=== PATIENT | male | born 1960 | race Caucasian/White ===

== ENCOUNTER 2024-12-26 15:19 | Outpatient (AMB) | payer OTHER, SELFPAY ==
--- NOTE | 2024-12-26 15:21 | A.OFFVIS_ITS ---
Intake Visit Reasons: elevated PSA and BPH PSA 6.77 Intake Note: Patient is present for ELEVATED PSA AND BPH PSA 6.77 Urology Medication:TAMSULOSIN,SILDENAFIL Antibiotic Allergy:NONE Blood Thinner:ASPIRIN TODAY'S PVR:19ML'S Telephone Lines Repairer Required: No Allergies No Known Allergies Allergy (Verified 12/26/24 20:52) Medication List - Last Reconciled 12/26/24 by ERWIN JesusP- aspirin 81 mg PO DAILY atorvastatin 5 mg PO BEDTIME sildenafil mg PO tamsulosin 0.8 mg PO DAILY HPI Comments Details: Robert Prince is a 64-year-old male patient of Dr. Chaudhary. He has a past medical history of GERD, hemodialysis post Whipple, history of tracheotomy after Whipple, hyperlipidemia, and malignant neoplasm of pancreas. He presents to the office today as a new patient for an elevated PSA and BPH. In discussion with the patient today he reports having previously followed up with Pooja in [place] through [facility]. He reports a proximally 6 months ago he underwent a prostate MRI as well as a prostate biopsy and was told he did not have prostate cancer. In review of patient's chart there are no previous urological notes however PCP no mentions patient undergone a prostate biopsy which revealed some irregular cells, though it was not concerning. He reports last PSA earlier this year was 6.6. He reports previous urologist had recommended he undergo a Rezum procedure on his prostate as he does experience issues with nocturia. We did discussed the importance of signing medical release form to obtain previous urology records for continuity of care. He is enquiring further workup for prostate procedure. We did discuss follow-up with Dr. Glass for in office cystoscopy. Information provided regarding in office cystoscopy as well as GreenLight laser of the prostate. He is currently on Flomax and does feel this is helpful. He is requesting refill. In office urinalysis results reviewed with the patient today. PVR 19 mL. All questions were answered to the best of my ability. He otherwise offers no other issues or concerns at this time. Review of Systems Const All systems reviewed & are unremarkable except as noted in HPI and below Physical Exam Const General: cooperative, healthy appearing, comfortable, no acute distress, well developed, alert and awake Orientation/consciousness: patient oriented x3 Limitations: no limitations HEENT Head: Yes normal to inspection, Yes normocephalic and Yes atraumatic Ears: hearing grossly normal bilaterally Eyes General: appearance normal, both eyes and all related structures Neck Neck: Yes normal visual inspection and Yes trachea midline Chest Chest palpation & inspection: normal inspection of the chest Resp Effort & Inspection: normal respiratory effort and able to speak in complete sen tences Cardio Rate: regular rate GI Inspection: Yes normal to inspection General: Yes no CVA tenderness Back/Spine/Pelvis Back: no CVA tenderness Skin General skin exam: no rashes or lesions noted Neuro General: patient oriented x3 Extrem General: Yes normal to inspection Psych Appearance: grossly normal and well kempt Mental Status: mental status grossly normal Speech and movement: Normal speech and movement present and Clear speech present Affect: normal affect Attitude: cooperative Thought process: Normal thought process present Thought content: Normal thought content present Insight: Fair insight present (Psych) Judgement: Fair judgement present (Psych) Office Procedures Post Void Residual Post Residual Void Post Void Residual (PVR): 19 24542-Pvto Void Residual by ultrasound Results AMB Urinalysis, Automated UA Leukoctes 0 Estela/uL Last Edit by JACOBY Montes on 12/26/24 15:41 UA Nitrite Negative Last Edit by Deandre Srinivasan CCM on 12/26/24 15:41 UA Urobilinogen 0.2 mg/dL Last Edit by JACOBY Montes on 12/26/24 15:4 1 UA Protein 0 mg/dL Last Edit by Deandre Srinivasan CCM on 12/26/24 15:41 UA pH 6.0 Last Edit by Deandre Srinivasan CCM on 12/26/24 15:41 UA Blood 0 Shlomo/uL Last Edit by Deandre Srinivasan CCM on 12/26/24 15:41 UA Specific Lincoln 1.020 Last Edit by JACOBY Montes on 12/26/24 15: 41 UA Ketone Negative Last Edit by JACOBY Montes on 12/26/24 15:41 UA Bilirubin 0 mg/dL Last Edit by JACOBY Montes on 12/26/24 15:41 UA Glucose 0 mg/dL Last Edit by Deandre Srinivasan CCM on 12/26/24 15:41 Results Reviewed Results Reviewed: Laboratory Last Values Urine pH (Auto) 6.0 12/26/24 15:26 Specific Lincoln (Auto) 1.020 12/26/24 15:26 Urine Protein (Auto) 0 mg/dL 12/26/24 15:26 Glucose (UA)(Auto) 0 mg/dL 12/26/24 15:26 Urine Ketones (Auto) Negative 12/26/24 15:26 Urine Blood (Auto) 0 Shlomo/uL 12/26/24 15:26 Urine Nitrite (Auto) Negative 12/26/24 15:26 Urine Bilirubin (Auto) 0 mg/dL 12/26/24 15:26 Urine Urobilinogen (Auto) 0.2 mg/dL 12/26/24 15:26 Leukocyte Esterase (Auto) 0 Estela/uL 12/26/24 15:26 Assessment & Plan Assessment & Plan (1) Elevated PSA: Code(s): R97.20 - Elevated prostate specific antigen [PSA] Category: Medical (2) BPH loc w urin obs/LUTS: Code(s): N40.1 - Benign prostatic hyperplasia with lower urinary tract symptoms Category: Medical Plan In office urinalysis results reviewed with the patient today; as noted above. PVR 19 mL. Previous PCP notes were reviewed; as noted above. Medical release form was signed will attempt to obtain previous urology records for continuity of care. Information was given regarding in office cystoscopy as well as GreenLight laser of the prostate. Refill provided on tamsulosin. We did discussed initiation of finasteride We did discuss potential causes of nocturia as well as further treatment options and risks and benefits of these treatment options. All questions were answered. Follow-up next available in office cystoscopy with Dr. Glass; or sooner with any issues, concerns, and or questions. Orders: Orders AMB Urinalysis Automated Today Z13.9 - Encounter for screening, unspecified PSA,Total (Free>4and<10) Today N40.1 - Benign prostatic hyperplasia with lower urinary tract symptoms, R97.20 - Elevated prostate specific antigen [PSA] Patient Instructions: The patient had an opportunity to ask questions regarding the treatment plan. All questions were answered. Physical exam, labs, and imaging were discussed and reviewed in detail. As well as risks, benefits, and discussion of treatment choices. No major barriers to understanding were identified. The patient expressed understanding and agreement with the above treatment plan. The patient was made aware they should contact our office by phone for worsening of their current condition, the appearance of new symptoms, or with any questions or concerns. Compliance is encouraged with any medications and follow up testing that is ordered. It is a privilege to be allowed the opportunity to participate in? your urological care.? Again, if you have any questions or concerns If you have any questions or concerns please do not hesitate to contact me. The office is [phone]. This note is constructed using voice recognition software. While every effort has been made to ensure accuracy biofuels plant manager errors may have been included. Yours sincerely, MAGALIS Jesus Coding Level of Care Code New Pt Level 4 (28387) Diagnoses Elevated PSA R97.20 BPH loc w urin obs/LUTS N40.1 CPT Codes Post Residual Void - PVR CPT Code: 78728-Zfev Void Residual by ultrasound ([id number])
--- OUTSIDE RECORDS SUMMARY | 2024-12-26 17:45 | XMS_ITS | Encounter Summary ---
Author Organization [facility] Address [address] [place] [address] Phone Care Team Providers Care Motor Carrier Inspector Name Role Phone Delon Kaur MD Primary Care Provider [phone] Gal Hernandez MD Unavailable [phone] Yumi Chaudhary MD Primary Care Provider [phone] Yumi Chaudhary MD Unavailable Encounter Details Date Type Department Care Team (Late st Contact Info) Description 09/27/2020 Procedure Pass [facility] [address] [place] [address] Social History Tobacco Use Types Packs/Day Years Used Date Smoking Tobacco: Never Smokeless Tobacco: Never Alcohol Use Standard Drinks/Week Comments Not Currently 5 (1 standard drink = 0.6 oz pure alcohol) I have not been drinking hardly since the appendectomy Sex and Gender Information Value Date Recorded Sex Assigned at Male 07/16/2020 1:37 PM EDT Legal Sex Male 9:47 PM EDT Gender Identity Male 07/16/2020 1:37 PM EDT Sexual Orientation Straight 07/16/2020 1: 37 PM EDT documented as of this encounter Plan of Treatment Upcoming Encounters Date Type Department Care Team (Late st Contact Info) Description 05/11/2024 Procedure Pass [facility] MR Imaging, [place] [address] [place] [address] 02/14/2025 3:00 PM EST Office Visit [facility] [place] [facility] [address] [facility] [address] [place] [address] Yumi Chaudhary MD [address] [facility] [place] [address] [email or web address] 05/17/2025 9:15 AM EST Appointment [facility] MR Imaging, [place] [address] [place] [address] Cali Juarez MD 75 [place] [address] [email or web address] 05/17/2025 1:00 PM EST Office Visit [facility] Surgical Oncology [address] [facility] [place] [address] Cali Juarez MD [address] [place] [address] [email or web address] documented as of this encounter Visit Diagnoses Not on filedocumented in this encounter Additional Health Concerns Infection Onset Date Last Indicated Resolved Time 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 Date of last exposure 11/13/20 11/14/2020 11/14/2020 11/28/2020 1:43 AM E DT documented as of this encounter Care Teams Motor Carrier Inspector Relationship Specialty Start Date End Date Delon Kaur MD [address] [place] [address] PCP - General Family Medicine 05/24/17 01/12/22 Yumi Chaudhary MD [address] [facility] [place] [address] [email or web address] PCP - General Family Medicine 01/13/22 Gal Hernandez MD 9 [place] [address] 07/23/20 Yumi Chaudhary MD [address] [place] [address] [email or web address] Insurance Assigned Provider 07/09/23 documented as of this encounter Additional Source Comments The information contained in this document represents components of the legal health record. It is not the complete legal health record.[facility]
--- OUTSIDE RECORDS SUMMARY | 2024-12-26 17:45 | XMS_ITS | Encounter Summary ---
Author Organization [facility] Address [address] [place] [address] Phone Care Team Providers Care Buttermaker Continuous Churn Name Role Phone Delon Kaur MD Primary Care Provider [phone] Gal Hernandez MD Unavailable [phone] Yumi Chaudhary MD Primary Care Provider [phone] Yumi Chaudhary MD Unavailable Encounter Details Date Type Department Care Team (Late st Contact Info) Description 09/27/2020 Procedure Pass [facility] 75 [place] [address] Social History Tobacco Use Types Packs/Day Years [...] st Contact Info) Description 05/11/2024 Procedure Pass [facility] MR Imaging, [place] [address] [place] [address] 02/14/2025 3:00 PM EST Office Visit [facility] [place] [facility] [address] [facility] [address] [place] [address] Yumi Chaudhary MD 15 [facility] 201 [place] [address] [email or web address] 05/17/2025 9:15 AM EST Appointment [facility] MR Imaging, [place] [address] [place] [address] Cali Juarez MD 75 [place] [address] [email or web address] 05/17/2025 1:00 PM EST Office Visit [facility] Surgical Oncology [address] [facility] [place] [address] Cali Juarez MD [address] [place] [address] [email or web address] documented as of this encounter Visit Diagnoses Not on filedocumented in this encounter Additional Health Concerns Infection Onset Date Last Indicated Resolved Time 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 Date of last exposure 11/13/20 11/14/2020 11/14/2020 11/28/2020 1:43 AM E DT documented as of this encounter Care Teams Buttermaker Continuous Churn Relationship Specialty Start Date End Date Delon Kaur MD [address] [place] [address] PCP - General Family Medicine 05/24/17 01/12/22 Yumi Chaudhary MD 15 [facility]. [address] [place] [address] [email or web address] PCP - General Family Medicine 01/13/22 Gal Hernadnez MD 9 [place] [address] 07/23/20 Yumi Chaudhary MD [address] [place] [address] [email or web address] Insurance Assigned Provider 07/09/23 documented as of this encounter Additional Source Comments The information contained in this document represents components of the legal health record. It is not the complete legal health record.[facility]
--- OUTSIDE RECORDS SUMMARY | 2024-12-26 17:45 | XMS_ITS | Encounter Summary ---
Author Organization [facility] Address [address] [facility] [address] [place] [address] Phone Care Team Providers Care Storage Solutions Architect Name Role Phone Delon Kaur MD Primary Care Provider [phone] Gal Hernandez MD Unavailable [phone] Yumi Chaudhary MD Primary Care Provider [phone] Yumi Chaudhary MD Unavailable Encounter Details Date Type Department Care Team (Late st Contact Info) Description 08/22/2018 Procedure Pass [address] [place] [address] Social History Tobacco Use Types Packs/Day Years Used Date Smoking Tobacco: Never Smokeless Tobacco: Never Alcohol Use Standard Drinks/Week Comments Yes 5 (1 standard drink = 0.6 oz pur e alcohol) Sex and Gender Information Value Date Recorded Sex Assigned at Male 07/16/2020 1:37 PM EDT Legal Sex Male 9:47 PM EDT Gender Identity Male 07/16/2020 1:37 PM EDT Sexual Orientation Straight 07/16/2020 1: 37 PM EDT documented as of this encounter Plan of Treatment Upcoming Encounters Date Type Department Care Team (Late st Contact Info) Description 05/11/2024 Procedure Pass [facility] MR Imaging, [place] [address] [place] [address] 02/14/2025 3:00 PM EST Office Visit [facility] Care [address] [facility] [address] [place] [address] Yumi Chaudhary MD 15 [facility] [address] [place] [address] [email or web address] 05/17/2025 9:15 AM EST Appointment [facility] MR Imaging, [place] [address] [place] [address] Cali Juarez MD 75 [place] [address] [email or web address] 05/17/2025 1:00 PM EST Office Visit [facility] Surgical Oncology 45 [facility]3 [place] [address] Cali Juarez MD [address] [place] [address] [email or web address] documented as of this encounter Visit Diagnoses Not on filedocumented in this encounter Additional Health Concerns Infection Onset Date Last Indicated Resolved Time 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 Date of last exposure 11/13/20 11/14/2020 11/14/2020 11/28/2020 1:43 AM E DT documented as of this encounter Care Teams Storage Solutions Architect Relationship Specialty Start Date End Date Delon Kaur MD [address] [place] [address] PCP - General Family Medicine 05/24/17 01/12/22 Yumi Chaudhary MD 15 [facility]. 201 [place] [address] [email or web address] PCP - General Family Medicine 01/13/22 Gal Hernandez MD [address] [place] [address] 07/23/20 Yumi Chaudhary MD [address] [place] [address] [email or web address] Insurance Assigned Provider 07/09/23 documented as of this encounter Additional Source Comments The information contained in this document represents components of the legal health record. It is not the complete legal health record.[facility]
--- OUTSIDE RECORDS SUMMARY | 2024-12-26 17:45 | XMS_ITS | Encounter Summary ---
Author Organization [facility] Address [address] [facility] [address] [place] [address] Phone Care Team Providers Care Communications Senior Associate Name Role Phone Delon Kaur MD Primary Care Provider [phone] Gal Hernandez MD Unavailable [phone] Yumi Chaudhary MD Primary Care Provider [phone] Yumi Chaudhary MD Unavailable Encounter Details Date Type Department Care Team (Late st Contact Info) Description 08/21/2020 Procedure Pass [facility] Periop 75 [place] [address] Social History Tobacco Use Types Packs/Day Years [...] PM EDT documented as of this encounter Functional Status * Calculated C-SSRS Risk Score (Lifetime/Recent) Answer Date of Assessment Author No Risk Indicated 08/22/2020 9:00 PM EDT Hollie Gomez, RN * [place] Suicide Severity Rating Scale (Screener/Recent Self-Report) Question Answer Date of Assessment Author 1. Wish to be (Past 1 Month) No 9:00 PM EDT Hollie Gomez, RN 2. Non-Specific Active Suici niraj Thoughts (Past 1 Month) No 08/22/2020 9:00 PM EDT Hollie Gomez, RN 6. Suicidal Behavior (Lifetime) No 9:00 PM EDT Hollie Gomez RN documented as of this encounter Plan of Treatment Upcoming Encounters Date Type Department Care Team (Late st Contact Info) Description 05/11/2024 Procedure Pass [facility] MR Imaging, [place] [address] [place] [address] 02/14/2025 3:00 PM EST Office Visit [facility] Primary Care [address] [facility] [address] [place] [address] Yumi Chaudhary MD [address] [facility] [address] [place] [address] [email or web address] 05/17/2025 9:15 AM EST Appointment [facility] MR Imaging, [place] [address] [place] [address] Cali Juarez MD [address] [place] [address] [email or web address] 05/17/2025 1:00 PM EST Office Visit [facility] Surgical Oncology [address] [facility]3 [place] [address] Cali Juarez MD [address] [place] [address] [email or web address] documented as of this encounter [...] documented as of this encounter Care Teams Communications Senior Associate Relationship Specialty Start Date End Date Delon Kaur MD [address] [place] [address] PCP - General Family Medicine 05/24/17 01/12/22 Yumi Chaudhary MD 15 [facility] 201 [place] [address] [email or web address] PCP - General Family Medicine 01/13/22 Gal Hernandez MD [address] [place] [address] 07/23/20 Yumi Chaudhary MD 15 [facility] 201 [place] [address] [email or web address] Insurance Assigned Provider 07/09/23 documented as of this encounter Additional Source Comments The information contained in this document represents components of the legal health record. It is not the complete legal health record.[facility]
--- OUTSIDE RECORDS SUMMARY | 2024-12-26 17:45 | XMS_ITS | Encounter Summary ---
Author Organization [facility] Address [address] [facility] [address] [place] [address] Phone Care Team Providers Care Language Pathologist Name Role Phone Delon Kaur MD Primary Care Provider [phone] Gal Hernandez MD Unavailable [phone] Yumi Chaudhary MD Primary Care Provider [phone] Yumi Chaudhary MD Unavailable Encounter Details Date Type Department Care Team (Late st Contact Info) Description 10/06/2021 Procedure Pass [facility] Periop [address] [place] [address] Social History Tobacco Use Types Packs/Day Years Used Date Smoking Tobacco: Never Smokeless Tobacco: Never Alcohol Use Standard Drinks/Week Comments Yes 5 (1 standard drink = 0.6 oz pur e alcohol) 5 drinks per week Sex and Gender Information Value Date Recorded Sex Assigned at Male 07/16/2020 1:37 PM EDT Legal Sex Male 9:47 PM EDT Gender Identity Male 07/16/2020 1:37 PM EDT Sexual Orientation Straight 07/16/2020 1: 37 PM EDT documented as of this encounter Functional Status * Calculated C-SSRS Risk Score (Lifetime/Recent) Answer Date of Assessment Author No Risk Indicated 10/06/2021 8:43 PM EDT Deisi Klein RN * [place] Suicide Severity Rating Scale (Screener/Recent Self-Report) Question Answer Date of Assessment Author 1. Wish to be (Past 1 Month) No 022 8:43 PM EDT Deisi Gerard, MICHELLE 2. Non-Specific Active Suici niraj Thoughts (Past 1 Month) No 10/06/2021 8:43 PM EDT Sn yesenia Gerard, MICHELLE 6. Suicidal Behavior (Lifetime) No 8:43 PM EDT Deisi Gerard RN documented as of this encounter Plan of Treatment Upcoming Encounters Date Type Department Care Team ([facility] st Contact Info) Description 05/11/2024 Procedure Pass [facility] MR Imaging, [place] [address] [place] [address] 02/14/2025 3:00 PM EST Office Visit [facility] Primary Care [address] [facility] [address] [place] [address] Yumi Chaudhary MD 15 [facility] [address] [place] [address] [email or web address] 05/17/2025 9:15 AM EST Appointment [facility] Imaging, [place] [address] [place] [address] Cali Juarez MD [address] [place] [address] [email or web address] 05/17/2025 1:00 PM EST Office Visit [facility] Surgical Oncology 45 [facility] [address] [place] [address] Cali Juarez MD [address] [place] [address] [email or web address] documented as of this encounter Visit Diagnoses Not on filedocumented in this encounter Additional Health Concerns Infection Onset Date Last Indicated Resolved Time 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 09/25/2020 01/06/2023 1:21 AM EDT documented as of this encounter Care Teams Language Pathologist Relationship Specialty Start Date End Date Delon Kaur MD [address] [place] [address] PCP - General Family Medicine 05/24/17 01/12/22 Yumi Chaudhary MD [address] [place] [address] [email or web address] PCP - General Family Medicine 01/13/22 Gal Hernandez MD [address] [place] [address] 07/23/20 Yumi Chaudhary MD [address] [place] [address] [email or web address] Insurance Assigned Provider 07/09/23 documented as of this encounter Additional Source Comments The information contained in this document represents components of the legal health record. It is not the complete legal health record.[facility]
--- OUTSIDE RECORDS SUMMARY | 2024-12-26 17:45 | XMS_ITS | Encounter Summary ---
Author Organization [facility] Address [address] [place] [address] Phone Care Team Providers Care Automotive Fleet Supervisor Name Role Phone Delon Kaur MD Primary Care Provider Gal Hernandez MD Unavailable [phone] Yumi Chaudhary MD Primary Care Provider [phone] Yumi Chaudhary MD Unavailable Encounter Details Date Type Department Care Team (Late st Contact Info) Description 09/04/2020 Procedure Pass [facility] 75 [place] [address] Social History Tobacco Use Types Packs/Day Years [...] st Contact Info) Description 05/11/2024 Procedure Pass [facility] MR Imaging, [place] [address] [place] [address] 02/14/2025 3:00 PM EST Office Visit [facility] [place] [facility] 15 [facility] [address] [place] [address] Yumi Chaudhary MD 15 [facility]. 201 [place] [address] [email or web address] 05/17/2025 9:15 AM EST Appointment [facility] MR Imaging, [place] [address] [place] [address] Cali Juarez MD 75 [place] [address] [email or web address] 05/17/2025 1:00 PM EST Office Visit [facility] Surgical Oncology 45 [facility]3 [place] [address] Cali Juarez MD [address] [place] [address] [email or web address] documented as of this encounter Visit Diagnoses Not on filedocumented in this encounter Additional Health Concerns Infection Onset Date Last Indicated Resolved Time 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 Date of last exposure 11/13/20 11/14/2020 11/14/2020 11/28/2020 1:43 AM E DT documented as of this encounter Care Teams Automotive Fleet Supervisor Relationship Specialty Start Date End Date Delon Kaur MD [address] [place] [address] PCP - General Family Medicine 05/24/17 01/12/22 Yumi Chaudhary MD 15 [facility]. 201 [place] [address] [email or web address] PCP - General Family Medicine 01/13/22 Gal Hernandez MD 9 [place] [address] 07/23/20 Yumi Chaudhary MD [address] [place] [address] [email or web address] Insurance Assigned Provider 07/09/23 documented as of this encounter Additional Source Comments The information contained in this document represents components of the legal health record. It is not the complete legal health record.[facility]
--- OUTSIDE RECORDS SUMMARY | 2024-12-26 17:45 | XMS_ITS | Encounter Summary ---
Author Organization [facility] Address [address] [facility] [address] [place] [address] Phone Care Team Providers Care Swatch Checker Name Role Phone Delon Kaur MD Primary Care Provider [phone] Gal Hernandez MD Unavailable [phone] Yumi Chaudhary MD Primary Care Provider [phone] Yumi Chaudhary MD Unavailable Encounter Details Date Type Department Care Team (Late st Contact Info) Description 09/25/2020 Procedure Pass [facility] Periop 75 [place] [address] Social History Tobacco Use Types Packs/Day Years [...] st Contact Info) Description 05/11/2024 Procedure Pass [facility] MR Imaging, [place] [address] [place] [address] 02/14/2025 3:00 PM EST Office Visit [facility] [place] [facility] 15 [facility] [address] [place] [address] Yumi Chaudhary MD 15 [facility]. [address] [place] [address] [email or web address] 05/17/2025 9:15 AM EST Appointment [facility] MR Imaging, [place] [address] [place] [address] Cali Juarez MD 75 [place] [address] [email or web address] 05/17/2025 1:00 PM EST Office Visit [facility] Surgical Oncology 45 [facility]3 [place] [address] Cali Juarez MD [address] [place] [address] [email or web address] documented as of this encounter Visit Diagnoses Not on filedocumented in this encounter Additional Health Concerns Infection Onset Date Last Indicated Resolved Time 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 Date of last exposure 11/13/20 11/14/2020 11/14/2020 11/28/2020 1:43 AM E DT documented as of this encounter Care Teams Swatch Checker Relationship Specialty Start Date End Date Delon Kaur MD [address] [place] [address] PCP - General Family Medicine 05/24/17 01/12/22 Yumi Chaudhary MD 15 [facility]. [address] [place] [address] [email or web address] PCP - General Family Medicine 01/13/22 Gal Hernandez MD 7[address] [place] [address] 07/23/20 Yumi Chaudhary MD [address] [place] [address] [email or web address] Insurance Assigned Provider 07/09/23 documented as of this encounter Additional Source Comments The information contained in this document represents components of the legal health record. It is not the complete legal health record.[facility]
--- OUTSIDE RECORDS SUMMARY | 2024-12-26 17:45 | XMS_ITS | Encounter Summary ---
Author Organization [facility] Address [address] [facility] [address] [place] [address] Phone Care Team Providers Care Programmer Analyst Name Role Phone Delon Kaur MD Primary Care Provider [phone] Gal Hernandez MD Unavailable [phone] Yumi Chaudhary MD Primary Care Provider [phone] Yumi Chaudhary MD Unavailable Encounter Details Date Type Department Care Team (Late st Contact Info) Description 08/21/2020 Procedure Pass [facility] Periop 75 [place] [address] Social History Tobacco Use Types Packs/Day Years [...] 9:00 PM EDT Hollie Gomez, RN * [place] Suicide Severity Rating Scale (Screener/Recent Self-Report) Question [...] st Contact Info) Description 05/11/2024 Procedure Pass [facility] MR Imaging, [place] 60 [place] [address] 02/14/2025 3:00 PM EST Office Visit [facility] Care 15 [facility] [address] [place] [address] Yumi Chaudhary MD 15 [facility] Nigel. 201 [place] [address] [email or web address] 05/17/2025 9:15 AM EST Appointment [facility] MR Imaging, [place] 60 [place] [address] Cali Juarez MD [address] [place] [address] [email or web address] 05/17/2025 1:00 PM EST Office Visit [facility] Surgical Oncology 45 [facility] ASB2-3 [place] [address] Cali Juarez MD [address] [place] [address] [email or web address] documented as of this encounter Visit Diagnoses Not on filedocumented in this encounter Additional Health Concerns Infection Onset Date Last Indicated Resolved Time 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 Date of last exposure 11/13/20 11/14/2020 11/14/2020 11/28/2020 1:43 AM E DT documented as of this encounter Care Teams Programmer Analyst Relationship Specialty Start Date End Date Delon Kaur MD [address] [place] [address] PCP - General Family Medicine 05/24/17 01/12/22 Yumi Chaudhary MD 15 [facility] 201 [place] [address] [email or web address] PCP - General Family Medicine 01/13/22 Gal Hernandez MD [address] [place] [address] 07/23/20 Yumi Chaudhary MD 15 [facility] 201 [place] [address] [email or web address] Insurance Assigned Provider 07/09/23 documented as of this encounter Additional Source Comments The information contained in this document represents components of the legal health record. It is not the complete legal health record.[facility]
--- OUTSIDE RECORDS SUMMARY | 2024-12-26 17:45 | XMS_ITS | Encounter Summary ---
Author Organization [facility] Address [address] [facility] [address] [place] [address] Phone Care Team Providers Care Project Production Engineer Name Role Phone Delon Kaur MD Primary Care Provider [phone] Gal Hernandez MD Unavailable [phone] Yumi Chaudhary MD Primary Care Provider [phone] Yumi Chaudhary MD Unavailable Encounter Details Date Type Department Care Team (Late st Contact Info) Description 10/03/2021 Transcribe Orders [facility] Specimen Processing 30 [place] [address] Delon Kaur MD [address] [place] [address] Social History Tobacco Use Types Packs/Day Years [...] 8:43 PM EDT Deisi Klein RN * [place] Suicide Severity Rating Scale (Screener/Recent Self-Report) Question Answer Date of Assessment Author 1. Wish to be (Past 1 Month) No 022 8:43 PM EDT Deisi Gerard RN 2. Non-Specific Active Suici niraj Thoughts (Past 1 Month) No 10/06/2021 8:43 PM EDT Sn yesenia Gerard RN 6. Suicidal Behavior (Lifetime) No 8:43 PM EDT Deisi Gerard RN documented as of this encounter Plan of Treatment Upcoming Encounters Date Type Department Care Team (Late st Contact Info) Description 05/11/2024 Procedure Pass [facility] MR Lai, Gabriela [address] [place] [address] 02/14/2025 3:00 PM EST Office Visit [facility] 15 [facility] [address] [place] [address] Yumi Chaudhary MD 15 [facility] Nigel. 201 [place] [address] [email or web address] 05/17/2025 9:15 AM EST Appointment [facility] Gabriela Bowman 60 [place] [address] Cali Juarez MD [address] [place] [address] [email or web address] 05/17/2025 1:00 PM EST Office Visit [facility] Surgical Oncology 45 [facility] ASB2-3 [place] [address] Cali Juarez MD [address] [place] [address] [email or web address] documented as of this encounter Visit Diagnoses Not on filedocumented in this encounter Additional Health Concerns Infection Onset Date Last Indicated Resolved Time 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 09/25/2020 01/06/2023 1:21 AM EDT documented as of this encounter Care Teams Project Production Engineer Relationship Specialty Start Date End Date Delon Kaur MD [address] [place] [address] PCP - General Family Medicine 05/24/17 01/12/22 Yumi Chaudhary MD [address] [place] [address] [email or web address] PCP - General Family Medicine 01/13/22 Gal Hernandez MD [address] [place] [address] 07/23/20 Yumi Chaudhary MD [address] [place] [address] 201 [place] [address] [email or web address] Insurance Assigned Provider 07/09/23 documented as of this encounter Additional Source Comments The information contained in this document represents components of the legal health record. It is not the complete legal health record.[facility]
--- OUTSIDE RECORDS SUMMARY | 2024-12-26 17:45 | XMS_ITS | Encounter Summary ---
Author Organization [facility] Address [address] [facility] [address] [address] [place] [address] Phone Care Team Providers Care Director Index Name Role Phone Delon Kaur MD Primary Care Provider Gal Hernandez MD Unavailable [phone] Yumi Chaudhary MD Primary Care Provider [phone] Yumi Chaudhary MD Unavailable Encounter Details Date Type Department Care Team (Late st Contact Info) Description 05/15/2021 Procedure Pass [facility] [address] [place] [address] Social History Tobacco Use Types Packs/Day Years Used Date Smoking Tobacco: Never Smokeless Tobacco: Never Alcohol Use Standard Drinks/Week Comments Not Currently 5 (1 standard drink = 0.6 oz pur e alcohol) Remote moderate hx, socially Sex and Gender Information Value Date Recorded Sex Assigned at Male 07/16/2020 1:37 PM EDT Legal Sex Male 9:47 PM EDT Gender Identity Male 07/16/2020 1:37 PM EDT Sexual Orientation Straight 07/16/2020 1: 37 PM EDT documented as of this encounter Plan of Treatment Upcoming Encounters Date Type Department Care Team (Late st Contact Info) Description 05/11/2024 Procedure Pass [facility] MR Imaging, [place] [address] [place] [address] 02/14/2025 3:00 PM EST Office Visit [facility] [place] Primary Care 15 [facility] [address] [place] [address] Yumi Chaudhary MD 15 [facility] Nigel. 201 [place] [address] [email or web address] 05/17/2025 9:15 AM EST Appointment [facility] MR Imaging, [place] [address] [place] [address] Cali Juarez MD 75 [place] [address] [email or web address] 05/17/2025 1:00 PM EST Office Visit [facility] Surgical Oncology 45 [facility]3 [place] [address] Cali Juarez MD [address] [place] [address] [email or web address] documented as of this encounter Visit Diagnoses Not on filedocumented in this encounter Additional Health Concerns Infection Onset Date Last Indicated Resolved Time 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 201 [place] [address] [email or web address] PCP - General Family Medicine 01/13/22 Gal Hernandez MD [address] [place] [address] 07/23/20 Yumi Chaudhary MD 15 [place] [address] [email or web address] Insurance Assigned Provider 07/09/23 documented as of this encounter Additional Source Comments The information contained in this document represents components of the legal health record. It is not the complete legal health record.[facility]
--- OUTSIDE RECORDS SUMMARY | 2024-12-26 17:45 | XMS_ITS | Encounter Summary ---
Author Organization [facility] Address [address] [place] [address] Phone Care Team Providers Care Hydraulic Mechanic Name Role Phone Delon Kaur MD Primary Care Provider Gal Hernandez MD Unavailable [phone] Yumi Chaudhary MD Primary Care Provider [phone] Yumi Chaudhary MD Unavailable Encounter Details Date Type Department Care Team (Late st Contact Info) Description 09/27/2020 Procedure Pass [facility] 75 [place] [address] Social History Tobacco Use Types Packs/Day Years [...] [facility] MR Imaging, [place] [address] [place] [address] 02/14/2025 3:00 PM EST Office Visit [facility] [place] Primary Care 15 [facility] [address] [place] [address] Yumi Chaudhary MD 15 [facility]. 201 [place] [address] [email or web address] 05/17/2025 9:15 AM EST Appointment [facility] MR Imaging, [place] [address] [place] [address] Cali Juarez MD 75 [place] [address] [email or web address] 05/17/2025 1:00 PM EST Office Visit [facility] Surgical Oncology 45 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 Date of last exposure 11/13/20 11/14/2020 11/14/2020 11/28/2020 1:43 AM E DT documented as of this encounter Care Teams Hydraulic Mechanic Relationship Specialty Start Date End Date Delon Kaur MD [address] [place] [address] PCP - General Family Medicine 05/24/17 01/12/22 Yumi Chaudhary MD 15 [facility]. 201 [place] [address] [email or web address] PCP - General Family Medicine 01/13/22 Gal Hernandez MD 9 [place] [address] 07/23/20 Yumi Chaudhary MD [address] [place] [address] [email or web address] Insurance Assigned Provider 07/09/23 documented as of this encounter Additional Source Comments The information contained in this document represents components of the legal health record. It is not the complete legal health record.[facility]
--- OUTSIDE RECORDS SUMMARY | 2024-12-26 17:45 | XMS_ITS | Encounter Summary ---
Author Organization [facility] Address [address] [facility] [address] [place] [address] Phone Care Team Providers Care Mineral Mixer Name Role Phone Delon Kaur MD Primary Care Provider [phone] Gal Hernandez MD Unavailable [phone] Yumi Chaudhary MD Primary Care Provider [phone] Yumi Chaudhary MD Unavailable Encounter Details Date Type Department Care Team (Late st Contact Info) Description 08/21/2020 Procedure Pass [facility] Periop 75 [place] [address] Social History Tobacco Use Types [...] 9:00 PM EDT Hollie Gomez, RN * [place] Suicide Severity Rating Scale (Screener/Recent Self-Report) Question [...] st Contact Info) Description 05/11/2024 Procedure Pass [facility] MR Imaging, [place] 60 [place] [address] 02/14/2025 3:00 PM EST Office Visit [facility] Primary Care 15 [facility] [address] [place] [address] Yumi Chaudhary MD 15 [facility] Nigel. 201 [place] [address] [email or web address] 05/17/2025 9:15 AM EST Appointment [facility] MR Imaging, [place] 60 [place] [address] Cali Juarez MD [address] [place] [address] [email or web address] 05/17/2025 1:00 PM EST Office Visit [facility] Surgical Oncology 45 [facility] ASB2-3 [place] [address] Cali Juarez MD [address] [place] [address] [email or web address] documented as of this encounter [...] documented as of this encounter Care Teams Mineral Mixer Relationship Specialty Start Date End Date Delon Kaur MD [address] [place] [address] PCP - General Family Medicine 05/24/17 01/12/22 Yumi Chaudhary MD 15 [facility] 201 [place] [address] [email or web address] PCP - General Family Medicine 01/13/22 Gal Hernandez MD [address] [place] [address] 07/23/20 Ymui Chaudhary MD 15 [facility] 201 [place] [address] [email or web address] Insurance Assigned Provider 07/09/23 documented as of this encounter Additional Source Comments The information contained in this document represents components of the legal health record. It is not the complete legal health record.[facility]
--- OUTSIDE RECORDS SUMMARY | 2024-12-26 17:45 | XMS_ITS | Encounter Summary ---
Author Organization [facility] Address [address] [facility] [address] [place] [address] Phone Care Team Providers Care Pantry Cook Name Role Phone Delon Kaur MD Primary Care Provider [phone] Gal Hernandez MD Unavailable [phone] Yumi Chaudhary MD Primary Care Provider [phone] Yumi Chaudhary MD Unavailable Encounter Details Date Type Department Care Team (Late st Contact Info) Description 08/31/2020 Procedure Pass [facility] 75 [place] [address] Social History Tobacco Use Types Packs/Day Years [...] st Contact Info) Description 05/11/2024 Procedure Pass [facility] MR Imaging, [place] [address] [place] [address] 02/14/2025 3:00 PM EST Office Visit [facility] [place] Primary Care 15 [facility] [address] [place] [address] Yumi Chaudhary MD 15 [facility]. 201 [place] [address] [email or web address] 05/17/2025 9:15 AM EST Appointment [facility] MR Imaging, [place] [address] [place] [address] Cali Juarez MD 75 [place] [address] [email or web address] 05/17/2025 1:00 PM EST Office Visit [facility] Surgical Oncology 45 [facility]3 [place] [address] Cali Juarez MD [address] [place] [address] [email or web address] documented as of this encounter [...] documented as of this encounter Care Teams Pantry Cook Relationship Specialty Start Date End Date Delon Kaur MD [address] [place] [address] PCP - General Family Medicine 05/24/17 01/12/22 Yumi Chaudhary MD 15 [facility]. 201 [place] [address] [email or web address] PCP - General Family Medicine 01/13/22 Gal Hernandez MD 9 [place] [address] 07/23/20 Yumi Chaudhary MD [address] [place] [address] [email or web address] Insurance Assigned Provider 07/09/23 documented as of this encounter Additional Source Comments The information contained in this document represents components of the legal health record. It is not the complete legal health record.[facility]
--- OUTSIDE RECORDS SUMMARY | 2024-12-26 17:45 | XMS_ITS | Encounter Summary ---
Author Organization [facility] Address [address] [facility] [address] [place] [address] Phone Care Team Providers Care Brake Repairer Hydraulic Name Role Phone Delon Kaur MD Primary Care Provider [phone] Gal Hernandez MD Unavailable [phone] Yumi Chaudhary MD Primary Care Provider [phone] Yumi Chaudhary MD Unavailable Encounter Details Date Type Department Care Team (Late st Contact Info) Description 02/20/2021 Procedure Pass [facility] CT Imaging, [address] [place] [address] Social History Tobacco Use Types Packs/Day Years [...] st Contact Info) Description 05/11/2024 Procedure Pass [facility] MR Imaging, [address] [place] [address] 02/14/2025 3:00 PM EST Office Visit [facility] [place] [facility] 15 [facility] [address] [place] [address] Yumi Chaudhary MD 15 [facility] [address] [place] [address] [email or web address] 05/17/2025 9:15 AM EST Appointment [facility] MR Imaging, [address] [place] [address] Cali Juarez MD 75 [place] [address] [email or web address] 05/17/2025 1:00 PM EST Office Visit [facility] Surgical Oncology 45 [facility]3 [place] [address] Cali Juarez MD [address] [place] [address] [email or web address] documented as of this encounter Visit Diagnoses Not on filedocumented in this encounter Additional Health Concerns Infection Onset Date Last Indicated Resolved Time 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 [place] [address] [email or web address] PCP - General Family Medicine 01/13/22 Gal Hernandez MD [address] [place] [address] 07/23/20 Yumi Chaudhary MD [address] [address] [email or web address] Insurance Assigned Provider 07/09/23 documented as of this encounter Additional Source Comments The information contained in this document represents components of the legal health record. It is not the complete legal health record.[facility]
--- OUTSIDE RECORDS SUMMARY | 2024-12-26 17:45 | XMS_ITS | Encounter Summary ---
Author Organization [facility] Address 399 [facility] [address] [place] [address] Phone Care Team Providers Care Steward/Stewardess Name Role Phone Delon Kaur MD Primary Care Provider [phone] Gal Hernandez MD Unavailable [phone] Yumi Chaudhary MD Primary Care Provider [phone] Yumi Chaudhary MD Unavailable Encounter Details Date Type Department Care Team (Late st Contact Info) Description 09/26/[address] [facility] Periop 75 [place] [address] Social History Tobacco Use Types Packs/Day Years [...] st Contact Info) Description 05/11/[address] [facility] MR Imaging, [address] [place] [address] 02/14/2025 3:00 PM EST Office Visit [facility] [place] [facility] 15 [facility] [address] [place] [address] Yumi Chaudhary MD 15 [facility]. [address] [place] [address] [email or web address] 05/17/2025 9:[address] [facility] MR Imaging, [address] [place] [address] Cali Juarez MD 75 [place] [address] [email or web address] 05/17/2025 1:00 PM EST Office Visit [facility] Surgical Oncology 45 [facility]3 [place] [address] Cali Juarez MD [address] [place] [address] [email or web address] documented as of this encounter [...] documented as of this encounter Care Teams Steward/Stewardess Relationship Specialty Start Date End Date Delon Kaur MD [address] [place] [address] PCP - General Family Medicine 05/24/17 01/12/22 Yumi Chaudhary MD 15 [facility]. [address] [place] [address] [email or web address] PCP - General Family Medicine 01/13/22 Gal Hernandez MD 7[address] [place] [address] 07/23/20 Yumi Chaudhary MD [address] [place] [address] [email or web address] Insurance Assigned Provider 07/09/23 documented as of this encounter Additional Source Comments The information contained in this document represents components of the legal health record. It is not the complete legal health record.[facility]
--- OUTSIDE RECORDS SUMMARY | 2024-12-26 17:45 | XMS_ITS | Encounter Summary ---
Author Organization [facility] Address [address] [facility] [address] [place] [address] Phone Care Team Providers Care Pumper Helper Name Role Phone Delon Kaur MD Primary Care Provider [phone] Gal Hernandez MD Unavailable [phone] Yumi Chaudhary MD Primary Care Provider [phone] Yumi Chaudhary MD Unavailable Encounter Details Date Type Department Care Team (Late st Contact Info) Description 02/20/2021 Procedure Pass [facility] CT Imaging, [address] [place] [address] Social History Tobacco Use Types Packs/Day Years [...] st Contact Info) Description 05/11/2024 Procedure Pass [facility] MR Imaging, [address] [place] [address] 02/14/2025 3:00 PM EST Office Visit [facility] [place] [facility] 15 [facility] [address] [place] [address] Yumi Chaudhary MD 15 [facility] [address] [place] [address] [email or web address] 05/17/2025 9:15 AM EST Appointment [facility] MR Imaging, [address] [place] [address] Cali Juarez MD 75 [place] [address] [email or web address] 05/17/2025 1:00 PM EST Office Visit [facility] Surgical Oncology 45 [facility]3 [place] [address] Cali Juarez MD [address] [place] [address] [email or web address] documented as of this encounter Visit Diagnoses Not on filedocumented in this encounter Additional Health Concerns Infection Onset Date Last Indicated Resolved Time 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 [place] [address] [email or web address] PCP - General Family Medicine 01/13/22 Gal Hernandez MD [address] [place] [address] 07/23/20 Yumi Chaudhary MD [address] [address] [email or web address] Insurance Assigned Provider 07/09/23 documented as of this encounter Additional Source Comments The information contained in this document represents components of the legal health record. It is not the complete legal health record.[facility]
--- OUTSIDE RECORDS SUMMARY | 2024-12-26 17:45 | XMS_ITS | Encounter Summary ---
Author Organization [facility] Address [address] [place] [address] Phone Care Team Providers Care Ops Manager Name Role Phone Delon Kaur MD Primary Care Provider [phone] Gal Hernandez MD Unavailable [phone] Yumi Chaudhary MD Primary Care Provider [phone] Yumi Chaudhary MD Unavailable Encounter Details Date Type Department Care Team (Late st Contact Info) Description 12/22/2021 Procedure Pass [facility] Periop 75 [place] [address] Social History Tobacco Use Types Packs/Day Years Used Date Smoking Tobacco: Never Smokeless Tobacco: Never Alcohol Use Standard Drinks/Week Comments Yes 5 (1 standard drink = 0.6 oz pur e alcohol) 5 drinks per week Child or Family Care Answer Date Record ed Do you have problems with on e of the following making it difficult for you to work, study, or receive health care? No 12/16/2021 Education Answer Date Recorded Are you interested in help w ith more adult education (for example, completing high school, GED, job training, learning the Dutch language, technical skills, or developing parenting skills)? No 12/16/2021 Are you concerned about learning? Not on file 12/16/2021 No 12/16/2021 Yes 12/16/2021 Food Answer Date Recorded Within the past 6 months we worried whether our food would run out before we got money to buy more. Never True 12/16/2021 Within the past 6 months the food we bought just didn't last and we didn't have enough money to get more. Never True Residential Stability Answer Date Recor ded What is your housing situation today? I have brad walls 12/16/2021 How many times have you move d in the past 12 months? Zero (I did not move) 12/16/2021 Paying for Meds Answer Date Recorded Do you have trouble paying for medicines? No 12/16/2021 Paying Utility Bills Answer Date Record ed Do you have trouble paying your heating or elect ricity bill? No 12/16/2021 Transportation Answer Date Recorded Has the lack of transportati on kept you from medical appointments or from getting medications? No 12/16/2021 Unemployment Answer Date Recorded Are you currently unemployed or working on a part-time or temporary basis, and looking for work? No 12/16/2021 Sex and Gender Information Value Date Recorded Sex Assigned at Male 07/16/2020 1:37 PM EDT Legal Sex Male 9:47 PM EDT Gender Identity Male 07/16/2020 1:37 PM EDT Sexual Orientation Straight 07/16/2020 1: 37 PM EDT documented as of this encounter Functional Status * Calculated C-SSRS Risk Score (Lifetime/Recent) Answer Date of Assessment Author No Risk Indicated 12/22/2021 9:38 PM EDT Erendira Post RN * [place] Suicide Severity Rating Scale (Screener/Recent Self-Report) Question Answer Date of Assessment Author 1. Wish to be (Past 1 Month) No 022 9:38 PM EDT Erendira Post RN 2. Non-Specific Active Suici niraj Thoughts (Past 1 Month) No 12/22/2021 9:38 PM EDT Erendira Post RN 6. Suicidal Behavior (Lifetime) No 9:38 PM EDT Erendira Post RN documented as of this encounter Plan of Treatment Upcoming Encounters Date Type Department Care Team (Late st Contact Info) Description 05/11/2024 Procedure Pass [facility] MR Imaging, [address] [place] [address] 02/14/2025 3:00 PM EST Office Visit [facility] [place] [facility] 15 [facility] [address] [place] [address] Yumi Chaudhary MD 15 [facility] [address] [place] [address] [email or web address] 05/17/2025 9:15 AM EST Appointment [facility] MR Imaging, [address] [place] [address] Cali Juarez MD 75 [place] [address] [email or web address] 05/17/2025 1:00 PM EST Office Visit [facility] Surgical Oncology 45 [facility]3 [place] [address] Cali Juarez MD [address] [place] [address] [email or web address] documented as of this encounter Visit Diagnoses Not on filedocumented in this encounter Additional Health Concerns Infection Onset Date Last Indicated Resolved Time 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 201 [place] [address] [email or web address] PCP - General Family Medicine 01/13/22 Gal Hernandez MD [address] [place] [address] 07/23/20 Yumi Chaudhary MD [address] [place] [address] [email or web address] Insurance Assigned Provider 07/09/23 documented as of this encounter Additional Source Comments The information contained in this document represents components of the legal health record. It is not the complete legal health record.[facility]
--- OUTSIDE RECORDS SUMMARY | 2024-12-26 17:45 | XMS_ITS | Encounter Summary ---
Author Organization [facility] Address 399 [facility] [address] [place] [address] Phone Care Team Providers Care Cuff Setter Name Role Phone Delon Kaur MD Primary Care Provider [phone] Gal Hernandez MD Unavailable [phone] Yumi Chaudhary MD Primary Care Provider [phone] Yumi Chaudhary MD Unavailable Encounter Details Date Type Department Care Team (Late st Contact Info) Description 08/21/2021 Procedure Pass [facility] Ct Scan [address] [address] Social History Tobacco Use Types Packs/Day Years [...] st Contact Info) Description 05/11/2024 Procedure Pass [facility] MR Imaging, [address] [place] [address] 02/14/2025 3:00 PM EST Office Visit [facility] [place] [facility] 15 [facility] [address] [place] [address] Yumi Chaudhary MD 15 [facility] [address] [place] [address] [email or web address] 05/17/2025 9:15 AM EST Appointment [facility] MR Imaging, [address] [place] [address] Cali Juarez MD 75 [place] [address] [email or web address] 05/17/2025 1:00 PM EST Office Visit [facility] Surgical Oncology 45 [facility]3 [place] [address] Cali Juarez MD [address] [place] [address] [email or web address] documented as of this encounter Visit Diagnoses Not on filedocumented in this encounter Additional Health Concerns Infection Onset Date Last Indicated Resolved Time 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 [place] [address] [email or web address] PCP - General Family Medicine 01/13/22 Gal Hernandez MD [address] [place] [address] 07/23/20 Yumi Chaudhary MD 15 [place] [address] [email or web address] Insurance Assigned Provider 07/09/23 documented as of this encounter Additional Source Comments The information contained in this document represents components of the legal health record. It is not the complete legal health record.[facility]
--- OUTSIDE RECORDS SUMMARY | 2024-12-26 17:46 | XMS_ITS | Encounter Summary ---
Author Organization [facility] Address 399 [facility] [address] [place] [address] Phone Care Team Providers Care Fiscal Agent Name Role Phone Delon Kaur MD Primary Care Provider [phone] Gal Hernandez MD Unavailable [phone] Yumi Chaudhary MD Primary Care Provider [phone] Yumi Chaudhary MD Unavailable Encounter Details Date Type Department Care Team (Late st Contact Info) Description 10/03/2020 Procedure Pass [facility] Angio Interventional Radiology [address] [place] [address] Social History Tobacco Use Types Packs/Day Years [...] st Contact Info) Description 05/11/2024 Procedure Pass [facility] MR Imaging, [address] [place] [address] 02/14/2025 3:00 PM EST Office Visit [facility] [place] [facility] 15 [facility] [address] [place] [address] Yumi Chaudhary MD 15 [facility] [address]. [address] [place] [address] [email or web address] 05/17/2025 9:15 AM EST Appointment [facility] MR Imaging, [address] [place] [address] Cali Juarez MD 75 [place] [address] [email or web address] 05/17/2025 1:00 PM EST Office Visit [facility] Surgical Oncology 45 [facility]3 [place] [address] Cali Juarez MD 75 [place] [address] [email or web address] documented as of this encounter [...] documented as of this encounter Care Teams Fiscal Agent Relationship Specialty Start Date End Date Delon Kaur MD [address] [place] [address] PCP - General Family Medicine 05/24/17 01/12/22 Yumi Chaudhary MD 15 [facility]. 201 [place] [address] [email or web address] PCP - General Family Medicine 01/13/22 Gal Hernandez MD 759 [place] [address] 07/23/20 Yumi Chaudhary MD [address] [place] [address] [email or web address] Insurance Assigned Provider 07/09/23 documented as of this encounter Additional Source Comments The information contained in this document represents components of the legal health record. It is not the complete legal health record.[facility]
--- OUTSIDE RECORDS SUMMARY | 2024-12-26 17:46 | XMS_ITS | Encounter Summary ---
Author Organization [facility] Address 399 [facility] [address] [place] [address] Phone Care Team Providers Care Shovel Loader Operator Name Role Phone Delon Kaur MD Primary Care Provider [phone] Gal Hernandez MD Unavailable [phone] Yumi Chaudhary MD Primary Care Provider [phone] Yumi Chaudhary MD Unavailable Encounter Details Date Type Department Care Team (Late st Contact Info) Description 10/03/2020 Procedure Pass [facility] Endoscopy Department 75 [place] [address] Social History Tobacco Use Types Packs/Day Years [...] st Contact Info) Description 05/11/2024 Procedure Pass [facility] MR Imaging, [address] [place] [address] 02/14/2025 3:00 PM EST Office Visit [facility] [place] [facility] 15 [facility] [address] [place] [address] Yumi Chaudhary MD 15 [facility]. [address] [place] [address] [email or web address] 05/17/2025 9:15 AM EST Appointment [facility] MR Imaging, [address] [place] [address] Cali Juarez MD 75 [place] [address] [email or web address] 05/17/2025 1:00 PM EST Office Visit [facility] Surgical Oncology 45 [facility]3 [place] [address] Cali Juarez MD [address] [place] [address] [email or web address] documented as of this encounter [...] documented as of this encounter Care Teams Shovel Loader Operator Relationship Specialty Start Date End Date Delon Kaur MD [address] [place] [address] PCP - General Family Medicine 05/24/17 01/12/22 Yumi Chaudhary MD 15 [facility]. [address] [place] [address] [email or web address] PCP - General Family Medicine 01/13/22 Gal Hernandez MD [address] [place] [address] 07/23/20 Yumi Chaudhary MD [address] [place] [address] [email or web address] Insurance Assigned Provider 07/09/23 documented as of this encounter Additional Source Comments The information contained in this document represents components of the legal health record. It is not the complete legal health record.[facility]
--- OUTSIDE RECORDS SUMMARY | 2024-12-26 17:46 | XMS_ITS | Encounter Summary ---
Author Organization [facility] Address [address] [place] [address] [place] [address] Phone Care Team Providers Care Chemical Technician Name Role Phone Delon Kaur MD Primary Care Provider + [phone] Gal Hernandez MD Unavailable [phone] Yumi Chaudhary MD Primary Care Provider [phone] Yumi Chaudhary MD Unavailable Reason for Referral * Physical Therapy (Routine) - Closed Specialty Diagnoses / Procedures Referred By Teofilo baptiste Referred To Contact Physical Therapy Diagnoses Encounter for rehabilitation System, Provider Not In, [facility] [address] [address] Lokesh Pulido PT Phone: tel: [email or web address] Referral ID Status Reason Start Date Expiration Date Visits Re quested Visits Authorized [id number] Closed 08/16/2017 04/03/2018 12 12 Encounter Details Date Type Department Care Team (Latest Contact Info) Description 09/05/2017 Transcribe Orders [facility] [address] [place] [address] Delon Kaur MD [address] [place] [address] Encounter for rehabilitation (Primary Dx) Social History Tobacco Use Types Packs/Day Years [...] st Contact Info) Description 05/11/2024 Procedure Pass [facility] MR Imaging, [address] [place] [address] 02/14/2025 3:00 PM EST Office Visit [facility] [place] [facility] 15 [facility] [address] [place] [address] Yumi Chaudhary MD 15 [facility] [address] [place] [address] [email or web address] 05/17/2025 9:15 AM EST Appointment [facility] Imaging, [address] [place] [address] Cali Juarez MD [address] [place] [address] [email or web address] 05/17/2025 1:00 PM EST Office Visit [facility] Surgical Oncology 45 [facility]2-3 [place] [address] Cali Juarez MD [address] [place] [address] [email or web address] Scheduled Referrals Name Type Priority Associated Diagnoses Orde r Schedule Ambulatory referral to [facility] Physical Therapy Outpatient Referral Routine Encounter for rehabilitation Ordered: 09/05/2017 documented as of this encounter Visit Diagnoses Diagnosis Encounter for rehabilitation- Primary documented in this encounter Additional Health Concerns Infection Onset Date Last Indicated Resolved Time 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 09/25/202001/0601/06/2023 1:21 AM EDT CoV-Exposed Comment:Patient meets exposure criteria to a HCW was confirmed positive for COVID. Date of last exposure 11/13/20 11/14/2020 11/14/2020 11/28/2020 1:43 AM E DT documented as of this encounter Care Teams Chemical Technician Relationship Specialty Start Date End Date Delon Kaur MD [address] [place] [address] PCP - General Family Medicine 05/24/17 01/12/22 Yumi Chaudhary MD [address] [place] [address] [email or web address] PCP - General Family Medicine 01/13/22 Gal Hernandez MD [address] [place] [address] 07/23/20 Yumi Chaudhary MD [address] [address] [email or web address] Insurance Assigned Provider 07/09/23 documented as of this encounter Additional Source Comments The information contained in this document represents components of the legal health record. It is not the complete legal health record.[facility]
--- OUTSIDE RECORDS SUMMARY | 2024-12-26 17:46 | XMS_ITS | Encounter Summary ---
Author Organization [facility] Address [address] [facility] [address] [place] [address] Phone Care Team Providers Care Mouse Breeder Name Role Phone Delon Kaur MD Primary Care Provider [phone] Gal Hernandez MD Unavailable [phone] Yumi Chaudhary MD Primary Care Provider [phone] Yumi Chaudhary MD Unavailable Encounter Details Date Type Department Care Team (Late st Contact Info) Description 11/13/2020 Procedure Pass [facility] Periop 75 [place] [address] Social History Tobacco Use Types Packs/Day Years [...] st Contact Info) Description 05/11/2024 Procedure Pass [facility] MR Imaging, [place] [address] [place] [address] 02/14/2025 3:00 PM EST Office Visit [facility] [place] [facility] 15 [facility] [address] [place] [address] Yumi Chaudhary MD 15 [facility]. [address] [place] [address] [email or web address] 05/17/2025 9:15 AM EST Appointment [facility] MR Imaging, [place] [address] [place] [address] Cali Juarez MD 75 [place] [address] [email or web address] 05/17/2025 1:00 PM EST Office Visit [facility] Surgical Oncology 45 [facility]3 [place] [address] Cali Juarez MD [address] [place] [address] [email or web address] documented as of [...] documented as of this encounter Care Teams Mouse Breeder Relationship Specialty Start Date End Date Delon Kaur MD [address] [place] [address] PCP - General Family Medicine 05/24/17 01/12/22 Yumi Chaudhary MD 15 [facility]. [address] [place] [address] [email or web address] PCP - General Family Medicine 01/13/22 Gal Hernandez MD 759 [place] [address] 07/23/20 Yumi Chaudhary MD [address] [place] [address] [email or web address] Insurance Assigned Provider 07/09/23 documented as of this encounter Additional Source Comments The information contained in this document represents components of the legal health record. It is not the complete legal health record.[facility]
--- OUTSIDE RECORDS SUMMARY | 2024-12-26 17:46 | XMS_ITS | Encounter Summary ---
Author Organization [facility] Address [address] [place] [address] Phone Care Team Providers Care Mucking Machine Operator Name Role Phone Delon Kaur MD Primary Care Provider [phone] Gal Hernandez MD Unavailable [phone] Yumi Chaudhary MD Primary Care Provider [phone] Yumi Chaudhary MD Unavailable Encounter Details Date Type Department Care Team (Late st Contact Info) Description 09/04/2020 Procedure Pass [facility] 75 [place] [address] Social History Tobacco Use Types Packs/Day Years [...] st Contact Info) Description 05/11/2024 Procedure Pass [facility] MR Imaging, [place] [address] [place] [address] 02/14/2025 3:00 PM EST Office Visit [facility] [place] [facility] 15 [facility] [address] [place] [address] Yumi Chaudhary MD 15 [facility]. 201 [place] [address] [email or web address] 05/17/2025 9:15 AM EST Appointment [facility] MR Imaging, [place] [address] [place] [address] Cali Juarez MD 75 [place] [address] [email or web address] 05/17/2025 1:00 PM EST Office Visit [facility] Surgical Oncology 45 [facility]3 [place] [address] Cali Juarez MD [address] [place] [address] [email or web address] documented as of this encounter Visit Diagnoses Not on filedocumented in this encounter Additional Health Concerns Infection Onset Date Last Indicated Resolved Time 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 Date of last exposure 11/13/20 11/14/2020 11/14/2020 11/28/2020 1:43 AM E DT documented as of this encounter Care Teams Mucking Machine Operator Relationship Specialty Start Date End Date Delon Kaur MD [address] [place] [address] PCP - General Family Medicine 05/24/17 01/12/22 Yumi Chaudhary MD 15 [facility]. 201 [place] [address] [email or web address] PCP - General Family Medicine 01/13/22 Gal Hernandez MD 9 [place] [address] 07/23/20 Yumi Chaudhary MD [address] [place] [address] [email or web address] Insurance Assigned Provider 07/09/23 documented as of this encounter Additional Source Comments The information contained in this document represents components of the legal health record. It is not the complete legal health record.[facility]
--- OUTSIDE RECORDS SUMMARY | 2024-12-26 17:46 | XMS_ITS | Encounter Summary ---
Author Organization [facility] Address [address] [place] [address] Phone Care Team Providers Care Erp Programmer Name Role Phone Gal Hernandez MD Unavailable [phone] Yumi Chaudhary MD Primary Care Provider [phone] Yumi Chaudhary MD Unavailable Encounter Details Date Type Department Care Team (Late st Contact Info) Description 01/15/2022 Procedure Pass [facility] 70 [place] [address] Social History Tobacco Use Types Packs/Day Years [...] high school, GED, job training, learning the Divehi language, technical skills, or developing parenting skills)? [...] st Contact Info) Description 05/11/2024 Procedure Pass [facility] MR Imaging, [place] 60 [place] [address] 02/14/2025 3:00 PM EST Office Visit [facility] 15 [facility] [address] [place] [address] Yumi Chaudhary MD 15 [facility] Nigel. 201 [place] [address] 05/17/2025 9:15 AM EST Appointment [facility] MR Joelle, [place] [address] [place] [address] Cali Juarez MD [address] [place] [address] [email or web address] 05/17/2025 1:00 PM EST Office Visit [facility] Surgical Oncology 45 [facility] ASB2-3 [place] [address] Cali Juarez MD 75 [place] [address] [email or web address] documented as of this encounter Visit Diagnoses Not on filedocumented in this encounter Additional Health Concerns Infection Onset Date Last Indicated Resolved Time 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 09/25/2020 01/06/2023 1:21 AM EDT Assessment Noted Time PHQ-2 Depression Total Score: 0 12/17/19 7:47 AM EDT documented as of this encounter Care Teams Erp Programmer Relationship Specialty Start Date End Date Ymui Chaudhary MD [address] [place] [address] [email or web address] PCP - General Family Medicine 01/13/22 Gal Hernandez MD [address] [place] [address] 07/23/20 Yumi Chaudhary MD [address] [place] [address] [email or web address] Insurance Assigned Provider 07/09/23 documented as of this encounter Additional Source Comments The information contained in this document represents components of the legal health record. It is not the complete legal health record.[facility]
--- OUTSIDE RECORDS SUMMARY | 2024-12-26 17:46 | XMS_ITS | Encounter Summary ---
Author Organization [facility] Address [address] [facility] [address] [place] [address] Phone Care Team Providers Care Medical Massage Therapist Name Role Phone Delon Kaur MD Primary Care Provider [phone] Gal Hernandez MD Unavailable [phone] Yumi Chaudhary MD Primary Care Provider [phone] Yumi Chaudhary MD Unavailable Encounter Details Date Type Department Care Team (Late st Contact Info) Description 09/04/2020 Procedure Pass [facility] Angio Interventional Radiology [address] [place] [address] Social History Tobacco Use Types Packs/Day Years [...] st Contact Info) Description 05/11/2024 Procedure Pass [facility] MR Imaging, [place] [address] [place] [address] 02/14/2025 3:00 PM EST Office Visit [facility] [place] [facility] 15 [facility] [address] [place] [address] Yumi Chaudhary MD 15 [facility] Nigel. [address] [place] [address] [email or web address] 05/17/2025 9:15 AM EST Appointment [facility] MR Imaging, [place] [address] [place] [address] Cali Juarez MD 75 [place] [address] [email or web address] 05/17/2025 1:00 PM EST Office Visit [facility] Surgical Oncology 45 [facility]3 [place] [address] Cali Juarez MD 75 [place] [address] [email or web address] documented as [...] documented as of this encounter Care Teams Medical Massage Therapist Relationship Specialty Start Date End Date Delon Kaur MD [address] [place] [address] PCP - General Family Medicine 05/24/17 01/12/22 Yumi Chaudhary MD 15 [facility]. 201 [place] [address] [email or web address] PCP - General Family Medicine 01/13/22 Gal Hernandez MD 759 [place] [address] 07/23/20 Yumi Chaudhary MD [address] [place] [address] [email or web address] Insurance Assigned Provider 07/09/23 documented as of this encounter Additional Source Comments The information contained in this document represents components of the legal health record. It is not the complete legal health record.[facility]
--- OUTSIDE RECORDS SUMMARY | 2024-12-26 17:46 | XMS_ITS | Encounter Summary ---
Author Organization [facility] Address [address] [place] [address] Phone Care Team Providers Care Bulk Sugar Handler Name Role Phone Gal Hernandez MD Unavailable [phone] Yumi Chaudhary MD Primary Care Provider [phone] Yumi Chaudhary MD Unavailable Encounter Details Date Type Department Care Team (Late st Contact Info) Description 01/15/2022 Procedure Pass [facility] 70 [place] [address] Social History Tobacco Use Types Packs/Day Years [...] high school, GED, job training, learning the Mohawk language, technical skills, or developing parenting skills)? [...] Contact Info) Description 05/11/[address] [facility] MR Imaging, [place] [address] [place] [address] 02/14/2025 3:00 PM EST Office Visit [facility] 15 [facility] [address] [place] [address] Yumi Chaudhary MD 15 [facility] Nigel. 201 [place] [address] 05/17/2025 9:[address] [facility] MR Joelle, [place] [address] [place] [address] Cali Juarez MD [address] [place] [address] [email or web address] 05/17/2025 1:00 PM EST Office Visit 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 09/25/2020 01/06/2023 1:21 AM EDT Assessment Noted Time PHQ-2 Depression Total Score: 0 12/17/19 7:47 AM EDT documented as of this encounter Care Teams Bulk Sugar Handler Relationship Specialty Start Date End Date Yumi Chaudhary MD [address] [place] [address] [email or web address] PCP - General Family Medicine 01/13/22 Gal Hernandez MD [address] [place] [address] 07/23/20 Yumi Chaudhary MD [address] [place] [address] [email or web address] Insurance Assigned Provider 07/09/23 documented as of this encounter Additional Source Comments The information contained in this document represents components of the legal health record. It is not the complete legal health record.[facility]
--- OUTSIDE RECORDS SUMMARY | 2024-12-26 17:46 | XMS_ITS | Encounter Summary ---
Author Organization [facility] Address [address] [facility] [address] [place] [address] Phone Care Team Providers Care Hydrogen Power Plant Engineer Name Role Phone Delon Kaur MD Primary Care Provider [phone] Gal Hernandez MD Unavailable [phone] Yumi Chaudhary MD Primary Care Provider [phone] Yumi Chaudhary MD Unavailable Encounter Details Date Type Department Care Team (Late st Contact Info) Description 09/29/2020 Procedure Pass [facility] 75 [place] [address] Social History Tobacco Use Types Packs/Day Years [...] st Contact Info) Description 05/11/2024 Procedure Pass [facility] MR Imaging, [place] [address] [place] [address] 02/14/2025 3:00 PM EST Office Visit [facility] [place] [facility] Care 15 [facility] [address] [place] [address] Yumi Chaudhary MD 15 [facility]. 201 [place] [address] [email or web address] 05/17/2025 9:15 AM EST Appointment [facility] MR Imaging, [place] [address] [place] [address] Cali Juarez MD 75 [place] [address] [email or web address] 05/17/2025 1:00 PM EST Office Visit [facility] Surgical Oncology 45 [facility]3 [place] [address] Cali Juarez MD [address] [place] [address] [email or web address] documented as of this encounter Visit Diagnoses Not on filedocumented in this encounter Additional Health Concerns Infection Onset Date Last Indicated Resolved Time 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 Date of last exposure 11/13/20 11/14/2020 11/14/2020 11/28/2020 1:43 AM E DT documented as of this encounter Care Teams Hydrogen Power Plant Engineer Relationship Specialty Start Date End Date Delon Kaur MD [address] [place] [address] PCP - General Family Medicine 05/24/17 01/12/22 Yumi Chaudhary MD 15 [facility]. 201 [place] [address] [email or web address] PCP - General Family Medicine 01/13/22 Gal Hernandez MD 9 [place] [address] 07/23/20 Yumi Chaudhary MD [address] [place] [address] [email or web address] Insurance Assigned Provider 07/09/23 documented as of this encounter Additional Source Comments The information contained in this document represents components of the legal health record. It is not the complete legal health record.[facility]
--- OUTSIDE RECORDS SUMMARY | 2024-12-26 17:46 | XMS_ITS | Encounter Summary ---
Author Organization [facility] Address [address] [facility] [place] [address] [place] [address] Phone Care Team Providers Care Photogrammetric Tech Name Role Phone Gal Hernandez MD Unavailable [phone] Yumi Chaudhary MD Primary Care Provider [phone] Yumi Chaudhary MD Unavailable Encounter Details Date Type Department Care Team (Late st Contact Info) Description 03/15/2024 Procedure Pass [address] [place] [address] Social History Tobacco Use Types Packs/Day Years [...] Answer Date Recorded Are you interested in more education? Not on summer e 12/17/2023 Are you concerned about learning? Not on file 12/17/2023 No 12/17/2023 No 12/17/2023 Food Answer Date Recorded Within the past [...] your housing situation today? I have brad sing 12/16/2021 How many times have you move [...] basis, and looking for work? No 12/16/2021 Digital Access Answer Date Recorded No 08/29/2022 No 08/29/2022 Reliable internet access at home? Not on file 08/29/2022 Device with a working camera? Not on file Sex and Gender Information Value Date Recorded Sex Assigned at Male 07/16/2020 1:37 PM EDT Legal Sex Male 9:47 PM EDT Gender Identity Male 07/16/2020 1:37 PM EDT Sexual Orientation Straight 07/16/2020 1: 37 PM EDT documented as of this encounter Plan of Treatment Upcoming Encounters Date Type Department Care Team (Late st Contact Info) Description 05/11/2024 Procedure Pass [facility] MR Imaging, [place] [address] [place] [address] 02/14/2025 3:00 PM EST Office Visit [facility] [place] Primary [facility] 15 [facility] [address] [place] [address] Yumi Chaudhary MD 15 [facility] Nigel. 201 [place] [address] 05/17/2025 9:15 AM EST Appointment [facility] MR Imaging, [place] [address] [place] [address] Cali Juarez MD [address] [place] [address] [email or web address] 05/17/2025 1:00 PM EST Office Visit [facility] Surgical Oncology [address]3 [place] [address] Cali Juarez MD 75 [place] [address] [email or web address] documented as of this encounter Visit Diagnoses Not on filedocumented in this encounter Additional Health Concerns Assessment Noted Time PHQ-2 Depression Total Score: 0 12/17/19 7:47 AM EDT documented as of this encounter Care Teams Photogrammetric Tech Relationship Specialty Start Date End Date Yumi Chaudhary MD [address] [place] [address] [email or web address] PCP - General Family Medicine 01/13/22 Gal Hernandez MD [address] [place] [address] 07/23/20 Yumi Chaudhary MD [address] [place] [address] [email or web address] Insurance Assigned Provider 07/09/23 documented as of this encounter Additional Source Comments The information contained in this document represents components of the legal health record. It is not the complete legal health record.[facility]
--- OUTSIDE RECORDS SUMMARY | 2024-12-26 17:46 | XMS_ITS | Encounter Summary ---
Author Organization [facility] Address [address] [place] [address] Phone Care Team Providers Care Lap Runner Name Role Phone eDlon Kaur MD Primary Care Provider Gal Hernandez MD Unavailable [phone] Yumi Chaudhary MD Primary Care Provider [phone] Yumi Chaudhary MD Unavailable Encounter Details Date Type Department Care Team (Late st Contact Info) Description 09/29/2020 Procedure Pass [facility] 75 [place] [address] Social History Tobacco Use Types Packs/Day Years [...] st Contact Info) Description 05/11/2024 Procedure Pass [facility] MR Imaging, [place] [address] [place] [address] 02/14/2025 3:00 PM EST Office Visit [facility] [place] Primary [facility] 15 [facility] [address] [place] [address] Yumi Chaudhary MD 15 [facility]. 201 [place] [address] [email or web address] 05/17/2025 9:15 AM EST Appointment [facility] MR Imaging, [place] [address] [place] [address] Cali Juarez MD 75 [place] [address] [email or web address] 05/17/2025 1:00 PM EST Office Visit [facility] Surgical Oncology 45 [facility]3 [place] [address] Cali Juarez MD [address] [place] [address] [email or web address] documented as of this encounter Visit Diagnoses Not on filedocumented in this encounter Additional Health Concerns Infection Onset Date Last Indicated Resolved Time 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 Date of last exposure 11/13/20 11/14/2020 11/14/2020 11/28/2020 1:43 AM E DT documented as of this encounter Care Teams Lap Runner Relationship Specialty Start Date End Date Delon Kaur MD [address] [place] [address] PCP - General Family Medicine 05/24/17 01/12/22 Yumi Chaudhary MD 15 [facility]. 201 [place] [address] [email or web address] PCP - General Family Medicine 01/13/22 Gal Hernandez MD 9 [place] [address] 07/23/20 Yumi Chaudhary MD [address] [place] [address] [email or web address] Insurance Assigned Provider 07/09/23 documented as of this encounter Additional Source Comments The information contained in this document represents components of the legal health record. It is not the complete legal health record.[facility]
--- OUTSIDE RECORDS SUMMARY | 2024-12-26 17:46 | XMS_ITS | Encounter Summary ---
Author Organization [facility] Address [address] [facility] [address] [place] [address] Phone Care Team Providers Care General Farmworker Name Role Phone Delon Kaur MD Primary Care Provider [phone] Gal Hernandez MD Unavailable [phone] Yumi Chaudhary MD Primary Care Provider [phone] Yumi Chaudhary MD Unavailable Encounter Details Date Type Department Care Team (Late st Contact Info) Description 09/05/2020 Procedure Pass [facility] Endoscopy Department 75 [place] [address] Social History Tobacco Use Types Packs/Day Years [...] st Contact Info) Description 05/11/2024 Procedure Pass [facility] MR Imaging, [place] [address] [place] [address] 02/14/2025 3:00 PM EST Office Visit [facility] [place] Primary [facility] 15 [facility] [address] [place] [address] Yumi Chaudhary MD 15 [facility]. [address] [place] [address] [email or web address] 05/17/2025 9:15 AM EST Appointment [facility] MR Imaging, [place] [address] [place] [address] Cali Juarez MD 75 [place] [address] [email or web address] 05/17/2025 1:00 PM EST Office Visit [facility] Surgical Oncology 45 [facility]3 [place] [address] Cali Juarez MD [address] [place] [address] [email or web address] documented as of this encounter [...] documented as of this encounter Care Teams General Farmworker Relationship Specialty Start Date End Date Delon Kaur MD [address] [place] [address] PCP - General Family Medicine 05/24/17 01/12/22 Yumi Chaudhary MD 15 [facility]. [address] [place] [address] [email or web address] PCP - General Family Medicine 01/13/22 Gal Hernandez MD 7[address] [place] [address] 07/23/20 Yumi Chaudhary MD [address] [place] [address] [email or web address] Insurance Assigned Provider 07/09/23 documented as of this encounter Additional Source Comments The information contained in this document represents components of the legal health record. It is not the complete legal health record.[facility]
--- OUTSIDE RECORDS SUMMARY | 2024-12-26 17:46 | XMS_ITS | Clinical Summary ---
Author Organization [facility] Address [address] [facility] [address] [facility] [address] [place] [phone] Phone Care Team Providers Care Slusher Operator Name Role Phone Gal Hernandez MD Unavailable [phone] Yumi Chaudhary MD Primary Care Provider [phone] Yumi Chaudhary MD Unavailable Allergies Active Allergy Reactions Criticality Noted Date Comments Covid-19 (Sars-Cov-2) Vaccine, Vlp Hives 1 Iodinated Contrast Media Itching,Rash Low 2 Medications acetaminophen (TYLENOL) 500 MG tablet Take 2 tablets (1,000 mg total) by mouth every 8 (eight) hours as needed. 0 12/15/2020 Active famotidine (PEPCID) 10 MG tablet Take 30 mg by mouth 1 (one) time. Active clobetasol (TEMOVATE) 0.05 % cream 12/13/2023 Active ciclopirox (LOPROX) 0.77 % Susp 12/13/2023 Active ciprofloxacin HCl (CIPRO) 500 MG tablet 12/14/2023 Active ketoconazole 2 % cream 12/13/2023 Active naproxen (NAPROSYN) 500 MG tablet Take 500 mg by mouth as needed. 02/14/2024 Active tamsulosin (FLOMAX) 0.4 mg CapIndications: History of BPH Take 2 capsules (0.8 mg total) by mouth daily. 180 capsule 3 05/02/2024 Active atorvastatin (LIPITOR) 10 MG tabletIndicatio ns:Hyperlipidem ia Take 0.5 tablets (5 mg total) by mouth daily. 90 tablet 1 08/23/2024 Active LORazepam (ATIVAN) 0.5 MG tablet Take 1 tablet (0.5 mg total) by mouth every evening. 30 tablet 10/30/2024 Active Active Problems Problem Noted Date Diagnosed Date Tenosynovitis, de Quervain 08/14/2024 Assessment & Plan (08/14/2024 9:05 PM EDT): De Quervain's tenosynovitis Right wrist pain likely due to inflammation of thumb tendons, exacerbated by repetitive motions and vibration from power tools. - Recommend wearing a brace while using power tools or engaging in activities that may exacerbate symptoms. Hiatal hernia 05/24/2024 Assessment & Plan (08/14/2024 9:06 PM EDT): Hiatal hernia with no current GERD symptoms. Cautious with physical activities to avoid exacerbation. - Continue cautious physical activity, such as using a rowing machine with low resistance and short duration. Assessment & Plan (05/24/2024 4:00 PM EST): I explained to patient what a hiatal hernia is, when it can cause a problem and when we can just leave it alone. At this point I really do not think that needs to put another surgery on his plate. His symptoms are essentially well-controlled and he would not of even known about this hernia if he had not had the imaging. It is still unclear to me whether this could possibly be a sequela of the Whipple or if this predates that We wll continue to monitor Left hand weakness 03/18/2024 Assessment & Plan (03/18/2024 12:56 PM EST): I'm quite concerned about the rapid onset of left handed weakness and neuropathy. I reviewed a cervical spine CT from 2021 which did already show degenerative disease and I suspect this has progressed significantly. I think he needs to have an MRI to assess for severe impingement which may need surgical correction sooner rather than later to try to get some function back. Cervicalgia 03/18/2024 Assessment & Plan (08/14/2024 9:06 PM EDT): Chronic neck pain with residual nerve symptoms, including stiffness and altered sensation. Improvement in right hand function and balance noted. Symptoms related to previous cervical issues and surgery, with ongoing recovery expected. Acetaminophen used at night for pain management. - Continue acetaminophen at night for pain management. - Consider trying CBD for pain and sleeplessness. - Recommend acupuncture for nerve-related symptoms. - Encourage a diet rich in vitamin B12. Tendinopathy involving hip 09/29/2023 Assessment & Plan (09/29/2023 1:05 PM EDT): We discussed several treatment options for proximal hamstring tendinopathy, including PT, PRP, and glucocorticoid injections. We will refer to [facility] at this time and hopefully they can provide very specific PT to strengthen his hamstrings and work on tightening of his iliopsoas muscle. Groin pain, left 05/31/2023 Assessment & Plan (05/31/2023 11:40 AM EST): Although it is possible that this is emanating from hip joint seems unlikely based on exam. Hernia on differential but I could not appreciate any herniation on exam. I suspect this is psoas or other tendinopathy. We will get XRAY of hip and proceed with stretching etc after exercise to see if it improves. Polyarthralgia 05/31/2023 Assessment & Plan (12/15/2023 12:43 PM EDT): Recommended that pt pursue some OMT, continue with PT exercises, try to work on mobility. Assessment & Plan (05/31/2023 11:42 AM EST): He has two bad shoulders and stiffness and soreness of the hips and knees, hands which seem to get better as the day progresses. No bony abnormalities. I think that there is some element of arthritis, but also some continued element of recovery from his massive illness and incapacity. We can continue to monitor Neuropathy 05/31/2023 Benign prostatic hyperplasia with nocturia 12/02 Assessment & Plan (03/18/2024 12:56 PM EST): Advised pt that I do very much think he should get the biopsy and proceeding with Dr Patton locally makes sense, Assessment & Plan (09/29/2023 1:11 PM EDT): We will follow-up in December after he sees urology Scar of abdominal skin 05/03/2022 Tendinopathy of left rotator cuff 01/18/2022 Assessment & Plan (01/18/2022 9:33 AM EDT): For both shoulders, we agreed that right now he is just not up for physical therapy. Certainly he is not going to be going through any more surgeries at this time. He does continue to have full range of motion which is good he looks towards starting some physical therapy may be in the winter. He has some home exercises which she can do. 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 Juarez outpatient - Midabdominal STSG to abdomen on 11/13, well healing, local care - RLQ SUMIT bulb to suction w/ minimal bilious output - PICC and PIV removed prior to [facility] arrival, had been on Reglan 10mg IV as well as Octreotide TID - Hold on subq Octreotide given surgical abdomen w/ limited real estate for subq injections as well as goal to wean - Trend H/H History of DVT (deep vein thrombosis) 11/24/2020 Assessment & Plan (11/24/2020 10:47 PM EDT): Left gastrocnemius DVT - Off AC given risk of bleeding, no SCDs given distal DVT - Monitor clinically History of BPH 11/24/2020 Assessment & Plan (11/24/2020 10:51 PM EDT): Continue home Flomax, unable to administer via NGT - Resume once able to take POs Bile leak 09/26/2020 Sepsis 09/26/2020 Intraabdominal hemorrhage 08/22/2020 Subcutaneous emphysema associated with surgical procedure 08/22/2020 Malignant neoplasm of pancreas 08/02/2020 Overview (09/30/2021): pancreatic neuroendocrine tumor s/p robotic Whipple on 08/21/20 Assessment & Plan (08/14/2024 11:50 AM EDT): Seen BY Dr Juarez, no evidence of recurrence. Assessment & Plan (12/02/2022 2:29 PM EDT): Really still in recovery, regaining strength, had a clear MRI and is going to have 6-month follow-up, transitioning case to oncologist rather than surgeon. Psoriasis 07/23/2020 Primary pancreatic neuroendocrine tumor 07/24/19 Assessment & Plan (12/15/2023 12:44 PM EDT): His concerns and vigilance are warranted and yet I discussed with him that he cannot live his whole life in fear. He needs to be able to continue to move forward. We spoke about his health anxiety, right now he is not interested in therapy or ssri treatment Assessment & Plan (05/30/2023 1:16 PM EST): Pt is now on annual monitoring. Scans have looked normal. Assessment & Plan (08/11/2022 2:06 PM EDT): Patient continues to improve. Abdominal healing looks great. Following with surgery/MRI every 6 months. Reassurance provided about return to slow muscle function and some of the abdominal pain that he experiences after working out, I think this is all about just rebuilding and time. Assessment & Plan (05/03/2022 4:14 PM EST): Generally doing well. Has follow-up scheduled in 1 week. Complete tear of right rotator cuff 09/19/2018 Assessment & Plan (01/13/2022 5:10 PM EDT): Course of PT, was functional after, had full ROM, after deconditoning of Let handed. Right shoulder the surgery. Labral tear of long head of right biceps tendon 09/19/2018 Pain in both hands 08/03/2017 Lateral epicondylitis of right elbow 08/03/2017 Hyperlipidemia 04/04/1989 GERD (gastroesophageal reflux disease) Assessment & Plan (12/15/2023 12:45 PM EDT): Recent study does suggest a correlation between PD and esophagael erosions. However, it is not causative. We will continue to monitor. Resolved Problems Problem Noted Date Diagnosed Date Resolved Date Nonhealing nonsurgical wound 10/06/2021 01/18/2022 On tube feeding diet 11/24/2020 022 Assessment & Plan (11/25/2020 4:29 PM EDT): NGT via left nares - Previously on TPN - Nutrition and SALES CLERK SUPERVISOR following - Hx of postoperative colonic ileus, ensure pt moving bowels, continue Reglan, monitor off Octreotide - Will need VFSS once off COV-exposed precautions Debility 11/24/2020 08/14/2024 Assessment & Plan (11/25/2020 4:30 PM EDT): Prolonged hospital course, PT/OT/SALES CLERK SUPERVISOR following Thrush of mouth and esophagus 11/24/2020 08/14/2024 Assessment & Plan (11/25/2020 4:28 PM EDT): Continues on Nystatin swishes TID - Oral care q 4hr - Biotene QID Renal failure 10/09/2020 01/18/2022 ROSA M (acute kidney injury) 09/26/2020 Protein-calorie malnutrition 09/26/2020 01/18/2022 Delirium 09/26/2020 01/18/2022 Fluid overload 09/26/2020 01/18/2022 Respiratory failure 08/22/2020 01/19/20 Assessment & Plan (11/25/2020 4:29 PM EDT): Trach on 09/26, decannulated on 11/24 Junky cough, remains on COV-exposed precautions through 11/28 - Oximetry - Nebs for secretion clearance - Aspiration precautions - Mucomyst made PRN on 11/25 Acute blood loss anemia 08/22/202003/04 Hypotension 08/22/2020 05/30/2023 Chronic right shoulder pain 08/03/2017 01/18/2022 Chronic elbow pain 08/03/2017 Encounters Date Type Department Care Team Description 11/09/2024 2:20 PM EDT Telemedicine [facility] [address] [place], [facility] Jonathan Ngo, Saira Hill, CABLE MECHANIC COVID-19 virus infection (Primary Dx) from Last 3 Months Immunizations Immunization Administration Dates Next Due COVID-19 (Pre-01/24) Moderna Vaccine, mRNA, PF 07/09/2020 INFLUENZA, SPLIT VIRUS, TRIVALENT PF 02/06/2024 Influenza Quadrivalent MDCK Preservative Free IM 01/06/2020,01/05/2019,02/08/2018 Influenza Quadrivalent Preservative Free IM 01/03,02/09/2022 Influenza Quadrivalent w/ Preservative IM 2020 Pneumococcal conjugate PCV20 12/15/2023 Tdap 05/30/2023 Zoster recombinant 01/25/2018,09/13/2017 Family History Medical History Relation Comments Lung cancer Mother No Known Problems Sister 1 No Known Problems Sister 2 No Known Problems Sister 3 Relation Status Comments Father Alive Mother Alive Sister 1 Alive Sister 2 Alive Sister 3 Alive Social History Tobacco Use Types Packs/Day Years Used Date Smoking Tobacco: Never Smokeless Tobacco: Never Tobacco Cessation:Counseling Given: Not Answered Alcohol Use Standard Drinks/Week Comments Yes 5 [...] Orientation Straight 07/16/2020 1: 37 PM EDT Last Filed Vital Signs Vital Sign Reading Time Taken Comments Blood Pressure 112/68 08/14/2024 11:34 AM EDT Pulse 57 08/14/2024 11:34 AM EDT Temperature 35.9 C (96.6 F) 12/01/2022 10:47 AM EDT Respiratory Rate 16 05/13/2023 10:05 AM EST Oxygen Saturation 99% 08/14/2024 11:34 AM EDT Inhaled Oxygen Concentration 21% 11/24/2020 2 :19 AM EDT Weight 76.5 kg (168 lb 9.6 oz) 08/14/2024 11:34 AM EDT Height 175.3 cm (5' 9 ) 04/29/2024 10:19 AM EST Body Mass Index 24.9 04/29/2024 10:19 AM EST Plan of Treatment Upcoming Encounters Date Type Department Care Team (Late st Contact Info) Description 05/11/2024 Procedure Pass [facility] MR Imaging, [address] [place] [address] 02/14/2025 3:00 PM EST Office Visit [facility] Primary [facility] [address] [facility] [address] [place] [address] Yumi Chaudhary MD [address] [facility] [address] [place] [address] [email or web address] 05/17/2025 9:15 AM EST Appointment [facility] Imaging, [address] [place] [address] Cali Juarez MD [address] [place] [id number] [email or web address] 05/17/2025 1:00 PM EST Office Visit [facility] Surgical Oncology [address] [facility] [address] [place] [address] Cali Juarez MD [address] [place] [id number] [email or web address] Health Maintenance Due Date Last Done Comments HIV ONE-TIME SCREENING (18-65 YEARS) 1978 COLONOSCOPY 2005 FIT TEST 2005 FOBT 2005 SIGMOIDOSCOPY 2005 VIRTUAL COLONOSCOPY 2005 INFLUENZA VACCINE (#1) 2024 , 01/26/2023, 02/09/2022, Additional history exists COLOGUARD 06/17/2025 06/17/2022 COLORECTAL CANCER SCREENING 06/17/2025 DEPRESSION SCREENING 08/23/2025 08/23/2024 LIPID PANEL 06/11/2029 06/11/2024, 11/04, 12/01/2022, Additional history exists Adult Td,Tdap Booster 05/30/2033 05/30/2023 RSV VACCINE (1 - 1-dose 75+ series) 11/03/2035 ZOSTER VACCINES Completed 01/25/2018, 09/13/2017 HEPATITIS C SCREENING Completed 09/29/2020, 021 COVID-19 VACCINE Completed 12/03/2023, , 01/15/2022, Additional history exists PNEUMOCOCCAL VACCINES (50+ years) Completed 12/15/2023 SMOKING STATUS SCREENING (Once After 26 Yrs) Completed 03/15/2024 HEPATITIS A VACCINES Aged Out No long er eligible based on patient's age to complete this topic HIB VACCINES Aged Out No longer eligi ble based on patient's age to complete this topic MENINGOCOCCAL VACCINES (ACWY) Aged Out No longer eligible based on patient's age to complete this topic MENINGOCOCCAL VACCINES (B) Aged Out N o longer eligible based on patient's age to complete this topic Medical Devices Implanted Type Area Pan Washer Hand Device Identifier Shelf Expiration Date Model / Serial / Lot Device Closure Starclose 5-6fr Vascular J Tip Se Trauma Counsellor Exchange Sheath Dilator Nitinol Clip Femoral Artery - [id number] Implanted:Qty: 1 on 09/04/2020 by Cain Davis MD, PhD at [facility] Closure Device Right: Groin [employer] [id number] 07/03/2021 24847-76 / / [id number] Device Closure Starclose 5-6fr Vascular J Tip Se Trauma Counsellor Exchange Sheath Dilator Nitinol Clip Femoral Artery - [id number] Implanted:Qty: 1 on 09/30/2020 by Cain Davis MD, PhD at [facility] Closure Device Right: Femoral Artery [employer] [id number] 76032-60 / / Coil Concerto 8mm 30cm .021in Nylon Detachable Kennard Embolization - [id number] Implanted:Qty: 1 on 09/04/2020 by Cain Davis MD, PhD at [facility] Coil N/A: Abdomen [employer] 12/20/2022 NV-8-30-HEL IX / / [id number] Description:GDA Coil Embolization .018in 3mm 2mm Microcoil Tornado Benton - [id number] Implanted:Qty: 1 on 10/04/2020 by Breann Quiroga MD at [facility] Coil N/A: Abdomen [employer] 05/12/2025 [id number] / / [id number] Description:GDA Coil Embolization .018in 3mm 2mm Microcoil Tornado Benton - [id number] Implanted:Qty: 1 on 10/04/2020 by Breann Quiroga MD at [facility] Coil N/A: Abdomen [employer] 05/12/2025 [id number] / / [id number] Description:GDA Coil Embolization .018in 3mm 2mm Microcoil Tornado Benton - [id number] Implanted:Qty: 1 on 10/04/2020 by Breann Quiroga MD at [facility] Coil N/A: Abdomen [employer] 05/12/2025 [id number] / / [id number] Description:GDA Trufill N-Butyl Cyanoacrylate 1gr Liquid Embolic System Vial Bx/1ea - [id number] Implanted:Qty: 1 on 09/30/2020 by Cain Davis MD, PhD at [facility] Right: Liver [employer] [id number] 04/03/2022 [id number] / / [id number] Trufill N-Butyl Cyanoacrylate 1gr Liquid Embolic System Vial Bx/1ea - [id number] Implanted:Qty: 1 on 10/15/2020 by Breann Quiroga MD at [facility] Right: Splenic Flexure [employer] [id number] 11/01/2021 [id number] / / [id number] Coil Embolization .018in 4mm 2mm Microcoil Tornado Benton - [id number] Implanted:Qty: 1 on 10/04/2020 by Breann Quiroga MD at [facility] STANDARD N/A: Abdomen [employer] 10/02/2024 [id number] / / [id number] Description:GDA Coil Embolization .018in 4mm 2mm Microcoil Tornado Benton - [id number] Implanted:Qty: 1 on 10/15/2020 by Breann Quiroga MD at [facility] STANDARD N/A: Arterial [employer] 10/02/2024 [id number] / / [id number] Description:IPDA Coil Embolization .018in 4mm 2mm Microcoil Tornado Benton - [id number] Implanted:Qty: 1 on 10/15/2020 by Breann Quiroga MD at [facility] STANDARD N/A: Arterial [employer] 09/20/2024 [id number] / / [id number] Description:IPDA Coil Embolization .018in 4mm 2mm Microcoil Tornado Benton - [id number] Implanted:Qty: 1 on 10/15/2020 by Breann Quiroga MD at [facility] STANDARD N/A: Arterial [employer] 09/20/2024 [id number] / / [id number] Description:IPDA Stent Tracheal 7fr 7mm 38mm 120cm Icast S/S Ptfe Filmcast Coated Balloon Expandable - [id number] Implanted:Qty: 1 on 09/14/2020 by Ankush Glover MD at [facility] Stent N/A: Liver [facility]E [facility] [id number] 11/13/2022 [id number] / [id number] / Description:HEPATIC A Static magnetic field of 1.5 T or 3.0 T only. Maximum spatial gradient magnetic field of 3,000 gauss/cm (30 T/m). Maximum MR system-reported, whole-body averaged specific absorption rate (CONSUELO) of 2 W/Kg (Normal Operating Mode) https://www.accessdata.fda.gov/[facility]_docs/pdf12/G078482G.pdf [place] Suture 4.5mm Arthroscopy Reelx Stt Peek Ss Core Knotless Shapr Tip Expandable Bx/5ea - [id number] Implanted:Qty: 1 on 11/09/2018 by Jesse Farley DO at [facility] Right: Shoulder [employer] 07/10/2020 3910-600-06 2 / / [id number] [place] Suture 5.5mm Biozip Peek Cannulated Trocar Tip Bx/5ea - [id number] Implanted:Qty: 1 on 11/09/2018 by Jesse Farley DO at [facility] Right: Shoulder [employer] 12/13/2019 [id number] / / [id number] [place] Suture 4.5mm Arthroscopy Reelx Stt Peek Ss Core Knotless Shapr Tip Expandable Bx/5ea - [id number] Implanted:Qty: 2 on 11/09/2018 by Jesse Farley DO at [facility] Right: Shoulder [employer] 08/09/2020 3910-600-06 2 / / [id number] Coil Concerto 6mm 20cm 3d Fibered Pgla Helical Plat Detachable Embolization Sterile - [id number] Implanted:Qty: 1 on 09/04/2020 by Cain Davis MD, PhD at [facility] N/A: Abdomen [employer] 06/26/2023 PV-6-20-3D / / [id number] Description:GDA Coil Concerto 6mm 20cm 3d Fibered Pgla Helical Plat Detachable Embolization Sterile - [id number] Implanted:Qty: 1 on 09/04/2020 by Cain Davis MD, PhD at [facility] N/A: Abdomen [employer] 06/26/2023 PV-6-20-3D / / [id number] Description:GDA Mesh Surgical 96m19if Phasix St Resorbable Rectangle - [id number] Implanted:Qty: 1 on 09/19/2020 by Cali Juarez MD at [facility] N/A: Abdomen DAVOL 05/01/2022 [id number] / NA / [id number] Graft Mesh 66s56oh Phasix Synthetic Monofilament Woven Resorbable Rectangular - [id number] Implanted:Qty: 1 on 12/22/2021 by Eh Lovett MD at [facility] N/A: Abdomen [employer] [id number] 06/30/2023 [id number] / / [id number] Procedures Procedure Name Priority Date/Time Associated Diagnosis Comments LIPID PANEL Routine 06/11/2024 2:20 PM EDT Hyperlipidemia HEPATITIS C GENOTYPING Routine 09/29/2020 2:32 PM EDT from Last 3 Months or Most Recently Relevant to Health Maintenance Results * (ABNORMAL) Lipid panel (06/11/2024 2:20 PM EDT) HDL 58 mg/dL [facility] Comment: Interpretation <40 mg/dL: Low HDL cholesterol (major risk factor for CHD) Greater than or equal to 60 mg/dL: High HDL cholesterol ( negative risk factor for CHD) HDL - cholesterol is affected by a number of factors, e.g. smoking, excerise, hormones, sex and age. CHOLESTEROL 143 0 - 240 mg/dL [facility] TRIGLYCERIDES 134 30 - 160 mg/dL [facility] LDL 58 50 - 129 mg/dL [facility] Comment: LDL levels in terms of risk for coronary heart disease: <100 mg/dL: Optimal 100-129 mg/dL: Near or above optimal 130-159 mg/dL: Borderline high 160-189 mg/dL: High >190 mg/dL: Very High CARDIAC RISK RATIO 2.5(L) 3.4 - 5.0 C [facility] Blood 06/11/2024 2:20 PM EDT 06/11/2024 2:23 PM EDT us Yumi Chaudhary MD LAB BLOOD ORDERABLES Final Resul t [facility] [address] [place] [address] * Hepatitis C genotyping (09/29/2020 2:32 PM EDT) HCV GENOTYPE Undetected Undetected [facility] Comment: (NOTE) Assay failed to detect HCV RNA. This assay is not intended for HCV RNA detection purposes. ADDITIONAL INFORMATION This test was performed using the Contreras RealTime HCV Genotype II assay ([employer] [place], [place]). Blood (Blood) 09/29/2020 2:3 2 PM EDT 09/29/2020 2:40 PM EDT Cali Juarez MD NON CULTURE MICROBIOLOGY Final Result [facility] MED[facility] [address] [place] [address] from Last 3 Months or Most Recently Relevant to Health Maintenance Insurance POS EPO [place] [employer] [facility] POS EPO O POS EPO POS EPO POS EPO POS EPO Advance Directives For more information, please contact: [phone] (9AM - 5PM [facility], Tuesday-Tuesday) Documents on File Type Date Recorded 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 Healthcare Proxy 10/07/2021 Healthcare Proxy and Living Will * Full Code (Latest Code Status on File) Date Activated Date Inactivated Comments 12/22/2021 2:46 PM Question Answer Comments Code Status Confirmed With: Patient * Full Code Date Activated Date Inactivated Comments 11/24/2020 2:21 PM 12/22/2021 2:46 PM Question Answer Comments Code Status Confirmed With: Patient Code Status Communicated To: Other (specify belo w) Code Discussion Comments: Admitting TOWER CONTROL OPERATOR * Full Code Date Activated Date Inactivated Comments 08/21/2020 8:18 PM 11/24/2020 2:21 PM Question Answer Comments Code Status Confirmed With: Patient * Full Code (Presumed) Date Activated Date Inactivated Comments 11/09/2018 7:59 AM 11/09/2018 6:40 PM Healthcare Agents on File Name Relationship Healthcare Agent Relationshi p Communication Lorin Peterson Spouse .Primary Health Care Agent (Proxy form on file) [email or web address] Deneen Griffin Sister Alternate Health care Agent (Proxy form on file) Care Teams Slusher Operator Relationship Specialty Start Date End Date Yumi Chaudhary MD [address] [place] [phone] [email or web address] [email or web address] - General Family Medicine 01/13/22 Gal Hernandez MD [address] [place] [id number] 07/23/20 Yumi Chaudhary MD [address] [place] [phone] [email or web address] Insurance Assigned Provider 07/09/23 Additional Source Comments The information contained in this document represents components of the legal health record. It is not the complete legal health record.[facility]
--- OUTSIDE RECORDS SUMMARY | 2024-12-26 17:46 | XMS_ITS | Encounter Summary ---
Author Organization [facility] Address [address] [place] [address] Phone Care Team Providers Care Customer Care Professional Name Role Phone Delon Kaur MD Primary Care Provider [phone] Gal Hernandez MD Unavailable [phone] Yumi Chaudhary MD Primary Care Provider [phone] Yumi Chaudhary MD Unavailable Encounter Details Date Type Department Care Team (Late st Contact Info) Description 10/16/2020 Procedure Pass [facility] 75 [place] [address] Social History Tobacco Use Types Packs/Day Years [...] st Contact Info) Description 05/11/2024 Procedure Pass [facility] MR Imaging, [place] [address] [place] [address] 02/14/2025 3:00 PM EST Office Visit [facility] [place] [facility] 15 [facility] [address] [place] [address] Yumi Chaudhary MD 15 [facility]. 201 [place] [address] [email or web address] 05/17/2025 9:15 AM EST Appointment [facility] MR Imaging, [place] [address] [place] [address] Cali Juarez MD 75 [place] [address] [email or web address] 05/17/2025 1:00 PM EST Office Visit [facility] Surgical Oncology 45 [facility] [place] [address] Cali Juarez MD [address] [place] [address] [email or web address] documented as of this [...] documented as of this encounter Care Teams Customer Care Professional Relationship Specialty Start Date End Date Delon Kaur MD [address] [place] [address] PCP - General Family Medicine 05/24/17 01/12/22 Yumi Chaudhary MD 15 [facility]. 201 [place] [address] [email or web address] PCP - General Family Medicine 01/13/22 Gal Hernandez MD 9 [place] [address] 07/23/20 Yumi Chaudhary MD [address] [place] [address] [email or web address] Insurance Assigned Provider 07/09/23 documented as of this encounter Additional Source Comments The information contained in this document represents components of the legal health record. It is not the complete legal health record.[facility]
--- OUTSIDE RECORDS SUMMARY | 2024-12-26 17:46 | XMS_ITS | Encounter Summary ---
Author Organization [facility] Address [address] [place] [address] Phone Care Team Providers Care Sweet Potato Disintegrator Name Role Phone Delon Kaur MD Primary Care Provider [phone] Gal Hernandez MD Unavailable [phone] Yumi Chaudhary MD Primary Care Provider [phone] Yumi Chaudhary MD Unavailable Encounter Details Date Type Department Care Team (Late st Contact Info) Description 10/16/[address] [facility] 75 [place] [address] Social History Tobacco Use Types Packs/Day Years [...] st Contact Info) Description 05/11/2024 Procedure Pass [facility] MR Imaging, [place] [address] [place] [address] 02/14/2025 3:00 PM EST Office Visit [facility] [place] [facility] 15 [facility] [address] [place] [address] Yumi Chaudhary MD 15 [facility]. 201 [place] [address] [email or web address] 05/17/2025 9:15 AM EST Appointment [facility] MR Imaging, [place] [address] [place] [address] Cali Juarez MD 75 [place] [address] [email or web address] 05/17/2025 1:00 PM EST Office Visit [facility] Surgical Oncology 45 [facility] [place] [address] Cali Juarez MD [address] [place] [address] [email or web address] documented as of [...] documented as of this encounter Care Teams Sweet Potato Disintegrator Relationship Specialty Start Date End Date Delon Kaur MD [address] [place] [address] PCP - General Family Medicine 05/24/17 01/12/22 Yumi Chaudhary MD 15 [facility]. 201 [place] [address] [email or web address] PCP - General Family Medicine 01/13/22 Gal Hernandez MD 9 [place] [address] 07/23/20 Yumi Chaudhary MD [address] [place] [address] [email or web address] Insurance Assigned Provider 07/09/23 documented as of this encounter Additional Source Comments The information contained in this document represents components of the legal health record. It is not the complete legal health record.[facility]
--- OUTSIDE RECORDS SUMMARY | 2024-12-26 17:46 | XMS_ITS | Encounter Summary ---
Author Organization [facility] Address [address] [facility] [address] [place] [address] Phone Care Team Providers Care Successfactors Consultant Name Role Phone Delon Kaur MD Primary Care Provider [phone] Gal Hernandez MD Unavailable [phone] Yumi Chaudhary MD Primary Care Provider [phone] Yumi Chaudhary MD Unavailable Encounter Details Date Type Department Care Team (Late st Contact Info) Description 09/14/[address] [facility] Angio Interventional Radiology [address] [place] [address] Social History Tobacco Use Types Packs/Day Years [...] Contact Info) Description 05/11/[address] [facility] MR Imaging, [place] [address] [place] [address] 02/14/2025 3:00 PM EST Office Visit [facility] [place] [facility] 15 [facility] [address] [place] [address] Yumi Chaudhary MD 15 [facility] Nigel. [address] [place] [address] [email or web address] 05/17/2025 9:[address] [facility] MR Imaging, [place] [address] [place] [address] Cali Juarez MD 75 [place] [address] [email or web address] 05/17/2025 1:00 PM EST Office Visit [facility] Surgical Oncology 45 [facility]3 [place] [address] Cali Juarez MD 75 [place] [address] [email or web address] documented as of this encounter [...] documented as of this encounter Care Teams Successfactors Consultant Relationship Specialty Start Date End Date Delon Kaur MD [address] [place] [address] PCP - General Family Medicine 05/24/17 01/12/22 Yumi Chaudhary MD 15 [facility]. 201 [place] [address] [email or web address] PCP - General Family Medicine 01/13/22 Gal Hernandez MD 759 [place] [address] 07/23/20 Yumi Chaudhary MD [address] [place] [address] [email or web address] Insurance Assigned Provider 07/09/23 documented as of this encounter Additional Source Comments The information contained in this document represents components of the legal health record. It is not the complete legal health record.[facility]
--- OUTSIDE RECORDS SUMMARY | 2024-12-26 17:46 | XMS_ITS | Encounter Summary ---
Author Organization [facility] Address [address] [place] [address] Phone Care Team Providers Care Radio Program Checker Name Role Phone Delon Kaur MD Primary Care Provider Gal Hernandez MD Unavailable [phone] Yumi Chaudhary MD Primary Care Provider [phone] Yumi Chaudhary MD Unavailable Encounter Details Date Type Department Care Team (Late st Contact Info) Description 10/11/2020 Procedure Pass [facility] 75 [place] [address] Social History Tobacco Use Types Packs/Day Years [...] st Contact Info) Description 05/11/2024 Procedure Pass [facility] MR Imaging, [place] [address] [place] [address] 02/14/2025 3:00 PM EST Office Visit [facility] [place] [facility] 15 [facility] [address] [place] [address] Yumi Chaudhary MD 15 [facility]. 201 [place] [address] [email or web address] 05/17/2025 9:15 AM EST Appointment [facility] MR Imaging, [place] [address] [place] [address] Cali Juarez MD 75 [place] [address] [email or web address] 05/17/2025 1:00 PM EST Office Visit [facility] Surgical Oncology 45 [facility] [place] [address] Cali Juarez MD [address] [place] [address] [email or web address] documented as of [...] documented as of this encounter Care Teams Radio Program Checker Relationship Specialty Start Date End Date Delon Kaur MD [address] [place] [address] PCP - General Family Medicine 05/24/17 01/12/22 Yumi Chaudhary MD 15 [facility]. 201 [place] [address] [email or web address] PCP - General Family Medicine 01/13/22 Gal Hernandez MD 9 [place] [address] 07/23/20 Yumi Chaudhary MD [address] [place] [address] [email or web address] Insurance Assigned Provider 07/09/23 documented as of this encounter Additional Source Comments The information contained in this document represents components of the legal health record. It is not the complete legal health record.[facility]
--- OUTSIDE RECORDS SUMMARY | 2024-12-26 17:46 | XMS_ITS | Encounter Summary ---
Author Organization [facility] Address [address] [place] [address] Phone Care Team Providers Care Cashier Office Name Role Phone Delon Kaur MD Primary Care Provider Gal Hernandez MD Unavailable [phone] Yumi Chaudhary MD Primary Care Provider Yumi Chaudhary MD Unavailable Encounter Details Date Type Department Care Team (Late st Contact Info) Description 10/21/2020 Ophth Exam [facility] 75 [place] [address] Cheyenne Sabillon MD [email or web address] Social History Tobacco Use Types Packs/Day Years [...] [facility] MR Imaging, [place] [address] [place] [address] 02/14/2025 3:00 PM EST Office Visit [facility] [place] [facility] 15 [facility] [address] [place] [address] Yumi Chaudhary MD 15 [facility] Nigel. 201 [place] [address] [email or web address] 05/17/2025 9:15 AM EST Appointment [facility] MR Imaging, [place] [address] [place] [address] Cali Juarez MD [address] [place] [address] [email or web address] 05/17/2025 1:00 PM EST Office Visit [facility] Surgical Oncology 45 [facility]3 [place] [address] Cali Juarez MD [address] [place] [address] [email or web address] documented as of this encounter Visit Diagnoses Not on filedocumented in this encounter Additional Health Concerns Infection Onset Date Last Indicated Resolved Time 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 Date of last exposure 11/13/20 11/14/2020 11/14/2020 11/28/2020 1:43 AM E DT documented as of this encounter Care Teams Cashier Office Relationship Specialty Start Date End Date Delon Kaur MD [address] [place] [address] PCP - General Family Medicine 05/24/17 01/12/22 Yumi Chaudhary MD 15 [facility] Nigel. 201 [place] [address] [email or web address] PCP - General Family Medicine 01/13/22 Gal Hernandez MD [address] [place] [address] 07/23/20 Yumi Chaudhary MD [address] [place], [place] [address] [email or web address] Insurance Assigned Provider 07/09/23 documented as of this encounter Additional Source Comments The information contained in this document represents components of the legal health record. It is not the complete legal health record.[facility]
--- OUTSIDE RECORDS SUMMARY | 2024-12-26 17:46 | XMS_ITS | Encounter Summary ---
Author Organization [facility] Address [address] [place] [address] Phone Care Team Providers Care Tier Lift Truck Operator Name Role Phone Delon Kaur MD Primary Care Provider Gal Hernandez MD Unavailable [phone] Yumi Chaudhary MD Primary Care Provider [phone] Yumi Chaudhary MD Unavailable Encounter Details Date Type Department Care Team (Late st Contact Info) Description 10/11/2020 Procedure Pass [facility] 75 [place] [address] Social History Tobacco Use Types Packs/Day Years [...] st Contact Info) Description 05/11/2024 Procedure Pass [facility] MR Imaging, [place] [address] [place] [address] 02/14/2025 3:00 PM EST Office Visit [facility] [place] [facility] [address] [facility] [address] [place] [address] Yumi Chaudhary MD 15 [facility]. 201 [place] [address] [email or web address] 05/17/2025 9:15 AM EST Appointment [facility] MR Imaging, [place] [address] [place] [address] Cali Juarez MD 75 [place] [address] [email or web address] 05/17/2025 1:00 PM EST Office Visit [facility] Surgical Oncology 45 [facility]3 [place] [address] Cali Juarez MD [address] [place] [address] [email or web address] documented as of [...] documented as of this encounter Care Teams Tier Lift Truck Operator Relationship Specialty Start Date End Date Delon Kaur MD [address] [place] [address] PCP - General Family Medicine 05/24/17 01/12/22 Yumi Chaudhary MD 15 [facility]. 201 [place] [address] [email or web address] PCP - General Family Medicine 01/13/22 Gal Hernandez MD 9 [place] [address] 07/23/20 Yumi Chaudhary MD [address] [place] [address] [email or web address] Insurance Assigned Provider 07/09/23 documented as of this encounter Additional Source Comments The information contained in this document represents components of the legal health record. It is not the complete legal health record.[facility]
--- OUTSIDE RECORDS SUMMARY | 2024-12-26 17:46 | XMS_ITS | Encounter Summary ---
Author Organization [facility] Address [address] [facility] [address] [place] [address] Phone Care Team Providers Care Carrier Loader Name Role Phone Delon Kaur MD Primary Care Provider [phone] Gal Hernandez MD Unavailable [phone] Yumi Chaudhary MD Primary Care Provider [phone] Yumi Chaudhary MD Unavailable Encounter Details Date Type Department Care Team (Late st Contact Info) Description 09/29/2020 Procedure Pass [facility] Angio Interventional Radiology [address] [place] [address] Social History Tobacco Use Types Packs/Day Years [...] st Contact Info) Description 05/11/2024 Procedure Pass [facility] MR Imaging, [place] [address] [place] [address] 02/14/2025 3:00 PM EST Office Visit [facility] [place] [facility] 15 [facility] [address] [place] [address] Yumi Chaudhary MD 15 [facility] Nigel. [address] [place] [address] [email or web address] 05/17/2025 9:15 AM EST Appointment [facility] MR Imaging, [place] [address] [place] [address] Cali Juarez MD 75 [place] [address] [email or web address] 05/17/2025 1:00 PM EST Office Visit [facility] Surgical Oncology 45 [facility]3 [place] [address] Cali Juarez MD 75 [place] [address] [email or web address] documented as of this encounter [...] documented as of this encounter Care Teams Carrier Loader Relationship Specialty Start Date End Date Delon Kaur MD [address] [place] [address] PCP - General Family Medicine 05/24/17 01/12/22 Yumi Chaudhary MD 15 [facility]. 201 [place] [address] [email or web address] PCP - General Family Medicine 01/13/22 Gal Hernandez MD 759 [place] [address] 07/23/20 Yumi Chaudhary MD [address] [place] [address] [email or web address] Insurance Assigned Provider 07/09/23 documented as of this encounter Additional Source Comments The information contained in this document represents components of the legal health record. It is not the complete legal health record.[facility]
--- OUTSIDE RECORDS SUMMARY | 2024-12-26 17:46 | XMS_ITS | Encounter Summary ---
Author Organization [facility] Address [address] [place] [address] Phone Care Team Providers Care College Recruiter Name Role Phone Gal Hernandez MD Unavailable [phone] Yumi Chaudhary MD Primary Care Provider [phone] Yumi Chaudhary MD Unavailable Encounter Details Date Type Department Care Team (Late st Contact Info) Description 11/05/2022 Procedure Pass [facility] CT Imaging, [place] [address] [place] [address] Social History Tobacco Use Types Packs/Day Years [...] high school, GED, job training, learning the Arabic language, technical skills, or developing parenting skills)? [...] st Contact Info) Description 05/11/2024 Procedure Pass [facility] MR Imaging, [place] [address] [place] [address] 02/14/2025 3:00 PM EST Office Visit [facility] [place] [facility] 15 [facility] [address] [place] [address] Yumi Chaudhary MD 15 [facility] Nigel. [address] [place] [address] 05/17/2025 9:15 AM EST Appointment [facility] MR Jo[place], Gabriela [address] [place] [address] Cali Juarez MD 75 [place] [address] [email or web address] 05/17/2025 1:00 PM EST Office Visit [facility] Surgical Oncology 45 [facility]2-3 [place] [address] Cali Juarez MD 75 [place] [address] [email or web address] documented as of this encounter Visit Diagnoses Not on filedocumented in this encounter Additional Health Concerns Infection Onset Date Last Indicated Resolved Time 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 09/25/2020 01/06/2023 1:21 AM EDT Assessment Noted Time PHQ-2 Depression Total Score: 0 12/17/19 7:47 AM EDT documented as of this encounter Care Teams College Recruiter Relationship Specialty Start Date End Date Yumi Chaudhary MD [address] [place] [address] [email or web address] PCP - General Family Medicine 01/13/22 Gla Hernandez MD [address] [place] [address] 07/23/20 Yumi Chaudhary MD [address] [place] [address] [email or web address] Insurance Assigned Provider 07/09/23 documented as of this encounter Additional Source Comments The information contained in this document represents components of the legal health record. It is not the complete legal health record.[facility]
--- OUTSIDE RECORDS SUMMARY | 2024-12-26 17:46 | XMS_ITS | Encounter Summary ---
Author Organization [facility] Address [address] [facility] [address] [place] [address] Phone Care Team Providers Care Technical Assistant Name Role Phone Delon Kaur MD Primary Care Provider [phone] Gal Hernandez MD Unavailable [phone] Yumi Chaudhary MD Primary Care Provider [phone] Yumi Chaudhary MD Unavailable Encounter Details Date Type Department Care Team (Late st Contact Info) Description 04/30/2021 Procedure Pass [facility], Ct Scan - [address] [address] Social History Tobacco Use Types Packs/Day Years [...] Date of Assessment Author No Risk Indicated 04/30/2021 1:22 PM Halley Green RN * [place] Suicide Severity Rating Scale (Screener/Recent Self-Report) Question Answer Date of Assessment Author 1. Wish to be (Past 1 Month) No 022 1:22 PM EST Halley Andrew, MICHELLE 2. Non-Specific Active Suici niraj Thoughts (Past 1 Month) No 04/30/2021 1:22 PM EST Aung Andrew, MICHELLE 6. Suicidal Behavior (Lifetime) No 1:22 PM Halley Martinez, MICHELLE documented as of this encounter Plan of Treatment Upcoming Encounters Date Type Department Care Team (Late st Contact Info) Description 05/11/2024 Procedure Pass [facility] MR Imaging, [place] [address] [place] [address] 02/14/2025 3:00 PM EST Office Visit [facility] [place] [facility] [address] [facility] [address] [place] [address] Yumi Chaudhary MD 15 [facility] Nigel[address] [place] [address] [email or web address] 05/17/2025 9:15 AM EST Appointment [facility] MR Imaging, [place] [address] [place] [address] Cali Juarez MD [address] [place] [address] [email or web address] 05/17/2025 1:00 PM EST Office Visit [facility] Surgical Oncology 45 [facility] ASB2-3 [place] [address] Cali Juarez MD [address] [place] [address] [email or web address] documented as of this encounter Visit Diagnoses Not on filedocumented in this encounter Additional Health Concerns Infection Onset Date Last Indicated Resolved Time 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 09/25/2020 01/06/2023 1:21 AM EDT documented as of this encounter Care Teams Technical Assistant Relationship Specialty Start Date End Date Delon Kaur MD [address] [place] [address] PCP - General Family Medicine 05/24/17 01/12/22 Yumi Chaudhary MD [address] [place] [address] [email or web address] PCP - General Family Medicine 01/13/22 Gal Hernandez MD [address] [place] [address] 07/23/20 Yumi Chaudhary MD [address] [place] [address] [email or web address] Insurance Assigned Provider 07/09/23 documented as of this encounter Additional Source Comments The information contained in this document represents components of the legal health record. It is not the complete legal health record.[facility]
--- OUTSIDE RECORDS SUMMARY | 2024-12-26 17:46 | XMS_ITS | Encounter Summary ---
Author Organization [facility] Address [address] [place] [address] Phone Care Team Providers Care Account Supervisor Name Role Phone Gal Hernandez MD Unavailable [phone] Yumi Chaudhary MD Primary Care Provider Yumi Chaudhary MD Unavailable Encounter Details Date Type Department Care Team (Late st Contact Info) Description 05/14/2022 Procedure Pass [facility] MR Imaging, [place] [address] [place] [address] Social History Tobacco Use Types Packs/Day Years [...] high school, GED, job training, learning the Belarusian language, technical skills, or developing parenting skills)? [...] [facility] MR Imaging, [place] [address] [place] [address] 02/14/2025 3:00 PM EST Office Visit [facility] Primary Care [address] [facility] [address] [place] [address] Yumi Chaudhary MD 15 [facility] [address] [place] [address] 05/17/2025 9:15 AM EST Appointment [facility] MR Joelle, [address] [place] [address] Cali Juarez MD [address] [place] [address] [email or web address] 05/17/2025 1:00 PM EST Office Visit [facility] Surgical Oncology 45 [facility] ASB2-3 [place] [address] Cali Juarez MD 75 [place] [address] [email or web address] documented as of this encounter Visit Diagnoses Not on filedocumented in this encounter Additional Health Concerns Infection Onset Date Last Indicated Resolved Time 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 09/25/2020 01/06/2023 1:21 AM EDT Assessment Noted Time PHQ-2 Depression Total Score: 0 12/17/19 7:47 AM EDT documented as of this encounter Care Teams Account Supervisor Relationship Specialty Start Date End Date Yumi Chaudhary MD [address] [place] [address] [email or web address] PCP - General Family Medicine 01/13/22 Gal Hernandez MD [address] [place] [address] 07/23/20 Yumi Chaudhary MD [address] [place] [address] [email or web address] Insurance Assigned Provider 07/09/23 documented as of this encounter Additional Source Comments The information contained in this document represents components of the legal health record. It is not the complete legal health record.[facility]
--- OUTSIDE RECORDS SUMMARY | 2024-12-26 17:46 | XMS_ITS | Encounter Summary ---
Author Organization [facility] Address [address] [place] [address] Phone Care Team Providers Care Monument Carver Name Role Phone Gal Hernandez MD Unavailable [phone] Yumi Chaudhary MD Primary Care Provider [phone] Yumi Chaudhary MD Unavailable Encounter Details Date Type Department Care Team (Late st Contact Info) Description 05/13/2023 Procedure Pass [address] [place] [address] Social History Tobacco Use Types Packs/Day Years [...] high school, GED, job training, learning the Burkinan language, technical skills, or developing parenting skills)? [...] st Contact Info) Description 05/11/2024 Procedure Pass [facility] MR Joelle, [place] [address] [place] [address] 02/14/2025 3:00 PM EST Office Visit [facility] [place] Primary Care 15 [facility] [address] [place] [address] Yumi Chaudhary MD 15 [facility] [address] [place] [address] 05/17/2025 9:15 AM EST Appointment [facility] MR Joelle, Gabriela [address] [place] [address] Cali Juarez MD 75 [place] [address] [email or web address] 05/17/2025 1:00 PM EST Office Visit [facility] Surgical Oncology 45 [facility] ASB2-3 [place] [address] Cali Juarez MD 75 [place] [address] [email or web address] documented as of this encounter Visit Diagnoses Not on filedocumented in this encounter Additional Health Concerns Assessment Noted Time PHQ-2 Depression Total Score: 0 12/17/19 22 7:47 AM EDT documented as of this encounter Care Teams Monument Carver Relationship Specialty Start Date End Date Yumi Chaudhary MD [address] [place] [address] [email or web address] PCP - General Family Medicine 01/13/22 Gal Hernandez MD [address] [place] [address] 07/23/20 Yumi Chaudhary MD [address] [place] [address] [email or web address] Insurance Assigned Provider 07/09/23 documented as of this encounter Additional Source Comments The information contained in this document represents components of the legal health record. It is not the complete legal health record.[facility]
--- OUTSIDE RECORDS SUMMARY | 2024-12-26 17:46 | XMS_ITS | Encounter Summary ---
Author Organization [facility] Address [address] [facility] [address] [place] [address] Phone Care Team Providers Care Rivet Heater Gas Name Role Phone Delon Kaur MD Primary Care Provider [phone] Gal Hernandez MD Unavailable [phone] Yumi Chaudhary MD Primary Care Provider [phone] Yumi Chaudhary MD Unavailable Encounter Details Date Type Department Care Team (Late st Contact Info) Description 09/30/2020 Procedure Pass [facility] Angio Interventional Radiology [address] [place] [address] Social History Tobacco Use Types Packs/Day Years [...] Info) Description 05/11/2024 Procedure Pass [facility] MR Imaging, [place] [address] [place] [address] 02/14/2025 3:00 PM EST Office Visit [facility] [place] Primary Care 15 [facility] [address] [place] [address] Yumi Chaudhary MD 15 [facility] Nig[address]. [address] [place] [address] [email or web address] 05/17/2025 9:15 AM EST Appointment [facility] MR Imaging, [place] [address] [place] [address] Cali Juarez MD 75 [place] [address] [email or web address] 05/17/2025 1:00 PM EST Office Visit [facility] Surgical Oncology 45 [facility] [place] [address] Cali Juarez MD 75 [place] [address] [email or web address] documented [...] documented as of this encounter Care Teams Rivet Heater Gas Relationship Specialty Start Date End Date Delon Kaur MD [address] [place] [address] PCP - General Family Medicine 05/24/17 01/12/22 Yumi Chaudhary MD 15 [facility]. 201 [place] [address] [email or web address] PCP - General Family Medicine 01/13/22 Gal Hernandez MD [address] [place] [address] 07/23/20 Yumi Chaudhary MD [address] [place] [address] [email or web address] Insurance Assigned Provider 07/09/23 documented as of this encounter Additional Source Comments The information contained in this document represents components of the legal health record. It is not the complete legal health record.[facility]
--- OUTSIDE RECORDS SUMMARY | 2024-12-26 17:46 | XMS_ITS | Encounter Summary ---
Author Organization [facility] Address [address] [place] [address] [place] [address] Phone Care Team Providers Care Lollypop Machine Operator Name Role Phone Delon Kaur MD Primary Care Provider [phone] Gal Hernandez MD Unavailable [phone] Yumi Chaudhary MD Primary Care Provider [phone] Yumi Chaudhary MD Unavailable Encounter Details Date Type Department Care Team (Late st Contact Info) Description 11/09/2018 Procedure Pass [place] Admitting Dept - [facility] Department [address] [place] [address] Social History Tobacco Use Types Packs/Day Years Used Date Smoking Tobacco: Never Smokeless Tobacco: Never Alcohol Use Standard Drinks/Week Comments Yes 5 (1 standard drink = 0.6 oz pur e alcohol) one a day Sex and Gender Information Value Date Recorded Sex Assigned at Male 07/16/2020 1:37 PM EDT Legal Sex Male 9:47 PM EDT Gender Identity Male 07/16/2020 1:37 PM EDT Sexual Orientation Straight 07/16/2020 1: 37 PM EDT documented as of this encounter Plan of Treatment Upcoming Encounters Date Type Department Care Team (Late st Contact Info) Description 05/11/2024 Procedure Pass [facility] MR Imaging, [place] [address] [place] [address] 02/14/2025 3:00 PM EST Office Visit [facility] [place] Primary Care 15 [facility] [address] [place] [address] Yumi Chaudhary MD 15 [facility] [address] [place] [address] [email or web address] 05/17/2025 9:15 AM EST Appointment [facility] MR Imaging, [place] [address] [place] [address] Cali Juarez MD 75 [place] [address] [email or web address] 05/17/2025 1:00 PM EST Office Visit [facility] Surgical Oncology 45 [facility] [place] [address] Cali Juarez MD [address] [place] [address] [email or web address] documented as of this encounter Visit Diagnoses Not on filedocumented in this encounter Additional Health Concerns Infection Onset Date Last Indicated Resolved Time 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 Date of last exposure 11/13/20 11/14/2020 11/14/2020 11/28/2020 1:43 AM E DT documented as of this encounter Care Teams Lollypop Machine Operator Relationship Specialty Start Date End Date Delon Kaur MD [address] [place] [address] PCP - General Family Medicine 05/24/17 01/12/22 Yumi Chaudhary MD 15 [facility]. 201 [place] [address] [email or web address] PCP - General Family Medicine 01/13/22 Gal Hernandez MD 759 [place] [address] 07/23/20 Yumi Chaudhary MD [address] [place] [address] [email or web address] Insurance Assigned Provider 07/09/23 documented as of this encounter Additional Source Comments The information contained in this document represents components of the legal health record. It is not the complete legal health record.[facility]
--- OUTSIDE RECORDS SUMMARY | 2024-12-26 17:46 | XMS_ITS | Encounter Summary ---
Author Organization [facility] Address [address] [place] [address] Phone Care Team Providers Care Top Stop Attacher Name Role Phone Delon Kaur MD Primary Care Provider Gal Hernandez MD Unavailable [phone] Yumi Chaudhary MD Primary Care Provider [phone] Yumi Chaudhary MD Unavailable Encounter Details Date Type Department Care Team (Late st Contact Info) Description 09/13/2020 Procedure Pass [facility] Rad[facility] 75 [place] [address] Social History Tobacco Use Types Packs/Day Years [...] Contact Info) Description 05/11/2024 Procedure Pass [facility] MR Imaging, [place] [address] [place] [address] 02/14/2025 3:00 PM EST Office Visit [facility] [place] Primary Care 15 [facility] [address] [place] [address] Yumi Chaudhary MD 15 [facility]. 201 [place] [address] [email or web address] 05/17/2025 9:15 AM EST Appointment [facility] MR Imaging, [place] [address] [place] [address] Cali Juarez MD 75 [place] [address] [email or web address] 05/17/2025 1:00 PM EST Office Visit [facility] Surgical Oncology 45 [facility] [place] [address] Cali Juarez MD [address] [place] [address] [email or web address] documented as of this encounter [...] documented as of this encounter Care Teams Top Stop Attacher Relationship Specialty Start Date End Date Delon Kaur MD [address] [place] [address] PCP - General Family Medicine 05/24/17 01/12/22 Yumi Chaudhary MD 15 [facility]. 201 [place] [address] [email or web address] PCP - General Family Medicine 01/13/22 Gal Hernandez MD 9 [place] [address] 07/23/20 Yumi Chaudhary MD [address] [place] [address] [email or web address] Insurance Assigned Provider 07/09/23 documented as of this encounter Additional Source Comments The information contained in this document represents components of the legal health record. It is not the complete legal health record.[facility]
--- OUTSIDE RECORDS SUMMARY | 2024-12-26 17:46 | XMS_ITS | Encounter Summary ---
Author Organization [facility] Address [address] [facility] [address] [place] [address] Phone Care Team Providers Care Retanned Leather Roller Name Role Phone Delon Kaur MD Primary Care Provider [phone] Gal Hernandez MD Unavailable [phone] Yumi Chaudhary MD Primary Care Provider [phone] Yumi Chaudhary MD Unavailable Encounter Details Date Type Department Care Team (Late st Contact Info) Description 04/30/2021 Procedure Pass [facility], Ct Scan - [address] [address] Social History Tobacco Use Types Packs/Day Years [...] 04/30/2021 1:22 PM Halley Green RN * [place] Suicide Severity Rating Scale (Screener/Recent Self-Report) Question [...] [facility] MR Imaging, [place] [place] [address] 02/14/2025 3:00 PM EST Office Visit [facility] [place] Primary Care 15 [facility] [address] [place] [address] Yumi Chaudhary MD 15 [facility] [address] [place] [address] [email or web address] 05/17/2025 9:15 AM EST Appointment [facility] MR Imaging, [place] [place] [address] Cali Juarez MD [address] [place] [address] [email or web address] 05/17/2025 1:00 PM EST Office Visit [facility] Surgical Oncology 45 [facility] ASB2-3 [place] [address] Cali Juarez MD [address] [place] [address] [email or web address] documented as of this encounter Visit Diagnoses Not on filedocumented in this encounter Additional Health Concerns Infection Onset Date Last Indicated Resolved Time 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 09/25/2020 01/06/2023 1:21 AM EDT documented as of this encounter Care Teams Retanned Leather Roller Relationship Specialty Start Date End Date Delon Kaur MD [address] [place] [address] PCP - General Family Medicine 05/24/17 01/12/22 Yumi Chaudhary MD [address] [place] [address] [email or web address] PCP - General Family Medicine 01/13/22 Gal Hernandez MD [address] [place] [address] 07/23/20 Yumi Chaudhary MD [address] [place] [address] [email or web address] Insurance Assigned Provider 07/09/23 documented as of this encounter Additional Source Comments The information contained in this document represents components of the legal health record. It is not the complete legal health record.[facility]
--- OUTSIDE RECORDS SUMMARY | 2024-12-26 17:46 | XMS_ITS | Encounter Summary ---
Author Organization [facility] Address [address] [place] [address] Phone Care Team Providers Care Investigative Research Specialist Name Role Phone Gal Hernandez MD Unavailable [phone] Yumi Chaudhary MD Primary Care Provider [phone] Yumi Chaudhary MD Unavailable Encounter Details Date Type Department Care Team (Late st Contact Info) Description 11/05/2022 Procedure Pass [facility] MR Imaging, [place] [address] [place] [address] Social History Tobacco Use Types Packs/Day Years [...] high school, GED, job training, learning the Hungarian language, technical skills, or developing parenting skills)? [...] st Contact Info) Description 05/11/2024 Procedure Pass [facility] MR Imaging, [place] [address] [place] [address] 02/14/2025 3:00 PM EST Office Visit [facility] [place] Primary Care 15 [facility] [address] [place] [address] Yumi Chaudhary MD 15 [facility] [address] [place] [address] 05/17/2025 9:15 AM EST Appointment [facility] MR Joelle, Gabriela [address] [place] [address] Cali Juarez MD 75 [place] [address] [email or web address] 05/17/2025 1:00 PM EST Office Visit [facility] Surgical Oncology 45 [facility] ASB2-3 [place] [address] Cali Juarez MD 75 [place] [address] [email or web address] documented as of this encounter Visit Diagnoses Not on filedocumented in this encounter Additional Health Concerns Infection Onset Date Last Indicated Resolved Time 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 09/25/2020 01/06/2023 1:21 AM EDT Assessment Noted Time PHQ-2 Depression Total Score: 0 12/17/19 7:47 AM EDT documented as of this encounter Care Teams Investigative Research Specialist Relationship Specialty Start Date End Date Yumi Chaudhary MD [address] [place] [address] [email or web address] PCP - General Family Medicine 01/13/22 Gal Hernandez MD [address] [place] [address] 07/23/20 Yumi Chaudhary MD [address] [place] [address] [email or web address] Insurance Assigned Provider 07/09/23 documented as of this encounter Additional Source Comments The information contained in this document represents components of the legal health record. It is not the complete legal health record.[facility]
--- OUTSIDE RECORDS SUMMARY | 2024-12-26 17:46 | XMS_ITS | Encounter Summary ---
Author Organization [facility] Address [address] [facility] [address] [place] [address] Phone Care Team Providers Care Home Therapy Teacher Name Role Phone Delon Kaur MD Primary Care Provider [phone] Gal Hernandez MD Unavailable [phone] Yumi Chaudhary MD Primary Care Provider [phone] Yumi Chaudhary MD Unavailable Encounter Details Date Type Department Care Team (Late st Contact Info) Description 09/16/2020 Procedure Pass [facility] Periop 75 [place] [address] Social History Tobacco Use Types Packs/Day Years [...] [facility] MR Imaging, [place] [place] [address] 02/14/2025 3:00 PM EST Office Visit [facility] [place] Primary Care 15 [facility] [address] [place] [address] Yumi Chaudhary MD 15 [facility]. [address] [place] [address] [email or web address] 05/17/2025 9:15 AM EST Appointment [facility] MR Imaging, [place] [address] [place] [address] Cali Juarez MD 75 [place] [address] [email or web address] 05/17/2025 1:00 PM EST Office Visit [facility] Surgical Oncology 45 [facility] [place] [address] Cali Juarez MD [address] [place] [address] [email or web address] documented as of this [...] documented as of this encounter Care Teams Home Therapy Teacher Relationship Specialty Start Date End Date Delon Kaur MD [address] [place] [address] PCP - General Family Medicine 05/24/17 01/12/22 Yumi Chaudhary MD 15 [facility]. [address] [place] [address] [email or web address] PCP - General Family Medicine 01/13/22 Gal Hernandez MD [address] [place] [address] 07/23/20 Yumi Chaudhary MD [address] [place] [address] [email or web address] Insurance Assigned Provider 07/09/23 documented as of this encounter Additional Source Comments The information contained in this document represents components of the legal health record. It is not the complete legal health record.[facility]
--- OUTSIDE RECORDS SUMMARY | 2024-12-26 17:46 | XMS_ITS | Encounter Summary ---
Author Organization [facility] Address [address] [facility] [address] [place] [address] Phone Care Team Providers Care Consultant Rn Name Role Phone Gal Hernandez MD Unavailable [phone] Yumi Chaudhary MD Primary Care Provider [phone] Yumi Chaudhary MD Unavailable Encounter Details Date Type Department Care Team (Late st Contact Info) Description 10/11/2023 Procedure Pass [facility], Ct Scan - [address] [id number] Social History Tobacco Use Types Packs/Day Years [...] high school, GED, job training, learning the Ukrainian language, technical skills, or developing parenting skills)? [...] st Contact Info) Description 05/11/[address] [facility] MR Imaging, [place] [address] [place] [address] 02/14/2025 3:00 PM EST Office Visit [facility] [place] Primary Care 15 [facility] [address] [place] [address] Yumi Chaudhary MD 15 [facility] [address] [place] [address] 05/17/2025 9:15 AM EST Appointment [facility] MR Joelle, [place] [address] [place] [address] Cali Juarez MD 75 [place] [address] [email or web address] 05/17/2025 1:00 PM EST Office Visit [facility] Surgical Oncology 45 [facility] ASB2-3 [place] [address] Cali Juarez MD 75 [place] [address] [email or web address] documented as of this encounter Visit Diagnoses Not on filedocumented in this encounter Additional Health Concerns Assessment Noted Time PHQ-2 Depression Total Score: 0 12/17/19 22 7:47 AM EDT documented as of this encounter Care Teams Consultant Rn Relationship Specialty Start Date End Date Yumi Chaudhary MD [address] [place] [address] [email or web address] PCP - General Family Medicine 01/13/22 Gal Hernandez MD [address] [place] [address] 07/23/20 Yumi Chaudhary MD [address] [place] [address] [email or web address] Insurance Assigned Provider 07/09/23 documented as of this encounter Additional Source Comments The information contained in this document represents components of the legal health record. It is not the complete legal health record.[facility]
--- OUTSIDE RECORDS SUMMARY | 2024-12-26 17:46 | XMS_ITS | Encounter Summary ---
Author Organization [facility] Address [address] [facility] [address] [place] [address] Phone Care Team Providers Care Orange Picker Machine Operator Name Role Phone Delon Kaur MD Primary Care Provider [phone] Gal Hernandez MD Unavailable [phone] Yumi Chaudhary MD Primary Care Provider [phone] Yumi Chaudhary MD Unavailable Encounter Details Date Type Department Care Team (Late st Contact Info) Description 10/15/2020 Procedure Pass [facility] Angio Interventional Radiology [address] [place] [address] Social History Tobacco Use Types Packs/Day Years [...] st Contact Info) Description 05/11/2024 Procedure Pass [facility] MR Imaging, [place] [place] [address] 02/14/2025 3:00 PM EST Office Visit [facility] [place] [facility] [address] [facility] [address] [place] [address] Yuim Chaudhary MD 15 [facility] Nigel. [address] [place] [address] [email or web address] 05/17/2025 9:15 AM EST Appointment [facility] MR Imaging, [place] [address] [place] [address] Cali Juarez MD 75 [place] [address] [email or web address] 05/17/2025 1:00 PM EST Office Visit [facility] Surgical Oncology 45 [facility]3 [place] [address] Cali Juarez MD 75 [place] [address] [email or web address] documented as of this encounter Visit Diagnoses Not on filedocumented in this encounter Additional Health Concerns Infection Onset Date Last Indicated Resolved Time 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 Date of last exposure 11/13/20 11/14/2020 11/14/2020 11/28/2020 1:43 AM E DT documented as of this encounter Care Teams Orange Picker Machine Operator Relationship Specialty Start Date End Date Delon Kaur MD [address] [place] [address] PCP - General Family Medicine 05/24/17 01/12/22 Yumi Chaudhary MD 15 [facility]. 201 [place] [address] [email or web address] PCP - General Family Medicine 01/13/22 Gal Hernandez MD 759 [place] [address] 07/23/20 Yumi Chaudhary MD [address] [place] [address] [email or web address] Insurance Assigned Provider 07/09/23 documented as of this encounter Additional Source Comments The information contained in this document represents components of the legal health record. It is not the complete legal health record.[facility]
--- OUTSIDE RECORDS SUMMARY | 2024-12-26 17:46 | XMS_ITS | Encounter Summary ---
Author Organization [facility] Address [address] [facility] [address] [place] [address] Phone Care Team Providers Care Fur Storage Clerk Name Role Phone Delon Kaur MD Primary Care Provider Gal Hernandez MD Unavailable [phone] Yumi Chaudhary MD Primary Care Provider [phone] Yumi Chaudhary MD Unavailable Encounter Details Date Type Department Care Team (Late st Contact Info) Description 09/04/[address] [facility] 75 [place] [address] Social History Tobacco Use Types Packs/Day Years [...] st Contact Info) Description 05/11/2024 Procedure Pass [facility], [place] [address] [place] [address] 02/14/2025 3:00 PM EST Office Visit [facility] [place] [facility] 15 [facility] [address] [place] [address] Yumi Chaudhary MD 15 [facility]. 201 [place] [address] [email or web address] 05/17/2025 9:15 AM EST Appointment [facility] MR Imaging, [place] [address] [place] [address] Cali Juarez MD 75 [place] [address] [email or web address] 05/17/2025 1:00 PM EST Office Visit [facility] Surgical Oncology [facility]3 [place] [address] Cali Juarez MD [address] [place] [address] [email or web address] documented as of this [...] documented as of this encounter Care Teams Fur Storage Clerk Relationship Specialty Start Date End Date Delon Kaur MD [address] [place] [address] PCP - General Family Medicine 05/24/17 01/12/22 Yumi Chaudhary MD 15 [facility]. 201 [place] [address] [email or web address] PCP - General Family Medicine 01/13/22 Gal Hernandez MD 9 [place] [address] 07/23/20 Yumi Chaudhary MD [address] [place] [address] [email or web address] Insurance Assigned Provider 07/09/23 documented as of this encounter Additional Source Comments The information contained in this document represents components of the legal health record. It is not the complete legal health record.[facility]
--- OUTSIDE RECORDS SUMMARY | 2024-12-26 17:46 | XMS_ITS | Encounter Summary ---
Author Organization [facility] Address [address] [place] [address] Phone Care Team Providers Care Property Management Supervisor Name Role Phone Delon Kaur MD Primary Care Provider Gal Hernandez MD Unavailable [phone] Yumi Chaudhary MD Primary Care Provider [phone] Yumi Chaudhary MD Unavailable Encounter Details Date Type Department Care Team (Late st Contact Info) Description 09/21/2020 Procedure Pass [facility] 75 [place] [address] Social History Tobacco Use Types Packs/Day Years [...] st Contact Info) Description 05/11/2024 Procedure Pass [facility] MR Imaging, [place] [address] [place] [address] 02/14/2025 3:00 PM EST Office Visit [facility] [place] [facility] [address] [facility] [address] [place] [address] Yumi Chaudhary MD 15 [facility]. 201 [place] [address] [email or web address] 05/17/2025 9:15 AM EST Appointment [facility] MR Imaging, [place] [address] [place] [address] Cali Juarez MD 75 [place] [address] [email or web address] 05/17/2025 1:00 PM EST Office Visit [facility] Surgical Oncology 45 [facility]3 [place] [address] Cali Juarez MD [address] [place] [address] [email or web address] documented as of this encounter Visit Diagnoses Not on filedocumented in this encounter Additional Health Concerns Infection Onset Date Last Indicated Resolved Time 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 Date of last exposure 11/13/20 11/14/2020 11/14/2020 11/28/2020 1:43 AM E DT documented as of this encounter Care Teams Property Management Supervisor Relationship Specialty Start Date End Date Delon Kaur MD [address] [place] [address] PCP - General Family Medicine 05/24/17 01/12/22 Yumi Chaudhary MD 15 [facility]. 201 [place] [address] [email or web address] PCP - General Family Medicine 01/13/22 Gal Hernandez MD 9 [place] [address] 07/23/20 Yumi Chaudhary MD [address] [place] [address] [email or web address] Insurance Assigned Provider 07/09/23 documented as of this encounter Additional Source Comments The information contained in this document represents components of the legal health record. It is not the complete legal health record.[facility]
--- OUTSIDE RECORDS SUMMARY | 2024-12-26 17:46 | XMS_ITS | Encounter Summary ---
Author Organization [facility] Address [address] [facility] [address] [place] [address] Phone Care Team Providers Care Guard Supervisor Name Role Phone Delon Kaur MD Primary Care Provider [phone] Gal Hernandez MD Unavailable [phone] Yumi Chaudhary MD Primary Care Provider [phone] Yumi Chaudhary MD Unavailable Encounter Details Date Type Department Care Team (Late st Contact Info) Description 09/13/[address] [facility] Periop 75 [place] [address] Social History Tobacco Use Types Packs/Day Years [...] Contact Info) Description 05/11/[address] [facility] MR Imaging, [place] [place] [address] 02/14/2025 3:00 PM EST Office Visit [facility] [place] [facility] 15 [facility] [address] [place] [address] Yumi Chaudhary MD 15 [facility]. [address] [place] [address] [email or web address] 05/17/2025 9:[address] [facility] MR Imaging, [place] [address] [place] [address] Cali Juarez MD 75 [place] [address] [email or web address] 05/17/2025 1:00 PM EST Office Visit [facility] Surgical Oncology 45 [facility]3 [place] [address] Cali Juarez MD [address] [place] [address] [email or web address] documented as of this encounter [...] documented as of this encounter Care Teams Guard Supervisor Relationship Specialty Start Date End Date Delon Kaur MD [address] [place] [address] PCP - General Family Medicine 05/24/17 01/12/22 Yumi Chaudhary MD 15 [facility]. [address] [place] [address] [email or web address] PCP - General Family Medicine 01/13/22 Gal Hernandez MD 759 [place] [address] 07/23/20 Yumi Chaudhary MD [address] [place] [address] [email or web address] Insurance Assigned Provider 07/09/23 documented as of this encounter Additional Source Comments The information contained in this document represents components of the legal health record. It is not the complete legal health record.[facility]
--- OUTSIDE RECORDS SUMMARY | 2024-12-26 17:46 | XMS_ITS | Encounter Summary ---
Author Organization [facility] Address [address] [place] [address] Phone Care Team Providers Care Dry Cell Assembly Machine Tender Name Role Phone Delon Kaur MD Primary Care Provider [phone] Gal Hernandez MD Unavailable [phone] Yumi Chaudhary MD Primary Care Provider [phone] Yumi Chaudhary MD Unavailable Encounter Details Date Type Department Care Team (Late st Contact Info) Description 09/13/2020 Procedure Pass [facility] 75 [place] [address] Social History Tobacco Use Types Packs/Day Years [...] Contact Info) Description 05/11/2024 Procedure Pass [facility] MR Imaging, [place] [address] [place] [address] 02/14/2025 3:00 PM EST Office Visit [facility] [place] [facility] 15 [facility] [address] [place] [address] Yumi Chaudhary MD 15 [facility]. 201 [place] [address] [email or web address] 05/17/2025 9:15 AM EST Appointment [facility] MR Imaging, [place] [address] [place] [address] Cali Juarez MD 75 [place] [address] [email or web address] 05/17/2025 1:00 PM EST Office Visit [facility] Surgical Oncology 45 [facility]3 [place] [address] Cali Juarez MD [address] [place] [address] [email or web address] documented as of this encounter Visit Diagnoses Not on filedocumented in this encounter Additional Health Concerns Infection Onset Date Last Indicated Resolved Time 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 Date of last exposure 11/13/20 11/14/2020 11/14/2020 11/28/2020 1:43 AM E DT documented as of this encounter Care Teams Dry Cell Assembly Machine Tender Relationship Specialty Start Date End Date Delon Kaur MD [address] [place] [address] PCP - General Family Medicine 05/24/17 01/12/22 Yumi Chaudhary MD 15 [facility]. 201 [place] [address] [email or web address] PCP - General Family Medicine 01/13/22 Gal Hernandez MD 9 [place] [address] 07/23/20 Yumi Chaudhary MD [address] [place] [address] [email or web address] Insurance Assigned Provider 07/09/23 documented as of this encounter Additional Source Comments The information contained in this document represents components of the legal health record. It is not the complete legal health record.[facility]
--- OUTSIDE RECORDS SUMMARY | 2024-12-26 17:46 | XMS_ITS | Encounter Summary ---
Author Organization [facility] Address [address] [facility] [address] [place] [address] Phone Care Team Providers Care Drying Equipment Operator Name Role Phone Delon Kaur MD Primary Care Provider Gal Hernandez MD Unavailable [phone] Yumi Chaudhary MD Primary Care Provider [phone] Yumi Chaudhary MD Unavailable Encounter Details Date Type Department Care Team (Late st Contact Info) Description 10/15/2020 Procedure Pass [facility] 75 [place] [address] Social History Tobacco Use Types Packs/Day Years [...] Info) Description 05/11/[address] [facility] MR Imaging, [place] [address] [place] [address] 02/14/2025 3:00 PM EST Office Visit [facility] [place] [facility] 15 [facility] [address] [place] [address] Yumi Chaudhary MD 15 [facility]. 201 [place] [address] [email or web address] 05/17/2025 9:[address] [facility] MR Imaging, [place] [address] [place] [address] Cali Juarez MD 75 [place] [address] [email or web address] 05/17/2025 1:00 PM EST Office [facility] Surgical Oncology 45 [facility]3 [place] [address] Cali Juarez MD [address] [place] [address] [email or web address] documented [...] documented as of this encounter Care Teams Drying Equipment Operator Relationship Specialty Start Date End Date Delon Kaur MD [address] [place] [address] PCP - General Family Medicine 05/24/17 01/12/22 Yumi Chaudhary MD 15 [facility]. 201 [place] [address] [email or web address] PCP - General Family Medicine 01/13/22 Gal Hernandez MD 9 [place] [address] 07/23/20 Yumi Chaudhary MD [address] [place] [address] [email or web address] Insurance Assigned Provider 07/09/23 documented as of this encounter Additional Source Comments The information contained in this document represents components of the legal health record. It is not the complete legal health record.[facility]
--- OUTSIDE RECORDS SUMMARY | 2024-12-26 17:46 | XMS_ITS | Encounter Summary ---
Author Organization [facility] Address [address] [facility] [address] [place] [address] Phone Care Team Providers Care Green Building Engineer Name Role Phone Delon Kaur MD Primary Care Provider [phone] Gal Hernandez MD Unavailable [phone] Yumi Chaudhary MD Primary Care Provider [phone] Yumi Chaudhary MD Unavailable Encounter Details Date Type Department Care Team (Late st Contact Info) Description 09/19/2020 Procedure Pass [facility] Periop 75 [place] [address] Social History Tobacco Use Types Packs/Day Years [...] st Contact Info) Description 05/11/2024 Procedure Pass [facility] MR Imaging, [place] [place] [address] 02/14/2025 3:00 PM EST Office Visit [facility] [place] [facility] 15 [facility] [address] [place] [address] Yumi Chaudhary MD 15 [facility]. [address] [place] [address] [email or web address] 05/17/2025 9:15 AM EST Appointment [facility] MR Imaging, [place] [address] [place] [address] Cali Juarez MD 75 [place] [address] [email or web address] 05/17/2025 1:00 PM EST Office Visit [facility] Surgical Oncology 45 [facility]3 [place] [address] Cali Juarez MD [address] [place] [address] [email or web address] documented as of this encounter [...] documented as of this encounter Care Teams Green Building Engineer Relationship Specialty Start Date End Date Delon Kaur MD [address] [place] [address] PCP - General Family Medicine 05/24/17 01/12/22 Yumi Chaudhary MD 15 [facility]. [address] [place] [address] [email or web address] PCP - General Family Medicine 01/13/22 Gal Hernandez MD 759 [place] [address] 07/23/20 Yumi Chaudhary MD [address] [place] [address] [email or web address] Insurance Assigned Provider 07/09/23 documented as of this encounter Additional Source Comments The information contained in this document represents components of the legal health record. It is not the complete legal health record.[facility]
--- OUTSIDE RECORDS SUMMARY | 2024-12-26 17:46 | XMS_ITS | Encounter Summary ---
Author Organization [facility] Address [address] [facility] [address] [place] [address] Phone Care Team Providers Care Zipper Slide Attacher Name Role Phone Delon Kaur MD Primary Care Provider [phone] Gal Hernandez MD Unavailable [phone] Yumi Chaudhary MD Primary Care Provider [phone] Yumi Chaudhary MD Unavailable Encounter Details Date Type Department Care Team (Late st Contact Info) Description 09/09/2020 Procedure Pass [facility] Angio Interventional Radiology [address] [place] [address] Social History Tobacco Use Types Packs/Day Years [...] [facility] MR Imaging, [place] [place] [address] 02/14/2025 3:00 PM EST Office Visit [facility] [place] [facility] 15 [facility] [address] [place] [address] Yumi Chaudhary MD 15 [facility] Nigel. [address] [place] [address] [email or web address] 05/17/2025 9:15 AM EST Appointment [facility] MR Imaging, [place] [address] [place] [address] Cali Juarez MD 75 [place] [address] [email or web address] 05/17/2025 1:00 PM EST Office Visit [facility] Surgical Oncology 45 [facility]3 [place] [address] Cali Juarez MD 75 [place] [address] [email or web address] documented as [...] documented as of this encounter Care Teams Zipper Slide Attacher Relationship Specialty Start Date End Date Delon Kaur MD [address] [place] [address] PCP - General Family Medicine 05/24/17 01/12/22 Yumi Chaudhary MD 15 [facility]. 201 [place] [address] [email or web address] PCP - General Family Medicine 01/13/22 Gal Hernandez MD 759 [place] [address] 07/23/20 Yumi Chaudhary MD [address] [place] [address] [email or web address] Insurance Assigned Provider 07/09/23 documented as of this encounter Additional Source Comments The information contained in this document represents components of the legal health record. It is not the complete legal health record.[facility]
--- OUTSIDE RECORDS SUMMARY | 2024-12-26 17:47 | XMS_ITS | Encounter Summary ---
Author Organization [facility] Address [address] [facility] [address] [place] [address] Phone Care Team Providers Care Journeyman Powerhouse Operator Name Role Phone Delon Kaur MD Primary Care Provider [phone] Gal Hernandez MD Unavailable [phone] Yumi Chaudhary MD Primary Care Provider [phone] Yumi Chaudhary MD Unavailable Encounter Details Date Type Department Care Team (Late st Contact Info) Description 09/29/2020 Procedure Pass [facility] Periop 75 [place] [address] Social History Tobacco Use Types Packs/Day Years [...] st Contact Info) Description 05/11/2024 Procedure Pass [facility] MR Imaging, [place] [place] [address] 02/14/2025 3:00 PM EST Office Visit [facility] [place] [facility] 15 [facility] [address] [place] [address] Yumi Chaudhary MD 15 [facility]. [address] [place] [address] [email or web address] 05/17/2025 9:15 AM EST Appointment [facility] MR Imaging, [place] [address] [place] [address] Cali Juarez MD 75 [place] [address] [email or web address] 05/17/2025 1:00 PM EST Office Visit [facility] Surgical Oncology 45 [facility]3 [place] [address] Cali Juarez MD [address] [place] [address] [email or web address] documented as of [...] documented as of this encounter Care Teams Journeyman Powerhouse Operator Relationship Specialty Start Date End Date Delon Kaur MD [address] [place] [address] PCP - General Family Medicine 05/24/17 01/12/22 Yumi Chaudhary MD 15 [facility]. [address] [place] [address] [email or web address] PCP - General Family Medicine 01/13/22 Gal Hernandez MD 759 [place] [address] 07/23/20 Yumi Chaudhary MD [address] [place] [address] [email or web address] Insurance Assigned Provider 07/09/23 documented as of this encounter Additional Source Comments The information contained in this document represents components of the legal health record. It is not the complete legal health record.[facility]
== END 2024-12-26 16:13 | disposition home or self-care (01) ==
LOC: HO.HUSH 15:20
PROVIDERS: PCP Family Medicine; Visit Provider Nurse Practitioner Family
DX: R97.20 Elevated prostate specific antigen [PSA] (principal); N40.1 Benign prostatic hyperplasia with lower urinary tract symptoms; Z13.9 Encounter for screening, unspecified
CPT/HCPCS: 99204

== ENCOUNTER → 2024-12-26 15:19 | Outpatient (BNVA) | payer OTHER, SELFPAY | PROVIDERS: PCP Family Medicine; Visit Provider Nurse Practitioner Family | DX: R97.20 Elevated prostate specific antigen [PSA] (principal); N40.0 Benign prostatic hyperplasia without lower urinary tract symptoms; Z79.82 Long term (current) use of aspirin | CPT/HCPCS: 51798; 81003 ==

== ENCOUNTER 2025-02-11 12:38 | Outpatient (REF) | payer OTHER, SELFPAY ==
[2025-02-11 14:31] LABS: PSA,Total (Free>4and<10) 5.70 ng/mL (0.00-4.00)
--- OUTSIDE RECORDS SUMMARY | 2025-02-11 14:45 | XMS_ITS | Encounter Summary ---
Author Organization [facility] Address [address] [facility] [address] [place] [address] Phone Care Team Providers Care Process Improvement Specialist Name Role Phone Delon Kaur MD Primary Care Provider [phone] Gal Hernandez MD Unavailable [phone] Yumi Chaudhary MD Primary Care Provider [phone] Yumi Chaudhary MD Unavailable Encounter Details Date Type Department Care Team (Late st Contact Info) Description 09/04/2020 Procedure Pass [facility] 75 [place] [address] Social History Tobacco Use Types Packs/Day Years [...] Contact Info) Description 05/11/[address] [facility] MR Imaging, [place] [address] [place] [address] 02/14/2025 3:00 PM EST Office Visit [facility] [place] [facility] 15 [facility] [address] [place] [address] Yumi Chaudhary MD 15 [facility]. 201 [place] [address] [email or web address] 05/17/2025 9:[address] [facility] MR Imaging, [place] [address] [place] [address] Cali Juarez MD 75 [place] [address] [email or web address] 05/17/2025 1:00 PM EST Office Visit [facility] Surgical Oncology 45 [facility]3 [place] [address] Cali Juarez MD [address] [place] [address] [email or web address] documented as of this [...] documented as of this encounter Care Teams Process Improvement Specialist Relationship Specialty Start Date End Date Delon Kaur MD [address] [place] [address] PCP - General Family Medicine 05/24/17 01/12/22 Yumi Chaudhary MD 15 [facility]. 201 [place] [address] [email or web address] PCP - General Family Medicine 01/13/22 Gal Hernandez MD 9 [place] [address] 07/23/20 Yumi Chaudhary MD [address] [place] [address] [email or web address] Insurance Assigned Provider 07/09/23 documented as of this encounter Additional Source Comments The information contained in this document represents components of the legal health record. It is not the complete legal health record.[facility]
--- OUTSIDE RECORDS SUMMARY | 2025-02-11 14:45 | XMS_ITS | Encounter Summary ---
Author Organization [facility] Address [address] [facility] [address] [place] [address] Phone Care Team Providers Care Triage Registered Nurse Name Role Phone Delon Kaur MD Primary Care Provider [phone] Gal Hernandez MD Unavailable [phone] Yumi Chaudhary MD Primary Care Provider [phone] Yumi Chaudhary MD Unavailable Encounter Details Date Type Department Care Team (Late st Contact Info) Description 08/31/2020 Procedure Pass [facility] 75 [place] [address] Social History Tobacco Use Types Packs/Day Years [...] st Contact Info) Description 05/11/2024 Procedure Pass [facility] MR Imaging, [place] [address] [place] [address] 02/14/2025 3:00 PM EST Office Visit [facility] [place] [facility] 15 [facility] [address] [place] [address] Yumi Chaudhary MD 15 [facility]. 201 [place] [address] [email or web address] 05/17/2025 9:15 AM EST Appointment [facility] MR Imaging, [place] [address] [place] [address] Cali Juarez MD 75 [place] [address] [email or web address] 05/17/2025 1:00 PM EST Office Visit [facility] Surgical Oncology 45 [facility]3 [place] [address] Cali Juarez MD [address] [place] [address] [email or web address] documented as of this encounter Visit Diagnoses Not on filedocumented in this encounter Additional Health Concerns Infection Onset Date Last Indicated Resolved Time 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 Date of last exposure 11/13/20 11/14/2020 11/14/2020 11/28/2020 1:43 AM E DT documented as of this encounter Care Teams Triage Registered Nurse Relationship Specialty Start Date End Date Delon Kaur MD [address] [place] [address] PCP - General Family Medicine 05/24/17 01/12/22 Yumi Chaudhary MD 15 [facility]. 201 [place] [address] [email or web address] PCP - General Family Medicine 01/13/22 Gal Hernandez MD 9 [place] [address] 07/23/20 Yumi Chaudhary MD [address] [place] [address] [email or web address] Insurance Assigned Provider 07/09/23 documented as of this encounter Additional Source Comments The information contained in this document represents components of the legal health record. It is not the complete legal health record.[facility]
--- OUTSIDE RECORDS SUMMARY | 2025-02-11 14:45 | XMS_ITS | Encounter Summary ---
Author Organization [facility] Address 399 [facility] [address] [place] [address] Phone Care Team Providers Care Accounts Receivable Manager Name Role Phone Delon Kaur MD Primary Care Provider + [phone] Gal Hernandez MD Unavailable [phone] Yumi Chaudhary MD Primary Care Provider [phone] Yumi Chaudhary MD Unavailable Encounter Details Date Type Department Care Team (Late st Contact Info) Description 10/06/2021 Procedure Pass [facility] Periop 75 [place] [address] Social History Tobacco Use Types Packs/Day Years [...] 8:43 PM EDT Deisi Klein RN * [place] Suicide Severity Rating Scale (Screener/Recent Self-Report) Question [...] Upcoming Encounters Date Type Department Care Team ([facility] st Contact Info) Description 05/11/2024 Procedure Pass [facility] MR Imaging, Gabriela [address] [place] [address] 02/14/2025 3:00 PM EST Office Visit [facility] 15 [facility] [address] [place] [address] Yumi Chaudhary MD 15 [facility] Nigel. 201 [place] [address] [email or web address] 05/17/2025 9:15 AM EST Appointment [facility] Imaging, [place]riela 60 [place] [address] Cali Juarez MD [address] [place] [address] [email or web address] 05/17/2025 1:00 PM EST Office Visit [facility] Surgical Oncology 45 [facility] ASB2-3 [place] [address] Cali Juarez MD [address] [place] [address] [email or web address] documented as of this encounter Visit Diagnoses Not on filedocumented in this encounter Additional Health Concerns Infection Onset Date Last Indicated Resolved Time 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 PCP - General Family Medicine 01/13/22 Gal Hernandez MD [address] [place] [address] 07/23/20 Yumi Chaudhary MD [address] [place] [address] [email or web address] Insurance Assigned Provider 07/09/23 documented as of this encounter Additional Source Comments The information contained in this document represents components of the legal health record. It is not the complete legal health record.[facility]
--- OUTSIDE RECORDS SUMMARY | 2025-02-11 14:45 | XMS_ITS | Encounter Summary ---
Author Organization [facility] Address [address] [facility] [address] [place] [address] Phone Care Team Providers Care Hairspring Inspector Name Role Phone Delon Kaur MD Primary Care Provider [phone] Gal Hernandez MD Unavailable [phone] Yumi Chaudhary MD Primary Care Provider Yumi Chaudhary MD Unavailable Encounter Details Date Type Department Care Team (Late st Contact Info) Description 10/03/2021 Transcribe Orders [facility] Specimen Processing 30 [place] [address] Delon Kaur MD [address] [place] [address] Social History Tobacco Use Types Packs/Day Years [...] 8:43 PM EDT Deisi Klein RN * [place] Suicide Severity Rating Scale (Screener/Recent Self-Report) Question [...] st Contact Info) Description 05/11/2024 Procedure Pass [facility] MR Lai, Gabriela 60 [place] [address] 02/14/2025 3:00 PM EST Office Visit [facility] 15 [facility] [address] [place] [address] Yumi Chaudhary MD 15 [facility] Nigel. 201 [place] [address] [email or web address] 05/17/2025 9:15 AM EST Appointment [facility] Gabriela Bowman 60 [place] [address] Cali Juarez MD [address] [place] [address] [email or web address] 05/17/2025 1:00 PM EST Office Visit [facility] Surgical Oncology 45 [facility] ASB2-3 [place] [address] Cali Juarez MD [address] [place] [address] [email or web address] documented as of this encounter Visit Diagnoses Not on filedocumented in this encounter Additional Health Concerns Infection Onset Date Last Indicated Resolved Time 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 09/25/2020 01/06/2023 1:21 AM EDT documented as of this encounter Care Teams Hairspring Inspector Relationship Specialty Start Date End Date Delon Kaur MD [address] [place] [address] PCP - General Family Medicine 05/24/17 01/12/22 Yumi Chaudhary MD [address] [place] [address] [email or web address] PCP - General Family Medicine 01/13/22 Gal Hernandez MD [address] [place] [address] 07/23/20 Yumi Chaudhary MD [address] [place] [address] 201 [place] [address] [email or web address] Insurance Assigned Provider 07/09/23 documented as of this encounter Additional Source Comments The information contained in this document represents components of the legal health record. It is not the complete legal health record.[facility]
--- OUTSIDE RECORDS SUMMARY | 2025-02-11 14:45 | XMS_ITS | Encounter Summary ---
Author Organization [facility] Address 399 [facility] [address] [place] [address] Phone Care Team Providers Care Meat Boner Name Role Phone Delon Kaur MD Primary Care Provider [phone] Gal Hernandez MD Unavailable [phone] Yumi Chaudhary MD Primary Care Provider [phone] Yumi Chaudhary MD Unavailable Encounter Details Date Type Department Care Team (Late st Contact Info) Description 08/21/2020 Procedure Pass [facility] Periop 75 [place] [address] Social History Tobacco Use Types Packs/Day Years [...] 9:00 PM EDT Hollie Gomez, RN * [place] Suicide Severity Rating Scale (Screener/Recent Self-Report) Question [...] st Contact Info) Description 05/11/2024 Procedure Pass [facility] MR Imaging, [place] 60 [place] [address] 02/14/2025 3:00 PM EST Office Visit [facility] 15 [facility] [address] [place] [address] Yumi Chaudhary MD 15 [facility] Nigel. 201 [place] [address] [email or web address] 05/17/2025 9:15 AM EST Appointment [facility] MR Imaging, [place] 60 [place] [address] Cali Juarez MD [address] [place] [address] [email or web address] 05/17/2025 1:00 PM EST Office Visit [facility] Surgical Oncology 45 [facility] ASB2-3 [place] [address] Cali Juarez MD [address] [place] [address] 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 Date of last exposure 11/13/20 11/14/2020 11/14/2020 11/28/2020 1:43 AM E DT documented as of this encounter Care Teams Meat Boner Relationship Specialty Start Date End Date Delon Kaur MD [address] [place] [address] PCP - General Family Medicine 05/24/17 01/12/22 Yumi Chaudhary MD 15 [facility] 201 [place] [address] [email or web address] PCP - General Family Medicine 01/13/22 Gal Hernandez MD [address] [place] [address] 07/23/20 Yumi Chaudhary MD 15 [facility] 201 [place] [address] [email or web address] Insurance Assigned Provider 07/09/23 documented as of this encounter Additional Source Comments The information contained in this document represents components of the legal health record. It is not the complete legal health record.[facility]
--- OUTSIDE RECORDS SUMMARY | 2025-02-11 14:45 | XMS_ITS | Encounter Summary ---
Author Organization [facility] Address [address] [place] [address] Phone Care Team Providers Care Veneer Taping Machine Operator Name Role Phone Delon Kaur MD Primary Care Provider + [phone] Gal Hernandez MD Unavailable [phone] Yumi Chaudhary MD Primary Care Provider [phone] Yumi Chaudhary MD Unavailable Encounter Details Date Type Department Care Team (Late st Contact Info) Description 12/22/2021 Procedure Pass [facility] Periop 75 [place] [address] Social History Tobacco Use Types Packs/Day Years [...] high school, GED, job training, learning the French language, technical skills, or developing parenting skills)? [...] 9:38 PM EDT Erendira Post RN * [place] Suicide Severity Rating Scale (Screener/Recent Self-Report) Question [...] st Contact Info) Description 05/11/2024 Procedure Pass [facility] MR Imaging, [place] [address] [place] [address] 02/14/2025 3:00 PM EST Office Visit [facility] [place] [facility] 15 [facility] [address] [place] [address] Yumi Chaudhary MD 15 [facility] Nigel. 201 [place] [address] [email or web address] 05/17/2025 9:15 AM EST Appointment [facility] MR Imaging, [place] [address] [place] [address] Cali Juarez MD 75 [place] [address] [email or web address] 05/17/2025 1:00 PM EST Office Visit [facility] Surgical Oncology 45 [facility]3 [place] [address] Cali Juarez MD [address] [place] [address] [email or web address] documented as of this encounter Visit Diagnoses Not on filedocumented in this encounter Additional Health Concerns Infection Onset Date Last Indicated Resolved Time 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. 201 [place] [address] [email or web address] PCP - General Family Medicine 01/13/22 Gal Hernandez MD [address] [place] [address] 07/23/20 Yumi Chaudhary MD [address] [place] [address] [email or web address] Insurance Assigned Provider 07/09/23 documented as of this encounter Additional Source Comments The information contained in this document represents components of the legal health record. It is not the complete legal health record.[facility]
--- OUTSIDE RECORDS SUMMARY | 2025-02-11 14:45 | XMS_ITS | Encounter Summary ---
Author Organization [facility] Address [address] [facility] [address] [place] [address] Phone Care Team Providers Care Title Clerk Automobile Name Role Phone Delon Kaur MD Primary Care Provider [phone] Gal Hernandez MD Unavailable [phone] Yumi Chaudhary MD Primary Care Provider [phone] Yumi Chaudhary MD Unavailable Encounter Details Date Type Department Care Team (Late st Contact Info) Description 08/21/2021 Procedure Pass [facility], Ct Scan [address] [address] Social History Tobacco Use Types Packs/Day Years [...] st Contact Info) Description 05/11/2024 Procedure Pass [facility] MR Imaging, [place] [address] [place] [address] 02/14/2025 3:00 PM EST Office Visit [facility] [place] [facility] 15 [facility] [address] [place] [address] Yumi Chaudhary MD 15 [facility] Nigel. 201 [place] [address] [email or web address] 05/17/2025 9:15 AM EST Appointment [facility] MR Imaging, [place] [address] [place] [address] Cali Juarez MD 75 [place] [address] [email or web address] 05/17/2025 1:00 PM EST Office Visit [facility] Surgical Oncology 45 [facility]3 [place] [address] Cali Juarez MD [address] [place] [address] [email or web address] documented as of this encounter Visit Diagnoses Not on filedocumented in this encounter Additional Health Concerns Infection Onset Date Last Indicated Resolved Time 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 201 [place] [address] [email or web address] PCP - General Family Medicine 01/13/22 Gal Hernandez MD [address] [place] [address] 07/23/20 Yumi Chaudhary MD 15 [place] [address] [email or web address] Insurance Assigned Provider 07/09/23 documented as of this encounter Additional Source Comments The information contained in this document represents components of the legal health record. It is not the complete legal health record.[facility]
--- OUTSIDE RECORDS SUMMARY | 2025-02-11 14:45 | XMS_ITS | Encounter Summary ---
Author Organization [facility] Address 399 [facility] [address] [place] [address] Phone Care Team Providers Care Animal Herder Name Role Phone Delon Kaur MD Primary Care Provider [phone] Gal Hernandez MD Unavailable [phone] Yumi Chaudhary MD Primary Care Provider [phone] Yumi Chaudhary MD Unavailable Encounter Details Date Type Department Care Team (Late st Contact Info) Description 08/21/2020 Procedure Pass [facility] Periop 75 [place] [address] Social History Tobacco Use Types Packs/Day Years [...] 9:00 PM EDT Hollie Gomez, RN * [place] Suicide Severity Rating Scale (Screener/Recent Self-Report) Question [...] st Contact Info) Description 05/11/2024 Procedure Pass [facility] MR Imaging, [place] 60 [place] [address] 02/14/2025 3:00 PM EST Office Visit [facility] 15 [facility] [address] [place] [address] Yumi Chaudhary MD 15 [facility] Nigel. 201 [place] [address] [email or web address] 05/17/2025 9:15 AM EST Appointment [facility] MR Imaging, [place] 60 [place] [address] Cali Juarez MD [address] [place] [address] [email or web address] 05/17/2025 1:00 PM EST Office Visit [facility] Surgical Oncology 45 [facility] ASB2-3 [place] [address] Cali Juarez MD [address] [place] [address] [email or web address] documented as of this [...] documented as of this encounter Care Teams Animal Herder Relationship Specialty Start Date End Date Delon Kaur MD [address] [place] [address] PCP - General Family Medicine 05/24/17 01/12/22 Yumi Chaudhary MD 15 [facility] 201 [place] [address] [email or web address] PCP - General Family Medicine 01/13/22 Gal Hernandez MD [address] [place] [address] 07/23/20 Yumi Chaudhary MD 15 [facility] 201 [place] [address] [email or web address] Insurance Assigned Provider 07/09/23 documented as of this encounter Additional Source Comments The information contained in this document represents components of the legal health record. It is not the complete legal health record.[facility]
--- OUTSIDE RECORDS SUMMARY | 2025-02-11 14:45 | XMS_ITS | Encounter Summary ---
Author Organization [facility] Address [address] [facility] [address] [place] [address] Phone Care Team Providers Care Exec. Creative Director Name Role Phone Delon Kaur MD Primary Care Provider [phone] Gal Hernandez MD Unavailable [phone] Yumi Chaudhary MD Primary Care Provider [phone] Yumi Chaudhary MD Unavailable Encounter Details Date Type Department Care Team (Late st Contact Info) Description 02/20/2021 Procedure Pass [facility] CT Imaging, [place] [address] [place] [address] Social History Tobacco Use Types Packs/Day Years [...] st Contact Info) Description 05/11/2024 Procedure Pass [facility] MR Imaging, [address] [place] [address] 02/14/2025 3:00 PM EST Office Visit [facility] [place] [facility] 15 [facility] [address] [place] [address] Yumi Chaudhary MD 15 [facility] [address] [place] [address] [email or web address] 05/17/2025 9:15 AM EST Appointment [facility] MR Imaging, [address] [place] [address] aCli Juaerz MD 75 [place] [address] [email or web address] 05/17/2025 1:00 PM EST Office Visit [facility] Surgical Oncology 45 [facility]3 [place] [address] Cali Juarez MD [address] [place] [address] [email or web address] documented as of this encounter Visit Diagnoses Not on filedocumented in this encounter Additional Health Concerns Infection Onset Date Last Indicated Resolved Time 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 Creative Director Relationship Specialty Start Date End Date Delon Kaur MD [address] [place] [address] PCP - General Family Medicine 05/24/17 01/12/22 Yumi Chaudhary MD 15 [facility] [address] [place] [address] [email or web address] PCP - General Family Medicine 01/13/22 Gal Hernandez MD [address] [place] [address] 07/23/20 Yumi Chaudhary MD [address] [address] [email or web address] Insurance Assigned Provider 07/09/23 documented as of this encounter Additional Source Comments The information contained in this document represents components of the legal health record. It is not the complete legal health record.[facility]
--- OUTSIDE RECORDS SUMMARY | 2025-02-11 14:45 | XMS_ITS | Encounter Summary ---
Author Organization [facility] Address [address] [facility] [address] [place] [address] Phone Care Team Providers Care Breaker Operator Name Role Phone Delon Kaur MD Primary Care Provider [phone] Gal Hernandez MD Unavailable [phone] Yumi Chaudhary MD Primary Care Provider [phone] Yumi Chaudhary MD Unavailable Encounter Details Date Type Department Care Team (Late st Contact Info) Description 08/21/[address] [facility] Periop 75 [place] [address] Social History Tobacco Use Types Packs/Day Years [...] 9:00 PM EDT Hollie Gomez, RN * [place] Suicide Severity Rating Scale (Screener/Recent Self-Report) Question [...] [facility] MR Imaging, [place] [address] [place] [address] 02/14/2025 3:00 PM EST Office Visit [facility] 15 [facility] [address] [place] [address] Yumi Chaudhary MD 15 [facility] [address] [place] [address] [email or web address] 05/17/2025 9:[address] [facility] MR Imaging, [place] [place] [address] Cali Juarez MD [address] [place] [address] [email or web address] 05/17/2025 1:00 PM EST Office [facility] Surgical Oncology 45 [facility] ASB2-3 [place] [address] Cali Juarez MD [address] [place] [address] [email or web address] documented as of this encounter [...] documented as of this encounter Care Teams Breaker Operator Relationship Specialty Start Date End Date Delon Kaur MD [address] [place] [address] PCP - General Family Medicine 05/24/17 01/12/22 Yumi Chaudhary MD 15 [facility] 201 [place] [address] [email or web address] PCP - General Family Medicine 01/13/22 Gal Hernandez MD [address] [place] [address] 07/23/20 Yumi Chaudhary MD 15 [facility] 201 [place] [address] [email or web address] Insurance Assigned Provider 07/09/23 documented as of this encounter Additional Source Comments The information contained in this document represents components of the legal health record. It is not the complete legal health record.[facility]
--- OUTSIDE RECORDS SUMMARY | 2025-02-11 14:46 | XMS_ITS | Encounter Summary ---
Author Organization [facility] Address [address] [place] [address] Phone Care Team Providers Care Elder Counselor Name Role Phone Gal Hernandez MD Unavailable [phone] Yumi Chaudhary MD Primary Care Provider [phone] Yumi Chauhdary MD Unavailable Encounter Details Date Type Department Care Team (Late st Contact Info) Description 11/05/2022 Procedure Pass [facility] CT Imaging, [place] [address] [place] [address] Social History Tobacco Use Types Packs/Day Years [...] high school, GED, job training, learning the Irish language, technical skills, or developing parenting skills)? [...] [facility] MR Imaging, [place] [address] [place] [address] 02/14/2025 3:00 PM EST Office Visit [facility] [place] [facility] 15 [facility] [address] [place] [address] Yumi Chaudhary MD 15 [facility] [address] 201 [place] [address] 05/17/2025 9:15 AM EST Appointment [facility] MR Joelle, Gabriela [address] [place] [address] Cali Juarez MD 75 [place] [address] [email or web address] 05/17/2025 1:00 PM EST Office Visit [facility] Surgical Oncology 45 [facility] ASB2-3 [place] [address] Cali Juarez MD 75 [place] [address] [email or web address] documented as of this encounter Visit Diagnoses Not on filedocumented in this encounter Additional Health Concerns Infection Onset Date Last Indicated Resolved Time 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 09/25/2020 01/06/2023 1:21 AM EDT Assessment Noted Time PHQ-2 Depression Total Score: 0 12/17/19 7:47 AM EDT documented as of this encounter Care Teams Elder Counselor Relationship Specialty Start Date End Date Yumi Chaudhary MD [address] [place] [address] [email or web address] PCP - General Family Medicine 01/13/22 Gal Hernandez MD [address] [place] [address] 07/23/20 Yumi Chaudhary MD [address] [place] [address] [email or web address] Insurance Assigned Provider 07/09/23 documented as of this encounter Additional Source Comments The information contained in this document represents components of the legal health record. It is not the complete legal health record.[facility]
--- OUTSIDE RECORDS SUMMARY | 2025-02-11 14:46 | XMS_ITS | Encounter Summary ---
Author Organization [facility] Address [address] [facility] [address] [place] [address] Phone Care Team Providers Care Library Technician Name Role Phone Delon Kaur MD Primary Care Provider [phone] Gal Hernandez MD Unavailable [phone] Yumi Chaudhary MD Primary Care Provider [phone] Yumi Chaudhary MD Unavailable Encounter Details Date Type Department Care Team (Late st Contact Info) Description 09/26/2020 Procedure Pass [facility] Periop 75 [place] [address] Social History Tobacco Use Types Packs/Day Years [...] st Contact Info) Description 05/11/2024 Procedure Pass [facility] MR Imaging, [place] [place] [address] 02/14/2025 3:00 PM EST Office Visit [facility] [place] [facility] 15 [facility] [address] [place] [address] Yumi Chaudhary MD 15 [facility]. [address] [place] [address] [email or web address] 05/17/2025 9:15 AM EST Appointment [facility] MR Imaging, [place] [address] [place] [address] Cali Juarez MD 75 [place] [address] [email or web address] 05/17/2025 1:00 PM EST Office Visit 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 Date of last exposure 11/13/20 11/14/2020 11/14/2020 11/28/2020 1:43 AM E DT documented as of this encounter Care Teams Library Technician Relationship Specialty Start Date End Date Delon Kaur MD [address] [place] [address] PCP - General Family Medicine 05/24/17 01/12/22 Yumi Chaudhary MD 15 [facility]. [address] [place] [address] [email or web address] PCP - General Family Medicine 01/13/22 Gal Hernandez MD 7[address] [place] [address] 07/23/20 Yumi Chaudhary MD [address] [place] [address] [email or web address] Insurance Assigned Provider 07/09/23 documented as of this encounter Additional Source Comments The information contained in this document represents components of the legal health record. It is not the complete legal health record.[facility]
--- OUTSIDE RECORDS SUMMARY | 2025-02-11 14:46 | XMS_ITS | Encounter Summary ---
Author Organization [facility] Address [address] [place] [address] Phone Care Team Providers Care Refrigerator Mover Name Role Phone Delon Kaur MD Primary Care Provider Gal Hernandez MD Unavailable [phone] Yumi Chaudhary MD Primary Care Provider [phone] Yumi Chaudhary MD Unavailable Encounter Details Date Type Department Care Team (Late st Contact Info) Description 09/21/2020 Procedure Pass [facility] Radiology 75 [place] [address] Social History Tobacco Use Types Packs/Day Years [...] [facility] MR Imaging, [place] [place] [address] 02/14/2025 3:00 PM EST Office Visit [facility] [place] [facility] 15 [facility] [address] [place] [address] Yumi Chaudhary MD 15 [facility]. 201 [place] [address] [email or web address] 05/17/2025 9:15 AM EST Appointment [facility] MR Imaging, [place] [address] [place] [address] Cali Juarez MD 75 [place] [address] [email or web address] 05/17/2025 1:00 PM EST Office Visit [facility] Surgical Oncology 45 [facility]3 [place] [address] Cali Juarez MD [address] [place] [address] [email or web address] documented as of this encounter Visit Diagnoses Not on filedocumented in this encounter Additional Health Concerns Infection Onset Date Last Indicated Resolved Time 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 Date of last exposure 11/13/20 11/14/2020 11/14/2020 11/28/2020 1:43 AM E DT documented as of this encounter Care Teams Refrigerator Mover Relationship Specialty Start Date End Date Delon Kaur MD [address] [place] [address] PCP - General Family Medicine 05/24/17 01/12/22 Yumi Chaudhary MD 15 [facility]. 201 [place] [address] [email or web address] PCP - General Family Medicine 01/13/22 Gal Hernandez MD 9 [place] [address] 07/23/20 Yumi Chaudhary MD [address] [place] [address] [email or web address] Insurance Assigned Provider 07/09/23 documented as of this encounter Additional Source Comments The information contained in this document represents components of the legal health record. It is not the complete legal health record.[facility]
--- OUTSIDE RECORDS SUMMARY | 2025-02-11 14:46 | XMS_ITS | Encounter Summary ---
Author Organization [facility] Address [address] [facility] [address] [place] [address] Phone Care Team Providers Care Piercing Artist Name Role Phone Delon Kaur MD Primary Care Provider [phone] Gal Hernandez MD Unavailable [phone] Yumi Chaudhary MD Primary Care Provider [phone] Yumi Chaudhary MD Unavailable Encounter Details Date Type Department Care Team (Late st Contact Info) Description 09/19/2020 Procedure Pass [facility] Periop 75 [place] [address] Social History Tobacco Use Types Packs/Day Years [...] [facility] MR Imaging, [place] [place] [address] 02/14/2025 3:00 PM EST Office Visit [facility] [place] [facility] 15 [facility] [address] [place] [address] Yumi Chaudhary MD 15 [facility]. [address] [place] [address] [email or web address] 05/17/2025 9:15 AM EST Appointment [facility] MR Imaging, [place] [address] [place] [address] Cali Juarez MD 75 [place] [address] [email or web address] 05/17/2025 1:00 PM EST Office Visit [facility] Surgical Oncology 45 [facility]3 [place] [address] Cali Juarez MD [address] [place] [address] [email or web address] documented as of this encounter [...] documented as of this encounter Care Teams Piercing Artist Relationship Specialty Start Date End Date Delon Kaur MD [address] [place] [address] PCP - General Family Medicine 05/24/17 01/12/22 Yumi Chaudhary MD 15 [facility]. [address] [place] [address] [email or web address] PCP - General Family Medicine 01/13/22 Gal Hernandez MD 7[address] [place] [address] 07/23/20 Yumi Chaudhary MD [address] [place] [address] [email or web address] Insurance Assigned Provider 07/09/23 documented as of this encounter Additional Source Comments The information contained in this document represents components of the legal health record. It is not the complete legal health record.[facility]
--- OUTSIDE RECORDS SUMMARY | 2025-02-11 14:46 | XMS_ITS | Encounter Summary ---
Author Organization [facility] Address [address] [place] [address] Phone Care Team Providers Care Cargo Checker Name Role Phone Delon Kaur MD Primary Care Provider Gal Hernandez MD Unavailable [phone] Yumi Chaudhary MD Primary Care Provider [phone] Yumi Chaudhary MD Unavailable Encounter Details Date Type Department Care Team (Late st Contact Info) Description 09/27/2020 Procedure Pass [facility] Radiology 75 [place] [address] Social History Tobacco Use Types Packs/Day Years [...] Info) Description 05/11/2024 Procedure Pass [facility] MR Imaging, [place] [address] [place] [address] 02/14/2025 3:00 PM EST Office Visit [facility] [place] [facility] 15 [facility] [address] [place] [address] Yumi Chaudhary MD 15 [facility]. 201 [place] [address] [email or web address] 05/17/2025 9:15 AM EST Appointment [facility] MR Imaging, [place] [address] [place] [address] Cali Juarez MD 75 [place] [address] [email or web address] 05/17/2025 1:00 PM EST Office Visit [facility] Surgical Oncology 45 [facility]3 [place] [address] Cali Juarez MD [address] [place] [address] [email or web address] documented as of this encounter Visit Diagnoses Not on filedocumented in this encounter Additional Health Concerns Infection Onset Date Last Indicated Resolved Time 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 Date of last exposure 11/13/20 11/14/2020 11/14/2020 11/28/2020 1:43 AM E DT documented as of this encounter Care Teams Cargo Checker Relationship Specialty Start Date End Date Delon Kaur MD [address] [place] [address] PCP - General Family Medicine 05/24/17 01/12/22 Yumi Chaudhary MD 15 [facility]. 201 [place] [address] [email or web address] PCP - General Family Medicine 01/13/22 Gal Hernandez MD 9 [place] [address] 07/23/20 Yumi Chaudhary MD [address] [place] [address] [email or web address] Insurance Assigned Provider 07/09/23 documented as of this encounter Additional Source Comments The information contained in this document represents components of the legal health record. It is not the complete legal health record.[facility]
--- OUTSIDE RECORDS SUMMARY | 2025-02-11 14:46 | XMS_ITS | Encounter Summary ---
Author Organization [facility] Address [address] [facility] [address] [place] [address] Phone Care Team Providers Care Casino Worker Name Role Phone Delon Kaur MD Primary Care Provider Gal Hernandez MD Unavailable [phone] Yumi Chaudhary MD Primary Care Provider [phone] Yumi Chaudhary MD Unavailable Encounter Details Date Type Department Care Team (Late st Contact Info) Description 05/15/2021 Procedure Pass [facility] [address] [place] [address] Social History Tobacco Use Types Packs/Day Years [...] st Contact Info) Description 05/11/2024 Procedure Pass [facility] MR Imaging, [place] [place] [address] 02/14/2025 3:00 PM EST Office Visit [facility] [place] [facility] 15 [facility] [address] [place] [address] Yumi Chaudhary MD 15 [facility] [address] [place] [address] [email or web address] 05/17/2025 9:15 AM EST Appointment [facility] MR Imaging, [place] [address] [place] [address] Cali Juarez MD 75 [place] [address] [email or web address] 05/17/2025 1:00 PM EST Office Visit [facility] Surgical Oncology 45 [facility] [place] [address] Cali Juarez MD [address] [place] [address] [email or web address] documented as of this encounter Visit Diagnoses Not on filedocumented in this encounter Additional Health Concerns Infection Onset Date Last Indicated Resolved Time 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 09/25/2020 01/06/2023 1:21 AM EDT documented as of this encounter Care Teams Casino Worker Relationship Specialty Start Date End Date Delon Kaur MD [address] [place] [address] PCP - General Family Medicine 05/24/17 01/12/22 Yumi Chaudhary MD 15 [facility] [address] [place] [address] [email or web address] PCP - General Family Medicine 01/13/22 Gal Hernandez MD [address] [place] [address] 07/23/20 Yumi Chaudhary MD 15 [place] [address] [email or web address] Insurance Assigned Provider 07/09/23 documented as of this encounter Additional Source Comments The information contained in this document represents components of the legal health record. It is not the complete legal health record.[facility]
--- OUTSIDE RECORDS SUMMARY | 2025-02-11 14:46 | XMS_ITS | Encounter Summary ---
Author Organization [facility] Address [address] [facility] [address] [place] [address] Phone Care Team Providers Care Corporate Concierge Name Role Phone Gal Hernandez MD Unavailable [phone] Yumi Chaudhary MD Primary Care Provider [phone] Yumi Chaudhary MD Unavailable Encounter Details Date Type Department Care Team (Late st Contact Info) Description 11/05/[address] [facility] MR Imaging, [place] [address] [place] [address] Social History Tobacco Use Types Packs/Day Years [...] high school, GED, job training, learning the Tanz[place] language, technical skills, or developing parenting skills)? [...] [facility], [place] [address] [place] [address] 02/14/2025 3:00 PM EST Office Visit [facility] [place] Primary [facility] 15 [facility] [address] [place] [address] Yumi Chaudhary MD 15 [facility] [address]el[address] 201 [place] [address] 05/17/2025 9:[address] [facility] MR Joelle, Gabriela [address] [place] [address] Cali Juarez MD 75 [place] [address] [email or web address] 05/17/2025 1:00 PM EST Office Visit [facility] Surgical Oncology 45 [facility] ASB2-3 [place] [address] Cali Juarez MD 75 [place] [address] [email or web address] documented as of this encounter Visit Diagnoses Not on filedocumented in this encounter Additional Health Concerns Infection Onset Date Last Indicated Resolved Time 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 09/25/2020 01/06/2023 1:21 AM EDT Assessment Noted Time PHQ-2 Depression Total Score: 0 12/17/19 7:47 AM EDT documented as of this encounter Care Teams Corporate Concierge Relationship Specialty Start Date End Date Yumi Chaudhary MD [address] [place] [address] [email or web address] PCP - General Family Medicine 01/13/22 Gal Hernandez MD [address] [place] [address] 07/23/20 Yumi Chaudhary MD [address] [place] [address] [email or web address] Insurance Assigned Provider 07/09/23 documented as of this encounter Additional Source Comments The information contained in this document represents components of the legal health record. It is not the complete legal health record.[facility]
--- OUTSIDE RECORDS SUMMARY | 2025-02-11 14:46 | XMS_ITS | Encounter Summary ---
Author Organization [facility] Address [address] [facility] [address] [place] [phone] Phone Care Team Providers Care Hydrometer Tester Name Role Phone Delon Kaur MD Primary Care Provider [phone] Gal Hernandez MD Unavailable [phone] Yumi Chaudhary MD Primary Care Provider [phone] Yumi Chaudhary MD Unavailable Encounter Details Date Type Department Care Team (Late st Contact Info) Description 02/20/2021 Procedure Pass [facility] CT Imaging, [address] [place] [address] Social History Tobacco Use Types Packs/Day Years [...] [facility], [address] [place] [address] 02/14/2025 3:00 PM EST Office Visit [facility] [place] [facility] [address] [facility] [address] [place] [address] Yumi Chaudhary MD 15 [facility] [address] [place] [address] [email or web address] 05/17/2025 9:15 AM EST Appointment [facility] MR Imaging, [address] [place] [address] Cali Juarez MD 75 [place] [address] [email or web address] 05/17/2025 1:00 PM EST Office Visit [facility] Surgical Oncology 45 [facility]3 [place] [address] Cali Juarez MD [address] [place] [address] [email or web address] documented as of this encounter Visit Diagnoses Not on filedocumented in this encounter Additional Health Concerns Infection Onset Date Last Indicated Resolved Time 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 09/25/2020 01/06/2023 1:21 AM EDT documented as of this encounter Care Teams Hydrometer Tester Relationship Specialty Start Date End Date Delon Kaur MD [address] [place] [address] PCP - General Family Medicine 05/24/17 01/12/22 Yumi Chaudhary MD 15 [facility] [address] [place] [address] [email or web address] PCP - General Family Medicine 01/13/22 Gal Hernandez MD [address] [place] [address] 07/23/20 Yumi Chaudhary MD [address] [address] [email or web address] Insurance Assigned Provider 07/09/23 documented as of this encounter Additional Source Comments The information contained in this document represents components of the legal health record. It is not the complete legal health record.[facility]
--- OUTSIDE RECORDS SUMMARY | 2025-02-11 14:46 | XMS_ITS | Encounter Summary ---
Author Organization [facility] Address [address] [facility] [address] [place] [address] Phone Care Team Providers Care Adobe Layer Name Role Phone Delon Kaur MD Primary Care Provider [phone] Gal Hernandez MD Unavailable [phone] Yumi Chaudhary MD Primary Care Provider [phone] Yumi Chaudhary MD Unavailable Encounter Details Date Type Department Care Team (Late st Contact Info) Description 08/22/2018 Procedure Pass [address] [place] [address] Social History Tobacco Use Types Packs/Day Years [...] st Contact Info) Description 05/11/2024 Procedure Pass [facility] MR Imaging, [address] [place] [address] 02/14/2025 3:00 PM EST Office Visit [facility] 15 [facility] [address] [place] [address] Yumi Chaudhary MD 15 [facility] [address] [place] [address] [email or web address] 05/17/2025 9:15 AM EST Appointment [facility] MR Imaging, [address] [place] [address] Cali Juarez MD 75 [place] [address] [email or web address] 05/17/2025 1:00 PM EST Office Visit [facility] Surgical Oncology 45 [facility]3 [place] [address] Cali Juarez MD [address] [place] [address] [email or web address] documented as of this encounter Visit Diagnoses Not on filedocumented in this encounter Additional Health Concerns Infection Onset Date Last Indicated Resolved Time 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 Date of last exposure 11/13/20 11/14/2020 11/14/2020 11/28/2020 1:43 AM E DT documented as of this encounter Care Teams Adobe Layer Relationship Specialty Start Date End Date Delon Kaur MD [address] [place] [address] PCP - General Family Medicine 05/24/17 01/12/22 Yumi Chaudhary MD 15 [facility]. 201 [place] [address] [email or web address] PCP - General Family Medicine 01/13/22 Gal Hernandez MD [address] [place] [address] 07/23/20 Yumi Chaudhary MD [address] [place] [address] [email or web address] Insurance Assigned Provider 07/09/23 documented as of this encounter Additional Source Comments The information contained in this document represents components of the legal health record. It is not the complete legal health record.[facility]
--- OUTSIDE RECORDS SUMMARY | 2025-02-11 14:46 | XMS_ITS | Encounter Summary ---
Author Organization [facility] Address [address] [place] [address] Phone Care Team Providers Care Green Tire Inspector Name Role Phone Delon Kaur MD Primary Care Provider Gal Hernandez MD Unavailable [phone] Yumi Chaudhary MD Primary Care Provider [phone] Yumi Chaudhary MD Unavailable Encounter Details Date Type Department Care Team (Late st Contact Info) Description 09/27/2020 Procedure Pass [facility] 75 [place] [address] Social History Tobacco Use Types Packs/Day Years [...] st Contact Info) Description 05/11/2024 Procedure Pass [facility] MR Imaging, [address] [place] [address] 02/14/2025 3:00 PM EST Office Visit [facility] [place] [facility] 15 [facility] [address] [place] [address] Yumi Chaudhary MD 15 [facility]. 201 [place] [address] [email or web address] 05/17/2025 9:15 AM EST Appointment [facility] MR Imaging, [address] [place] [address] Cali Juarez MD 75 [place] [address] [email or web address] 05/17/2025 1:00 PM EST Office Visit [facility] Surgical Oncology 45 [facility]3 [place] [address] Cali Juarez MD [address] [place] [address] [email or web address] documented as of this [...] as of this encounter Care Teams Green Tire Inspector Relationship Specialty Start Date End Date Delon Kaur MD [address] [place] [address] PCP - General Family Medicine 05/24/17 01/12/22 Yumi Chaudhary MD 15 [facility]. [address] [place] [address] [email or web address] PCP - General Family Medicine 01/13/22 Gal Hernandez MD 9 [place] [address] 07/23/20 Yumi Chaudhary MD [address] [place] [address] [email or web address] Insurance Assigned Provider 07/09/23 documented as of this encounter Additional Source Comments The information contained in this document represents components of the legal health record. It is not the complete legal health record.[facility]
--- OUTSIDE RECORDS SUMMARY | 2025-02-11 14:46 | XMS_ITS | Encounter Summary ---
Author Organization [facility] Address [address] [place] [address] Phone Care Team Providers Care Music Artist Name Role Phone Delon Kaur MD Primary Care Provider Gal Hernandez MD Unavailable [phone] Yumi Chaudhary MD Primary Care Provider [phone] Yumi Chaudhary MD Unavailable Encounter Details Date Type Department Care Team (Late st Contact Info) Description 09/27/2020 Procedure Pass [facility] 75 [place] [address] Social History Tobacco Use Types Packs/Day Years [...] st Contact Info) Description 05/11/2024 Procedure Pass [facility] MR Imaging, [address] [place] [address] 02/14/2025 3:00 PM EST Office Visit [facility] [place] [facility] 15 [facility] [address] [place] [address] Yumi Chaudhary MD 15 [facility]. 201 [place] [address] [email or web address] 05/17/2025 9:15 AM EST Appointment [facility] MR Imaging, [address] [place] [address] Cali Juarez MD 75 [place] [address] [email or web address] 05/17/2025 1:00 PM EST Office Visit [facility] Surgical Oncology 45 [facility]3 [place] [address] Cali Juarez MD [address] [place] [address] [email or web address] documented as of this encounter Visit Diagnoses Not on filedocumented in this encounter Additional Health Concerns Infection Onset Date Last Indicated Resolved Time 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 Date of last exposure 11/13/20 11/14/2020 11/14/2020 11/28/2020 1:43 AM E DT documented as of this encounter Care Teams Music Artist Relationship Specialty Start Date End Date Delon Kaur MD [address] [place] [address] PCP - General Family Medicine 05/24/17 01/12/22 Yumi Chaudhary MD 15 [facility]. 201 [place] [address] [email or web address] PCP - General Family Medicine 01/13/22 Gal Hernandez MD 9 [place] [address] 07/23/20 Yumi Chaudhary MD [address] [place] [address] [email or web address] Insurance Assigned Provider 07/09/23 documented as of this encounter Additional Source Comments The information contained in this document represents components of the legal health record. It is not the complete legal health record.[facility]
--- OUTSIDE RECORDS SUMMARY | 2025-02-11 14:46 | XMS_ITS | Encounter Summary ---
Author Organization [facility] Address [address] [facility] [address] [place] [address] Phone Care Team Providers Care Judge'S Clerk Name Role Phone Delon Kaur MD Primary Care Provider [phone] Gal Hernandez MD Unavailable [phone] Yumi Chaudhary MD Primary Care Provider [phone] uYmi Chaudhary MD Unavailable Encounter Details Date Type Department Care Team (Late st Contact Info) Description 09/25/2020 Procedure Pass [facility] Periop 75 [place] [address] Social History Tobacco Use Types Packs/Day Years [...] [facility], [address] [place] [address] 02/14/2025 3:00 PM EST Office Visit [facility] [place] [facility] Care 15 [facility] [address] [place] [address] Yumi Chaudhary MD 15 [facility]. [address] [place] [address] [email or web address] 05/17/2025 9:15 AM EST Appointment [facility] MR Imaging, [address] [place] [address] Cali Juarez MD 75 [place] [address] [email or web address] 05/17/2025 1:00 PM EST Office Visit [facility] Surgical Oncology 45 [facility]3 [place] [address] Cali Juarez MD [address] [place] [address] [email or web address] documented as of this encounter Visit Diagnoses Not on filedocumented in this encounter Additional Health Concerns Infection Onset Date Last Indicated Resolved Time 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 Date of last exposure 11/13/20 11/14/2020 11/14/2020 11/28/2020 1:43 AM E DT documented as of this encounter Care Teams Judge'S Clerk Relationship Specialty Start Date End Date Delon Kaur MD [address] [place] [address] PCP - General Family Medicine 05/24/17 01/12/22 Yumi Chaudhary MD 15 [facility]. [address] [place] [address] [email or web address] PCP - General Family Medicine 01/13/22 Gal Hernandez MD [address] [place] [address] 07/23/20 Yumi Chaudhary MD [address] [place] [address] [email or web address] Insurance Assigned Provider 07/09/23 documented as of this encounter Additional Source Comments The information contained in this document represents components of the legal health record. It is not the complete legal health record.[facility]
--- OUTSIDE RECORDS SUMMARY | 2025-02-11 14:46 | XMS_ITS | Clinical Summary ---
Author Organization [facility] Address [address] [facility] [address] [place] [address] Phone Care Team Providers Care Property Inspector Name Role Phone Gal Hernandez MD Unavailable [phone] Yumi Chaudhary MD Primary Care Provider [phone] Yumi Chaudhary MD Unavailable Allergies Active Allergy Reactions Criticality Noted Date Comments Covid-19 (Sars-Cov-2) Vaccine, Vlp Hives 1 Iodinated Contrast Media Itching,Rash Low 2 Medications acetaminophen (TYLENOL) 500 MG tablet Take 2 tablets (1,000 mg total) by mouth every 8 (eight) hours as needed. 0 1 Active famotidine (PEPCID) 10 MG tablet Take 30 mg by mouth 1 (one) time. Active clobetasol (TEMOVATE) 0.05 % cream 4 Active ciclopirox (LOPROX) 0.77 % Susp 4 Active ciprofloxacin HCl (CIPRO) 500 MG tablet 4 Active ketoconazole 2 % cream 4 Active naproxen (NAPROSYN) 500 MG tablet Take 500 mg by mouth as needed. 4 Active tamsulosin (FLOMAX) 0.4 mg CapIndications: History of BPH Take 2 capsules (0.8 mg total) by mouth daily. 180 capsule 3 5 Active atorvastatin (LIPITOR) 10 MG tabletIndicatio ns:Hyperlipidem ia Take 0.5 tablets (5 mg total) by mouth daily. 90 tablet 1 5 Active LORazepam (ATIVAN) 0.5 MG tablet Take 1 tablet (0.5 mg total) by mouth every evening. 30 tablet 5 Active LORazepam (ATIVAN) 0.5 MG tablet Take 1 tablet (0.5 mg total) by mouth every evening. 30 tablet 5 01/25/20 25 Discontinu ed(Reorder ) Active Problems Problem Noted Date Diagnosed Date [...] - PICC and PIV removed prior to [facility] arrival, had been on Reglan 10mg IV [...] - Previously on TPN - Nutrition and CAD SPECIALIST following - Hx of postoperative colonic ileus, ensure pt moving bowels, continue Reglan, monitor off Octreotide - Will need VFSS once off COV-exposed precautions Debility 11/24/2020 08/14/2024 Assessment & Plan (11/25/2020 4:30 PM EDT): Prolonged hospital course, PT/OT/CAD SPECIALIST following Thrush of mouth and esophagus 11/24/2020 [...] PRN on 11/25 Acute blood loss anemia 08/22/2020/08/2023 Hypotension 08/22/2020 05/30/2023 Chronic right shoulder pain 08/03/2017 01/18/2022 Chronic elbow pain 08/03/2017 Immunizations Immunization Administration Dates Next Due COVID-19 [...] Description 05/11/2024 Procedure Pass [facility] Gabriela Bowman [address] [place] [address] 02/14/2025 3:00 PM EST Office Visit [facility] Primary Care [address] [facility] [address] [place] [address] Yumi Chaudhary MD 15 [facility] [address] [place] [address] [email or web address] 05/17/2025 9:15 AM EST Appointment [facility] Gabriela Bowman [address] [place] [address] Cali Juarez MD [address] [place] [address] [email or web address] 05/17/2025 1:00 PM EST Office Visit [facility] Surgical Oncology [address] [facility] [address] [place] [address] Cali Juarez MD [address] [place] [address] [email or web address] Due Date Last Done Comments HIV ONE-TIME SCREENING (18-65 YEARS) 1978 COLONOSCOPY 2005 FIT TEST 2005 FOBT 2005 SIGMOIDOSCOPY 2005 VIRTUAL COLONOSCOPY 2005 INFLUENZA VACCINE (#1) 2024 , 01/26/2023, 02/09/2022, Additional history exists COVID-19 VACCINE (2024- season) 2024 12/03/2023, 01/26/2023, 01/15/2022, Additional history exists COLOGUARD 06/17/2025 06/17/2022 COLORECTAL CANCER SCREENING 06/17/2025 DEPRESSION SCREENING 08/23/2025 08/23/2024 LIPID PANEL 06/11/2029 06/11/2024, 11/04, 12/01/2022, Additional history exists Adult Td,Tdap Booster 05/30/2033 05/30/2023 RSV VACCINE (1 - 1-dose 75+ series) 11/03/2035 ZOSTER VACCINES Completed 01/25/2018, 09/13/2017 HEPATITIS C SCREENING Completed 09/29/2020, 021 PNEUMOCOCCAL VACCINES (50+ years) Completed 12/15/2023 SMOKING STATUS SCREENING (Once After 26 Yrs) Completed 03/15/2024 HEPATITIS A VACCINES Aged Out No long er eligible based on patient's age to complete this topic HIB VACCINES Aged Out No longer eligi ble based on patient's age to complete this topic IPV VACCINES Aged Out No longer eligi ble based on patient's age to complete this topic MENINGOCOCCAL VACCINES (ACWY) Aged Out No longer eligible based on patient's age to complete this topic MENINGOCOCCAL VACCINES (B) Aged Out N o longer eligible based on patient's age to complete this topic Medical Devices Implanted Type Area Radio Communication Coordinator Device Identifier Shelf Expiration Date Model / Serial / Lot Device Closure Starclose 5-6fr Vascular J Tip Se Principal Software Engineer Exchange Sheath Dilator Nitinol Clip Femoral Artery - [id number] Implanted:Qty: 1 on 09/04/2020 by Cain Davis MD, PhD at [facility] Closure Device Right: Groin [employer] [id number] 07/03/2021 [id number] / / [id number] Device Closure Starclose 5-6fr Vascular J Tip Se Principal Software Engineer Exchange Sheath Dilator Nitinol Clip Femoral Artery - [id number] Implanted:Qty: 1 on 09/30/2020 by Cain Davis MD, PhD at [facility] Closure Device Right: Femoral Artery [employer] [id number] / / Coil Concerto 8mm 30cm .021in Nylon Detachable Enon Embolization - [id number] Implanted:Qty: 1 on 09/04/2020 by Cain Davis MD, PhD at [facility] Coil N/A: Abdomen [employer] 12/20/2022 NV-8-30-HEL IX / / [id number] Description:GDA Coil Embolization .018in 3mm 2mm Microcoil Tornado Wainwright - [id number] Implanted:Qty: 1 on 10/04/2020 by Breann Quiroga MD at [facility] Coil N/A: Abdomen [employer] 05/12/2025 [id number] / / [id number] Description:GDA Coil Embolization .018in 3mm 2mm Microcoil Tornado Wainwright - [id number] Implanted:Qty: 1 on 10/04/2020 by Breann Quiroga MD at [facility] Coil N/A: Abdomen [employer] 05/12/2025 [id number] / / [id number] Description:GDA Coil Embolization .018in 3mm 2mm Microcoil Tornado Wainwright - [id number] Implanted:Qty: 1 on 10/04/2020 by Breann Quiroga MD at [facility] Coil N/A: Abdomen [employer] 05/12/2025 [id number] / / [id number] Description:GDA Trufill N-Butyl Cyanoacrylate 1gr Liquid Embolic System Vial Bx/1ea - [id number] Implanted:Qty: 1 on 09/30/2020 by Cain Davis MD, PhD at [facility] NODATA Right: Liver [employer] [id number] 04/03/2022 [id number] / / [id number] Trufill N-Butyl Cyanoacrylate 1gr Liquid Embolic System Vial Bx/1ea - [id number] Implanted:Qty: 1 on 10/15/2020 by Breann Quiroga MD at [facility] NODATA Right: Splenic Flexure [facility] [id number] 11/01/2021 [id number] / / [id number] Coil Embolization .018in 4mm 2mm Microcoil Tornado Wainwright - [id number] Implanted:Qty: 1 on 10/04/2020 by Breann Quiroga MD at [facility] STANDARD N/A: Abdomen [employer] 10/02/2024 [id number] / / [id number] Description:GDA Coil Embolization .018in 4mm 2mm Microcoil Tornado Wainwright - [id number] Implanted:Qty: 1 on 10/15/2020 by Breann Quiroga MD at [facility] STANDARD N/A: Arterial [employer] 10/02/2024 [id number] / / [id number] Description:IPDA Coil Embolization .018in 4mm 2mm Microcoil Tornado Wainwright - [id number] Implanted:Qty: 1 on 10/15/2020 by Breann Quiroga MD at [facility] STANDARD N/A: Arterial [employer] 09/20/2024 [id number] / / [id number] Description:IPDA Coil Embolization .018in 4mm 2mm Microcoil Tornado Wainwright - [id number] Implanted:Qty: 1 on 10/15/2020 by Breann Quiroga MD at [facility] STANDARD N/A: Arterial [employer] 09/20/2024 [id number] / / [id number] Description:IPDA Stent Tracheal 7fr 7mm 38mm 120cm Icast S/S Ptfe Filmcast Coated Balloon Expandable - [id number] Implanted:Qty: 1 on 09/14/2020 by Ankush Glover MD at [facility] Stent N/A: Liver [facility] [id number] 11/13/2022 [id number] / [id number] Description:HEPATIC A Static magnetic field of 1.5 T or 3.0 T only. Maximum spatial gradient magnetic field of 3,000 gauss/cm (30 T/m). Maximum MR system-reported, whole-body averaged specific absorption rate (CONSUELO) of 2 W/Kg (Normal Operating Mode) https://www.accessdata.fda.gov/cdr_docs/pdf12/I605363H.pdf Palo Suture 4.5mm Arthroscopy Reelx Stt Peek Ss Core Knotless Shapr Tip Expandable Bx/5ea - [id number] Implanted:Qty: 1 on 11/09/2018 by Jesse Farley DO at [facility] Right: Shoulder [employer] 07/10/2020 3910-600-06 2 / / [id number] Palo Suture 5.5mm Biozip Peek Cannulated Trocar Tip Bx/5ea - [id number] Implanted:Qty: 1 on 11/09/2018 by Jesse Farley DO at [facility] Right: Shoulder [employer] 12/13/2019 [id number] / / [id number] Palo Suture 4.5mm Arthroscopy Reelx Stt Peek Ss Core Knotless Shapr Tip Expandable Bx/5ea - [id number] Implanted:Qty: 2 on 11/09/2018 by Jesse Farley DO at [facility] Right: Shoulder [employer] 08/09/2020 3910-600-06 2 / / [id number] Coil Concerto 6mm 20cm 3d Fibered Pgla Helical Plat Detachable Embolization Sterile - [id number] Implanted:Qty: 1 on 09/04/2020 by Cain Davis MD, PhD at [facility] N/A: Abdomen [employer] 06/26/2023 PV-6-20-3D / / [id number] Description:GDA Coil Concerto 6mm 20cm 3d Fibered Pgla Helical Plat Detachable Embolization Sterile - [id number] Implanted:Qty: 1 on 09/04/2020 by Cain Davis MD, PhD at [facility] N/A: Abdomen [employer] 06/26/2023 PV-6-20-3D / / [id number] Description:GDA Mesh Surgical [id number] Phasix St Resorbable Rectangle - [id number] Implanted:Qty: 1 on 09/19/2020 by Cali Juarez MD at [facility] N/A: Abdomen DAVOL 05/01/2022 [id number] / [id number] / [id number] Graft Mesh 42q24ip Phasix Synthetic Monofilament Woven Resorbable Rectangular - [id number] Implanted:Qty: 1 on 12/22/2021 by Eh Lovett MD at [facility] N/A: Abdomen [employer] [id number] 06/30/2023 [id number] / / [id number] Procedures Procedure Name Priority Date/Time Associated Diagnosis Comments LIPID PANEL Routine 06/11/2024 2:20 PM EDT Hyperlipidemia HEPATITIS C GENOTYPING Routine 09/29/2020 2:32 PM EDT from Last 3 Months or Most Recently Relevant to Health Maintenance Results * (ABNORMAL) Lipid panel (06/11/2024 2:20 PM EDT) HDL 58 mg/dL [facility] Comment: Interpretation <40 mg/dL: Low HDL cholesterol (major risk factor for CHD) Greater than or equal to 60 mg/dL: High HDL cholesterol ( negative risk factor for CHD) HDL - cholesterol is affected by a number of factors, e.g. smoking, excerise, hormones, sex and age. CHOLESTEROL 143 0 - 240 mg/dL [facility] TRIGLYCERIDES 134 30 - 160 mg/dL [facility] LDL 58 50 - 129 mg/dL [facility] Comment: LDL levels in terms of risk for coronary heart disease: <100 mg/dL: Optimal 100-129 mg/dL: Near or above optimal 130-159 mg/dL: Borderline high 160-189 mg/dL: High >190 mg/dL: Very High CARDIAC RISK RATIO 2.5(L) 3.4 - 5.0 [facility] Blood 06/11/2024 2:20 PM EDT 06/11/2024 2:23 PM EDT us Yumi Chaudhary MD LAB BLOOD BKR ORDERABLES Final R esult [facility] [address] [place] [address] * Hepatitis C genotyping (09/29/2020 2:32 PM EDT) HCV GENOTYPE Undetected Undetected [facility] Comment: (NOTE) Assay failed to detect HCV RNA. This assay is not intended for HCV RNA detection purposes. ADDITIONAL INFORMATION This test was performed using the Contreras RealTime HCV Genotype II assay ([employer] [place], [place]). Blood (Blood) 09/29/2020 2:3 2 PM EDT 09/29/2020 2:40 PM EDT Cali Juarez MD NON CULTURE MICROBIOLOGY Final Result [facility] [address] [place] [address] from Last 3 Months or Most Recently Relevant to Health Maintenance Insurance [employer] O POS EPO BRISTOL [employer] O POS EPO O POS EPO O POS EPO O POS EPO POS EPO Advance Directives For more information, please contact: [phone] (9AM - 5PM [facility], Tuesday-Tuesday) Documents on File Type Date Recorded Patient Accountant Auditor Expl anation Healthcare Proxy 10/07/2021 Healthcare Proxy [...] (specify belo w) Code Discussion Comments: Admitting DOCTOR PODIATRIC MEDICINE * Full Code Date Activated Date Inactivated Comments 08/21/2020 8:18 PM 11/24/2020 2:21 PM Question Answer Comments Code Status Confirmed With: Patient * Full Code (Presumed) Date Activated Date Inactivated Comments 11/09/2018 7:59 AM 11/09/2018 6:40 PM Healthcare Agents on File Name Relationship Healthcare Agent Relationshi p Communication Lorin Peterson Spouse .Primary Health Care Agent (Proxy form on file) [email or web address] Deneen Griffin Sister Alternate Health care Agent (Proxy form on file) Care Teams Property Inspector Relationship Specialty Start Date End Date Yumi Chaudhary MD [address] [place] [address] PCP - General Family Medicine 01/13/22 Gal Hernandez MD [address] [place] [address] 07/23/20 Yumi Chaudhary MD [address] [place] [phone] Insurance Assigned Provider 07/09/23 Additional Source Comments The information contained in this document represents components of the legal health record. It is not the complete legal health record.[facility]
--- OUTSIDE RECORDS SUMMARY | 2025-02-11 14:46 | XMS_ITS | Encounter Summary ---
Author Organization [facility] Address [address] [facility] [address] [place] [address] Phone Care Team Providers Care Blocklayer Name Role Phone Delon Kaur MD Primary Care Provider [phone] Gal Hernandez MD Unavailable [phone] Yumi Chaudhary MD Primary Care Provider [phone] Yumi Chaudhary MD Unavailable Encounter Details Date Type Department Care Team (Late st Contact Info) Description 09/16/2020 Procedure Pass [facility] Periop [address] [place] [address] Social History Tobacco Use Types Packs/Day Years [...] [facility] MR Imaging, [place] [place] [address] 02/14/2025 3:00 PM EST Office Visit [facility] Primary Care [address] [facility] [address] [place] [address] Yumi Chaudhary MD [address] [facility]. [address] [place] [address] [email or web address] 05/17/2025 9:15 AM EST Appointment [facility] MR Imaging, [place] [place] [address] Cali Juarez MD [address] [place] [address] [email or web address] 05/17/2025 1:00 PM EST Office Visit [facility] Surgical Oncology [address] [facility] [place] [address] Cali Juarez MD [address] [place] [address] [email or web address] documented as of this [...] documented as of this encounter Care Teams Blocklayer Relationship Specialty Start Date End Date Delon Kaur MD [address] [place] [address] PCP - General Family Medicine 05/24/17 01/12/22 Yumi Chaudhary MD [address] [facility]. [address] [place] [address] [email or web address] PCP - General Family Medicine 01/13/22 Gal Hernandez MD [address] [place] [address] 07/23/20 Yumi Chaudhary MD [address] [place] [address] [email or web address] Insurance Assigned Provider 07/09/23 documented as of this encounter Additional Source Comments The information contained in this document represents components of the legal health record. It is not the complete legal health record.[facility]
--- OUTSIDE RECORDS SUMMARY | 2025-02-11 14:47 | XMS_ITS | Encounter Summary ---
Author Organization [facility] Address [address] [place] [address] Phone Care Team Providers Care Sandwich Machine Operator Name Role Phone Gal Hernandez MD Unavailable [phone] Yumi Chaudhary MD Primary Care Provider [phone] Yumi Chaudhary MD Unavailable Encounter Details Date Type Department Care Team (Late st Contact Info) Description 05/14/2022 Procedure Pass [facility] MR Imaging, [place] [place] [address] Social History Tobacco Use Types Packs/Day Years [...] high school, GED, job training, learning the Azerbaijani language, technical skills, or developing parenting skills)? [...] [facility], [place] [address] [place] [address] 02/14/2025 3:00 PM EST Office Visit [facility] Primary Care [address] [facility] [address] [place] [address] Yumi Chaudhary MD 15 [facility] [address] [place] [address] 05/17/2025 9:15 AM EST Appointment [facility] MR Joelle, [address] [place] [address] Cali Juarez MD [address] [place] [address] [email or web address] 05/17/2025 1:00 PM EST Office Visit [facility] Surgical Oncology [address] [facility] [address] [place] [address] Cali Juarez MD [address] [place] [address] [email or web address] documented as of this encounter Visit Diagnoses Not on filedocumented in this encounter Additional Health Concerns Infection Onset Date Last Indicated Resolved Time 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 09/25/2020 01/06/2023 1:21 AM EDT Assessment Noted Time PHQ-2 Depression Total Score: 0 12/17/19 7:47 AM EDT documented as of this encounter Care Teams Sandwich Machine Operator Relationship Specialty Start Date End Date Yumi Chaudhary MD [address] [place] [address] [email or web address] PCP - General Family Medicine 01/13/22 Gal Hernandez MD [address] [place] [address] 07/23/20 Yumi Chaudhary MD [address] [place] [address] [email or web address] Insurance Assigned Provider 07/09/23 documented as of this encounter Additional Source Comments The information contained in this document represents components of the legal health record. It is not the complete legal health record.[facility]
--- OUTSIDE RECORDS SUMMARY | 2025-02-11 14:47 | XMS_ITS | Encounter Summary ---
Author Organization [facility] Address [address] [facility] [address] [place] [address] Phone Care Team Providers Care Operations Assistant Name Role Phone Delon Kaur MD Primary Care Provider [phone] Gal Hernandez MD Unavailable [phone] Yumi Chaudhary MD Primary Care Provider [phone] Yumi Chaudhary MD Unavailable Encounter Details Date Type Department Care Team (Late st Contact Info) Description 09/13/2020 Procedure Pass [facility] Periop [address] [place] [address] Social History Tobacco Use Types Packs/Day Years [...] st Contact Info) Description 05/11/2024 Procedure Pass [facility] MR Imaging, [place] [place] [address] 02/14/2025 3:00 PM EST Office Visit [facility] Primary Care 15 [facility] [address] [place] [address] Yumi Chaudhary MD 15 [facility]. [address] [place] [phone] [email or web address] 05/17/2025 9:15 AM EST Appointment [facility] MR Imaging, [place] [address] [place] [address] Cali Juarez MD [address] [place] [address] [email or web address] 05/17/2025 1:00 PM EST Office Visit [facility] Surgical Oncology [address] [facility] [place] [address] Cali Juarez MD [address] [place] [address] [email or web address] documented as of this encounter [...] documented as of this encounter Care Teams Operations Assistant Relationship Specialty Start Date End Date Delon Kaur MD [address] [place] [address] PCP - General Family Medicine 05/24/17 01/12/22 Yumi Chaudhary MD 15 [facility]. [address] [place] [address] [email or web address] PCP - General Family Medicine 01/13/22 Gal Hernandez MD [address] [place] [address] 07/23/20 Yumi Chaudhary MD [address] [place] [address] [email or web address] Insurance Assigned Provider 07/09/23 documented as of this encounter Additional Source Comments The information contained in this document represents components of the legal health record. It is not the complete legal health record.[facility]
--- OUTSIDE RECORDS SUMMARY | 2025-02-11 14:47 | XMS_ITS | Encounter Summary ---
Author Organization [facility] Address [address] [facility] [address] [place] [address] Phone Care Team Providers Care Charge Gang Weigher Name Role Phone Delon Kaur MD Primary Care Provider Gal Hernandez MD Unavailable [phone] Yumi Chaudhary MD Primary Care Provider [phone] Yumi Chaudhary MD Unavailable Encounter Details Date Type Department Care Team (Late st Contact Info) Description 09/04/2020 Procedure Pass [facility] [address] [place] [address] Social History Tobacco Use Types Packs/Day Years [...] st Contact Info) Description 05/11/2024 Procedure Pass [facility] MR Imaging, [place] [address] [place] [address] 02/14/2025 3:00 PM EST Office Visit [facility] [place] Primary Care [address] [facility] [address] [place] [address] Yumi Chaudhary MD 15 [facility]. [address] [place] [address] [email or web address] 05/17/2025 9:15 AM EST Appointment [facility] MR Imaging, [place] [address] [place] [address] Cali Juarez MD [address] [place] [address] [email or web address] 05/17/2025 1:00 PM EST Office Visit [facility] Surgical Oncology 45 [facility] [place] [address] Cali Juarez MD [address] [place] [address] [email or web address] documented as of this [...] documented as of this encounter Care Teams Charge Gang Weigher Relationship Specialty Start Date End Date Delon Kaur MD [address] [place] [address] PCP - General Family Medicine 05/24/17 01/12/22 Yumi Chaudhary MD 15 [facility]. [address] [place] [address] [email or web address] PCP - General Family Medicine 01/13/22 Gal Hernandez MD [address] [place] [address] 07/23/20 Yumi Chaudhary MD [address] [place] [address] [email or web address] Insurance Assigned Provider 07/09/23 documented as of this encounter Additional Source Comments The information contained in this document represents components of the legal health record. It is not the complete legal health record.[facility]
--- OUTSIDE RECORDS SUMMARY | 2025-02-11 14:47 | XMS_ITS | Encounter Summary ---
Author Organization [facility] Address [address] [place] [id number] Phone Care Team Providers Care Fabric Worker Name Role Phone Delon Kaur MD Primary Care Provider [phone] Gal Hernandez MD Unavailable [phone] Yumi Chaudhary MD Primary Care Provider [phone] Yumi Chaudhary MD Unavailable Encounter Details Date Type Department Care Team (Late st Contact Info) Description 09/14/2020 Procedure Pass [facility] Angio Interventional Radiology [address] [place] [id number] Social History Tobacco Use Types Packs/Day Years [...] [facility] [place] [address] [place] [address] 02/14/2025 3:00 PM EST Office Visit [facility] [place] [facility] [address] [place] [address] Yumi Chaudhary MD [address] [facility] [address]. [address] [place] [id number] [email or web address] 05/17/2025 9:15 AM EST Appointment [facility] MR Imaging, [place] [address] [place] [address] Cali Juarez MD [address] [place] [address] [email or web address] 05/17/2025 1:00 PM EST Office Visit [facility] Surgical Oncology [address] [facility] [place] [address] Cali Juarez MD [address] [place] [address] [email or web address] documented as of this [...] documented as of this encounter Care Teams Fabric Worker Relationship Specialty Start Date End Date Delon Kaur MD [address] [place] [id number] PCP - General Family Medicine 05/24/17 01/12/22 Yumi Chaudhary MD [address] [facility] [place] [address] [email or web address] PCP - General Family Medicine 01/13/22 Gal Hernandez MD [address] [place] [address] 07/23/20 Yumi Chaudhary MD [address] [place] [address] [email or web address] Insurance Assigned Provider 07/09/23 documented as of this encounter Additional Source Comments The information contained in this document represents components of the legal health record. It is not the complete legal health record.[facility]
--- OUTSIDE RECORDS SUMMARY | 2025-02-11 14:47 | XMS_ITS | Data Portability ---
Author Organization AID[facility] Freddy Juarez [facility], [facility] Address [address] [place] [address] Care Team Providers Care Terminal Worker Name Role Phone MARIA C OSULLIVAN Primary Care Provider Assessment Encounter Date Assessment Date Assessment LastModified by Organization Details LastModified Time 06/07/2024 06/07/2024 Assessment: Decreased difficulty with lateral reaches this session. Introduced to wall clocks. Mod UT compensation demonstrated when fatigued. Plan: PT @ 2x/wk for 8-10 weeks to decrease pain, increase ROM, optimize mechanics for functional movement, and facilitate independence in ADL's. D/C sling at 6 weeks Begin PT at 6 weeks for PROM, AAROM AROM 7 weeks Strengthening 3 months post op [email or web address] Not available 06/07/2024 15:53:29 06/11/2024 06/11/2024 Assessment: Patient demonstrates good active shoulder flexion with mild UT compensation in standing. Introduced to D1/D2 strengthening, and was able to complete with moderate fatigue afterward. Plan: PT @ 2x/wk for 4 weeks to decrease pain, increase ROM, optimize mechanics for functional movement, and facilitate independence in ADL's. D/C sling at 6 weeks Begin PT at 6 weeks for PROM, AAROM AROM 7 weeks Strengthening 3 months post op Not available 06/11/2024 16:06:40 06/13/2024 06/13/2024 Assessment: Patient demonstrates good understanding of independent HEP. Displays good mechanics while performing exercises. Plan: D/C to independent HEP. Not available 06/13/2024 14:11:37 08/14/2024 08/14/2024 Reason for Visit: 6 months status post right shoulder revision rotator cuff repair and hardware removal, right wrist tendinitis, left elbow lateral epicondylitis HPI: The patient is a 63-year-old male now 6 months status post right shoulder arthroscopic revision rotator cuff repair, open deep hardware removal of previous suture anchor from prior repair, extensive debridement and subacromial decompression with partial acromioplasty performed on 02/15/2024. Overall, he is doing extremely well in regards to his right shoulder. Worked diligently with physical therapy advancing per my protocol and happy with his progress. He is very happy with his shoulder. He does note some discomfort to his right wrist but developed doing physical therapy exercises as well as a more chronic history of left lateral sided elbow pain. Past medical, surgical, family and social history; Medications, Allergies and 12-point review of systems have been reviewed, updated and charted. Physical Examination: Height and weight as noted in chart. Constitutional: Patient pleasant, well appearing and in NAD. Mental status: Patient is alert and oriented x 4. No short-term memory deficits. Psychiatric: Mood and affect are appropriate. Respiratory: Non-labored breathing. Musculoskeletal: On examination of the right shoulder, there is no effusion, erythema or ecchymosis. Active shoulder elevation 170 . External rotation to 50 . 5/5 strength on rotator cuff testing. On examination of the left elbow, he demonstrates full elbow range of motion. No erythema or ecchymosis. Point tenderness directly over the common extensor origin. Impression and Plan: 63-year-old male now 6 months status post right shoulder arthroscopic revision rotator cuff repair, open deep hardware removal of previous suture anchor from prior repair, extensive debridement and subacromial decompression with partial acromioplasty performed on 02/15/2024. Overall, he is doing extremely well in regards to his right shoulder. Worked diligently with physical therapy advancing per my protocol and happy with his progress. He is very happy with his shoulder. I recommend that he increase lifting to tolerance and to use good lifting mechanics in order to protect his shoulder. Regarding his right wrist, I did refer him for a cockup wrist splint with recommendations to use this during activity for the next 6-8 weeks as needed. Regarding the left elbow, his history and exam are consistent with lateral epicondylitis and I provided a handout regarding exercises and stretches. At this point, I can see him back as needed. All questions and concerns were addressed. [email or web address] Not available 08/14/2024 13:23:23 Plan of Treatment Reminders Order Date Submit Date Provider Last Modified By Organization Details Last Modified Time Details Appointments None record ed. Lab None record ed. Referral None record ed. Procedures None record ed. Surgeries None record ed. Imaging None record ed. Medication Orders None record ed. Patient TargetsNo targets recorded. Patient InstructionsNo instructions recorded. Reason for Referral None Reported. Procedures Surgical History Date Name Laterality Status Provider Name and Address Organization Details Recorded Time 06/14/19 52242 Therapeutic Exercise (1:1) completed Jerry Bajwa, DPT [address], [place], [address], [facility] 06/12/2024 10:19:38 06/12/19 99921 Therapeutic Exercise (1:1) completed Jerry Bajwa DPT [address], [place], [address], [facility] 06/11/2024 16:06:52 06/08/19 18869 Therapeutic Exercise (1:1) completed Aamir Sánchez, CLEARING SUPERVISOR [address], [place], [address], [facility] 06/07/2024 15:02:22 05/30/19 81785 Therapeutic Exercise (1:1) completed Jerry Bajwa, DPT [address], [place], [address], [facility] 05/30/2024 14:35:15 05/28/19 98144 Therapeutic Exercise (1:1) completed Jerry Bajwa DPT [address], [place], [address], [facility] 05/28/2024 09:09:03 05/24/19 89171 Therapeutic Exercise (1:1) completed Aamir Sánchez, CLEARING SUPERVISOR [address], [place], [address], [facility] 05/24/2024 14:20:09 05/21/19 68388 Therapeutic Exercise (1:1) completed Rutledge Gonzalo, CLEARING SUPERVISOR [address], [place], [address], [facility] 05/21/2024 12:58:48 05/21/19 97077: Hot or Cold Pack completed Rutledge Gonzalo, CLEARING SUPERVISOR [address], [place], [address], [facility] 05/21/2024 12:58:48 05/18/19 52910 Therapeutic Exercise (1:1) completed Jerryrebel Negronski, DPT [address], [place], [address], [facility] 05/17/2024 10:29:14 05/18/19 83485: Hot or Cold Pack completed Jerryrebel Negronski, DPT [address], [place], [address], [facility] 05/20/2024 18:47:24 05/14/19 53874 Therapeutic Exercise (1:1) completed Rutledge Gonzalo, CLEARING SUPERVISOR [address], [place], [address], [facility] 05/14/2024 17:41:58 05/14/19 82208: Hot or Cold Pack completed Rutledge Gonzalo, CLEARING SUPERVISOR [address], [place], [address], [facility] 05/14/2024 16:30:15 05/09/19 24657 Therapeutic Exercise (1:1) completed Rutledge Gonzalo, CLEARING SUPERVISOR [address], [place], [address], [facility] 05/09/2024 13:32:40 05/09/19 25000: Hot or Cold Pack completed Rutledge Gonzalo, CLEARING SUPERVISOR [address], [place], [address], [facility] 05/09/2024 13:32:40 05/07/19 25 79017 Therapeutic Exercise (1:1) completed Aamir Sánchez, CLEARING SUPERVISOR [address], [place], [address], [facility] 05/07/2024 13:03:47 05/07/19 25 43091: Hot or Cold Pack completed Aamir Sánchez, CLEARING SUPERVISOR [address], [place], [address], [facility] 05/07/2024 13:03:47 05/03/19 18603 Therapeutic Exercise (1:1) completed Aamir Sánchez, CLEARING SUPERVISOR [address], [place], [address], [facility] 05/03/2024 11:58:21 05/03/19 25 96835: Hot or Cold Pack completed Aamir Sánchez, CLEARING SUPERVISOR [address], [place], [address], [facility] 05/03/2024 11:58:21 04/30/19 81915 Therapeutic Exercise (1:1) completed Jerry Bajwa DPT [address], [place], [address], [facility] 04/30/2024 09:22:43 04/30/19 25 81453: Hot or Cold Pack completed Jerry Bajwa DPT [address], [place], [address], [facility] 04/30/2024 09:22:43 04/27/19 06674 Therapeutic Exercise (1:1) completed Jerry Bajwa DPT [address], [place], [address], [facility] 04/27/2024 13:32:35 04/27/19 25 53511: Hot or Cold Pack completed Jerry Bajwa DPT [address], [place], [address], [facility] 04/27/2024 13:32:35 04/24/19 25 34145 Therapeutic Exercise (1:1) completed PONCHO McdonaldT [address], [place], [address], [facility] 04/25/2024 11:12:58 04/24/19 89465: Hot or Cold Pack completed Jerry Bajwa DPT [address], [place], [address], [facility] 04/24/2024 13:46:16 04/15/19 25 Spine Surgery completed MARIA E CURRIE [facility] 08/14/2024 13:03:08 04/11/19 84711 Therapeutic Exercise (1:1) completed Aamir Sánchez, CLEARING SUPERVISOR [address], [place], [address], [facility] 04/11/2024 12:40:33 04/11/19 59140: Hot or Cold Pack completed Aamir Sánchez, CLEARING SUPERVISOR [address], [place], [address], [facility] 04/11/2024 12:40:33 04/09/19 54844 Therapeutic Exercise (1:1) completed Aamir Sánchez, CLEARING SUPERVISOR [address], [place], [address], [facility] 04/09/2024 11:05:18 04/09/19 25 84375: Hot or Cold Pack completed Aamir Sánchez, CLEARING SUPERVISOR [address], [place], [address], [facility] 04/09/2024 11:05:18 04/05/19 25 02904 Therapeutic Exercise (1:1) completed Jerry Bajwa DPT [address], [place], [address], [facility] 04/05/2024 08:21:38 04/05/19 25 27007: Hot or Cold Pack completed Jerry Bajwa, DPT [address], [place], [address], [facility] 04/06/2024 08:37:52 04/02/20 24 77235 Therapeutic Exercise (1:1) completed Aamir Sánchez, CLEARING SUPERVISOR [address], [place], [address], [facility] 04/02/2024 15:21:52 03/30/20 24 27812 Therapeutic Exercise (1:1) completed Katie Gonzalez, PT [address], [place], [address], [facility] 04/02/2024 00:39:57 03/30/20 24 96398: Low complexity PT Eval completed Katie Gonzalez, PT [address], [place], [address], [facility] 04/02/2024 00:40:06 12/23/19 22 Gastrointestinal Surgery completed [facility] 11/15/2023 15:47:10 08/22/19 20 Gastrointestinal Surgery completed [facility] 11/15/2023 15:47:10 08/07/19 19 Shoulder Surgery completed [facility] 11/15/2023 15:47:10 Imaging Results None recorded. Procedure Notes None recorded. Medical Equipment None Reported. Medications Name Sig Start Date Stop Date Status Note LastModified by Organization Details LastModified Time tizanidine 2 mg tablet TAKE 1 TABLET BY MOUTH EVERY 8 HOURS active Not Available Not Available No t Available cetirizine 10 mg tablet 06/12 completed Not Available Not Available Not Available atorvastati n 10 mg tablet active Not Available Not Available Not Available ondansetron HCl 4 mg tablet Take 1 tablet every 6-8 hours by oral route as needed, for nausea. 06/12 completed Not Available Not Available Not Available methylpredn isolone 4 mg tablet 06/12 completed Not Available Not Available Not Available clobetasol 0.05 % topical cream active Not Available Not Available Not Available ciprofloxac in 500 mg tablet 06/12 completed Not Available Not Available Not Available aspirin 81 mg tablet,candido yed release Take 1 tablet(s) EVERY DAY by oral route beginning the day AFTER surgery. Take with food. 06/12 completed Not Available Not Available Not Available lorazepam 0.5 mg tablet active Not Available Not Available Not Available tamsulosin 0.4 mg capsule TAKE 1 CAPSULE BY MOUTH EVERY DAY active Not Available Not Available No t Available famotidine 20 mg (Dis) tablet active Not Available Not Available Not Available gabapentin 100 mg capsule 06/12 completed Not Available Not Available Not Available ketoconazol e 2 % topical cream 06/12 completed Not Available Not Available Not Available naproxen 500 mg tablet Take 1 tablet(s) 2 TIMES A DAY by oral route for 5 days. Take with food. 06/12 completed Not Available Not Available Not Available oxycodone 5 mg tablet TAKE 1 TABLET BY MOUTH EVERY 4 HOURS NEEDED FOR MODERATE PAIN. active Not Available Not Available No t Available ciclopirox 0.77 % topical suspension active Not Available Not Available N ot Available Vitals Date Recorded Body height Body mass index (BMI) Body weight Provider Name and Address Organization Details Last Updated DateTime 06/12/2024 175.26 cm 24.4 kg/m2 06519.74 g beatriz emery [facility] 06/12/2024 13:41:06 Date Recorded Body height Body mass index (BMI) Body weight Provider Name and Address Organization Details Last Updated DateTime 08/14/2024 175.26 cm 24.4 kg/m2 20999.74 g MARIA E CURRIE [facility] 08/14/2024 13:03:19 Social History Question Answer Notes LastModified by Lorena Gaxiola ion Details LastModified Time Tobacco Smoking Status Never Smoker MARIA E naylor [facility] 11/15/2023 15:47:10 What Is Your Relationship Status? [email or web address] Information not available 11/15/2023 Sex: Unknown Functional Status Question Answer Note LastModified by Lorena Gaxiola ion Details LastModified Time How many times per week do you consume alcohol? 5-7 times per week [email or web address] Information not available 11/15/2023 Do you use any illicit or recreational drugs? No [email or web address] Information not available 11/15/2023 Do you or have you ever used any other forms of tobacco or nicotine? No [email or web address] Information not available 11/15/2023 Do you or have you ever used e-cigarettes or vape? Never used electronic cigarettes [email or web address] Information not available 11/15/2023 Mental Status None recorded. Family History Nothing Reported. Medical History No medical history recorded. Past Encounters Encounter ID Performer Location Encounter Start Date Encounter Closed Date Diagnosis/Indication Diagnosis SNOMED-CT Code Diagnosis ICD10 Code Diagnosis IMO Codes Diagnosis Note [id number] MD Arlin Forrest [address] [place] [address] 10/27/2023 14:45:59 11/18/2023 13:01:45 Pain of right shoulder joint 9808359298 1266982 M25.024 [id number] MD [facility] [address] [place] [address] 11/15/2023 15:01:00 12/13/2023 09:42:16 Rupture of rotator cuff of right shoulder 4192414990 3849743 M75.101 Impingemen t syndrome of right shoulder region 1191504340 74881 M75.41 Retained m etal fragment foreign body 5731098631 87469 Z18.10 [id number] Angela Apple PA-C [facility] [address] [place] [address] 02/28/2024 10:51:44 03/27/2024 08:23:01 Nontraumatic complete rupture of rotator cuff of right shoulder 6354953458 528374 M75.121 [id number] At this point in time, Patient will continue working with physical therapy per Dr. Nixon's protocol. Discussed that they may remove the sling for hygenic purposes and to participat e in passive range of motion exercises such as flexion and extension at the elbow wrist and digits while seated in a resting position at home. We are holding physical therapy x 6 weeks postop to allow for appropriat e tissue healing. Keep the sling intact for a total of 6 weeks from the date of surgery. May wean out of the sling and begin working on active range of motion exercises after 6 weeks. No lifting anything heavier than a cup of coffee to mouth until 3 months postop. Gentle strength building program to start at 3 months with return to normal function around 6 months. Follow up in 6-[address] Nixon, sooner if any issues. Recommende d referral to one of our security compliance specialist for further workup of his left upper extremity radiculopa thy, numbness and weakness. [id number] Katie Gonzalez, PT [facility] [address] [place] [address] 03/30/2024 12:59:04 03/30/2024 13:59:52 Rupture of rotator cuff of right shoulder 1778154936 0577801 M75.783 [id number] Aamir Sánchez, CLEARING SUPERVISOR [facility] [address] [place] [address] 04/02/2024 13:23:25 04/02/2024 14:35:04 Rupture of rotator cuff of right shoulder 0091166470 [id number] M75.847 [id number] Jerry Bajwa, DPT [facility] [address] [place] [address] 04/05/2024 13:30:06 04/05/2024 14:42:56 Rupture of rotator cuff of right shoulder 0194641003 [id number] M75.906 [id number] Aamir Sánchez CLEARING SUPERVISOR [facility] [address] [place] [address] 04/09/2024 13:33:19 04/09/2024 14:42:10 Rupture of rotator cuff of right shoulder 2207156054 9945577 M75.690 [id number] Aamir Sánchez, CLEARING SUPERVISOR [facility] [address] [facility] [address] 04/11/2024 13:29:46 04/11/2024 14:31:42 Rupture of rotator cuff of right shoulder 0226769073 1772073 M75.524 [id number] MD [facility] [address] [place] [address] 04/12/2024 13:47:31 04/23/2024 13:19:54 Surgical follow-up [id number] Z48.89 [id number] Jerry Bajwa, DPT [facility] [address] [place] [address] 04/24/2024 13:27:51 04/24/2024 16:52:51 Rupture of rotator cuff of right shoulder 5694110323 [id number] M75.789 [id number] Jerry Bajwa, DPT [facility] [address] [place] [address] 04/27/2024 13:25:02 04/27/2024 14:51:42 Rupture of rotator cuff of right shoulder 1709992172 5951920 M75.815 [id number] Jerry Bajwa, DPT [facility] [address] [place] [address] 04/30/2024 12:59:24 04/30/2024 14:36:01 Rupture of rotator cuff of right shoulder 6597050368 [id number] M75.314 [id number] Aamir Pelaezf, CLEARING SUPERVISOR [facility] [address] [place] [address] 05/03/2024 12:57:58 05/04/2024 08:35:11 Rupture of rotator cuff of right shoulder 5590302703 [id number] M75.556 [id number] Aamir Pelaezf, CLEARING SUPERVISOR [facility] [address] [place] [address] 05/07/2024 13:00:35 05/07/2024 14:38:06 Rupture of rotator cuff of right shoulder 7680308477 [id number] M75.433 [id number] Rutledgeluis Pelaezf, CLEARING SUPERVISOR [facility] [address] [place] [address] 05/09/2024 13:28:03 05/09/2024 14:39:24 Rupture of rotator cuff of right shoulder 6178942809 [id number] M75.279 [id number] Rutledge Gonzalo, CLEARING SUPERVISOR [facility] [address] [place] [address] 05/14/2024 16:21:39 05/14/2024 17:18:22 Rupture of rotator cuff of right shoulder 5870220328 [id number] M75.252 [id number] Jerry Bajwa, DPT [facility] [address] [place] [address] 05/18/2024 14:33:14 05/18/2024 15:45:01 Rupture of rotator cuff of right shoulder 2269223941 [id number] M75.442 [id number] Aamir Garciaraf, CLEARING SUPERVISOR [facility] [address] [place] [address] 05/21/2024 12:58:02 05/21/2024 17:53:31 Rupture of rotator cuff of right shoulder 1108386799 [id number] M75.789 [id number] Rutledge Gonzalo, CLEARING SUPERVISOR [facility] [address] [place] [address] 05/24/2024 13:01:04 05/24/2024 14:28:23 Rupture of rotator cuff of right shoulder 5628402979 [id number] M75.087 [id number] Jerry Bajwa, DPT [facility] [address] [place] [address] 05/28/2024 13:20:08 05/28/2024 14:49:42 Rupture of rotator cuff of right shoulder 9228773024 [id number] M75.995 [id number] Jerry Bajwa, DPT [facility] [address] [place] [address] 05/30/2024 13:20:11 05/30/2024 14:35:54 Rupture of rotator cuff of right shoulder 9087548628 [id number] M75.200 [id number] Aamir Pelaezf, CLEARING SUPERVISOR [facility] [address] [place] [address] 06/07/2024 14:55:43 06/07/2024 16:11:33 Rupture of rotator cuff of right shoulder 2538641468 [id number] M75.636 [id number] Jerry Bajwa DPT [facility] [address] [place] [address] 06/11/2024 14:52:32 06/11/2024 16:07:59 Rupture of rotator cuff of right shoulder 9466959343 [id number] M75.611 [id number] MAGGIE Muse [address] [place] [address] 06/12/2024 13:34:51 06/27/2024 13:52:06 History of repair of musculotendinous cuff of shoulder 313494022 Z98.890 [id number] Plan: At this point in time patient will continue working with physical therapy until discharged . Continue with dilligent home exercise program thereafter . No heavy lifting anything greater than 10 lbs until 6 months postop at which point patient may gradually progress activities as tolerated with return to baseline level of function. Discussed improvemen ts in pain, function and strength will continue for up to 18 months after surgery. Patient will follow up in 2-3 months. Please call the office if symptoms worsen or do not continue to improve. All questions and concerns were addressed and answered. [id number] Jerry Bajwa DPT [facility] [address] [place] [address] 06/13/2024 12:27:56 06/13/2024 14:12:27 Rupture of rotator cuff of right shoulder 3027796451 [id number] M75.343 [id number] MD [facility] [address] [place] [address] 08/14/2024 12:43:09 08/30/2024 15:35:13 Tendinitis of right wrist region 8029823802 9947812 M77.8 [id number] Surgical follow-up 97137 4000 Z48.89 229004 Left later al elbow tendinopathy 2198083829 05730 M77.12 [id number] Health Concerns Section Related Observation LastModified by Organization Detai ls LastModified Time None Recorded Concern Status LastModified by Organization Details LastModified Time None Recorded Advance Directives Directive None Recorded Payers Insurance Date Sequence Insurance Name Policy Number Policy Calderon Covered Member ID Calderon Member ID Guarantor Name 08/30/2024 1 [facility] Robert Griffin [id number] Robert Griffin Notes Date Note Type Note Provider Name and Address Organization Details Recorded Time 06/07/2024 text/html Pt reports shoulder is doing well. Neck feels tight as times but is getting better. Aamir Sánchez, CLEARING SUPERVISOR [address], [place], [address], [facility] 06/07/2024 15:55:23 06/11/2024 text/html Patient reports that the right shoulder is feeling good overall, and the neck is feeling stiff today. Jerry Bajwa, DPT [address], [place], [address], [facility] 06/11/2024 16:07:03 06/12/2024 text/html ROS as noted in the HPI I am seeing the patient under the general supervision of Dr. Nixon who was available but who did not see the patient. Surgeon: Dr. Nixon Procedure: right shoulder arthroscopic revision rotator cuff repair, open deep hardware removal of previous suture anchor from prior repair, extensive debridement and subacromial decompression with partial acromioplasty performed on 02/15/2024. Patient presents today 4 months status post shoulder surgery noted above. Overall doing well. Patient continues to work with physical therapy per Dr. Nixon's standard protocol. He did recently undergo a cervical fusion with Dr. Jimenez and held his shoulder PT for several weeks after that to focus on recovery. Pain is tolerable and continues to improve with time. Recently started a gentle strength building program. Continues to progress with ROM. No new fall, trauma or injury. No numbness, tingling, fevers, chills or other constitutional symptoms reported. Angela Apple PA-C [address], [place], [address], [facility] 06/12/2024 14:16:18 06/13/2024 text/html Patient reports seeing the PA-C yesterday who was pleased with the patient's progress. Patient states that the right shoulder is doing well overall. Jerry Bajwa, DPT [address], [place], [address], [facility] 06/13/2024 14:11:57
--- OUTSIDE RECORDS SUMMARY | 2025-02-11 14:47 | XMS_ITS | Encounter Summary ---
Author Organization [facility] Address [address] [facility] [address] [place] [address] Phone Care Team Providers Care Mesh Man Name Role Phone Delon Kaur MD Primary Care Provider [phone] Gal Hernandez MD Unavailable [phone] Yumi Chaudhary MD Primary Care Provider [phone] Yumi Chaudhary MD Unavailable Encounter Details Date Type Department Care Team (Late st Contact Info) Description 09/09/2020 Procedure Pass [facility] Angio Interventional Radiology [address] [place] [address] Social History Tobacco Use Types Packs/Day Years [...] st Contact Info) Description 05/11/2024 Procedure Pass [facility] MR Imaging, [address] [place] [address] 02/14/2025 3:00 PM EST Office Visit [facility] [place] [facility] [address] [facility] [address] [place] [address] Yumi Chaudhary MD 15 [facility] [address] [place] [address] [email or web address] 05/17/2025 9:15 AM EST Appointment [facility] MR Imaging, [place] [place] [address] Cali Juarez MD 75 [place] [address] [email or web address] 05/17/2025 1:00 PM EST Office Visit [facility] Surgical Oncology 45 [facility]3 [place] [address] Cali Juarez MD 75 [place] [address] [email or web address] documented as of this encounter [...] documented as of this encounter Care Teams Mesh Man Relationship Specialty Start Date End Date Delon Kaur MD [address] [place] [address] PCP - General Family Medicine 05/24/17 01/12/22 Yumi Chaudhary MD 15 [facility]. 201 [place] [address] [email or web address] PCP - General Family Medicine 01/13/22 Gal Hernandez MD [address] [place] [address] 07/23/20 Yumi Chaudhary MD [address] [place] [address] [email or web address] Insurance Assigned Provider 07/09/23 documented as of this encounter Additional Source Comments The information contained in this document represents components of the legal health record. It is not the complete legal health record.[facility]
--- OUTSIDE RECORDS SUMMARY | 2025-02-11 14:47 | XMS_ITS | Encounter Summary ---
Author Organization [facility] Address [address] [place] [address] Phone Care Team Providers Care Public Safety Director Name Role Phone Delon Kaur MD Primary Care Provider [phone] Gal Hernandez MD Unavailable [phone] Yumi Chaudhary MD Primary Care Provider [phone] Yumi Chaudhary MD Unavailable Encounter Details Date Type Department Care Team (Late st Contact Info) Description 09/13/2020 Procedure Pass [facility] [address] [place] [address] Social History Tobacco Use Types Packs/Day Years [...] st Contact Info) Description 05/11/2024 Procedure Pass [facility] MR Imaging, [place] [address] [place] [address] 02/14/2025 3:00 PM EST Office Visit [facility] [place] [facility] [address] [facility] [address] [place] [address] Yumi Chaudhary MD 15 [facility]. [address] [place] [address] [email or web address] 05/17/2025 9:15 AM EST Appointment [facility] MR Imaging, [place] [address] [place] [address] Cali Juarez MD 75 [place] [address] [email or web address] 05/17/2025 1:00 PM EST Office Visit [facility] Surgical Oncology 45 [facility]3 [place] [address] Cali Juarez MD [address] [place] [address] [email or web address] documented as of this encounter [...] documented as of this encounter Care Teams Public Safety Director Relationship Specialty Start Date End Date Delon Kaur MD [address] [place] [address] PCP - General Family Medicine 05/24/17 01/12/22 Yumi Chaudhary MD 15 [facility]. [address] [place] [address] [email or web address] PCP - General Family Medicine 01/13/22 Gal Hernandez MD 9 [place] [address] 07/23/20 Yumi Chaudhary MD [address] [place] [address] [email or web address] Insurance Assigned Provider 07/09/23 documented as of this encounter Additional Source Comments The information contained in this document represents components of the legal health record. It is not the complete legal health record.[facility]
--- OUTSIDE RECORDS SUMMARY | 2025-02-11 14:47 | XMS_ITS | Encounter Summary ---
Author Organization [facility] Address [address] [place] [address] [place] [address] Phone Care Team Providers Care Oral Therapist Name Role Phone Delon Kaur MD Primary Care Provider [phone] Gal Hernandez MD Unavailable [phone] Yumi Chaudhary MD Primary Care Provider [phone] Yumi Chaudhary MD Unavailable Reason for Referral * Physical Therapy (Routine) - Closed Specialty Diagnoses / Procedures Referred By Teofilo baptiste Referred To Contact Physical Therapy Diagnoses Encounter for rehabilitation System, Provider Not In, [facility] [address] [address] Lokesh Pulido PT Phone: tel: [email or web address] Referral ID Status Reason Start Date Expiration Date Visits Re quested Visits Authorized [id number] Closed 08/16/2017 04/03/2018 12 12 Encounter Details Date Type Department Care Team (Latest Contact Info) Description 09/05/2017 Transcribe Orders [facility] [address] [place] [address] Delon Kaur MD [address] [place] [address] Encounter for rehabilitation (Primary Dx) Social History [...] st Contact Info) Description 05/11/2024 Procedure Pass [facility] MR Imaging, [address] [place] [address] 02/14/2025 3:00 PM EST Office Visit [facility] [place] [facility] 15 [facility] [address] [place] [address] Yumi Chaudhary MD 15 [facility] [address] [place] [address] [email or web address] 05/17/2025 9:15 AM EST Appointment [facility] Imaging, [address] [place] [address] Cali Juarez MD [address] [place] [address] [email or web address] 05/17/2025 1:00 PM EST Office Visit [facility] Surgical Oncology 45 [facility] AS[facility]2-3 [place] [address] Cali Juarez MD [address] [place] [address] [email or web address] Scheduled Referrals Name Type Priority Associated Diagnoses Orde r Schedule Ambulatory referral to [facility] Physical Therapy Outpatient Referral Routine Encounter for [...] documented as of this encounter Care Teams Oral Therapist Relationship Specialty Start Date End Date Delon Kaur MD [address] [place] [address] PCP - General Family Medicine 05/24/17 01/12/22 Yumi Chaudhary MD [address] [place] [address] [email or web address] PCP - General Family Medicine 01/13/22 Gal Hernandez MD [address] [place] [address] 07/23/20 Yumi Chaudhary MD [address] [address] [email or web address] Insurance Assigned Provider 07/09/23 documented as of this encounter Additional Source Comments The information contained in this document represents components of the legal health record. It is not the complete legal health record.[facility]
--- OUTSIDE RECORDS SUMMARY | 2025-02-11 14:47 | XMS_ITS | Encounter Summary ---
Author Organization [facility] Address [address] [place] [address] Phone Care Team Providers Care Mail Processing Equipment Mechanic Name Role Phone Delon Kaur MD Primary Care Provider Gal Hernandez MD Unavailable [phone] Yumi Chaudhary MD Primary Care Provider [phone] Yumi Chaudhary MD Unavailable Encounter Details Date Type Department Care Team (Late st Contact Info) Description 09/13/2020 Procedure Pass [facility] [address] [place] [address] Social History Tobacco Use Types Packs/Day Years [...] st Contact Info) Description 05/11/2024 Procedure Pass [facility] MR Imaging, [place] [place] [address] 02/14/2025 3:00 PM EST Office Visit [facility] [place] [facility] 15 [facility] [address] [place] [address] Yumi Chaudhary MD 15 [facility]. 201 [place] [address] [email or web address] 05/17/2025 9:15 AM EST Appointment [facility] MR Imaging, [place] [place] [address] Cali Juarez MD 75 [place] [address] [email or web address] 05/17/2025 1:00 PM EST Office Visit [facility] Surgical Oncology 45 [facility]3 [place] [address] Cali Juarez MD [address] [place] [address] [email or web address] documented as of this encounter [...] documented as of this encounter Care Teams Mail Processing Equipment Mechanic Relationship Specialty Start Date End Date Delon Kaur MD [address] [place] [address] PCP - General Family Medicine 05/24/17 01/12/22 Yumi Chaudhary MD 15 [facility]. 201 [place] [address] [email or web address] PCP - General Family Medicine 01/13/22 Gal Hernandez MD 9 [place] [address] 07/23/20 Yumi Chaudhary MD [address] [place] [address] [email or web address] Insurance Assigned Provider 07/09/23 documented as of this encounter Additional Source Comments The information contained in this document represents components of the legal health record. It is not the complete legal health record.[facility]
--- OUTSIDE RECORDS SUMMARY | 2025-02-11 14:47 | XMS_ITS | Encounter Summary ---
Author Organization [facility] Address [address] [place] [address] Phone Care Team Providers Care Geology Teacher Name Role Phone Gal Hernandez MD Unavailable [phone] Yumi Chaudhary MD Primary Care Provider [phone] Yumi Chaudhary MD Unavailable Encounter Details Date Type Department Care Team (Late st Contact Info) Description 01/15/2022 Procedure Pass [facility] 70 [place] [address] Social History Tobacco Use Types Packs/Day Years [...] high school, GED, job training, learning the Chinese language, technical skills, or developing parenting skills)? [...] st Contact Info) Description 05/11/2024 Procedure Pass [facility] MR Imaging, [address] [place] [address] 02/14/2025 3:00 PM EST Office Visit [facility] 15 [facility] [address] [place] [address] Yumi Chauhdary MD 15 [facility] [address]. [address] [place] [address] 05/17/2025 9:15 AM EST Appointment [facility] MR Joelle, [address] [place] [address] Cali Juarez MD [address] [place] [address] [email or web address] 05/17/2025 1:00 PM EST Office Visit [facility] Surgical Oncology 45 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 09/25/2020 01/06/2023 1:21 AM EDT Assessment Noted Time PHQ-2 Depression Total Score: 0 12/17/19 7:47 AM EDT documented as of this encounter Care Teams Geology Teacher Relationship Specialty Start Date End Date Yumi Chaudhary MD [address] [place] [address] [email or web address] PCP - General Family Medicine 01/13/22 Gal Hernandez MD [address] [place] [address] 07/23/20 Yumi Chaudhary MD [address] [place] [address] [email or web address] Insurance Assigned Provider 07/09/23 documented as of this encounter Additional Source Comments The information contained in this document represents components of the legal health record. It is not the complete legal health record.[facility]
--- OUTSIDE RECORDS SUMMARY | 2025-02-11 14:47 | XMS_ITS | Encounter Summary ---
Author Organization [facility] Address [address] [facility] [address] [place] [address] Phone Care Team Providers Care Kiln Repairer Name Role Phone Delon Kaur MD Primary Care Provider [phone] Gal Hernandez MD Unavailable [phone] Yumi Chaudhary MD Primary Care Provider [phone] Yumi Chaudhary MD Unavailable Encounter Details Date Type Department Care Team (Late st Contact Info) Description 09/05/2020 Procedure Pass [facility] Endoscopy Department 75 [place] [address] Social History Tobacco Use Types Packs/Day Years [...] [facility], [address] [place] [address] 02/14/2025 3:00 PM EST Office Visit [facility] [place] [facility] 15 [facility] [address] [place] [address] Yumi Chaudhary MD 15 [facility]. [address] [place] [address] [email or web address] 05/17/2025 9:15 AM EST Appointment [facility] MR Imaging, [place] [place] [address] Cali Juarez MD 75 [place] [address] [email or web address] 05/17/2025 1:00 PM EST Office Visit [facility] Surgical Oncology 45 [facility]3 [place] [address] Cali Juarez MD [address] [place] [address] [email or web address] documented as of this encounter Visit Diagnoses Not on filedocumented in this encounter Additional Health Concerns Infection Onset Date Last Indicated Resolved Time 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 Date of last exposure 11/13/20 11/14/2020 11/14/2020 11/28/2020 1:43 AM E DT documented as of this encounter Care Teams Kiln Repairer Relationship Specialty Start Date End Date Delon Kaur MD [address] [place] [address] PCP - General Family Medicine 05/24/17 01/12/22 Yumi Chaudhary MD 15 [facility]. [address] [place] [address] [email or web address] PCP - General Family Medicine 01/13/22 Gal Hernandez MD [address] [place] [address] 07/23/20 Yumi Chaudhary MD [address] [place] [address] [email or web address] Insurance Assigned Provider 07/09/23 documented as of this encounter Additional Source Comments The information contained in this document represents components of the legal health record. It is not the complete legal health record.[facility]
--- OUTSIDE RECORDS SUMMARY | 2025-02-11 14:48 | XMS_ITS | Encounter Summary ---
Author Organization [facility] Address [address] [facility] [address] [place] [address] Phone Care Team Providers Care Communications Assistant Name Role Phone Delon Kaur MD Primary Care Provider [phone] Gal Hernandez MD Unavailable [phone] Yumi Chaudhary MD Primary Care Provider [phone] Yumi Chaudhary MD Unavailable Encounter Details Date Type Department Care Team (Late st Contact Info) Description 09/04/2020 Procedure Pass [facility] Angio Interventional Radiology [address] [place] [address] Social History Tobacco Use Types Packs/Day Years [...] st Contact Info) Description 05/11/2024 Procedure Pass [facility] MR Imaging, [address] [place] [address] 02/14/2025 3:00 PM EST Office Visit [facility] [place] [facility] 15 [facility] [address] [place] [address] Yumi Chaudhary MD 15 [facility] [address]el. [address] [place] [address] [email or web address] 05/17/2025 9:15 AM EST Appointment [facility] MR Imaging, [place] [place] [address] Cali Juarez MD 75 [place] [address] [email or web address] 05/17/2025 1:00 PM EST Office Visit [facility] Surgical Oncology 45 [facility]3 [place] [address] Cali Juarez MD 75 [place] [address] [email or web address] documented as [...] as of this encounter Care Teams Communications Assistant Relationship Specialty Start Date End Date Delon Kaur MD [address] [place] [address] PCP - General Family Medicine 05/24/17 01/12/22 Yumi Chaudhary MD 15 [facility]. 201 [place] [address] [email or web address] PCP - General Family Medicine 01/13/22 Gal Hernandez MD [address] [place] [address] 07/23/20 Yumi Chaudhary MD [address] [place] [address] [email or web address] Insurance Assigned Provider 07/09/23 documented as of this encounter Additional Source Comments The information contained in this document represents components of the legal health record. It is not the complete legal health record.[facility]
--- OUTSIDE RECORDS SUMMARY | 2025-02-11 14:48 | XMS_ITS | Encounter Summary ---
Author Organization [facility] Address [address] [place] [address] Phone Care Team Providers Care Radiologic Electronic Specialist Name Role Phone Delon Kaur MD Primary Care Provider Gal Hernandez MD Unavailable [phone] Yumi Chaudhary MD Primary Care Provider Yumi Chaudhary MD Unavailable Encounter Details Date Type Department Care Team (Late st Contact Info) Description 10/21/2020 Ophth Exam [facility] [address] [place] [address] Cheyenne Sabillon MD [email or web address] Social History Tobacco Use Types Packs/Day Years [...] st Contact Info) Description 05/11/2024 Procedure Pass [facility] MR Imaging, [place] [place] [address] 02/14/2025 3:00 PM EST Office Visit [facility] [place] Primary Care 15 [facility] [address] [place] [address] Yumi Chaudhary MD 15 [facility] [address]. [address] [place] [address] [email or web address] 05/17/2025 9:15 AM EST Appointment [facility] MR Imaging, [place] [place] [address] Cali Juarez MD [address] [place] [address] [email or web address] 05/17/2025 1:00 PM EST Office Visit [facility] Surgical Oncology 45 [facility]3 [place] [address] Cali Juarez MD [address] [place] [address] [email or web address] documented as of this encounter [...] documented as of this encounter Care Teams Radiologic Electronic Specialist Relationship Specialty Start Date End Date Delon Kaur MD [address] [place] [address] PCP - General Family Medicine 05/24/17 01/12/22 Yumi Chaudhary MD 15 [facility] [address]. [address] [place] [address] [email or web address] PCP - General Family Medicine 01/13/22 Gal Hernandez MD [address] [place] [address] 07/23/20 Yumi Chaudhary MD [address] [place], [place] [address] [email or web address] Insurance Assigned Provider 07/09/23 documented as of this encounter Additional Source Comments The information contained in this document represents components of the legal health record. It is not the complete legal health record.[facility]
--- OUTSIDE RECORDS SUMMARY | 2025-02-11 14:48 | XMS_ITS | Encounter Summary ---
Author Organization [facility] Address [address] [place] [address] Phone Care Team Providers Care Medical Physiologist Name Role Phone Delon Kaur MD Primary Care Provider Gal Hernandez MD Unavailable [phone] Yumi Chaudhary MD Primary Care Provider [phone] Yumi Chaudhary MD Unavailable Encounter Details Date Type Department Care Team (Late st Contact Info) Description 09/04/2020 Procedure Pass [facility] 75 [place] [address] Social History Tobacco Use Types Packs/Day Years [...] st Contact Info) Description 05/11/2024 Procedure Pass [facility] MR Imaging, [place] [address] [place] [address] 02/14/2025 3:00 PM EST Office Visit [facility] [place] [facility] 15 [facility] [address] [place] [address] Yumi Chaudhary MD 15 [facility]. 201 [place] [address] [email or web address] 05/17/2025 9:15 AM EST Appointment [facility] MR Imaging, [place] [address] [place] [address] Cali Juarez MD 75 [place] [address] [email or web address] 05/17/2025 1:00 PM EST Office Visit [facility] Surgical Oncology 45 [facility]3 [place] [address] Cali uJarez MD [address] [place] [address] [email or web address] documented as of [...] as of this encounter Care Teams Medical Physiologist Relationship Specialty Start Date End Date Delon Kaur MD [address] [place] [address] PCP - General Family Medicine 05/24/17 01/12/22 Yumi Chaudhary MD 15 [facility]. 201 [place] [address] [email or web address] PCP - General Family Medicine 01/13/22 Gal Hernandez MD 9 [place] [address] 07/23/20 Yumi Chaudhary MD [address] [place] [address] [email or web address] Insurance Assigned Provider 07/09/23 documented as of this encounter Additional Source Comments The information contained in this document represents components of the legal health record. It is not the complete legal health record.[facility]
--- OUTSIDE RECORDS SUMMARY | 2025-02-11 14:48 | XMS_ITS | Encounter Summary ---
Author Organization [facility] Address [address] [place] [address] Phone Care Team Providers Care Technical Staff Assistant Name Role Phone Delon Kaur MD Primary Care Provider Gal Hernandez MD Unavailable [phone] Yumi Chaudhary MD Primary Care Provider [phone] Yumi Chaudhary MD Unavailable Encounter Details Date Type Department Care Team (Late st Contact Info) Description 10/16/2020 Procedure Pass [facility] 75 [place] [address] Social History Tobacco Use Types Packs/Day Years [...] st Contact Info) Description 05/11/2024 Procedure Pass [facility] MR Imaging, [place] [address] [place] [address] 02/14/2025 3:00 PM EST Office Visit [facility] [place] [facility] 15 [facility] [address] [place] [address] Yumi Chaudhary MD 15 [facility]. 201 [place] [address] [email or web address] 05/17/2025 9:15 AM EST Appointment [facility] MR Imaging, [place] [address] [place] [address] Cali Juarez MD 75 [place] [address] [email or web address] 05/17/2025 1:00 PM EST Office Visit [facility] Surgical Oncology 45 [facility] [place] [address] Cali Juarez MD [address] [place] [address] [email or web address] documented as of this encounter [...] as of this encounter Care Teams Technical Staff Assistant Relationship Specialty Start Date End Date Delon Kaur MD [address] [place] [address] PCP - General Family Medicine 05/24/17 01/12/22 Yumi Chaudhary MD 15 [facility]. 201 [place] [address] [email or web address] PCP - General Family Medicine 01/13/22 Gal Hernandez MD 9 [place] [address] 07/23/20 Yumi Chaudhary MD [address] [place] [address] [email or web address] Insurance Assigned Provider 07/09/23 documented as of this encounter Additional Source Comments The information contained in this document represents components of the legal health record. It is not the complete legal health record.[facility]
--- OUTSIDE RECORDS SUMMARY | 2025-02-11 14:48 | XMS_ITS | Encounter Summary ---
Author Organization [facility] Address [address] [facility] [address] [place] [address] Phone Care Team Providers Care Extractor Operator Helper Name Role Phone Delon Kaur MD Primary Care Provider [phone] Gal Hernandez MD Unavailable [phone] Yumi Chaudhary MD Primary Care Provider [phone] Yumi Chaudhary MD Unavailable Encounter Details Date Type Department Care Team (Late st Contact Info) Description 09/29/2020 Procedure Pass [facility] Periop 75 [place] [address] Social History Tobacco Use Types Packs/Day Years [...] [facility] MR Imaging, [place] [address] [place] [address] 02/14/2025 3:00 PM EST Office Visit [facility] [place] [facility] 15 [facility] [address] [place] [address] Yumi Chaudhary MD 15 [facility]. [address] [place] [address] [email or web address] 05/17/2025 9:15 AM EST Appointment [facility] MR Imaging, [place] [address] [place] [address] Cali Juarez MD 75 [place] [address] [email or web address] 05/17/2025 1:00 PM EST Office Visit [facility] Surgical Oncology 45 [facility]3 [place] [address] Cali Juarez MD [address] [place] [address] [email or web address] documented as of this encounter Visit Diagnoses Not on filedocumented in this encounter Additional Health Concerns Infection Onset Date Last Indicated Resolved Time 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 Date of last exposure 11/13/20 11/14/2020 11/14/2020 11/28/2020 1:43 AM E DT documented as of this encounter Care Teams Extractor Operator Helper Relationship Specialty Start Date End Date Delon Kaur MD [address] [place] [address] PCP - General Family Medicine 05/24/17 01/12/22 Yumi Chaudhary MD 15 [facility]. [address] [place] [address] [email or web address] PCP - General Family Medicine 01/13/22 Gal Hernandez MD 759 [place] [address] 07/23/20 Yumi Chaudhary MD [address] [place] [address] [email or web address] Insurance Assigned Provider 07/09/23 documented as of this encounter Additional Source Comments The information contained in this document represents components of the legal health record. It is not the complete legal health record.[facility]
--- OUTSIDE RECORDS SUMMARY | 2025-02-11 14:48 | XMS_ITS | Encounter Summary ---
Author Organization [facility] Address [address] [facility] [address] [place] [address] Phone Care Team Providers Care Finance Mgr Name Role Phone Delon Kaur MD Primary Care Provider [phone] Gal Hernandez MD Unavailable [phone] Yumi Chaudhary MD Primary Care Provider [phone] Yumi Chaudhary MD Unavailable Encounter Details Date Type Department Care Team (Late st Contact Info) Description 10/03/2020 Procedure Pass [facility] Angio Interventional Radiology [address] [place] [address] Social History Tobacco Use Types Packs/Day Years [...] st Contact Info) Description 05/11/2024 Procedure Pass [facility] MR Imaging, [place] [address] [place] [address] 02/14/2025 3:00 PM EST Office Visit [facility] [place] [facility] 15 [facility] [address] [place] [address] Yumi Chaudhary MD 15 [facility]. [address] [place] [address] [email or web address] 05/17/2025 9:15 AM EST Appointment [facility] MR Imaging, [place] [address] [place] [address] Cali Juarez MD 75 [place] [address] [email or web address] 05/17/2025 1:00 PM EST Office Visit [facility] Surgical Oncology 45 [facility]3 [place] [address] Cali Juarez MD 75 [place] [address] [email or web address] documented as [...] documented as of this encounter Care Teams Finance Mgr Relationship Specialty Start Date End Date Delon Kaur MD [address] [place] [address] PCP - General Family Medicine 05/24/17 01/12/22 Yumi Chaudhary MD 15 [facility]. 201 [place] [address] [email or web address] PCP - General Family Medicine 01/13/22 Gal Hernandez MD 759 [place] [address] 07/23/20 Yumi Chaudhary MD [address] [place] [address] [email or web address] Insurance Assigned Provider 07/09/23 documented as of this encounter Additional Source Comments The information contained in this document represents components of the legal health record. It is not the complete legal health record.[facility]
--- OUTSIDE RECORDS SUMMARY | 2025-02-11 14:48 | XMS_ITS | Encounter Summary ---
Author Organization [facility] Address [address] [place] [address] Phone Care Team Providers Care Integration Solution Architect Name Role Phone Gal Hernandez MD Unavailable [phone] Yumi Chaudhary MD Primary Care Provider [phone] Yumi Chaudhary MD Unavailable Encounter Details Date Type Department Care Team (Late st Contact Info) Description 01/15/2022 Procedure Pass [facility] 70 [place] [address] Social History Tobacco Use Types Packs/Day Years [...] high school, GED, job training, learning the Sinhala language, technical skills, or developing parenting skills)? [...] st Contact Info) Description 05/11/2024 Procedure Pass [facility] MR Imaging, [place] [address] [place] [address] 02/14/2025 3:00 PM EST Office Visit [facility] 15 [facility] [address] [place] [address] Yumi Chaudhary MD 15 [facility] Nigel. 201 [place] [address] 05/17/2025 9:15 AM EST Appointment [facility] MR Joelle, [place] [address] [place] [address] Cali Juarez MD [address] [place] [address] [email or web address] 05/17/2025 1:00 PM EST Office Visit [facility] Surgical Oncology 45 [facility]B2-3 [place] [address] Cali Juarez MD 75 [place] [address] [email or web address] documented as of this encounter Visit Diagnoses Not on filedocumented in this encounter Additional Health Concerns Infection Onset Date Last Indicated Resolved Time 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 09/25/2020 01/06/2023 1:21 AM EDT Assessment Noted Time PHQ-2 Depression Total Score: 0 12/17/19 7:47 AM EDT documented as of this encounter Care Teams Integration Solution Architect Relationship Specialty Start Date End Date Yumi Chaudhary MD [address] [place] [address] [email or web address] PCP - General Family Medicine 01/13/22 Gal Hernandez MD [address] [place] [address] 07/23/20 Yumi Chaudhary MD [address] [place] [address] [email or web address] Insurance Assigned Provider 07/09/23 documented as of this encounter Additional Source Comments The information contained in this document represents components of the legal health record. It is not the complete legal health record.[facility]
--- OUTSIDE RECORDS SUMMARY | 2025-02-11 14:48 | XMS_ITS | Encounter Summary ---
Author Organization [facility] Address [address] [facility] [address] [place] [address] Phone Care Team Providers Care 21 Dealer Name Role Phone Delon Kaur MD Primary Care Provider [phone] Gal Hernandez MD Unavailable [phone] Yumi Chaudhary MD Primary Care Provider [phone] Yumi Chaudhary MD Unavailable Encounter Details Date Type Department Care Team (Late st Contact Info) Description 10/03/2020 Procedure Pass [facility] Endoscopy Department 75 [place] [address] Social History Tobacco Use Types Packs/Day Years [...] [facility] MR Imaging, [place] [address] [place] [address] 02/14/2025 3:00 PM EST Office Visit [facility] [place] [facility] 15 [facility] [address] [place] [address] Yumi Chaudhary MD 15 [facility]. [address] [place] [address] [email or web address] 05/17/2025 9:15 AM EST Appointment [facility] MR Imaging, [place] [address] [place] [address] Cali Juarez MD 75 [place] [address] [email or web address] 05/17/2025 1:00 PM EST Office Visit [facility] Surgical Oncology 45 [facility]3 [place] [address] Cali Juarez MD [address] [place] [address] [email or web address] documented as of this [...] documented as of this encounter Care Teams 21 Dealer Relationship Specialty Start Date End Date Delon Kaur MD [address] [place] [address] PCP - General Family Medicine 05/24/17 01/12/22 Yumi Chaudhary MD 15 [facility]. [address] [place] [address] [email or web address] PCP - General Family Medicine 01/13/22 Gal Hernandez MD 759 [place] [address] 07/23/20 Yumi Chaudhary MD [address] [place] [address] [email or web address] Insurance Assigned Provider 07/09/23 documented as of this encounter Additional Source Comments The information contained in this document represents components of the legal health record. It is not the complete legal health record.[facility]
--- OUTSIDE RECORDS SUMMARY | 2025-02-11 14:48 | XMS_ITS | Encounter Summary ---
Author Organization [facility] Address [address] [place] [address] [place] [address] Phone Care Team Providers Care Tumor Registrar Name Role Phone Delon Kaur MD Primary Care Provider [phone] Gal Hernandez MD Unavailable [phone] Yumi Chaudhary MD Primary Care Provider [phone] Yumi Chaudhary MD Unavailable Encounter Details Date Type Department Care Team (Late st Contact Info) Description 11/09/2018 Procedure Pass [place] Admitting Dept - [facility] Department [address] [place] [address] Social History Tobacco Use Types Packs/Day Years [...] [facility] MR Imaging, [place] [address] [place] [address] 02/14/2025 3:00 PM EST Office Visit [facility] [place] Primary [facility] 15 [facility] [address] [place] [address] Yumi Chaudhary MD 15 [facility] Nigel. 201 [place] [address] [email or web address] 05/17/2025 9:15 AM EST Appointment [facility] MR Imaging, [place] [address] [place] [address] Cali Juarez MD 75 [place] [address] [email or web address] 05/17/2025 1:00 PM EST Office Visit [facility] Surgical Oncology 45 [facility]3 [place] [address] Cali Juarez MD [address] [place] [address] [email or web address] documented as [...] documented as of this encounter Care Teams Tumor Registrar Relationship Specialty Start Date End Date Delon Kaur MD [address] [place] [address] PCP - General Family Medicine 05/24/17 01/12/22 Yumi Chaudhary MD 15 [facility]. 201 [place] [address] [email or web address] PCP - General Family Medicine 01/13/22 Gal Hernandez MD 759 [place] [address] 07/23/20 Yumi Chaudhary MD [address] [place] [address] [email or web address] Insurance Assigned Provider 07/09/23 documented as of this encounter Additional Source Comments The information contained in this document represents components of the legal health record. It is not the complete legal health record.[facility]
--- OUTSIDE RECORDS SUMMARY | 2025-02-11 14:48 | XMS_ITS | Encounter Summary ---
Author Organization [facility] Address [address] [facility] [address] [place] [address] Phone Care Team Providers Care Maintenance Shop Welder Name Role Phone Delon Kaur MD Primary Care Provider [phone] Gal Hernandez MD Unavailable [phone] Yumi Chaudhary MD Primary Care Provider [phone] Yumi Chaudhary MD Unavailable Encounter Details Date Type Department Care Team (Late st Contact Info) Description 04/30/2021 Procedure Pass [facility], Ct Scan - [address] [address] Social History Tobacco Use Types Packs/Day Years [...] 04/30/2021 1:22 PM Halley Green RN * [place] Suicide Severity Rating Scale (Screener/Recent Self-Report) Question [...] [facility], [place] [address] [place] [address] 02/14/2025 3:00 PM EST Office Visit [facility] [place] [facility] 15 [facility] [address] [place] [address] Yumi Chaudhary MD 15 [facility] Nigel. 201 [place] [address] [email or web address] 05/17/2025 9:15 AM EST Appointment [facility] MR Imaging, [place] [address] [place] [address] Cali Juarez MD [address] [place] [address] [email or web address] 05/17/2025 1:00 PM EST Office Visit [facility] Surgical Oncology 45 [facility] ASB2-3 [place] [address] Cali Juarez MD [address] [place] [address] [email or web address] documented as of this encounter Visit Diagnoses Not on filedocumented in this encounter Additional Health Concerns Infection Onset Date Last Indicated Resolved Time 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 09/25/2020 01/06/2023 1:21 AM EDT documented as of this encounter Care Teams Maintenance Shop Welder Relationship Specialty Start Date End Date Delon Kaur MD [address] [place] [address] PCP - General Family Medicine 05/24/17 01/12/22 Yumi Chaudhary MD [address] [place] [address] [email or web address] PCP - General Family Medicine 01/13/22 Gal Hernandez MD [address] [place] [address] 07/23/20 Yumi Chaudhary MD [address] [place] [address] [email or web address] Insurance Assigned Provider 07/09/23 documented as of this encounter Additional Source Comments The information contained in this document represents components of the legal health record. It is not the complete legal health record.[facility]
--- OUTSIDE RECORDS SUMMARY | 2025-02-11 14:48 | XMS_ITS | Encounter Summary ---
Author Organization [facility] Address [address] [place] [address] Phone Care Team Providers Care Profiler Operator Name Role Phone Gal Hernandez MD Unavailable [phone] Yumi Chaudhary MD Primary Care Provider [phone] Yumi Chaudhary MD Unavailable Encounter Details Date Type Department Care Team (Late st Contact Info) Description 03/15/2024 Procedure Pass [address] [place] [address] Social History Tobacco Use Types Packs/Day Years [...] st Contact Info) Description 05/11/2024 Procedure Pass [facility] MR Imaging, [place] [address] [place] [address] 02/14/2025 3:00 PM EST Office Visit [facility] [place] Primary Care 15 [facility] [address] [place] [address] Yumi Chaudhary MD 15 [facility]. [address] [place] [address] 05/17/2025 9:15 AM EST Appointment [facility] MR Imaging, [place] [address] [place] [address] Cali Juarez MD [address] [place] [address] [email or web address] 05/17/2025 1:00 PM EST Office Visit [facility] Surgical Oncology [address] [facility]3 [place] [address] Cali Juarez MD 75 [place] [address] [email or web address] documented as of this encounter Visit Diagnoses Not on filedocumented in this encounter Additional Health Concerns Assessment Noted Time PHQ-2 Depression Total Score: 0 12/17/19 7:47 AM EDT documented as of this encounter Care Teams Profiler Operator Relationship Specialty Start Date End Date Yumi Chaudhary MD [address] [place] [address] [email or web address] PCP - General Family Medicine 01/13/22 Gal Hernandez MD [address] [place] [address] 07/23/20 Yumi Chaudhary MD [address] [place] [address] [email or web address] Insurance Assigned Provider 07/09/23 documented as of this encounter Additional Source Comments The information contained in this document represents components of the legal health record. It is not the complete legal health record.[facility]
--- OUTSIDE RECORDS SUMMARY | 2025-02-11 14:48 | XMS_ITS | Encounter Summary ---
Author Organization [facility] Address [address] [place] [address] Phone Care Team Providers Care Time Clock Repairer Name Role Phone Gal Hernandez MD Unavailable [phone] Yumi Chaudhary MD Primary Care Provider [phone] Yumi Chaudhary MD Unavailable Encounter Details Date Type Department Care Team (Late st Contact Info) Description 05/13/2023 Procedure Pass [address] [place] [address] Social History Tobacco Use Types Packs/Day Years [...] high school, GED, job training, learning the Swiss language, technical skills, or developing parenting skills)? [...] st Contact Info) Description 05/11/2024 Procedure Pass [facility] MR Joelle, Ochoa [address] [place] [address] 02/14/2025 3:00 PM EST Office Visit [facility] [place] [facility] [address] [facility] [address] [place] [address] Yumi Chaudhary MD 15 [facility] Nigel. [address] [place] [address] 05/17/2025 9:15 AM EST Appointment [facility] MR Joelle, Gabriela [address] [place] [address] Cali Juarez MD 75 [place] [address] [email or web address] 05/17/2025 1:00 PM EST Office Visit [facility] Surgical Oncology 45 [facility] ASB2-3 [place] [address] Cali Juarez MD 75 [place] [address] [email or web address] documented as of this encounter Visit Diagnoses Not on filedocumented in this encounter Additional Health Concerns Assessment Noted Time PHQ-2 Depression Total Score: 0 12/17/19 22 7:47 AM EDT documented as of this encounter Care Teams Time Clock Repairer Relationship Specialty Start Date End Date Yumi Chaudhary MD [address] [place] [address] [email or web address] PCP - General Family Medicine 01/13/22 Gal Hernandez MD [address] [place] [address] 07/23/20 Yumi Chaudhary MD [address] [place] [address] [email or web address] Insurance Assigned Provider 07/09/23 documented as of this encounter Additional Source Comments The information contained in this document represents components of the legal health record. It is not the complete legal health record.[facility]
--- OUTSIDE RECORDS SUMMARY | 2025-02-11 14:48 | XMS_ITS | Encounter Summary ---
Author Organization [facility] Address [address] [facility] [address] [place] [address] Phone Care Team Providers Care Top Flavor Attendant Name Role Phone Delon Kaur MD Primary Care Provider [phone] Gal Hernandez MD Unavailable [phone] Yumi Chaudhary MD Primary Care Provider [phone] Yumi Chaudhary MD Unavailable Encounter Details Date Type Department Care Team (Late st Contact Info) Description 10/15/2020 Procedure Pass [facility] Angio Interventional Radiology [address] [place] [address] Social History Tobacco Use Types Packs/Day Years [...] st Contact Info) Description 05/11/2024 Procedure Pass [facility] MR Imaging, Ochoa [address] [place] [address] 02/14/2025 3:00 PM EST Office Visit [facility] [place] [facility] [address] [facility] [address] [place] [address] Yumi Chaudhary MD 15 [facility] Nigel. [address] [place] [address] [email or web address] 05/17/2025 9:15 AM EST Appointment [facility] MR Imaging, Ochoa [address] [place] [address] Cali Juarez MD 75 [place] [address] [email or web address] 05/17/2025 1:00 PM EST Office Visit [facility] Surgical Oncology 45 [facility] [place] [address] Cali Juarez MD 75 [place] [address] [email or web address] documented as of this [...] as of this encounter Care Teams Top Flavor Attendant Relationship Specialty Start Date End Date Delon Kaur MD [address] [place] [address] PCP - General Family Medicine 05/24/17 01/12/22 Yumi Chaudhary MD 15 [facility]. 201 [place] [address] [email or web address] PCP - General Family Medicine 01/13/22 Gal Hernandez MD 759 [place] [address] 07/23/20 Yumi Chaudhary MD [address] [place] [address] [email or web address] Insurance Assigned Provider 07/09/23 documented as of this encounter Additional Source Comments The information contained in this document represents components of the legal health record. It is not the complete legal health record.[facility]
--- OUTSIDE RECORDS SUMMARY | 2025-02-11 14:48 | XMS_ITS | Encounter Summary ---
Author Organization [facility] Address [address] [place] [address] Phone Care Team Providers Care Honey Liquefier Name Role Phone Delon Kaur MD Primary Care Provider Gal Hernandez MD Unavailable [phone] Yumi Chaudhary MD Primary Care Provider [phone] Yumi Chaudhary MD Unavailable Encounter Details Date Type Department Care Team (Late st Contact Info) Description 10/16/[address] [facility] 75 [place] [address] Social History Tobacco Use Types Packs/Day Years [...] [facility] MR Imaging, Ochoa [address] [place] [address] 02/14/2025 3:00 PM EST Office Visit [facility] [place] [facility] 15 [facility] [address] [place] [address] Yumi Chaudhary MD 15 [facility]. 201 [place] [address] [email or web address] 05/17/2025 9:[address] [facility] MR Imaging, Ochoa [address] [place] [address] Cali Juarez MD 75 [place] [address] [email or web address] 05/17/2025 1:00 PM EST Office [facility] Surgical Oncology 45 [facility]3 [place] [address] Cali Juarez MD [address] [place] [address] [email or web address] documented as of this encounter [...] documented as of this encounter Care Teams Honey Liquefier Relationship Specialty Start Date End Date Delon Kaur MD [address] [place] [address] PCP - General Family Medicine 05/24/17 01/12/22 Yumi Chaudhary MD 15 [facility]. 201 [place] [address] [email or web address] PCP - General Family Medicine 01/13/22 Gal Hernandez MD 9 [place] [address] 07/23/20 Yumi Chaudhary MD [address] [place] [address] [email or web address] Insurance Assigned Provider 07/09/23 documented as of this encounter Additional Source Comments The information contained in this document represents components of the legal health record. It is not the complete legal health record.[facility]
--- OUTSIDE RECORDS SUMMARY | 2025-02-11 14:48 | XMS_ITS | Encounter Summary ---
Author Organization [facility] Address [address] [place] [address] Phone Care Team Providers Care Soldering Machine Operator Name Role Phone Gal Hernandez MD Unavailable [phone] Yumi Chaudhary MD Primary Care Provider [phone] Yumi Chaudhary MD Unavailable Encounter Details Date Type Department Care Team (Late st Contact Info) Description 10/11/2023 Procedure Pass [facility] Ct Scan - [address] [id number] Social History Tobacco Use Types Packs/Day Years [...] high school, GED, job training, learning the Khmer language, technical skills, or developing parenting skills)? [...] st Contact Info) Description 05/11/2024 Procedure Pass [facility] MR Imaging, Ochoa [address] [place] [address] 02/14/2025 3:00 PM EST Office Visit [facility] [place] [facility] 15 [facility] [address] [place] [address] Yumi Chaudhary MD [address] [facility] Nigel. [address] [place] [address] 05/17/2025 9:15 AM EST Appointment [facility] MR Joelle, Ochoa [address] [place] [address] Cali Juarez MD 75 [place] [address] [email or web address] 05/17/2025 1:00 PM EST Office Visit [facility] Surgical Oncology 45 [facility] ASB2-3 [place] [address] Cali Juarez MD 75 [place] [address] [email or web address] documented as of this encounter Visit Diagnoses Not on filedocumented in this encounter Additional Health Concerns Assessment Noted Time PHQ-2 Depression Total Score: 0 12/17/19 22 7:47 AM EDT documented as of this encounter Care Teams Soldering Machine Operator Relationship Specialty Start Date End Date Yumi Chaudhary MD [address] [place] [address] [email or web address] PCP - General Family Medicine 01/13/22 Gal Hernandez MD [address] [place] [address] 07/23/20 Yumi Chaudhary MD [address] [place] [address] [email or web address] Insurance Assigned Provider 07/09/23 documented as of this encounter Additional Source Comments The information contained in this document represents components of the legal health record. It is not the complete legal health record.[facility]
--- OUTSIDE RECORDS SUMMARY | 2025-02-11 14:48 | XMS_ITS | Encounter Summary ---
Author Organization [facility] Address [address] [facility] [address] [place] [address] Phone Care Team Providers Care Absorber Operator Name Role Phone Delon Kaur MD Primary Care Provider [phone] Gal Hernandez MD Unavailable [phone] Yumi Chaudhary MD Primary Care Provider [phone] Yumi Chaudhary MD Unavailable Encounter Details Date Type Department Care Team (Late st Contact Info) Description 04/30/2021 Procedure Pass [facility], Ct Scan - [address] [address] Social History Tobacco Use Types Packs/Day Years [...] 04/30/2021 1:22 PM Halley Green RN * [place] Suicide Severity Rating Scale (Screener/Recent Self-Report) Question [...] st Contact Info) Description 05/11/2024 Procedure Pass [facility] MR Imaging, Ochoa [address] [place] [address] 02/14/2025 3:00 PM EST Office Visit [facility] [place] [facility] 15 [facility] [address] [place] [address] Yumi Chaudhary MD 15 [facility] Nigel. 201 [place] [address] [email or web address] 05/17/2025 9:15 AM EST Appointment [facility] MR Imaging, Ochoa 60 [place] [address] Cali Juarez MD [address] [place] [address] [email or web address] 05/17/2025 1:00 PM EST Office Visit [facility] Surgical Oncology 45 [facility] ASB2-3 [place] [address] Cali Juarez MD [address] [place] [address] [email or web address] documented as of this encounter Visit Diagnoses Not on filedocumented in this encounter Additional Health Concerns Infection Onset Date Last Indicated Resolved Time 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 09/25/2020 01/06/2023 1:21 AM EDT documented as of this encounter Care Teams Absorber Operator Relationship Specialty Start Date End Date Delon Kaur MD [address] [place] [address] PCP - General Family Medicine 05/24/17 01/12/22 Yumi Chaudhary MD [address] [place] [address] [email or web address] PCP - General Family Medicine 01/13/22 Gal Hernandez MD [address] [place] [address] 07/23/20 Yumi Chaudhary MD [address] [place] [address] [email or web address] Insurance Assigned Provider 07/09/23 documented as of this encounter Additional Source Comments The information contained in this document represents components of the legal health record. It is not the complete legal health record.[facility]
--- OUTSIDE RECORDS SUMMARY | 2025-02-11 14:48 | XMS_ITS | Encounter Summary ---
Author Organization [facility] Address [address] [place] [address] Phone Care Team Providers Care Business Technology Architect Name Role Phone Delon Kaur MD Primary Care Provider Gal Hernandez MD Unavailable [phone] Yumi Chaudhary MD Primary Care Provider [phone] Yumi Chaudhary MD Unavailable Encounter Details Date Type Department Care Team (Late st Contact Info) Description 10/15/2020 Procedure Pass [facility] 75 [place] [address] Social History Tobacco Use Types Packs/Day Years [...] st Contact Info) Description 05/11/2024 Procedure Pass [facility] MR Imaging, Ochoa [address] [place] [address] 02/14/2025 3:00 PM EST Office Visit [facility] [place] [facility] [address] [facility] [address] [place] [address] Yumi Chaudhary MD 15 [facility]. 201 [place] [address] [email or web address] 05/17/2025 9:15 AM EST Appointment [facility] MR Imaging, Ochoa [address] [place] [address] Cali Juarez MD 75 [place] [address] [email or web address] 05/17/2025 1:00 PM EST Office Visit [facility] Surgical Oncology 45 [facility]3 [place] [address] Cali Juarez MD [address] [place] [address] [email or web address] documented as of this encounter Visit Diagnoses Not on filedocumented in this encounter Additional Health Concerns Infection Onset Date Last Indicated Resolved Time 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 Date of last exposure 11/13/20 11/14/2020 11/14/2020 11/28/2020 1:43 AM E DT documented as of this encounter Care Teams Business Technology Architect Relationship Specialty Start Date End Date Delon Kaur MD [address] [place] [address] PCP - General Family Medicine 05/24/17 01/12/22 Yumi Chaudhary MD 15 [facility]. 201 [place] [address] [email or web address] PCP - General Family Medicine 01/13/22 Gal Hernandez MD 9 [place] [address] 07/23/20 Yumi Chaudhary MD [address] [place] [address] [email or web address] Insurance Assigned Provider 07/09/23 documented as of this encounter Additional Source Comments The information contained in this document represents components of the legal health record. It is not the complete legal health record.[facility]
--- OUTSIDE RECORDS SUMMARY | 2025-02-11 14:48 | XMS_ITS | Encounter Summary ---
Author Organization [facility] Address [address] [facility] [address] [place] [address] Phone Care Team Providers Care Health Information Clerk Name Role Phone Delon Kaur MD Primary Care Provider [phone] Gal Hernandez MD Unavailable [phone] Yumi Chaudhary MD Primary Care Provider [phone] Yumi Chaudhary MD Unavailable Encounter Details Date Type Department Care Team (Late st Contact Info) Description 09/30/2020 Procedure Pass [facility] Angio Interventional Radiology [address] [place] [address] Social History Tobacco Use Types Packs/Day Years [...] st Contact Info) Description 05/11/2024 Procedure Pass [facility] MR Imaging, Ochoa [address] [place] [address] 02/14/2025 3:00 PM EST Office Visit [facility] [place] [facility] 15 [facility] [address] [place] [address] Yumi Chaudhary MD 15 [facility] Nigel. [address] [place] [address] [email or web address] 05/17/2025 9:15 AM EST Appointment [facility] MR Imaging, Ochoa [address] [place] [address] Cali Juarez MD 75 [place] [address] [email or web address] 05/17/2025 1:00 PM EST Office Visit [facility] Surgical Oncology 45 [facility]3 [place] [address] Cali Juarez MD 75 [place] [address] [email or web address] documented as of this [...] documented as of this encounter Care Teams Health Information Clerk Relationship Specialty Start Date End Date Delon Kaur MD [address] [place] [address] PCP - General Family Medicine 05/24/17 01/12/22 Yumi Chaudhary MD 15 [facility]. 201 [place] [address] [email or web address] PCP - General Family Medicine 01/13/22 Gal Hernandez MD 759 [place] [address] 07/23/20 Yumi Chaudhary MD [address] [place] [address] [email or web address] Insurance Assigned Provider 07/09/23 documented as of this encounter Additional Source Comments The information contained in this document represents components of the legal health record. It is not the complete legal health record.[facility]
--- OUTSIDE RECORDS SUMMARY | 2025-02-11 14:48 | XMS_ITS | Encounter Summary ---
Author Organization [facility] Address [address] [facility] [address] [place] [address] Phone Care Team Providers Care Sizing Sponger Name Role Phone Delon Kaur MD Primary Care Provider [phone] Gal Hernandez MD Unavailable [phone] Yuim Chaudhary MD Primary Care Provider [phone] Yumi Chaudhary MD Unavailable Encounter Details Date Type Department Care Team (Late st Contact Info) Description 11/13/2020 Procedure Pass [facility] Periop 75 [place] [address] Social History Tobacco Use Types Packs/Day Years [...] st Contact Info) Description 05/11/2024 Procedure Pass [facility] MR Imaging, Ochoa [address] [place] [address] 02/14/2025 3:00 PM EST Office Visit [facility] [place] [facility] 15 [facility] [address] [place] [address] Yumi Chaudhary MD 15 [facility]. [address] [place] [address] [email or web address] 05/17/2025 9:15 AM EST Appointment [facility] MR Imaging, Ochoa [address] [place] [address] Cali Juarez MD 75 [place] [address] [email or web address] 05/17/2025 1:00 PM EST Office Visit [facility] Surgical Oncology 45 [facility]3 [place] [address] Cali Juarez MD [address] [place] [address] [email or web address] documented as of this encounter Visit Diagnoses Not on filedocumented in this encounter Additional Health Concerns Infection Onset Date Last Indicated Resolved Time 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 Date of last exposure 11/13/20 11/14/2020 11/14/2020 11/28/2020 1:43 AM E DT documented as of this encounter Care Teams Sizing Sponger Relationship Specialty Start Date End Date Delon Kaur MD [address] [place] [address] PCP - General Family Medicine 05/24/17 01/12/22 Yumi Chaudhary MD 15 [facility]. [address] [place] [address] [email or web address] PCP - General Family Medicine 01/13/22 Gal Hernandez MD 759 [place] [address] 07/23/20 Yumi Chaudhary MD [address] [place] [address] [email or web address] Insurance Assigned Provider 07/09/23 documented as of this encounter Additional Source Comments The information contained in this document represents components of the legal health record. It is not the complete legal health record.[facility]
--- OUTSIDE RECORDS SUMMARY | 2025-02-11 14:48 | XMS_ITS | Encounter Summary ---
Author Organization [facility] Address [address] [facility] [address] [place] [address] Phone Care Team Providers Care Cashiers Bussers Food Runners Name Role Phone Delon Kaur MD Primary Care Provider Gal Hernandez MD Unavailable [phone] Yumi Chaudhary MD Primary Care Provider [phone] Yumi Chaudhary MD Unavailable Encounter Details Date Type Department Care Team (Late st Contact Info) Description 09/29/2020 Procedure Pass [facility] 75 [place] [address] Social History Tobacco Use Types Packs/Day Years [...] st Contact Info) Description 05/11/2024 Procedure Pass [facility] MR Imaging, Ochoa [address] [place] [address] 02/14/2025 3:00 PM EST Office Visit [facility] [place] [facility] 15 [facility] [address] [place] [address] Yumi Chaudhary MD 15 [facility]. 201 [place] [address] [email or web address] 05/17/2025 9:15 AM EST Appointment [facility] MR Imaging, Ochoa [address] [place] [address] Cali Juarez MD 75 [place] [address] [email or web address] 05/17/2025 1:00 PM EST Office Visit [facility] Surgical Oncology 45 [facility]3 [place] [address] Cali Juarez MD [address] [place] [address] [email or web address] documented as of this [...] documented as of this encounter Care Teams Cashiers Bussers Food Runners Relationship Specialty Start Date End Date Delon Kaur MD [address] [place] [address] PCP - General Family Medicine 05/24/17 01/12/22 Yumi Chaudhary MD 15 [facility]. 201 [place] [address] [email or web address] PCP - General Family Medicine 01/13/22 Gal Hernandez MD 9 [place] [address] 07/23/20 Yumi Chaudhary MD [address] [place] [address] [email or web address] Insurance Assigned Provider 07/09/23 documented as of this encounter Additional Source Comments The information contained in this document represents components of the legal health record. It is not the complete legal health record.[facility]
--- OUTSIDE RECORDS SUMMARY | 2025-02-11 14:48 | XMS_ITS | Encounter Summary ---
Author Organization Formerly [facility] Address [address] [place] [address] Phone Care Team Providers Care Senior Drupal Developer Name Role Phone Delon Kaur MD Primary Care Provider [phone] Gal Hernandez MD Unavailable [phone] Yumi Chaudhary MD Primary Care Provider [phone] Yumi Chaudhary MD Unavailable Encounter Details Date Type Department Care Team (Late st Contact Info) Description 10/11/2020 [facility] [address] [place] [address] Social History Tobacco Use Types Packs/Day Years [...] [facility] MR Imaging, [place] [address] [place] [address] 02/14/2025 3:00 PM EST Office Visit [facility] [place] [facility] [address] [facility] [address] [place] [address] Yumi Chaudhary MD 15 [facility]. 201 [place] [address] [email or web address] 05/17/2025 9:15 AM EST Appointment [facility] MR Imaging, [place] [address] [place] [address] Cali Juarez MD 75 [place] [address] [email or web address] 05/17/2025 1:00 PM EST Office Visit [facility] Surgical Oncology 45 [facility]3 [place] [address] Cali Juarez MD [address] [place] [address] [email or web address] documented as of this encounter Visit Diagnoses Not on filedocumented in this encounter Additional Health Concerns Infection Onset Date Last Indicated Resolved Time 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 Date of last exposure 11/13/20 11/14/2020 11/14/2020 11/28/2020 1:43 AM E DT documented as of this encounter Care Teams Senior Drupal Developer Relationship Specialty Start Date End Date Delon Kaur MD [address] [place] [address] PCP - General Family Medicine 05/24/17 01/12/22 Yumi Chaudhary MD 15 [facility]. 201 [place] [address] [email or web address] PCP - General Family Medicine 01/13/22 Gal Hernandez MD 9 [place] [address] 07/23/20 Ymui Chaudhary MD [address] [place] [address] [email or web address] Insurance Assigned Provider 07/09/23 documented as of this encounter Additional Source Comments The information contained in this document represents components of the legal health record. It is not the complete legal health record.[facility]
--- OUTSIDE RECORDS SUMMARY | 2025-02-11 14:48 | XMS_ITS | Encounter Summary ---
Author Organization [facility] Address [address] [facility] [address] [place] [address] Phone Care Team Providers Care Log Clerk Name Role Phone Delon Kaur MD Primary Care Provider [phone] Gal Hernandez MD Unavailable [phone] Yumi Chaudhary MD Primary Care Provider [phone] Yumi Chaudhary MD Unavailable Encounter Details Date Type Department Care Team (Late st Contact Info) Description 09/29/2020 Procedure Pass [facility] Angio Interventional Radiology [address] [place] [address] Social History Tobacco Use Types Packs/Day Years [...] Pass [facility] MR Imaging, [place] [address] [place] [address] 02/14/2025 3:00 PM EST Office Visit [facility] [place] [facility] [address] [facility] [address] [place] [address] Yumi Chaudhary MD 15 [facility] [place]. [address] [place] [address] [email or web address] 05/17/2025 9:15 AM EST Appointment [facility] MR Imaging, [place] [address] [place] [address] Cali Juarez MD 75 [place] [address] [email or web address] 05/17/2025 1:00 PM EST Office Visit [facility] Surgical Oncology 45 [facility] [place] [address] Cali Juarez MD 75 [place] [address] [email or web address] documented as [...] documented as of this encounter Care Teams Log Clerk Relationship Specialty Start Date End Date Delon Kaur MD [address] [place] [address] PCP - General Family Medicine 05/24/17 01/12/22 Yumi Chaudhary MD 15 [facility]. 201 [place] [address] [email or web address] PCP - General Family Medicine 01/13/22 Gal Hernandez MD 759 [place] [address] 07/23/20 Yumi Chaudhary MD [address] [place] [address] [email or web address] Insurance Assigned Provider 07/09/23 documented as of this encounter Additional Source Comments The information contained in this document represents components of the legal health record. It is not the complete legal health record.[facility]
--- OUTSIDE RECORDS SUMMARY | 2025-02-11 14:48 | XMS_ITS | Encounter Summary ---
Author Organization [facility] Address [address] [place] [address] Phone Care Team Providers Care Any Commodity Buyer Name Role Phone Delon Kaur MD Primary Care Provider Gal Hernandez MD Unavailable [phone] Yumi Chaudhary MD Primary Care Provider [phone] Yumi Chaudhary MD Unavailable Encounter Details Date Type Department Care Team (Late st Contact Info) Description 10/11/[address] [facility] 75 [place] [address] Social History Tobacco Use Types Packs/Day Years [...] [facility] MR Imaging, [place] [address] [place] [address] 02/14/2025 3:00 PM EST Office Visit [facility] [place] [facility] [address] [facility] [address] [place] [address] Yumi Chaudhary MD 15 [facility]. 201 [place] [address] [email or web address] 05/17/2025 9:15 AM EST Appointment [facility] MR Imaging, [place] [address] [place] [address] Cali Juarez MD 75 [place] [address] [email or web address] 05/17/2025 1:00 PM EST Office Visit [facility] Surgical Oncology 45 [facility]3 [place] [address] Cali Juarez MD [address] [place] [address] [email or web address] documented as of [...] documented as of this encounter Care Teams Any Commodity Buyer Relationship Specialty Start Date End Date Delon Kaur MD [address] [place] [address] PCP - General Family Medicine 05/24/17 01/12/22 Yumi Chaudhary MD [address] [facility]. 201 [place] [address] [email or web address] PCP - General Family Medicine 01/13/22 Gal Hernandez MD 9 [place] [address] 07/23/20 Yumi Chaudhary MD [address] [place] [address] [email or web address] Insurance Assigned Provider 07/09/23 documented as of this encounter Additional Source Comments The information contained in this document represents components of the legal health record. It is not the complete legal health record.[facility]
--- OUTSIDE RECORDS SUMMARY | 2025-02-11 14:48 | XMS_ITS | Encounter Summary ---
Author Organization [facility] Address [address] [place] [address] Phone Care Team Providers Care Cylinder Machine Operator Name Role Phone Delon Kaur MD Primary Care Provider Gal Hernandez MD Unavailable [phone] Yumi Chaudhary MD Primary Care Provider [phone] Yumi Chaudhary MD Unavailable Encounter Details Date Type Department Care Team (Late st Contact Info) Description 09/29/2020 Procedure Pass [facility] 75 [place] [address] Social History Tobacco Use Types Packs/Day Years [...] st Contact Info) Description 05/11/2024 Procedure Pass [facility] MR Imaging, [place] [address] [place] [address] 02/14/2025 3:00 PM EST Office Visit [facility] [place] [facility] [address] [facility] [address] [place] [address] Yumi Chaudhary MD 15 [facility]. 201 [place] [address] [email or web address] 05/17/2025 9:15 AM EST Appointment [facility] MR Imaging, [place] [address] [place] [address] Cali Juarez MD 75 [place] [address] [email or web address] 05/17/2025 1:00 PM EST Office Visit [facility] Surgical Oncology 45 [facility]3 [place] [address] Cali Juarez MD [address] [place] [address] [email or web address] documented as of this encounter [...] documented as of this encounter Care Teams Cylinder Machine Operator Relationship Specialty Start Date End Date Delon Kaur MD [address] [place] [address] PCP - General Family Medicine 05/24/17 01/12/22 Yumi Chaudhary MD 15 [facility]. 201 [place] [address] [email or web address] PCP - General Family Medicine 01/13/22 Gal Hernandez MD 9 [place] [address] 07/23/20 Yumi Chaudhary MD [address] [place] [address] [email or web address] Insurance Assigned Provider 07/09/23 documented as of this encounter Additional Source Comments The information contained in this document represents components of the legal health record. It is not the complete legal health record.[facility]
[2025-02-12 12:18] LABS: Free Prostate Spec Ag 1.8 ng/mL; Percent Free Prostate Spec Ag 28 % (calc) (>25)
== END 2025-02-11 12:39 | disposition home or self-care (01) ==
LOC: HO.LAB 12:38
PROVIDERS: PCP Family Medicine; Visit Provider Urology
DX: N40.1 Benign prostatic hyperplasia with lower urinary tract symptoms (principal); R97.20 Elevated prostate specific antigen [PSA]; Z12.5 Encounter for screening for malignant neoplasm of prostate
CPT/HCPCS: 36415; 84153; 84154

== ENCOUNTER 2025-03-05 13:48 | Outpatient (AMB) | payer OTHER, SELFPAY ==
--- NOTE | 2025-03-05 13:49 | A.OFFVIS_ITS ---
Intake Visit Reasons: cysto (UA SET) Intake Note: Patient is present for CYSTOSCOPY Urology Medication:TAMSULOSIN,SILDENAFIL Antibiotic Allergy:NONE Blood Thinner:ASPIRIN Callisthenics Instructor Required: No Accompanied by: Self / Same As Patient Allergies No Known Allergies Allergy (Verified 03/05/25 13:58) HPI Comments Details: Robert is a pleasant male. He is a patient of Dr. Chaudhary. He seen for the following urologic conditions - bladder outlet obstruction Here for cystoscopy Found to have large ball-valve median lobe on cystoscopy Recommend GreenLight laser Unlikely to improve significantly with medications Start on finasteride/dutasteride to assist with pre and post intervention symptom control Bladder outlet obstruction Background of neuroendocrine malignancy of pancreas Underwent Whipple procedure Postoperative course complicated by vascular issues Prior PSA 6.6, biopsy performed which is negative Prostate MRI 70 g prostate minimally suspicious areas PSA - 02/26 6.4 28% Review of Systems Const Denies chills and Denies fever(s) Card Reports no additional complaints and Denies syncope Resp Denies cough GI Denies abdominal pain and Denies heartburn Reports as per HPI and Denies change in libido Neuro Denies syncope Psych Denies change in libido Endo Denies change in libido Physical Exam Const General: cooperative, healthy appearing, comfortable and no acute distress Orientation/consciousness: patient oriented x3 HEENT Face and sinus: Yes normal facial exam Mouth: moist mucous membranes Neck Neck: Yes normal visual inspection, Yes full ROM and Yes trachea midline Chest Chest palpation & inspection: normal inspection of the chest Resp Effort & Inspection: normal respiratory effort, able to speak in complete sentences and no respiratory distress GI Inspection: Yes normal to inspection Back/Spine/Pelvis Cervical Spine: normal cervical lordosis Thoracic/Lumbar Spine: thoracic and lumbar spine normal to inspection Skin General skin exam: no rashes or lesions noted Neuro General: patient oriented x3, gait normal, tone normal and moves all extremities Extrem General: Yes normal to inspection and Yes capillary refill normal Office Procedures Cystoscopy Consent Discussed risk and benefit or proposed procedure with the patient. Information consent for procedure given to the patient. Discussed technical aspects, risks, benefits and alternatives in full. Addressed all of the patient's questions and concerns regarding the procedure. The patient demonstrated knowledge and understanding. They wish to proceed with this procedure. Preparation The patient was prepped in the usual manner. A software controls engineer was present and in the room. Genitalia was prepped with betadine solution in a sterile manner. Lidocaine Jelly 2% was placed into the urethra and 16Fr flexible Olympus cystoscope was inserted into the meatus after adequate lubrication. Procedure Consent confirmed Cystoscopy performed using a disposable Urovue digital 16 Bulgarian cystoscope. 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 Bladder examination with retroflexion of cystoscope Bladder Orifices normal shape and position Bladder Capacity Normal Trabeculations Grade 0 Cellule Formation None Diverticulum Formation None Mucosal Erythema None Bladder Tumor None 23981-[id number] DISPOSABLE SCOPE URO-G FLEXIBLE SCOPE Procedure code (CPT) selection complete Office Meds lidocaine HCl 2 % mucosal jelly in applicator Performing Provider: Benjamin Glass MD Performing Location: [facility] Administered by: Nola Acuña RN on 03/05/25 14:10 Dose Route Admin Location Dispensed Lot Number Expiration Date ND Commercial Account Officer 10 mL intra-urethral 10 mL nitrofurantoin monohydrate/macrocrystals 100 mg capsule Performing Provider: Benjamin Glass MD Performing Location: [facility] Administered by: Nola Acuña RN on 03/05/25 14:10 Dose Route Admin Location Dispensed Lot Number Expiration Date ND Commercial Account Officer 100 mg PO 1 cap Results AMB Urinalysis, Automated UA Leukoctes 0 Estela/uL Last Edit by Ivett Post [facility] on 03/05/25 14:12 UA Nitrite Negative Last Edit by Ivett Post [facility] on 03/05/25 14:12 UA Urobilinogen 0.2 mg/dL Last Edit by Ivett Post [facility] on 03/05/25 14:12 UA Protein 0 mg/dL Last Edit by Ivett Post [facility] on 03/05/25 14:12 UA pH 6.0 Last Edit by Ivett Post [facility] on 03/05/25 14:12 UA Blood 0 Shlomo/uL Last Edit by Ivett Post [facility] on 03/05/25 14:12 UA Specific [place] 1.015 Last Edit by Ivett Post [facility] on 03/05/25 14:1 2 UA Ketone Negative Last Edit by Ivett Post [facility] on 03/05/25 14:12 UA Bilirubin 0 mg/dL Last Edit by JACOBY Jones on 03/05/25 14:12 UA Glucose 0 mg/dL Last Edit by JACOBY Jones on 03/05/25 14:12 Results Reviewed Results Reviewed: Laboratory Last Values Urine pH (Auto) 6.0 03/05/25 14:11 Specific [place] (Auto) 1.015 03/05/25 14:11 Urine Protein (Auto) 0 mg/dL 03/05/25 14:11 Glucose (UA)(Auto) 0 mg/dL 03/05/25 14:11 Urine Ketones (Auto) Negative 03/05/25 14:11 Urine Blood (Auto) 0 Shlomo/uL 03/05/25 14:11 Urine Nitrite (Auto) Negative 03/05/25 14:11 Urine Bilirubin (Auto) 0 mg/dL 03/05/25 14:11 Urine Urobilinogen (Auto) 0.2 mg/dL 03/05/25 14:11 Leukocyte Esterase (Auto) 0 Estela/uL 03/05/25 14:11 Assessment & Plan Assessment & Plan (1) Elevated PSA: Code(s): R97.20 - Elevated prostate specific antigen [PSA] Category: Medical (2) BPH loc w urin obs/LUTS: Code(s): N40.1 - Benign prostatic hyperplasia with lower urinary tract symptoms Category: Medical Plan We discussed the nature of the decision and reasonable options for performing a prostate intervention. Interventions include TURP, GreenLight laser enucleation of the prostate, GreenLight laser ablation of the prostate, transurethral incision of the prostate, and I-Tend prostate procedure. Options such as medical therapy were discussed. The relative uncertainties and benefits related to each alternate procedure were adequately discussed. General surgical risks including, but not limited to, pain, bleeding, infection, myocardial infarction, pulmonary embolus, deep vein thrombosis and cerebrovascular accident which may result in further hospitalization were discussed. Full disclosure of the procedure as well as all major risks, benefits and complications were discussed including but not limited to damage to the urethra or bladder neck, recurrent BPH, retrograde ejaculation, bladder infection, urge, de diane frequency, incomplete emptying, dysuria, remote chance of erectile dysfunction, epididymitis, and meatal stenosis. The success rate of the procedure was discussed. Success of the procedure in the short-term does not necessarily guarantee that long-term success will be maintained. Suitable follow up will need to be maintained. The patient showed understanding of discussion. An opportunity was provided for questions to be answered and wishes to proceed with the following procedure. - GreenLight laser prostate Orders: Orders PSA,Total (Free>4and<10) 02/11/25 N40.1 - Benign prostatic hyperplasia with lower urinary tract symptoms, R97.20 - Elevated prostate specific antigen [PSA] AMB Cystoscopy Today N40.1 - Benign prostatic hyperplasia with lower urinary tract symptoms AMB Urinalysis Automated Today N40.1 - Benign prostatic hyperplasia with lower urinary tract symptoms Medications: New dutasteride 0.5 mg PO DAILY 90 caps 1RF 90 days N40.1 - Benign prostatic hyperplasia with lower urinary tract symptoms Patient Instructions: This note is constructed using voice recognition software. While every effort has been made to ensure accuracy dental technology advisor errors may have been included. Imaging studies, laboratory and physical exam results were discussed and reviewed in detail. No major barriers to patient understanding were identified. An opportunity to ask questions regarding the treatment plan was provided. All questions were answered. The patient expressed understanding and agreement with the above treatment plan. The patient is aware they should contact our office by phone for worsening of their current condition or the appearance of new urologic symptoms. Compliance is encouraged with any medications and followup testing that is ordered. It is a privilege to participate in the urologic care of your patient. If you have any questions or concerns regarding treatment for the above conditions, or other urologic issues, please do not hesitate to contact me. The office telephone contact is [phone]. Sincerely, Dr Benjamin Glass MD, [facility] - Urology Compassionate Specialist Care for the Genitourinary System Coding Level of Care Code Est Pt Level 4 (45668) Complex visit Add On G2211 Diagnoses Elevated PSA R97.20 BPH loc w urin obs/LUTS N40.1 CPT Codes Cystoscopy - CPT: 06879-[id number] ([id number])
--- OUTSIDE RECORDS SUMMARY | 2025-03-05 15:49 | XMS_ITS | Encounter Summary ---
Author Organization [facility] Address [address] [facility] [address] [place] [address] Phone Care Team Providers Care Rebeamer Name Role Phone Delon Kaur MD Primary Care Provider Gal Hernandez MD Unavailable Yumi Chaudhary MD Primary Care Provider Yumi Chaudhary MD Unavailable Encounter Details Date Type Department Care Team (Late Contact Info) Description 08/31/2020 Procedure Pass [facility] [address] [place] [address] Social History Tobacco Use Types Packs/Day Years [...] Encounters Date Type Department Care Team (Late Contact Info) Description 05/11/2024 Procedure Pass [facility] Gabriela Bowman [address] [place] [address] 03/15/2025 4:30 PM EST Telemedicine [facility] Surgical Oncology [address] [place] [address] Cali Juarez MD [address] [place] [address] [email or web address] 05/17/2025 9:15 AM EST Appointment [facility] Gabriela Bowman [address] [place] [address] Cali Juarez MD [address] [place] [address] [email or web address] 05/17/2025 1:00 PM EST Office Visit [facility] Surgical Oncology [address] [place] [address] Cali Juarez MD [address] [place] [address] [email or web address] 05/22/2025 2:40 PM EST Office Visit [facility] [address] [place] [address] [address] [place] [address] Yumi Chaudhary MD [address] [place] [address] [address] [address] [place] [address] [email or web address] 09/18/2025 1:00 PM EDT Office Visit [facility] [address] [facility]th [address], [address] [place] [address] Maynor Rojas MD, MPH [address] [facility] [address] [place] [address] [email or web address] Scheduled Procedures Name Priority Associated Diagnoses Date/Ti me ENDOSCOPIC RETROGRADE CHOLANGIOPANCREATOGRAPHY Cholangitis documented as of this encounter Visit Diagnoses Not on filedocumented in this encounter Additional Health Concerns Infection Onset Date Last Indicated Resolved Time 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 Date of last exposure 11/13/20 11/14/2020 11/14/2020 11/28/2020 1:43 AM E DT Resp-Risk Comment:Per note documentation 02/18/2025 02/19/2025 10:40 AM EST documented as of this encounter Care Teams Rebeamer Relationship Specialty Start Date End Date Delon Kaur MD [address] [place] [address] PCP - General Family Medicine 05/24/17 01/12/22 Yumi Chaudhary MD [address] [place] [address] [email or web address] PCP - General Family Medicine 01/13/22 Gal Hernandez MD [address] [place] [address] 07/23/20 Yumi Chaudhary MD [address] [place] [address] [email or web address] Insurance Assigned Provider 07/09/23 documented as of this encounter Additional Source Comments The information contained in this document represents components of the legal health record. It is not the complete legal health record.[facility]
--- OUTSIDE RECORDS SUMMARY | 2025-03-05 15:50 | XMS_ITS | Encounter Summary ---
Author Organization [facility] Address [address] [facility] [address] [place] [address] Phone Care Team Providers Care Marine Painter Name Role Phone Delon Kaur MD Primary Care Provider Gal Hernandez MD Unavailable [phone] Yumi Chaudhary MD Primary Care Provider [phone] Yumi Chaudhary MD Unavailable Encounter Details Date Type Department Care Team (Late Contact Info) Description 09/04/2020 Procedure Pass [facility] [address] [place] [address] Social History Tobacco Use Types Packs/Day Years [...] (Late Contact Info) Description 05/11/[address] [facility] Gabriela Bowman [address] [place] [address] 03/15/2025 4:[address] [facility] Surgical Oncology [address] [place] [address] Cali Juarez MD [address] [place] [address] [email or web address] 05/17/2025 9:[address] [facility] Gabriela Bowman [address] [place] [address] Cali Juarez MD [address] [place] [address] [email or web address] 05/17/2025 1:00 PM EST Office Visit [facility] Surgical Oncology [address] [place] [address] Cali Juarez MD [address] [place] [address] [email or web address] 05/22/2025 2:40 PM EST Office Visit [facility] Primary Care [address] [place] [address] [address] [place] [address] Yumi Chaudhary MD [address] [place] [address] [address] [place] [address] [email or web address] 09/18/2025 1:00 PM EDT Office Visit [facility] [address] [facility], 5th Floor, [address] [place] [address] Maynor Rojas MD, MPH 55 [facility] [address] [place] [address] [email or web address] Scheduled Procedures Name Priority Associated Diagnoses Date/Ti [...] documented as of this encounter Care Teams Marine Painter Relationship Specialty Start Date End Date Delon Kaur MD [address] [place] [address] PCP - General Family Medicine 05/24/17 01/12/22 Yumi Chaudhary MD [address] [place] [address] [email or web address] PCP - General Family Medicine 01/13/22 Gal Hernandez MD [address] [place] [address] 07/23/20 Yumi Chaudhary MD [address] [place] [address] [email or web address] Insurance Assigned Provider 07/09/23 documented as of this encounter Additional Source Comments The information contained in this document represents components of the legal health record. It is not the complete legal health record.[facility]
--- OUTSIDE RECORDS SUMMARY | 2025-03-05 15:50 | XMS_ITS | Encounter Summary ---
Author Organization [facility] Address [address] [place] [address] [place] [address] Phone Care Team Providers Care Rn Camp Name Role Phone Delon Kaur MD Primary Care Provider Gal Hernandez MD Unavailable Yumi Chaudhary MD Primary Care Provider Yumi Chaudhary MD Unavailable Encounter Details Date Type Department Care Team (Late st Contact Info) Description 10/06/2021 Procedure Pass [facility] Periop 75 [place] [address] Social History Tobacco Use Types Packs/Day Years [...] 8:43 PM EDT Deisi Klein RN * [place] Suicide Severity Rating Scale (Screener/Recent Self-Report) Question [...] st Contact Info) Description 05/11/2024 Procedure Pass [facility] MR Imaging, Gabriela [address] [place] [address] 03/15/2025 4:30 PM EST Telemedicine [facility] Surgical Oncology [address] [address] Cali Juarez MD [address] [place] [address] [email or web address] 05/17/2025 9:15 AM EST Appointment [facility] MR Lai, Gabriela 60 [place] [address] Cali Juarez MD [address] [place] [address] [email or web address] 05/17/2025 1:00 PM EST Office Visit [facility] Surgical Oncology [address] [address] Cali Juarez MD [address] [place] [address] [email or web address] 05/22/2025 2:40 PM EST Office Visit [facility] [address] [facility] [address] [place] [address] Yumi Chaudhary MD [address] [address] [email or web address] 09/18/2025 1:00 PM EDT Office Visit [facility] 32 [facility], 5th Floor, [address] [place] [address] Maynor Rojas MD, MPH [address] [address] [email or web address] Scheduled Procedures Name Priority Associated Diagnoses Date/Ti me ENDOSCOPIC RETROGRADE CHOLANGIOPANCREATOGRAPHY Cholangitis documented as of this encounter Visit Diagnoses Not on filedocumented in this encounter Additional Health Concerns Infection Onset Date Last Indicated Resolved Time 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 09/25/2020 01/06/2023 1:21 AM EDT Resp-Risk Comment:Per note documentation 02/18/2025 02/19/2025 10:40 AM EST documented as of this encounter Care Teams Rn Camp Relationship Specialty Start Date End Date Delon Kaur MD [address] [place] [address] PCP - General Family Medicine 05/24/17 01/12/22 Yumi Chaudhary MD [address] [place] [address] [email or web address] PCP - General Family Medicine 01/13/22 Gal Hernandez MD [address] [place] [address] 07/23/20 Yumi Chaudhary MD [address] [place] [address] [email or web address] Insurance Assigned Provider 07/09/23 documented as of this encounter Additional Source Comments The information contained in this document represents components of the legal health record. It is not the complete legal health record.[facility]
--- OUTSIDE RECORDS SUMMARY | 2025-03-05 15:50 | XMS_ITS | Encounter Summary ---
Author Organization [facility] Address [address] [facility] [address] [place] [address] Phone Care Team Providers Care Unscrambler Name Role Phone Gal Hernandez MD Unavailable Yumi Chaudhary MD Primary Care Provider [phone] Yumi Chaudhary MD Unavailable Encounter Details Date Type Department Care Team (Late st Contact Info) Description 02/13/2025 Orders Only [place] [address] [place] [address] Provider, MD Rodriguez [address] [place] [address] Social History Tobacco Use Types Packs/Day Years [...] Contact Info) Description 05/11/2024 Procedure Pass [facility] MR Imaging, Ochoa [address] [place] [address] 03/15/2025 4:30 PM EST Telemedicine [facility] Surgical Oncology 45 [facility] [address] [place] [address] Cali Juarez MD 75 [place] [address] [email or web address] 05/17/2025 9:15 AM EST Appointment [facility] MR Imaging, [place]cho[place] [address] [place] [address] Cali Juarez MD 75 [place] [address] [email or web address] 05/17/2025 1:00 PM EST Office Visit [facility] Surgical Oncology 45 [facility] [address] [place] [address] Cali Juarez MD 75 [place] [address] [email or web address] 05/22/2025 2:40 PM EST Office Visit [facility] Primary Care 15 [facility] [address] [place] [address] Yumi Chaudhary MD 15 [facility] [address]el. [address] [place] [address] [email or web address] 09/18/2025 1:00 PM EDT Office Visit [facility] 32 [facility], 5th Floor, [address] [place] [address] Maynor Rojas MD, MPH 55 [facility] [address] [place] [address] [email or web address] Scheduled Procedures Name Priority Associated Diagnoses Date/Ti me ENDOSCOPIC RETROGRADE CHOLANGIOPANCREATOGRAPHY Cholangitis documented as of this encounter Procedures Procedure Name Priority Date/Time Associated Diagnosis Comments OUTSIDE LAB Routine 02/11/2025 1:44 PM EST documented in this encounter Results * Outside Lab (Non-[facility]GB) (02/11/2025 1:44 PM EST) us Historical Provider LAB BLOOD BKR ORDERABLES Final Result documented in this encounter Visit Diagnoses Not on filedocumented in this encounter Additional Health Concerns Infection Onset Date Last Indicated Resolved Time Resp-Risk Comment:Per note documentation 02/18/2025 02/19/2025 10:40 AM EST Assessment Noted Time PHQ-2 Depression Total Score: 0 08/24/19 25 3:29 PM EDT documented as of this encounter Care Teams Unscrambler Relationship Specialty Start Date End Date Yumi Chaudhary MD [address] [address] [email or web address] PCP - General Family Medicine 01/13/22 Gal Hernandez MD [address] [place] [address] 07/23/20 Yumi Chaudhary MD [address] [address] [email or web address] Insurance Assigned Provider 07/09/23 documented as of this encounter Additional Source Comments The information contained in this document represents components of the legal health record. It is not the complete legal health record.[facility]
--- OUTSIDE RECORDS SUMMARY | 2025-03-05 15:50 | XMS_ITS | Encounter Summary ---
Author Organization [facility] Address [address] [facility] [address] [place] [address] Phone Care Team Providers Care Airline Ticket Agent Name Role Phone Delon Kaur MD Primary Care Provider [phone] Gal Hernandez MD Unavailable Yumi Chaudhary MD Primary Care Provider [phone] Yumi Chaudhary MD Unavailable Encounter Details Date Type Department Care Team (Late st Contact Info) Description 08/21/2020 Procedure Pass [facility] Periop 75 [place] [address] Social History Tobacco Use Types Packs/Day Years [...] Risk Indicated 08/22/2020 9:00 PM EDT Hollie Gomez RN * [place] Suicide Severity Rating Scale (Screener/Recent Self-Report) Question Answer Date of Assessment Author 1. Wish to be (Past 1 Month) No 021 9:00 PM EDT Hollie Gomez, MICHELLE 2. Non-Specific Active Suici niraj Thoughts (Past 1 Month) No 08/22/2020 9:00 PM EDT Hollie Gomez RN 6. Suicidal Behavior (Lifetime) No 9:00 PM EDT Hollie Gomez RN documented as of this encounter Plan of Treatment Upcoming Encounters Date Type Department Care Team (Late st Contact Info) Description 05/11/2024 Procedure Pass [facility] MR Imaging, Ochoa 60 [place] [address] 03/15/2025 4:30 PM EST Telemedicine [facility] Surgical Oncology [address] [address] Cali Juarez MD [address] [place] [address] [email or web address] 05/17/2025 9:15 AM EST Appointment [facility] MR Imaging, [address]choa 60 [place] [address] Cali Juarez MD [address] [place] [address] [email or web address] 05/17/2025 1:00 PM EST Office Visit [facility] Surgical Oncology [address] [place] [address] Cali Juarez MD [address] [place] [address] [email or web address] 05/22/2025 2:40 PM EST Office Visit [facility] Primary Care 15 [facility] [address] [place] [address] Yumi Chaudhary MD [address] [address] [email or web address] 09/18/2025 1:00 PM EDT Office Visit [facility] 32 [facility], 5th Floor, [address] [place] [address] Maynor Rojas MD, MPH [address] [address] [email or web address] Scheduled Procedures Name Priority Associated [...] documented as of this encounter Care Teams Airline Ticket Agent Relationship Specialty Start Date End Date Delon Kaur MD [address] [place] [address] PCP - General Family Medicine 05/24/17 01/12/22 Yumi Chaudhary MD [address] [address] [email or web address] PCP - General Family Medicine 01/13/22 Gal Hernandez MD [address] [place] [address] 07/23/20 Yumi Chaudhary MD [address] [place] [address] [email or web address] Insurance Assigned Provider 07/09/23 documented as of this encounter Additional Source Comments The information contained in this document represents components of the legal health record. It is not the complete legal health record.[facility]
--- OUTSIDE RECORDS SUMMARY | 2025-03-05 15:50 | XMS_ITS | Encounter Summary ---
Author Organization [facility] Address [address] [place] [address] [place] [address] Phone Care Team Providers Care Photography Spotter Name Role Phone Delon Kaur MD Primary Care Provider Gal Hernandez MD Unavailable Yumi Chaudhary MD Primary Care Provider [phone] Yumi Chaudhary MD Unavailable Encounter Details Date Type Department Care Team (Late st Contact Info) Description 08/21/2021 Procedure Pass [facility], Ct Scan - [address] [address] Social History Tobacco Use Types Packs/Day Years [...] [facility] MR Imaging, Gabriela [address] [place] [address] 03/15/2025 4:30 PM EST Telemedicine [facility] Surgical Oncology [address] [address] Cali Juarez MD [address] [place] [address] [email or web address] 05/17/2025 9:15 AM EST Appointment [facility] MR Lai, Gabriela [address] [place] [address] Cali Juarez MD [address] [place] [address] [email or web address] 05/17/2025 1:00 PM EST Office Visit [facility] Surgical Oncology [address] [place] [address] Cali Juarez MD [address] [place] [address] [email or web address] 05/22/2025 2:40 PM EST Office Visit [facility] [address] [place] [address] [address] [place] [address] Yumi Chaudhary MD [address] [place] [address] [address] [place] [address] [email or web address] 09/18/2025 1:00 PM EDT Office Visit [facility] 32 [facility], 5th Floor, [address] [place] [address] Maynor Rojas MD, MPH 55 [facility] [address] [place] [address] [email or web address] Scheduled Procedures Name Priority Associated Diagnoses Date/Ti me ENDOSCOPIC RETROGRADE CHOLANGIOPANCREATOGRAPHY Cholangitis documented as of this encounter Visit Diagnoses Not on filedocumented in this encounter Additional Health Concerns Infection Onset Date Last Indicated Resolved Time 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 09/25/2020 01/06/2023 1:21 AM EDT Resp-Risk Comment:Per note documentation 02/18/2025 02/19/2025 10:40 AM EST documented as of this encounter Care Teams Photography Spotter Relationship Specialty Start Date End Date Delon Kaur MD [address] [place] [address] PCP - General Family Medicine 05/24/17 01/12/22 Yumi Chaudhary MD [address] [place] [address] [email or web address] PCP - General Family Medicine 01/13/22 Gal Hernandez MD [address] [place] [address] 07/23/20 Yumi Chaudhary MD [address] [place] [address] [email or web address] Insurance Assigned Provider 07/09/23 documented as of this encounter Additional Source Comments The information contained in this document represents components of the legal health record. It is not the complete legal health record.[facility]
--- OUTSIDE RECORDS SUMMARY | 2025-03-05 15:50 | XMS_ITS | Encounter Summary ---
Author Organization [facility] Address [address] [place] [address] Phone Care Team Providers Care Glass Vial Filler Name Role Phone Gal Hernandez MD Unavailable Yumi Chaudhary MD Primary Care Provider Yumi Chaudhary MD Unavailable Encounter Details Date Type Department Care Team (Late st Contact Info) Description 02/20/2025 Procedure Pass [facility] Endoscopy Department [address] [place] [address] Social History Tobacco Use Types Packs/Day Years [...] got money to buy more. Never True 02/19/2025 Within the past 6 months the food we bought just didn't last and we didn't have enough money to get more. Never True Residential Stability Answer Date Recor ded What is your housing situation today? I have brad walls 02/19/2025 How many times have you move d in the past 12 months? Zero (I did not move) 02/19/2025 Paying for Meds Answer Date Recorded Do you have trouble paying for medicines? No 02/19/2025 Paying Utility Bills Answer Date Record ed Do you have trouble paying your heating or elect ricity bill? No 02/19/2025 Transportation Answer Date Recorded Has the lack of transportati on kept you from medical appointments or from getting medications? No 02/19/2025 Unemployment Answer Date Recorded Are you currently unemployed or working on a part-time or temporary basis, and looking for work? No 12/16/2021 Digital Access Answer Date Recorded No 02/19/2025 Yes 02/19/2025 Do you have reliable internet access at home? Ye s 02/19/2025 Do you have a device (e.g., phone, tablet, computer) with a working camera? Yes 02/19/2025 Intimate Partner Violence Answer Date R ecorded Are you denied basic needs s uch as food, clothing, or medical care? No 02/19/2025 In the past 12 months have y ou been in a relationship with a person who hurts, threatens, or tries to control you? No 02/19/2025 Are you denied basic needs s uch as food, clothing, or medical care? No 02/19/2025 In the past 12 months have y ou been in a relationship with a person who hurts, threatens, or tries to control you? No 02/19/2025 Sex and Gender Information Value Date Recorded Sex Assigned at Male 07/16/2020 1:37 PM EDT Legal Sex Male 9:47 PM EDT Gender Identity Male 07/16/2020 1:37 PM EDT Sexual Orientation Straight 07/16/2020 1: 37 PM EDT documented as of this encounter Plan of Treatment Upcoming Encounters Date Type Department Care Team (Late st Contact Info) Description 05/11/2024 Procedure Pass [facility] MR Imaging, Gabriela [address] [place] [address] 03/15/2025 4:30 PM EST Telemedicine [facility] Surgical Oncology [address] [address] Cali Juarez MD 75 [place] [address] [email or web address] 05/17/2025 9:15 AM EST Appointment [facility] Gabriela Bowman [address] [place] [address] Cali Juarez MD 75 [place] [address] [email or web address] 05/17/2025 1:00 PM EST Office Visit [facility] Surgical Oncology [address] [place] [address] Cali Juarez MD [address] [place] [address] [email or web address] 05/22/2025 2:40 PM EST Office Visit [facility] [place] Primary [facility] [address] [place] [address] [address] [place] [address] Yumi Chaudhary MD [address] [place] [address] [address] [place] [address] [email or web address] 09/18/2025 1:00 PM EDT Office Visit [facility] 32 [facility], 5th Floor, [address] [place] [address] Maynor Rojas MD, MPH 55 [facility] [address] [place] [address] [email or web address] Scheduled Procedures Name Priority Associated Diagnoses Date/Ti me ENDOSCOPIC RETROGRADE CHOLANGIOPANCREATOGRAPHY Cholangitis documented as of this encounter Visit Diagnoses Not on filedocumented in this encounter Additional Health Concerns Assessment Noted Time PHQ-2 Depression Total Score: 0 08/24/19 25 3:29 PM EDT documented as of this encounter Care Teams Glass Vial Filler Relationship Specialty Start Date End Date Yumi Chaudhary MD [address] [place] [address] [email or web address] PCP - General Family Medicine 01/13/22 Gal Hernandez MD [address] [place] [address] 07/23/20 Yumi Chaudhary MD [address] [place] [address] [email or web address] Insurance Assigned Provider 07/09/23 documented as of this encounter Additional Source Comments The information contained in this document represents components of the legal health record. It is not the complete legal health record.[facility]
--- OUTSIDE RECORDS SUMMARY | 2025-03-05 15:50 | XMS_ITS | Encounter Summary ---
Author Organization [facility] Address [address] [facility] [address] [place] [address] Phone Care Team Providers Care Dope House Operator Helper Name Role Phone Gal Hernandez MD Unavailable [phone] Yumi Chaudhary MD Primary Care Provider [phone] Yumi Chaudhary MD Unavailable Encounter Details Date Type Department Care Team (Late st Contact Info) Description 02/12/2025 Orders Only [facility] [address] [place] [address] Unknown, Unknown, Social History Tobacco Use Types Packs/Day Years [...] Procedure Pass [facility] MR Imaging, Gabriela [address] [place] [address] 03/15/2025 4:30 PM EST Telemedicine [facility] Surgical Oncology 45 [facility] [place] [address] Cali Juarez MD 75 [place] [address] [email or web address] 05/17/2025 9:15 AM EST Appointment [facility] MR Imaging, Ochoa [address] [place] [address] Cali Juarez MD 75 [place] [address] [email or web address] 05/17/2025 1:00 PM EST Office Visit [facility] Surgical Oncology 45 [facility] ASB2-3 [place] [address] Cali Juarez MD 75 [place] [address] [email or web address] 05/22/2025 2:40 PM EST Office Visit [facility] Primary Care [address] [facility] [address] [place] [address] Yumi Chaudhary MD 15 [facility] [address] [place] [address] [email or web address] 09/18/2025 1:00 PM EDT Office Visit [facility] 32 [facility], 5th Floor, [address] [place] [address] Maynor Rojas MD, MPH 55 [facility] [address] [place] [address] [email or web address] Scheduled Procedures Name Priority Associated Diagnoses Date/Ti me ENDOSCOPIC RETROGRADE CHOLANGIOPANCREATOGRAPHY Cholangitis documented as of this encounter Procedures Procedure Name Priority Date/Time Associated Diagnosis Comments OUTSIDE LAB Routine 02/11/2025 12:27 PM EST documented in this encounter Results * Outside Lab (Non-MGB) (02/11/2025 12:27 PM EST) us Unknown Unknown LAB BLOOD BKR ORDERABLES Edit ed Result - Final documented in this encounter Visit Diagnoses Not on filedocumented in this encounter Additional Health Concerns Infection Onset Date Last Indicated Resolved Time Resp-Risk Comment:Per note documentation 02/18/2025 02/19/2025 10:40 AM EST Assessment Noted Time PHQ-2 Depression Total Score: 0 08/24/19 25 3:29 PM EDT documented as of this encounter Care Teams Dope House Operator Helper Relationship Specialty Start Date End Date Yumi Chaudhary MD [address] [address] [email or web address] PCP - General Family Medicine 01/13/22 Gal Hernandez MD [address] [place] [address] 07/23/20 Yumi Chaudhary MD [address] [address] [email or web address] Insurance Assigned Provider 07/09/23 documented as of this encounter Additional Source Comments The information contained in this document represents components of the legal health record. It is not the complete legal health record.[facility]
--- OUTSIDE RECORDS SUMMARY | 2025-03-05 15:50 | XMS_ITS | Encounter Summary ---
Author Organization [facility] Address [address] [facility] [address] [place] [address] Phone Care Team Providers Care Health Education Specialist Name Role Phone Gal Hernandez MD Unavailable Yumi Chaudhary MD Primary Care Provider [phone] Yumi Chaudhary MD Unavailable Encounter Details Date Type Department Care Team (Late st Contact Info) Description 02/18/2025 Procedure Pass [facility], Ct Scan - [address] [address] Social History Tobacco Use Types Packs/Day Years [...] Date of Assessment Author No Risk Indicated 02/19/2025 2:00 PM Shirlene Catalan RN * [place] Suicide Severity Rating Scale (Screener/Recent Self-Report) Question Answer Date of Assessment Author 1. Wish to be (Past 1 Month) No 025 2:00 PM Shirlene Wilde RN 2. Non-Specific Active Suici niraj Thoughts (Past 1 Month) No 02/19/2025 2:00 PM Chinmay Wilde RN 6. Suicidal Behavior (Lifetime) No 2:00 PM Shirlene Wilde RN documented as of this encounter Plan of Treatment Upcoming Encounters Date Type Department Care Team (Late st Contact Info) Description 05/11/2024 Procedure Pass [facility] MR Imaging, Ochoa [address] [place] [address] 03/15/2025 4:30 PM EST Telemedicine [facility] Surgical Oncology [address] [address] Cali Juarez MD [address] [place] [address] [email or web address] 05/17/2025 9:15 AM EST Appointment [facility] MR Imaging, Ochoa 60 [place] [address] Cali Juarez MD [address] [place] [address] [email or web address] 05/17/2025 1:00 PM EST Office Visit [facility] Surgical Oncology [address] [address] Cali Juarez MD [address] [place] [address] [email or web address] 05/22/2025 2:40 PM EST Office Visit [facility] Primary Care 15 [facility] [address] [place] [address] Yumi Chaudhary MD [address] [address] [email or web address] 09/18/2025 1:00 PM EDT Office [facility] 32 [facility], 5th Floor, [address] [place] [address] Maynor Rojas MD, MPH [address] [place] [address] [email or web address] Scheduled Procedures Name Priority Associated [...] as of this encounter Care Teams Health Education Specialist Relationship Specialty Start Date End Date Yumi Chaudhary MD [address] [address] [email or web address] PCP - General Family Medicine 01/13/22 Gal Hernandez MD [address] [place] [address] 07/23/20 Yumi Chaudhary MD [address] [address] [email or web address] Insurance Assigned Provider 07/09/23 documented as of this encounter Additional Source Comments The information contained in this document represents components of the legal health record. It is not the complete legal health record.[facility]
--- OUTSIDE RECORDS SUMMARY | 2025-03-05 15:50 | XMS_ITS | Encounter Summary ---
Author Organization [facility] Address [address] [place] [address] Phone Care Team Providers Care Recovery Rn Name Role Phone Gal Hernandez MD Unavailable Yumi Chaudhary MD Primary Care Provider [phone] Yumi Chaudhary MD Unavailable Encounter Details Date Type Department Care Team (Late st Contact Info) Description 02/19/2025 Procedure Pass [facility] Radiology 75 [place] [address] Social History Tobacco Use Types Packs/Day Years [...] Author No Risk Indicated 02/19/2025 2:00 PM EST Shirlene Saravia RN * [place] Suicide Severity Rating Scale (Screener/Recent Self-Report) Question [...] st Contact Info) Description 05/11/2024 Procedure Pass [facility] MR Imaging, Gabriela 60 [place] [address] 03/15/2025 4:30 PM EST Telemedicine [facility] Surgical Oncology [address] [place] [address] Cali Juarez MD [address] [place] [address] [email or web address] 05/17/2025 9:15 AM EST Appointment [facility] Imaging, Ochoa 60 [place] [address] Cali Juarez MD [address] [place] [address] [email or web address] 05/17/2025 1:00 PM EST Office Visit [facility] Surgical Oncology [address] [place] [address] Cali Juarez MD [address] [place] [address] [email or web address] 05/22/2025 2:40 PM EST Office Visit [facility] Primary [facility] 15 [facility] [address] [place] [address] Yumi Chaudhary MD [address] [address] [email or web address] 09/18/2025 1:00 PM EDT Office [facility] 32 [facility], 5th Floor, [address] [place] [address] Maynor Rojas MD, MPH 55 [facility] [address] [place] [address] [email or web address] Scheduled Procedures Name Priority Associated Diagnoses [...] documented as of this encounter Care Teams Recovery Rn Relationship Specialty Start Date End Date Yumi Chaudhary MD [address] [address] [email or web address] PCP - General Family Medicine 01/13/22 Gal Hernandez MD [address] [place] [address] 07/23/20 Yumi Chaudhary MD [address] [address] [email or web address] Insurance Assigned Provider 07/09/23 documented as of this encounter Additional Source Comments The information contained in this document represents components of the legal health record. It is not the complete legal health record.[facility]
--- OUTSIDE RECORDS SUMMARY | 2025-03-05 15:50 | XMS_ITS | Encounter Summary ---
Author Organization [facility] Address [address] [place] [address] Phone Care Team Providers Care Air Conditioning Specialist Name Role Phone Gal Hernandez MD Unavailable Yumi Chaudhary MD Primary Care Provider [phone] Yumi Chaudhary MD Unavailable Encounter Details Date Type Department Care Team (Late st Contact Info) Description 02/20/2025 Procedure Pass [facility] Endoscopy Department [address] [place] [address] Social History Tobacco Use Types Packs/Day Years [...] MEDICAL CENTER MR Imaging, Gabriela [address] [place] [address] 03/15/2025 4:30 PM EST Telemedicine [facility] Surgical Oncology [address] [address] Cali Juarez MD 75 [place] [address] [email or web address] 05/17/2025 9:15 AM EST Appointment [facility] Gabriela Bowman [address] [place] [address] Cali Juarez MD 75 [place] [address] [email or web address] 05/17/2025 1:00 PM EST Office Visit [facility] Surgical Oncology [address] [place] [address] Cali Juarez MD [address] [place] [address] [email or web address] 05/22/2025 2:40 PM EST Office Visit [facility] [address] [place] [address] [address] [place] [address] Yumi Chaudhary MD [address] [place] [address] [address] [place] [address] [email or web address] 09/18/2025 1:00 PM EDT Office Visit [facility] 32 [facility], 5th Floor, [address] [place] [address] Maynor Rojas MD, MPH 55 [facility] [address] [place] [address] [email or web address] Scheduled Procedures Name Priority Associated Diagnoses Date/Ti me ENDOSCOPIC RETROGRADE CHOLANGIOPANCREATOGRAPHY Cholangitis documented as of this encounter Visit Diagnoses Not on filedocumented in this encounter Additional Health Concerns Assessment Noted Time PHQ-2 Depression Total Score: 0 08/24/19 25 3:29 PM EDT documented as of this encounter Care Teams Air Conditioning Specialist Relationship Specialty Start Date End Date Yumi Chaudhary MD [address] [place] [address] [email or web address] PCP - General Family Medicine 01/13/22 Gal Hernandez MD [address] [place] [address] 07/23/20 Yumi Chaudhary MD [address] [place] [address] [email or web address] Insurance Assigned Provider 07/09/23 documented as of this encounter Additional Source Comments The information contained in this document represents components of the legal health record. It is not the complete legal health record.[facility]
--- OUTSIDE RECORDS SUMMARY | 2025-03-05 15:50 | XMS_ITS | Encounter Summary ---
Author Organization [facility] Address [address] [facility] [address] [place] [address] Phone Care Team Providers Care Lending Activities Supervisor Name Role Phone Delon Kaur MD Primary Care Provider [phone] Gal Hernandez MD Unavailable Yumi Chaudhary MD Primary Care Provider Yumi Chaudhary MD Unavailable Encounter Details Date Type Department Care Team (Late st Contact Info) Description 10/03/2021 Transcribe Orders [facility] Specimen Processing 30 [place] [address] Delon Kaur MD [address] [place] [address] Social History Tobacco Use Types Packs/Day Years [...] 8:43 PM EDT Deisi Klein RN * [place] Suicide Severity Rating Scale (Screener/Recent Self-Report) Question [...] Info) Description 05/11/2024 Procedure Pass [facility] MR Imaging, Gabriela [address] [place] [address] 03/15/2025 4:30 PM EST Telemedicine [facility] Surgical Oncology [address] [place] [address] Cali Juarez MD [address] [place] [address] [email or web address] 05/17/2025 9:15 AM EST Appointment [facility] MR Imaging, [place] [address] Cali Juarez MD [address] [place] [address] [email or web address] 05/17/2025 1:00 PM EST Office Visit [facility] Surgical Oncology [address] [place] [address] Cali Juarez MD [address] [place] [address] [email or web address] 05/22/2025 2:40 PM EST Office Visit [facility] [place] Primary Care [address] [facility] [address] [place] [address] Yumi Chaudhary MD 15 [facility] [address] [place] [address] [email or web address] 09/18/2025 1:00 PM EDT Office Visit [facility] 32 [facility], 5th Floor, [address] [place] [address] Maynor Rojas MD, MPH 55 [facility] [address] [place] [address] [email or web address] Scheduled Procedures Name Priority Associated Diagnoses Date/Ti me ENDOSCOPIC RETROGRADE CHOLANGIOPANCREATOGRAPHY Cholangitis documented as of this encounter Visit Diagnoses Not on filedocumented in this encounter Additional Health Concerns Infection Onset Date Last Indicated Resolved Time 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 09/25/2020 01/06/2023 1:21 AM EDT Resp-Risk Comment:Per note documentation 02/18/2025 02/19/2025 10:40 AM EST documented as of this encounter Care Teams Lending Activities Supervisor Relationship Specialty Start Date End Date Delon Kaur MD 191 [place] [address] PCP - General Family Medicine 05/24/17 01/12/22 Yumi Chaudhary MD 15 [facility] 201 [place] [address] [email or web address] PCP - General Family Medicine 01/13/22 Gal Hernandez MD [address] [place] [address] 07/23/20 Yumi Chaudhary MD [address] [address] [email or web address] Insurance Assigned Provider 07/09/23 documented as of this encounter Additional Source Comments The information contained in this document represents components of the legal health record. It is not the complete legal health record.[facility]
--- OUTSIDE RECORDS SUMMARY | 2025-03-05 15:50 | XMS_ITS | Encounter Summary ---
Author Organization [facility] Address [address] [facility] [address] [place] [address] Phone Care Team Providers Care Business Analytics Faculty Member Name Role Phone Delon Kaur MD Primary Care Provider Gal Hernandez MD Unavailable Yumi Chaudhary MD Primary Care Provider Yumi Chaudhary MD Unavailable Encounter Details Date Type Department Care Team (Late st Contact Info) Description 02/20/[address] [facility] CT Imaging, [place]cho[place] [address] [place] [address] Social History Tobacco Use Types Packs/Day Years [...] Procedure Pass [facility] MR Imaging, [address]choa 60 [place] [address] 03/15/2025 4:[address] [facility] Surgical Oncology [address] [address] Cali Juarez MD [address] [place] [address] [email or web address] 05/17/2025 9:[address] [facility] MR Lai, Gabriela [address] [place] [address] Cali Juarez MD [address] [place] [address] [email or web address] 05/17/2025 1:00 PM EST Office Visit [facility] Surgical Oncology [address] [place] [address] Cali Juarez MD [address] [place] [address] [email or web address] 05/22/2025 2:40 PM EST Office Visit [facility] Primary Care [address] [place] [address] [address] [place] [address] Yumi Chaudhary MD [address] [place] [address] [address] [place] [address] [email or web address] 09/18/2025 1:00 PM EDT Office [place] [facility] [address] [facility], 5th Floor, [address] [place] [address] Maynor Rojas MD, MPH 55 [facility] [address] [place] [address] [email or web address] Scheduled Procedures Name Priority Associated Diagnoses Date/Ti me ENDOSCOPIC RETROGRADE CHOLANGIOPANCREATOGRAPHY Cholangitis documented as of this encounter Visit Diagnoses Not on filedocumented in this encounter Additional Health Concerns Infection Onset Date Last Indicated Resolved Time 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 09/25/2020 01/06/2023 1:21 AM EDT Resp-Risk Comment:Per note documentation 02/18/2025 02/19/2025 10:40 AM EST documented as of this encounter Care Teams Business Analytics Faculty Member Relationship Specialty Start Date End Date Delon Kaur MD [address] [place] [address] PCP - General Family Medicine 05/24/17 01/12/22 Yumi Chaudhary MD [address] [place] [address] [email or web address] PCP - General Family Medicine 01/13/22 Gal Hernandze MD [address] [place] [address] 07/23/20 Yumi Chaudhary MD [address] [place] [address] [email or web address] Insurance Assigned Provider 07/09/23 documented as of this encounter Additional Source Comments The information contained in this document represents components of the legal health record. It is not the complete legal health record.[facility]
--- OUTSIDE RECORDS SUMMARY | 2025-03-05 15:50 | XMS_ITS | Encounter Summary ---
Author Organization [facility] Address [address] [facility] [address] [place] [address] Phone Care Team Providers Care Database Security Expert Name Role Phone Delon Kaur MD Primary Care Provider Gal Hernandez MD Unavailable Yumi Chaudhary MD Primary Care Provider [phone] Yumi Chaudhary MD Unavailable Encounter Details Date Type Department Care Team (Late st Contact Info) Description 12/22/2021 Procedure Pass [facility] Periop 75 [place] [address] Social History Tobacco Use Types Packs/Day Years [...] high school, GED, job training, learning the [place] language, technical skills, or developing parenting skills)? [...] 9:38 PM EDT Erendira Post RN * [place] Suicide Severity Rating Scale (Screener/Recent Self-Report) Question [...] Upcoming Encounters Date Type Department Care Team (Sean Contact Info) Description 05/11/2024 Procedure Pass [facility] Gabriela Bowman [address] [place] [address] 03/15/2025 4:30 PM EST Telemedicine [facility] Surgical Oncology [address] [place] [address] Cali Juarez MD [address] [place] [address] [email or web address] 05/17/2025 9:15 AM EST Appointment [facility] Gabriela Bowman [address] [place] [address] Cali Juarez MD [address] [place] [address] [email or web address] 05/17/2025 1:00 PM EST Office Visit [facility] Surgical Oncology [address] [place] [address] Cali Juarez MD [address] [place] [address] [email or web address] 05/22/2025 2:40 PM EST Office Visit [facility] Primary Care [address] [place] [address] [address] [place] [address] Yumi Chaudhary MD [address] [place] [address] [address] [place] [address] [email or web address] 09/18/2025 1:00 PM EDT Office Visit [facility] 32 [facility], 5th Floor, [address] [place] [address] Maynor Rojas MD, MPH 55 [facility] [address] [place] [address] [email or web address] Scheduled Procedures Name Priority [...] documented as of this encounter Care Teams Database Security Expert Relationship Specialty Start Date End Date Delon Kaur MD [address] [place] [address] PCP - General Family Medicine 05/24/17 01/12/22 Yumi Chaudhary MD [address] [place] [address] [email or web address] PCP - General Family Medicine 01/13/22 Gal Hernandez MD [address] [place] [address] 07/23/20 Yumi Chaudhary MD [address] [place] [address] [email or web address] Insurance Assigned Provider 07/09/23 documented as of this encounter Additional Source Comments The information contained in this document represents components of the legal health record. It is not the complete legal health record.[facility]
--- OUTSIDE RECORDS SUMMARY | 2025-03-05 15:50 | XMS_ITS | Encounter Summary ---
Author Organization [facility] Address [address] [facility] [address] [place] [phone] Phone Care Team Providers Care Transportation Security Officer Name Role Phone Delon Kaur MD Primary Care Provider Gal Hernandez MD Unavailable Yumi Chaudhary MD Primary Care Provider Yumi Chaudhary MD Unavailable Encounter Details Date Type Department Care Team (Late st Contact Info) Description 08/21/2020 Procedure Pass [facility] Periop [address] [place] [address] Social History Tobacco Use Types Packs/Day Years [...] 9:00 PM EDT Hollie Gomez RN * [place] Suicide Severity Rating Scale (Screener/Recent Self-Report) Question [...] Contact Info) Description 05/11/2024 Procedure Pass [facility] MR Imaging, [address] [place] [address] 03/15/2025 4:30 PM EST Telemedicine [facility] Surgical Oncology [address] [address] Cali Juarez MD [address] [place] [phone] [email or web address] 05/17/2025 9:15 AM EST Appointment [facility] MR Imaging, [address] [place] [address] Cali Juarez MD [address] [place] [address] [email or web address] 05/17/2025 1:00 PM EST Office Visit [facility] Surgical Oncology [address] [place] [address] Cali Juarez MD [address] [place] [address] [email or web address] 05/22/2025 2:40 PM EST Office Visit [facility] Primary Care [address] [facility] [address] [place] [address] Yumi Chaudhary MD [address] [address] [email or web address] 09/18/2025 1:00 PM EDT Office Visit [facility] [address] [facility], 5th Floor, [address] [place] [address] Maynor Rojas MD, MPH [address] [address] [email or web address] Scheduled Procedures Name Priority Associated [...] documented as of this encounter Care Teams Transportation Security Officer Relationship Specialty Start Date End Date Delon Kaur MD [address] [place] [phone] PCP - General Family Medicine 05/24/17 01/12/22 Yumi Chaudhary MD [address] [address] [email or web address] PCP - General Family Medicine 01/13/22 Gal Hernandez MD [address] [place] [address] 07/23/20 Yumi Chaudhary MD [address] [place] [address] [email or web address] Insurance Assigned Provider 07/09/23 documented as of this encounter Additional Source Comments The information contained in this document represents components of the legal health record. It is not the complete legal health record.[facility]
--- OUTSIDE RECORDS SUMMARY | 2025-03-05 15:50 | XMS_ITS | Encounter Summary ---
Author Organization [facility] Address [address] [facility] [address] [place] [address] Phone Care Team Providers Care Deck Builder Name Role Phone Delon Kaur MD Primary Care Provider [phone] Gal Hernandez MD Unavailable Yumi Chaudhary MD Primary Care Provider Yumi Chaudhary MD Unavailable Encounter Details Date Type Department Care Team (Late st Contact Info) Description 08/21/2020 Procedure Pass [facility] Periop [address] [place] [address] Social History Tobacco Use Types Packs/Day Years [...] 9:00 PM EDT Hollie Gomez RN * [place] Suicide Severity Rating Scale (Screener/Recent Self-Report) Question [...] st Contact Info) Description 05/11/2024 Procedure Pass [facility] MR Imaging, [address] [place] [address] 03/15/2025 4:30 PM EST Telemedicine [facility] Surgical Oncology [address] [address] Cali Juarez MD [address] [place] [address] [email or web address] 05/17/2025 9:15 AM EST Appointment [facility] MR Imaging, [address] [place] [address] Cali Juarez MD [address] [place] [phone] [email or web address] 05/17/2025 1:00 PM EST Office Visit [facility] Surgical Oncology [address] [place] [address] Cali Juarez MD [address] [place] [phone] [email or web address] 05/22/2025 2:40 PM EST Office Visit [facility] Primary Care [address] [facility] [address] [place] [address] Yumi Chaudhary MD [address] [address] [email or web address] 09/18/2025 1:00 PM EDT Office Visit [facility] [address] [facility], 5th Floor, [address] [place] [address] Maynor Rojas MD, MPH [address] [address] [email or web address] [email or web address] Scheduled Procedures Name Priority Associated Diagnoses Date/Ti [...] documented as of this encounter Care Teams Deck Builder Relationship Specialty Start Date End Date Delon Kaur MD [address] [place] [phone] PCP - General Family Medicine 05/24/17 01/12/22 Yumi Chaudhary MD [address] [address] [email or web address] PCP - General Family Medicine 01/13/22 Gal Hernandez MD [address] [place] [address] 07/23/20 Yumi Chaudhary MD [address] [place] [address] [email or web address] Insurance Assigned Provider 07/09/23 documented as of this encounter Additional Source Comments The information contained in this document represents components of the legal health record. It is not the complete legal health record.[facility]
--- OUTSIDE RECORDS SUMMARY | 2025-03-05 15:51 | XMS_ITS | Encounter Summary ---
Author Organization [facility] Address [address] [place] [address] [place] [address] Phone Care Team Providers Care Metalworking Specialist Name Role Phone Delon Kaur MD Primary Care Provider Gal Hernandez MD Unavailable Yumi Chaudhary MD Primary Care Provider Yumi Chaudhary MD Unavailable Encounter Details Date Type Department Care Team (Late st Contact Info) Description 09/19/2020 Procedure Pass [facility] Periop [address] [place] [address] Social History Tobacco Use Types Packs/Day Years [...] st Contact Info) Description 05/11/2024 Procedure Pass [facility] MR Imaging, [address] [place] [address] 03/15/2025 4:30 PM EST Telemedicine [facility] Surgical Oncology [address] [place] [address] Cali Juarez MD [address] [place] [phone] [email or web address] 05/17/2025 9:15 AM EST Appointment [facility] MR Lai, [address] [place] [address] Cali Juarez MD [address] [place] [address] [email or web address] 05/17/2025 1:00 PM EST Office Visit [facility] Surgical Oncology [address] [place] [address] Cali Juarez MD [address] [place] [address] [email or web address] 05/22/2025 2:40 PM EST Office Visit [facility] Primary Care [address] [place] [address] [address] [place] [address] Yumi Chaudhary MD [address] [place] [address] [address] [place] [address] [email or web address] 09/18/2025 1:00 PM EDT Office Visit [facility] [address] [facility], 5th Floor, [address] [place] [address] Maynor Rojas MD, MPH [address] [facility] [address] [place] [address] [email or web address] Scheduled Procedures Name Priority Associated Diagnoses Date/Ti [...] documented as of this encounter Care Teams Metalworking Specialist Relationship Specialty Start Date End Date Delon Kaur MD [address] [place] [address] PCP - General Family Medicine 05/24/17 01/12/22 Yumi Chaudhary MD [address] [place] [address] [email or web address] PCP - General Family Medicine 01/13/22 Gal Hernandez MD [address] [place] [address] 07/23/20 Yumi Chaudhary MD [address] [place] [address] [email or web address] Insurance Assigned Provider 07/09/23 documented as of this encounter Additional Source Comments The information contained in this document represents components of the legal health record. It is not the complete legal health record.[facility]
--- OUTSIDE RECORDS SUMMARY | 2025-03-05 15:51 | XMS_ITS | Clinical Summary ---
Author Organization [facility] Address [address] [place] [address] [place] [id number] Phone Care Team Providers Care Imcu Nurse Name Role Phone Gal Hernandez MD Unavailable [phone] Yumi Chaudhary MD Primary Care Provider [phone] Yumi Chaudhary MD Unavailable Allergies Active Allergy Reactions Criticality Noted Date Comments Covid-19 (Sars-Cov-2) Vaccine, Vlp Hives 01/22/2022 Iodinated Contrast Media Hives,Itching,S welling,Wisam h,Flushing High 01/13/2022 Medications acetaminophen (TYLENOL) 500 MG tablet Take 2 tablets (1,000 mg total) by mouth every 8 (eight) hours as needed. 0 12/16/19 21 Active famotidine (PEPCID) 10 MG tablet Take 30 mg by mouth 1 (one) time. Active clobetasol (TEMOVATE) 0.05 % cream 12/13/19 24 Active ciclopirox (LOPROX) 0.77 % Susp 12/13/19 24 Active ciprofloxacin HCl (CIPRO) 500 MG tablet 12/14/19 24 Active ketoconazole 2 % cream 09/10/20 24 Active naproxen (NAPROSYN) 500 MG tablet Take 500 mg by mouth as needed. 02/14/20 Active tamsulosin (FLOMAX) 0.4 mg CapIndication s:History of BPH Take 2 capsules (0.8 mg total) by mouth daily. 180 capsule 3 05/02/19 Active Additional Information Patient taking differently: 0.4 mgOral2 times daily, 0.4 BID, Reported on 02/19/2025 atorvastatin (LIPITOR) 10 MG tabletIndicat ions:Hyperlip idemia Take 0.5 tablets (5 mg total) by mouth daily. 90 tablet 1 08/24/19 Active LORazepam (ATIVAN) 0.5 MG tablet Take 1 tablet (0.5 mg total) by mouth every evening. 30 tablet 01/25/20 Active gabapentin (NEURONTIN) 100 MG capsule Take 1 capsule (100 mg total) by mouth 3 (three) times a day. 30 capsule 02/15/20 Active Additional Information Patient taking differently:100 mg Oral 3 times daily,200mg at night PRN, Reported on 02/19/2025 oxyCODONE 5 MG immediate release tablet Take 1-2 tablets (5-10 mg total) by mouth every 6 (six) hours as needed for pain (specific location in comments). Partial fill ok 5 tablet 02/24/20 Active apixaban (ELIQUIS) 5 mg tablet Take 2 tablets (10 mg total) by mouth 2 (two) times a day for 5 days, THEN 1 tablet (5 mg total) 2 (two) times a day. 200 tablet 02/25/20 026 Active metroNIDAZOLE (FLAGYL) 500 MG tablet Take 1 tablet (500 mg total) by mouth every 12 (twelve) hours for 10 doses. 10 tablet 02/24/20 025 Discontinued ciprofloxacin HCl (CIPRO) 500 MG tablet Take 1 tablet (500 mg total) by mouth 2 (two) times a day before meals for 9 doses. 9 tablet 02/24/20 25 025 Discontinued apixaban (ELIQUIS) 5 mg tablet Take 2 tablets (10 mg total) by mouth 2 (two) times a day for 9 doses. 18 tablet 02/24/20 25 025 Discontinued oxyCODONE 5 MG immediate release tablet Take 1-2 tablets (5-10 mg total) by mouth every 6 (six) hours as needed for pain (specific location in comments). Partial fill ok 5 tablet 02/24/20 025 Discontinued apixaban (ELIQUIS) 5 mg tablet Take 1 tablet (5 mg total) by mouth 2 (two) times a day. 180 tablet 1 03/01/20 025 Discontinued(St op Taking at Discharge) apixaban (ELIQUIS) 5 mg tablet Take 1 tablet (5 mg total) by mouth 2 (two) times a day for 5 days, THEN 2 tablets (10 mg total) 2 (two) times a day. 370 tablet 02/25/20 Discontinued metroNIDAZOLE (FLAGYL) 500 MG tablet Take 1 tablet (500 mg total) by mouth every 12 (twelve) hours for 10 doses. 10 tablet 02/24/20 025 ciprofloxacin HCl (CIPRO) 500 MG tablet Take 1 tablet (500 mg total) by mouth 2 (two) times a day before meals for 9 doses. 9 tablet 02/24/20 025 Active Problems Problem Noted Date Diagnosed Date Acute obstructive cholangitis 02/21/2025 Sepsis due to Escherichia co li without acute organ dysfunction 02/21/2025 Portal vein thrombosis 02/21/2025 Bacteremia 02/21/2025 Hypotension 02/19/2025 Tenosynovitis, de Quervain 08/14/2024 Assessment & Plan [...] - PICC and PIV removed prior to [facility] arrival, had been on Reglan 10mg [...] take POs Bile leak 09/26/2020 Sepsis 09/26/2020 Respiratory insufficiency 08/22/2020 Assessment & Plan (11/25/2020 4:29 PM EDT): Trach on 09/26, decannulated on 11/24 Junky cough, remains on COV-exposed precautions through 11/28 - Oximetry - Nebs for secretion clearance - Aspiration precautions - Mucomyst made PRN on 11/25 Intraabdominal hemorrhage 08/22/2020 Subcutaneous emphysema associated with [...] - Previously on TPN - Nutrition and SUPERINTENDENT GAS DISTRIBUTION following - Hx of postoperative colonic ileus, ensure pt moving bowels, continue Reglan, monitor off Octreotide - Will need VFSS once off COV-exposed precautions Debility 11/24/2020 08/14/2024 Assessment & Plan (11/25/2020 4:30 PM EDT): Prolonged hospital course, PT/OT/SUPERINTENDENT GAS DISTRIBUTION following Thrush of mouth and esophagus 11/24/2020 08/14/2024 Assessment & Plan (11/25/2020 4:28 PM EDT): Continues on Nystatin swishes TID - Oral care q 4hr - Biotene QID Renal failure 10/09/2020 01/18/2022 ROSA M (acute kidney injury) 09/26/2020 Protein-calorie malnutrition 09/26/2020 01/18/2022 Delirium 09/26/2020 01/18/2022 Fluid overload 09/26/2020 01/18/2022 Acute blood loss anemia 08/22/2020/08/2023 Hypotension 08/22/2020 05/30/2023 Chronic right shoulder pain 08/03/2017 01/18/2022 Chronic elbow pain 08/03/2017 Encounters Date Type Department Care Team Description 02/24/2025 Orders Only [facility] [address] [address] Tee Eric MD 02/20/2025 3:47 PM EST Anesthesia Event [facility] Endoscopy Department [address] [place] [address] Chad Oneill MD 02/20/2025 3:40 PM EST Ancillary Procedure [facility] Radiology [address] [place] [address] Cali Juarez MD 02/20/2025 3:36 PM EST - 02/20/2025 4:57 PM EST Surgery [facility] Endoscopy Department [address] [place] [address] Eleazar Ghosh MD ENDOSCOPIC RETROGRADE CHOLANGIOPANCREATOGRAPHY - whipple 02/20/2025 Orders Only [facility] Medical Specialties [address] [facility] [place] [address] Srikanth Osuna MD Cholangitis (Primary Dx) 02/20/2025 Procedure Pass [facility] Endoscopy Department [address] [place] [address] 02/20/2025 Procedure Pass [facility] Endoscopy Department [address] [place] [address] 02/19/2025 5:15 PM EST Ancillary Procedure [facility] Radiology [address] [place] [address] Cali Juarez MD 02/19/2025 11:20 AM EST Ancillary Procedure [facility] Radiology [address] [place] [address] Cali Juarez MD 02/19/2025 10:30 AM EST - 02/24/2025 9:07 AM EST Hospital Encounter [facility] [address] [place] [address] Cali Juarez MD Discharge Disposition: Home or Self Care 02/19/2025 Procedure Pass [facility] Radiology [address] [place] [phone] 02/18/2025 9:09 PM EST - 02/19/2025 8:15 AM EST Emergency [facility] [address] [place] [address] Rimma Solomon MD Shukla, Sundeep M, MD, LAURIE Discharge Disposition: Short Term Hospital 02/18/2025 Procedure Pass [facility], Ct Scan - [facility] [address] [place] [address] 02/14/2025 3:00 PM EST Office Visit [facility] [place] [facility] [address] [place] [address] Yumi Chaudhary MD Left foot pain (Primary Dx); Other specified forms of hearing loss, unspecified laterality; Insomnia, unspecified type 02/13/2025 Orders Only [facility] [address] [place] [address] Provider, MD Rodriguez 02/12/2025 Orders Only [facility] [address] [place] [address] Unknown, Vane, from Last 3 Months Immunizations Immunization Administration Dates Next Due COVID-19 (Pre-01/24) Moderna Vaccine, mRNA, PF 07/09/2020 INFLUENZA, SPLIT VIRUS, TRIVALENT PF 02/14/2025, 02/06/2024 Influenza Quadrivalent MDCK Preservative Free IM [...] Sign Reading Time Taken Comments Blood Pressure 99/55 02/24/2025 7:30 AM EST Pulse 61 02/24/2025 7:30 AM EST Temperature 36.4 C (97.5 F) 02/24/2025 7:30 AM EST Respiratory Rate 18 02/24/2025 7:30 AM EST Oxygen Saturation 94% 02/24/2025 7:30 AM EST Inhaled Oxygen Concentration 21% 11/24/2020 2 :19 AM EDT Weight 83.7 kg (184 lb 8 oz) 02/24/2025 6:09 AM EST Height 175.3 cm (5' 9 ) 02/19/2025 1:24 PM EST Body Mass Index 27.25 02/19/2025 1:24 PM EST Plan of Treatment Upcoming Encounters Date Type Department Care Team (Late st Contact Info) Description 05/11/2024 Procedure Pass [facility] MR Imaging, [address] [place] [address] 03/15/2025 4:30 PM EST Telemedicine [facility] Surgical Oncology [address] [address] Cali Juarez MD [address] [place] [address] [email or web address] 05/17/2025 9:15 AM EST Appointment [facility] MR Imaging, [address] [place] [address] Cali Juarez MD [address] [place] [address] [email or web address] 05/17/2025 1:00 PM EST Office Visit [facility] Surgical Oncology [address] [place] [address] Cali Juarez MD [address] [place] [address] [email or web address] 05/22/2025 2:40 PM EST Office Visit [facility] Primary Care [address] [facility] [address] [place] [address] Yumi Chaudhary MD [address] [facility] [address] [place] [address] [email or web address] 09/18/2025 1:00 PM EDT Office Visit [facility] [address] [facility], 5th Floor, [address] [place] [address] Maynor Rojas MD, MPH [address] [facility] [address] [place] [address] [email or web address] Scheduled Procedures Name Priority Associated Diagnoses Date/Ti me ENDOSCOPIC RETROGRADE CHOLANGIOPANCREATOGRAPHY Cholangitis Health Maintenance Due Date Last Done Comments HIV ONE-TIME SCREENING (18-65 YEARS) 1978 COLONOSCOPY 2005 FIT TEST 2005 FOBT 2005 SIGMOIDOSCOPY 2005 VIRTUAL COLONOSCOPY 2005 COVID-19 VACCINE ( season) 2024 12/03/2023, 01/26/2023, 01/15/2022, Additional history exists COLOGUARD 06/17/2025 06/17/2022 COLORECTAL CANCER SCREENING 06/17/2025 DEPRESSION SCREENING 08/23/2025 08/23/2024 CREATININE LEVEL 02/23/2026 02/23/2025, , 02/21/2025, Additional history exists SCREENING FOR DIABETES 02/25/2028 02/24/2025 LIPID PANEL 06/11/2029 06/11/2024, 08, 12/01/2022, Additional history exists Adult Td,Tdap Booster 05/30/2033 05/30/2023 RSV VACCINE (1 - 1-dose 75+ series) 11/03/2035 ZOSTER VACCINES Completed 01/25/2018, 09/13/2017 HEPATITIS C SCREENING Completed 09/29/2020, 021 PNEUMOCOCCAL VACCINES (50+ years) Completed 12/15/2023 INFLUENZA VACCINE Completed 02/14/2025, , 01/26/2023, Additional history exists SMOKING STATUS SCREENING (Once After 26 Yrs) Completed 02/20/2025 HEPATITIS A VACCINES Aged Out No long [...] this topic Medical Devices Implanted Type Area Vulcanizer Device Identifier Shelf Expiration Date Model / Serial / Lot Device Closure Starclose 5-6fr Vascular J Tip Se Pin Inserter Exchange Sheath Dilator Nitinol Clip Femoral Artery - [id number] Implanted:Qty: 1 on 09/04/2020 by Cain Davis MD, PhD at [facility] [employer] [facility] Closure Device Right: Groin [employer] [id number] 07/03/2021 45042-29 / / [id number] Device Closure Starclose 5-6fr Vascular J Tip Se Pin Inserter Exchange Sheath Dilator Nitinol Clip Femoral Artery - [id number] Implanted:Qty: 1 on 09/30/2020 by Cain Davis MD, PhD at [facility] [employer] [facility] Closure Device Right: Femoral Artery [employer] [id number] / / Coil Concerto 8mm 30cm .021in Nylon Detachable [place] Embolization - [id number] Implanted:Qty: 1 on 09/04/2020 by Cain Davis MD, PhD at [employer] [facility] Coil N/A: Abdomen [employer] 12/20/2022 NV-8-30-HEL IX / / [id number] Description:GDA Coil Embolization .018in 3mm 2mm Microcoil Tornado Habematolel - [id number] Implanted:Qty: 1 on 10/04/2020 by Breann Quiroga MD at [facility] Coil N/A: Abdomen [employer]OOK [employer] 05/12/2025 [id number] / / [id number] Description:GDA Coil Embolization .018in 3mm 2mm Microcoil Tornado Habematolel - [id number] Implanted:Qty: 1 on 10/04/2020 by Breann Quiroga MD at [facility] Coil N/A: Abdomen [employer] 05/12/2025 [id number] / / [id number] Description:GDA Coil Embolization .018in 3mm 2mm Microcoil Tornado Habematolel - [id number] Implanted:Qty: 1 on 10/04/2020 by Breann Quiroga MD at [facility] Coil N/A: Abdomen [employer] 05/12/2025 [id number] / / [id number] Description:GDA Trufill N-Butyl Cyanoacrylate 1gr Liquid Embolic System Vial Bx/1ea - [id number] Implanted:Qty: 1 on 09/30/2020 by Cain Davis MD, PhD at [facility] Right: Liver [facility] [employer] [id number] 04/03/2022 [id number] / / [id number] Trufill N-Butyl Cyanoacrylate 1gr Liquid Embolic System Vial Bx/1ea - [id number] Implanted:Qty: 1 on 10/15/2020 by Breann Quiroga MD at [facility] Right: Splenic Flexure J [employer] [id number] 11/01/2021 [id number] / / [id number] Coil Embolization .018in 4mm 2mm Microcoil Tornado Habematolel - [id number] Implanted:Qty: 1 on 10/04/2020 by Breann Quiroga MD at [facility] STANDARD N/A: Abdomen [employer] 10/02/2024 [id number] / / [id number] Description:GDA Coil Embolization .018in 4mm 2mm Microcoil Tornado Habematolel - [id number] Implanted:Qty: 1 on 10/15/2020 by Breann Quiroga MD at [facility] STANDARD N/A: Arterial [employer] 10/02/2024 [id number] / / [id number] Description:IPDA Coil Embolization .018in 4mm 2mm Microcoil Tornado Habematolel - [id number] Implanted:Qty: 1 on 10/15/2020 by Breann Quiroga MD at [facility] STANDARD N/A: Arterial [employer] 09/20/2024 [id number] / / [id number] Description:IPDA Coil Embolization .018in 4mm 2mm Microcoil Tornado Habematolel - [id number] Implanted:Qty: 1 on 10/15/2020 by Breann Quiroga MD at [facility] STANDARD N/A: Arterial [employer] 09/20/2024 [id number] / / [id number] Description:IPDA Stent Tracheal 7fr 7mm 38mm 120cm Icast S/S Ptfe Filmcast Coated Balloon Expandable - [id number] Implanted:Qty: 1 on 09/14/2020 by Ankush Glover MD at [facility] Stent N/A: Liver [facility] [id number] 11/13/2022 [id number] / [id number] / Description:HEPATIC A Static magnetic field of 1.5 T or 3.0 T only. Maximum spatial gradient magnetic field of 3,000 gauss/cm (30 T/m). Maximum MR system-reported, whole-body averaged specific absorption rate (CONSUELO) of 2 W/Kg (Normal Operating Mode) https://www.accessdata.fda.gov/cdrh_docs/pdf12/V278394K.pdf Latham Suture 4.5mm Arthroscopy Reelx Stt Peek Ss Core Knotless Shapr Tip Expandable Bx/5ea - [id number] Implanted:Qty: 1 on 11/09/2018 by Jesse Farley DO at [facility] Right: Shoulder [employer] 07/10/2020 3910-600-06 2 / / [id number] Latham Suture 5.5mm Biozip Peek Cannulated Trocar Tip Bx/5ea - [id number] Implanted:Qty: 1 on 11/09/2018 by Jesse Farley DO at [facility] Right: Shoulder [employer] 12/13/2019 [id number] / / [id number] Latham Suture 4.5mm Arthroscopy Reelx Stt Peek Ss Core Knotless Shapr Tip Expandable Bx/5ea - [id number] Implanted:Qty: 2 on 11/09/2018 by Jesse Farley DO at [facility] Right: Shoulder [employer] 08/09/2020 3910-600-06 2 / / [id number] Coil Concerto 6mm 20cm 3d Fibered Pgla Helical Plat Detachable Embolization Sterile - [id number] Implanted:Qty: 1 on 09/04/2020 by Cain Davis MD, PhD at [facility] N/A: Abdomen [employer] 06/26/2023 PV-6-20-3D / / [id number] Description:GDA Coil Concerto 6mm 20cm 3d Fibered Pgla Helical Plat Detachable Embolization Sterile - [id number] Implanted:Qty: 1 on 09/04/2020 by Cain Davis MD, PhD at [facility] N/A: Abdomen [employer] 06/26/2023 PV-6-20-3D / / [id number] Description:GDA Mesh Surgical 43c20hn Phasix St Resorbable Rectangle - Sna Implanted:Qty: 1 on 09/19/2020 by Cali Juarez MD at [facility] N/A: Abdomen DAVOL 05/01/2022 [id number] / NA / [id number] Graft Mesh 58t80gh Phasix Synthetic Monofilament Woven Resorbable Rectangular - [id number] Implanted:Qty: 1 on 12/22/2021 by Eh Lovett MD at [facility] N/A: Abdomen [employer] INC [id number] 06/30/2023 [id number] / / [id number] Wire Viabil [id number] 200 Short Endoprosthesis Biliary - [id number] Implanted:Qty: 1 on 02/20/2025 by Eleazar Ghosh MD at [facility] Bile Duct [employer]MED CHRISTINA [id number] 08/23/2027 VSW [id number] / [id number] / [id number] Procedures Procedure Name Priority Date/Time Associated Diagnosis Comments POCT GLUCOSE Routine 02/24/2025 5:57 AM EST POCT GLUCOSE Routine 02/23/2025 11:58 PM EST POCT GLUCOSE Routine 02/23/2025 6:24 PM EST POCT GLUCOSE Routine 02/23/2025 12:34 PM EST BASIC METABOLIC PANEL (BMP) Routine 02/03 8:31 AM EST MAGNESIUM Routine 02/23/2025 8:31 AM EST PT-INR Routine 02/23/2025 8:31 AM EST PHOSPHORUS Routine 02/23/2025 8:31 AM EST POCT GLUCOSE Routine 02/23/2025 5:22 AM EST POCT GLUCOSE Routine 02/22/2025 11:15 PM EST POCT GLUCOSE Routine 02/22/2025 5:55 PM EST POCT GLUCOSE Routine 02/22/2025 11:53 AM EST BASIC METABOLIC PANEL (BMP) Routine 02/03 5:36 AM EST CBC Routine 02/22/2025 5:36 AM EST MAGNESIUM Routine 02/22/2025 5:36 AM EST PT-INR Routine 02/22/2025 5:36 AM EST PHOSPHORUS Routine 02/22/2025 5:36 AM EST POCT GLUCOSE Routine 02/22/2025 5:32 AM EST POCT GLUCOSE Routine 02/21/2025 10:56 PM EST POCT GLUCOSE Routine 02/21/2025 8:28 PM EST POCT GLUCOSE Routine 02/21/2025 6:19 PM EST POCT GLUCOSE Routine 02/21/2025 11:59 AM EST LFTS (HEPATIC PANEL) Routine 02/21/2025 8:45 AM EST LIPASE STAT 02/21/2025 8:45 AM EST LAB ADD-ON Routine 02/21/2025 8:27 AM EST POCT GLUCOSE Routine 02/21/2025 6:32 AM EST BLOOD CULTURE, ROUTINE Routine 6:24 AM EST PTT Timed 02/21/2025 6:20 AM EST BLOOD CULTURE, ROUTINE Routine 6:20 AM EST LFTS (HEPATIC PANEL) Routine 02/21/2025 3:12 AM EST BASIC METABOLIC PANEL (BMP) Routine 02/03 3:12 AM EST CBC Routine 02/21/2025 3:12 AM EST CREATININE WITH ESTIMATED GLOMERULAR FILTRATION RATE (EGFR) Routine 02/21/2025 3:12 AM EST MAGNESIUM Routine 02/21/2025 3:12 AM EST PT-INR Routine 02/21/2025 3:12 AM EST PHOSPHORUS Routine 02/21/2025 3:12 AM EST POCT GLUCOSE Routine 02/20/2025 11:57 PM EST PTT Timed 02/20/2025 11:52 PM EST POCT GLUCOSE Routine 02/20/2025 5:40 PM EST AIRWAY PLACEMENT Routine 02/20/2025 4:01 PM EST ENDOSCOPIC RETROGRADE CHOLANGIOPANCREATOGRAPHY 02/20/2025 3:47 PM EST Elevated LFTs POINT OF CARE IMAGE CAPTURE Routine 02/02 3:38 PM EST ENDOSCOPY PROCEDURE 02/20/2025 3 :17 PM EST POCT GLUCOSE Routine 02/20/2025 11:25 AM EST PTT Timed 02/20/2025 8:07 AM EST LACTIC ACID (LACTATE) STAT 02/20/2025 5:56 AM EST BLOOD CULTURE, ROUTINE STAT 5:22 AM EST BLOOD CULTURE ORGANISM ID PCR Today 5:19 AM EST BLOOD CULTURE, ROUTINE STAT 5:19 AM EST POCT GLUCOSE Routine 02/20/2025 5:07 AM EST OXYGEN SATURATION, ARTERIAL Routine 02/02 5:03 AM EST HEMOGLOBIN (BLOOD GAS) Routine 5:03 AM EST GLUCOSE (BLOOD GAS) Routine 02/20/2025 5 :03 AM EST IONIZED CALCIUM Routine 02/20/2025 5:03 AM EST CHLORIDE, WHOLE BLOOD Routine 02/20/2025 5:03 AM EST POTASSIUM (BLOOD GAS) Routine 02/20/2025 5:03 AM EST SODIUM, BLOOD GAS Routine 02/20/2025 5:0 3 AM EST ARTERIAL BLOOD GAS Routine 02/20/2025 5: 03 AM EST LFTS (HEPATIC PANEL) Routine 02/20/2025 3:22 AM EST BASIC METABOLIC PANEL (BMP) Routine 02/02 3:22 AM EST CREATININE WITH ESTIMATED GLOMERULAR FILTRATION RATE (EGFR) Routine 02/20/2025 3:22 AM EST PT-INR Routine 02/20/2025 3:22 AM EST PHOSPHORUS Routine 02/20/2025 3:22 AM EST MAGNESIUM Routine 02/20/2025 3:22 AM EST CBC Routine 02/20/2025 3:22 AM EST PTT Timed 02/20/2025 3:22 AM EST PTT Timed 02/20/2025 2:12 AM EST VANCOMYCIN, TROUGH Timed 02/20/2025 2: 12 AM EST POCT GLUCOSE Routine 02/20/2025 12:04 AM EST LACTIC ACID (LACTATE) Routine 02/19/2025 11:59 PM EST XR CHEST PORTABLE STAT 02/19/2025 6:5 4 PM EST (1,3) [id number] (FUNGITELL) Routine 02/19/2025 6:10 PM EST LFTS (HEPATIC PANEL) Routine 02/19/2025 6:10 PM EST LACTIC ACID (LACTATE) STAT 02/19/2025 6:10 PM EST BASIC METABOLIC PANEL (BMP) Routine 02/02 6:10 PM EST GALACTOMANNAN, BLOOD Routine 02/19/2025 6:10 PM EST US BEDSIDE STAT 02/19/2025 5:[address] ABDOMEN/PELVIS (LIVER) WI TH CONTRAST STAT 02/19/2025 1:19 PM EST RED BLOOD CELL (RBC) MORPHOLOGY STAT 02/19/2025 11:32 AM EST DIFFERENTIAL, MANUAL (SYSMEX) STAT 11:32 AM EST LFTS (HEPATIC PANEL) STAT 02/19/2025 11:32 AM EST LACTIC ACID (LACTATE) STAT 02/19/2025 11:32 AM EST TYPE AND SCREEN (ABO, RH, ANTIBODY SCREEN) Routine 02/19/2025 11:32 AM EST CBC AND DIFFERENTIAL STAT 02/19/2025 11:32 AM EST PT-INR STAT 02/19/2025 11:32 AM EST TYPE AND SCREEN (ABO,RH,ANTIBODY SCREEN) Routine 02/19/2025 11:32 AM EST CBC AND DIFFERENTIAL STAT 02/19/2025 11:32 AM EST PHOSPHORUS STAT 02/19/2025 11:32 AM EST MAGNESIUM STAT 02/19/2025 11:32 AM EST BASIC METABOLIC PANEL (BMP) STAT 02/02 11:32 AM EST PTT Timed 02/19/2025 11:32 AM EST POINT OF CARE IMAGE CAPTURE Routine 02/02 11:15 AM EST VANCOMYCIN RESISTANT ENTEROCOCCI (VRE) RECTAL SCREEN Routine 02/19/2025 10:54 AM EST MRSA NASAL SCREEN Routine 02/19/2025 10:54 AM EST BLOOD CULTURE, ROUTINE STAT 3:01 AM EST BLOOD CULTURE, ROUTINE STAT 3:01 AM EST URINALYSIS WITH REFLEX TO URINE CULTURE STAT 02/19/2025 2:14 AM EST SARS-COV-2, INFLUENZA A/B, P CR LUZ MARINA STAT 02/19/2025 2:05 AM EST COVID PANDEMIC RESPIRATORY VIRAL ORDER (PRO) STAT 02/19/2025 2:[address] ABDOMEN/PELVIS WITHOUT CONTRAST Routine 02/18/2025 11:34 PM EST LACTATE (BLOOD GAS) STAT 02/18/2025 10:18 PM EST CBC AND DIFFERENTIAL STAT 02/18/2025 9:26 PM EST LIPASE STAT 02/18/2025 9:26 PM EST LFTS (HEPATIC PANEL) STAT 02/18/2025 9:26 PM EST BASIC METABOLIC PANEL (BMP) STAT 02/02 9:26 PM EST CBC AND DIFFERENTIAL STAT 02/18/2025 9:26 PM EST ECG 12-LEAD STAT 02/18/2025 9:06 PM EST OUTSIDE LAB Routine 02/11/2025 1:44 PM EST OUTSIDE LAB Routine 02/11/2025 12:27 PM EST LIPID PANEL Routine 06/11/2024 2:20 PM EDT Hyperlipidemia HEPATITIS C GENOTYPING Routine 2:32 PM EDT from Last 3 Months or Most Recently Relevant to Health Maintenance Results * (ABNORMAL) POCT Glucose (02/24/2025 5:57 AM EST) Only the most recent of19 resultswithin the time period is included. Glucose 120(H) 70 - 99 mg/dL 02/24/2025 5:58 AM EST [facility] Blood (Blood) 02/24/2025 5:5 7 AM EST 02/24/2025 5:58 AM EST us Cali Juarez MD LAB POCT DOCKED DEVICE U NSOLICTED RESULTS Final Result Performing Organization Address [facility] de Phone Number [facility] [address] [place] [address] * (ABNORMAL) PT-INR (02/23/2025 8:31 AM EST) Only the most recent of5 resultswithin the time period is included. Pathologist [facility] PT 14.3(H) 10.0 - 13.0 sec 02/23/2025 9:56 AM EST [facility] INR 1.3(H) 0.9 - 1.1 02/23/2025 9:56 AM EST [facility] Comment:Therapeutic Range 2. 0 - 3.5 Blood (Blood) Venipuncture / Unknown 02/23/2025 8:31 AM EST 02/23/2025 9:29 AM EST us Chu Blank PA-C LAB BLOOD BKR ORDERABLE S Final Result Performing Organization Address City/[facility] Co de Phone Number [facility] [address] [place], [place] [id number] * Phosphorus (02/23/2025 8:31 AM EST) Only the most recent of5 resultswithin the time period is included. Phosphorus 2.7 2.5 - 4.5 mg/dL 02/23/2025 11:09 AM EST [facility] Blood (Blood) Venipuncture / Unknown 02/23/2025 8:31 AM EST 02/23/2025 9:22 AM EST Chu Blank PA-C LAB BLOOD BKR ORDERABLE S Final Result Performing Organization Address [facility]/ZIP Co de Phone Number [id number] [address] [address] * Magnesium (02/23/2025 8:31 AM EST) Only the most recent of5 resultswithin the time period is included. Magnesium 1.8 1.7 - 2.6 mg/dL 02/23/2025 10:35 AM EST [facility] Blood (Blood) Venipuncture / Unknown 02/23/2025 8:31 AM EST 02/23/2025 9:22 AM EST Lianne Allison PA-C LAB BLOOD BKR ORDERABL ES Final Result Performing Organization Address [facility] de Phone Number [address] [address] * (ABNORMAL) Basic Metabolic Panel (BMP) (02/23/2025 8:31 AM EST) Only the most recent of7 resultswithin the time period is included. Sodium 140 136 - 145 mmol/L 02/23/2025 10:35 AM EST [facility] Potassium 4.2 3.4 - 5.1 mmol/L 02/23/2025 10:35 AM EST [facility] Chloride 107 98 - 107 mmol/L 02/23/2025 10:35 AM EST [facility] CO2 25 20 - 31 mmol/L 02/23/2025 10:35 AM EST [facility] Anion Gap 8 3 - 17 mmol/L 02/23/2025 10:35 AM EST [facility] BUN 17 6 - 23 mg/dL 02/23/2025 10:35 AM EST [facility] Creatinine 0.74 0.60 - 1.30 mg/dL 02/23/2025 10:35 AM EST [facility] eGFR 101 >59 mL/min/1.7 3m2 02/23/2025 10:35 AM EST [facility] Comment:Estimated glomerular filtration rate calculated using the CKD-EPI refit equation. Glucose 123(H) 70 - 99 mg/dL 02/23/2025 10:35 AM EST [facility] Calcium 7.8(L) 8.5 - 10.5 mg/dL 02/23/2025 10:35 AM EST [facility] Blood (Blood) Venipuncture / Unknown 02/23/2025 8:31 AM EST 02/23/2025 9:22 AM EST us Cali Juarez MD LAB BLOOD BKR ORDERABLES Final Result Performing Organization Address City/State/[facility] Co de Phone Number [facility] [address] [place] [phone] * (ABNORMAL) CBC (02/22/2025 5:36 AM EST) Only the most recent of3 resultswithin the time period is included. WBC 8.56 4.00 - 11.00 K/uL 02/22/2025 6:33 AM EST [facility] RBC 3.56(L) 4.50 - 5.90 M/uL 02/22/2025 6:33 AM EST [facility] Hemoglobin 11.2(L) 13.5 - 17.5 g/dL 02/22/2025 6:33 AM EST [facility] Hematocrit 34.3(L) 41.0 - 53.0 % 02/22/2025 6:33 AM EST [facility] MCV 96.3 80.0 - 100.0 fL 02/22/2025 6:33 AM EST [facility] MCH 31.5(H) 27.0 - 31.0 pg 02/22/2025 6:33 AM EST [facility] MCHC 32.7 32.0 - 36.0 g/dL 02/22/2025 6:33 AM EST [facility] PLT 91(L) 150 - 450 K/uL 02/22/2025 6:33 AM EST [facility] MPV 10.1 8.4 - 12.0 fL 02/22/2025 6:33 AM EST [facility] RDW-CV 13.1 11.5 - 14.5 % 02/22/2025 6:33 AM EST [facility] Absolute NRBC 0.00 <=0.00 K cells/uL 02/22/2025 6:33 AM EST [facility] NRBC 0.0 <=0.0 /100 WBCs 02/22/2025 6:33 AM EST [facility] Blood (Blood) Catheter/Line / Unknown 02/22/2025 5:36 AM EST 02/22/2025 6:19 AM EST Lianne Allison PA-C LAB BLOOD BKR ORDERABL ES Final Result Performing Organization Address City/State/[facility] Co de Phone Number [facility] [address] [place] [phone] * (ABNORMAL) Hepatic Panel (LFTs) (02/21/2025 8:45 AM EST) Only the most recent of6 resultswithin the time period is included. AST 37 10 - 50 U/L 02/21/2025 9:40 AM EST [facility] ALT 196(H) 10 - 50 U/L 02/21/2025 9:40 AM EST [facility] Alkaline Phosphatase 115 40 - 130 U/L 02/21/2025 9:40 AM EST [facility] Bilirubin, Total 0.8 0.0 - 1.2 mg/dL 02/21/2025 9:40 AM EST [facility] Bilirubin, Direct 0.4(H) 0.0 - 0.3 mg/dL 02/21/2025 9:40 AM EST [facility] Total Protein 5.2(L) 6.4 - 8.3 g/dL 02/21/2025 9:40 AM EST [facility] Albumin 3.1(L) 3.5 - 5.2 g/dL 02/21/2025 9:40 AM EST [facility] Globulin 2.1 1.9 - 4.1 g/dL 02/21/2025 9:40 AM EST [facility] Blood (Blood) Catheter/Line / Unknown 02/21/2025 8:45 AM EST 02/21/2025 9:12 AM EST Kierra Gray MD LAB BLOOD BKR ORDERABL ES Final Result Performing Organization Address [facility] [place] [address] * Lipase (02/21/2025 8:45 AM EST) Only the most recent of2 resultswithin the time period is included. Lipase 20 13 - 60 U/L 02/21/2025 9:40 AM EST [facility] Blood (Blood) Catheter/Line / Unknown 02/21/2025 8:45 AM EST 02/21/2025 9:12 AM EST Cali Juarez MD LAB BLOOD BKR ORDERABLES Final Result Performing Organization Address [facility] [place] [address] * Lab Add-On (02/21/2025 8:27 AM EST) Specimen Date/Time 02/21/2025 8:55 AM EST [facility] Test Requested hepatic function pane; 02/21/2025 8:55 AM EST [facility] Specimen Description 02/21/2025 8:55 AM EST [facility] Comments 02/21/2025 8:55 AM EST [facility] Was this request processed? Yes 02/21/2025 8:55 AM EST [facility] Other (Other) 02/21/2025 8:2 7 AM EST 02/21/2025 8:27 AM EST Cali Juarez MD LAB GENERAL ORDERABLES F inal Result Performing Organization Address [facility] de Phone Number [facility] [address] [place] [address] * Blood Culture, Routine (02/21/2025 6:24 AM EST) Only the most recent of6 resultswithin the time period is included. Blood Culture/Test No growth at 5 days 02/26/2025 6:55 AM EST [facility] Blood (Blood) Venipuncture / Unknown 02/21/2025 6:24 AM EST 02/21/2025 6:50 AM EST Cali Juarez MD LAB MICROBIOLOGY CULTURE ORDERABLES Final Result Performing Organization Address [facility] de Phone Number [address] [address] * (ABNORMAL) PTT (02/21/2025 6:20 AM EST) Only the most recent of6 resultswithin the time period is included. PTT 41.6(H) 24.0 - 37.5 sec 02/21/2025 7:41 AM EST [facility] Comment:See MAR for therapeu tic range. Emicizumab (Hemlibra) treatment can result in falsely lowered aPTT test results. Blood (Blood) Catheter/Line / Unknown 02/21/2025 6:20 AM EST 02/21/2025 7:00 AM EST Chu Blank PA-C LAB BLOOD BKR ORDERABLE S Final Result Performing Organization Address [facility] de Phone Number [address] [address] * Creatinine with Estimated Glomerular Filtration Rate (eGFR) (02/21/2025 3:12 AM EST) Only the most recent of2 resultswithin the time period is included. Creatinine 0.77 0.60 - 1.30 mg/dL 02/21/2025 4:12 AM EST [facility] eGFR 100 >59 mL/min/1.7 3m2 02/21/2025 4:12 AM EST [facility] Comment: Estimated glomerular filtration rate calculated using the CKD-EPI refit equation. Estimated glomerular filtration rate calculated using the CKD-EPI refit equation. Blood (Blood) Catheter/Line / Unknown 02/21/2025 3:12 AM EST 02/21/2025 3:32 AM EST Lianne Allison PA-C LAB BLOOD BKR ORDERABL ES Final Result [facility] [address] [place] [address] * ANES ETT DOUBLE LUMEN - AIRWAY LDA (02/20/2025 4:01 PM EST) Narrative Uri Valenzuela CRNA - 02/20/2025 4:01 PM EST Uri Valenzuela CRNA 02/20/2025 4:09 PM Airway Placement Procedure Note: Patient was not difficult to intubate. Procedure performed by: fellow/resident/INSPECTOR WIRE ROPE Anesthesiologist: Chad Oneill MD Fellow/Resident/INSPECTOR WIRE ROPE: Uri Valenzuela CRNA Airway procedure initiated at:02/20/2025 4:01 PM and ended at. Personal Protective Equipment: Mask: surgical mask Gloves: gloves Mask Ventilation: Quality: easy Adjunct: muscle relaxant Airway Placement: Technique: direct laryngoscopy Rapid sequence induction: no Details: Blade type: Mac Blade size: 3 Direct view: grade 1 Number of attempts: 1 ETT type: cuffed ETT size: 7.0 ETT depth at teeth: 21 Tube position confirmed by: EtCO2 and bilateral breath sounds Outcomes: Evidence of dental injury? no Complications observed? no Chad Oneill MD [place] ANESTHESIA Final Result * Point of Care Image Capture (02/20/2025 3:38 PM EST) Cali Juarez MD IMG POINT OF CARE EXAMS Final Result * ENDOSCOPY PROCEDURE (02/20/2025 3:17 PM EST) 02/20/2025 3:17 PM EST Narrative Transcriptions Eleazar Ghosh MD - 02/20/2025 3:17 PM EST [facility] Patient Name: Robert Griffin Procedure Date: 02/20/2025 3:17 PM Date of : 1960 Admit Type: Inpatient Age: 64 Room: 8 Gender: Male Note Status: Finalized Attending MD: ELEAZAR GHOSH MD, [id number] Instrument Name: [id number] Procedure: ERCP Indications: For therapy of ascending cholangitis Patient Profile: This is a 64 year old male. Refer to note in patient chart for documentation of history and physical. Providers: ELEAZAR GHOSH MD, Srikanth Osuna MD [id number] (Fellow), Mavis Wolfe RN Referring MD: Yumi Chaudhary (Referring MD) Medicines: General Anesthesia Complications: No immediate complications. Procedure: Pre-Anesthesia Assessment: - See the [facility] pre-procedure note for documentation of the pre-procedure assessment. After obtaining informed consent, the scope was passed under direct vision. Throughout the procedure, the patient's blood pressure, pulse, and oxygen saturations were monitored continuously. The Colonoscope was introduced through the mouth, and advanced to the duodenum and used to inject contrast into the bile duct. The ERCP was accomplished without difficulty. The patient tolerated the procedure well. Findings: A shipwright apprentice film of the abdomen was obtained. A hepatic artery stent was seen. The esophagus was successfully intubated under direct vision without detailed examination of the pharynx, larynx, and associated structures. A hybrid colonoscope was used for the examination of the upper gastrointestinal tract. The scope was passed under direct vision through the upper GI tract. The examined esophagus was normal. Evidence of a gastrojejunostomy revision to Ozzie-en-Y reconstruction was found in the stomach. This was characterized by healthy appearing mucosa. The J-J anastomosis was reached and the hepatobiliary limb was selectively accessed. The hepaticojejunostomy was identified. A 0.035 inch MetroWire (Cook) was passed into the biliary tree. The 8.5 mm balloon was passed over the guidewire and the bile duct was then deeply cannulated. Contrast was injected. I personally interpreted the bile duct images. Ductal flow of contrast was adequate. Image quality was adequate. Contrast extended to the hepatic ducts. The post-transplant anastomosis contained a single moderate stenosis. One 10 mm by 4 cm covered metal biliary stent (Viabil) was placed into the hepaticojejunostomy. The stent was in good position. The mucosa 3 cm proximal to the hepaticojejunostomy was successfully injected with 3 Spot (carbon black) for tattooing. The entrance to the hepaticojejunostomy was also tattooed with Spot (carbon black). Impression: - Normal esophagus. - A gastrojejunostomy revision to Ozzie-en-Y reconstruction was found. - A single moderate biliary stricture was found at the hepaticojejunostomy. A 10 mm x 4 cm covered metal biliary stent (Viabil) was placed across the stricture. - Tattoos placed at the hepaticojejunostomy and entrance to the hepatobiliary limb. Recommendation: - Return patient to ICU for ongoing care. - Ok to resume anticoagulation immediately. - Ok to resume previous diet. - Watch for pancreatitis, bleeding, perforation, and cholangitis. - Repeat ERCP in 1-2 months. Attending Participation: I was present and participated during the entire procedure, including non-love portions. ELEAZAR GHOSH M.D. [id number] ELEAZAR GHOSH MD 02/22/2025 1:57:02 PM This report has been signed electronically. Srikanth Osuna MD [id number] Number of Addenda: 0 Note Initiated On: 02/20/2025 3:17 PM us Yumi Chaudhary MD GI PROCEDURE ORDERABLES Final Re sult * Lactate (02/20/2025 5:56 AM EST) Only the most recent of4 resultswithin the time period is included. Lactate 1.8 0.5 - 2.0 mmol/L 02/20/2025 6:42 AM EST [facility] Blood (Blood) Catheter/Line / Unknown 02/20/2025 5:56 AM EST 02/20/2025 6:07 AM EST us Lianne Allison PA-C LAB BLOOD BKR ORDERABL ES Final Result [facility] [address] [place] [phone] * (ABNORMAL) BLOOD CULTURE ORGANISM IDENTIFICATION, PCR (02/20/2025 5:19 AM EST) Bottle Type Anaerobic Bottle 02/21/2025 7:13 AM EST [facility] Staphylococcus species Not Detected Not Detected 02/21/2025 7:13 AM [facility] --Staphylococcus aureus Not Detected Not Detected 02/21/2025 7:13 AM [facility] --Staphylococcus epidermidis Not Detected Not Detected 02/21/2025 7:13 AM [facility] --Staphylococcus lugdunensis Not Detected Not Detected 02/21/2025 7:13 AM [facility] --Enterococcus faecalis Not Detected Not Detected 02/21/2025 7:13 AM [facility] --Enterococcus faecium Not Detected Not Detected 02/21/2025 7:13 AM [facility] Streptococcus species Not Detected Not Detected 02/21/2025 7:13 AM [facility] --Streptococcus pyogenes (Group A) Not Detected Not Detected 02/21/2025 7:13 AM [facility] --Streptococcus agalactiae (Group B) Not Detected Not Detected 02/21/2025 7:13 AM [facility] --Strep pneumoniae Not Detected Not Detected 02/21/2025 7:13 AM [facility] Enterobacterales Family Detected(A) Not Detected 02/21/2025 7:13 AM [facility] Comment:Enterobacterales det ected at a FAMILY level. Additional assays below may further specify the organism but do not rule out co-infection with additional Enterobacterales not on this panel. If detected alone, it suggests the presence of a less common Enterobacterales organism. --Enterobacter cloacae complex Not Detected Not Detected 02/21/2025 7:13 AM [facility] --Escherichia coli Not Detected Not Detected 02/21/2025 7:13 AM [facility] --Klebsiella aerogenes Not Detected Not Detected 02/21/2025 7:13 AM [facility] --Klebsiella oxytoca Not Detected Not Detected 02/21/2025 7:13 AM [facility] --Klebsiella pneumoniae Detected(A) Not Detected 02/21/2025 7:13 AM [facility] --Proteus species Not Detected Not Detected 02/21/2025 7:13 AM [facility] --Salmonella species Not Detected Not Detected 02/21/2025 7:13 AM [facility] --Serratia marcescens Not Detected Not Detected 02/21/2025 7:13 AM EST [facility] CTX-M-ESBL Not Detected Not Detected 02/21/2025 7:13 AM EST [facility] KPC Carbapenem Resistance Gene Not Detected Not Detected 02/21/2025 7:13 AM EST [facility] IMP Carbapenem Resistance Gene Not Detected Not Detected 02/21/2025 7:13 AM EST [facility] Oxa-48-Like Resistance Not Detected Not Detected 02/21/2025 7:13 AM EST [facility] NDM Carbapenem Resistance Gene Not Detected Not Detected 02/21/2025 7:13 AM EST [facility] VIM Carbapenem Resistance Gene Not Detected Not Detected 02/21/2025 7:13 AM EST [facility] MCR-1 Colistin Resistance Gene Not Detected Not Detected 02/21/2025 7:13 AM EST [facility] Pseudomonas aeruginosa Not Detected Not Detected 02/21/2025 7:13 AM EST [facility] Acinetobacter baumannii Not Detected Not Detected 02/21/2025 7:13 AM EST [facility] Stenotrophomonas maltophilia Not Detected Not Detected 02/21/2025 7:13 AM EST [facility] Listeria monocytogenes Not Detected Not Detected 02/21/2025 7:13 AM EST [facility] Bacteroides fragilis Not Detected Not Detected 02/21/2025 7:13 AM EST [facility] Haemophilus influenzae Not Detected Not Detected 02/21/2025 7:13 AM EST [facility] Neisseria meningitidis Not Detected Not Detected 02/21/2025 7:13 AM EST [facility] Mayra albicans Not Detected Not Detected 02/21/2025 7:13 AM EST [facility] Mayra auris Not Detected Not Detected 02/21/2025 7:13 AM EST [facility] Mayra glabrata Not Detected Not Detected 02/21/2025 7:13 AM EST [facility] Mayra krusei Not Detected Not Detected 02/21/2025 7:13 AM EST [facility] Mayra parapsilosis Not Detected Not Detected 02/21/2025 7:13 AM EST [facility] Mayra tropicalis Not Detected Not Detected 02/21/2025 7:13 AM EST [facility] Cryptococcus neoformans/gattii Not Detected Not Detected 02/21/2025 7:13 AM EST [facility] Additional Information 02/21/2025 7:13 AM EST [facility] Comment:For additional infor mation, see the [facility] BCID2 Guidelines located at the following URL [email or web address] Blood (Blood) Venipuncture / Unknown 02/20/2025 5:19 AM EST 02/20/2025 5:40 AM EST Lianne Allison PA-C LAB GENERAL ORDERABLES Final Result Performing Organization Address [facility] [place] [address] * Arterial Oxygen Saturation (02/20/2025 5:03 AM EST) Oxygen Saturation, Arterial 95.5 93.0 - 97.5 % 02/20/2025 5:22 AM EST [facility] Blood (Blood, Arterial) Catheter/Line / Unknown 02/20/2025 5:03 AM EST 02/20/2025 5:14 AM EST Cali Juarez MD LAB BLOOD BKR ORDERABLES Final Result Performing Organization Address [facility] de Phone Number [place] [phone] * Sodium, Whole Blood (02/20/2025 5:03 AM EST) Sodium, Whole Blood 136 136 - 145 mmol/L 02/20/2025 5:22 AM EST [facility] Blood (Blood, Arterial) Catheter/Line / Unknown 02/20/2025 5:03 AM EST 02/20/2025 5:14 AM EST Cali Juarez MD LAB BLOOD BKR ORDERABLES Final Result Performing Organization Address [facility] de Phone Number [address] [address] * (ABNORMAL) HEMOGLOBIN, WHOLE BLOOD (02/20/2025 5:03 AM EST) Hemoglobin, Blood Gas 11.7(L) 13.5 - 17.5 g/dl 02/20/2025 5:22 AM EST [facility] Hematocrit, Blood Gas 36.2(L) 41.0 - 53.0 % 02/20/2025 5:22 AM EST [facility] Blood (Blood, Arterial) Catheter/Line / Unknown 02/20/2025 5:03 AM EST 02/20/2025 5:14 AM EST Cali Juarez MD LAB BLOOD BKR ORDERABLES Final Result [facility] [address] [place] [id number] * (ABNORMAL) Chloride, Whole Blood (02/20/2025 5:03 AM EST) Chloride, Whole Blood 111(H) 98 - 107 mmol/L 02/20/2025 5:22 AM EST [facility] [employer] Blood (Blood, Arterial) Catheter/Line / Unknown 02/20/2025 5:03 AM EST 02/20/2025 5:14 AM EST Cali Juarez MD LAB BLOOD BKR ORDERABLES Final Result Performing Organization Address [facility] Co de Phone Number [address] [address] * (ABNORMAL) GLUCOSE, WHOLE BLOOD (02/20/2025 5:03 AM EST) Glucose, Whole Blood 150(H) 70 - 99 mg/dl 02/20/2025 5:22 AM EST [facility] [employer] Blood (Blood, Arterial) Catheter/Line / Unknown 02/20/2025 5:03 AM EST 02/20/2025 5:14 AM EST Cali Juarez MD LAB BLOOD BKR ORDERABLES Final Result Performing Organization Address City/[facility]/ZIP Co de Phone Number [address] [address] * POTASSIUM, WHOLE BLOOD (02/20/2025 5:03 AM EST) Potassium, Whole Blood 3.9 3.4 - 5.1 mmol/L 02/20/2025 5:22 AM EST [facility] Blood (Blood, Arterial) Catheter/Line / Unknown 02/20/2025 5:03 AM EST 02/20/2025 5:14 AM EST Cali Juarez MD LAB BLOOD BKR ORDERABLES Final Result Performing Organization Address [facility] de Phone Number [address] [address] * Arterial Blood Gas (ABG) (02/20/2025 5:03 AM EST) Pathologist [facility] O2 Flow (L/min) 5:22 AM EST [facility] Comment:Left side pH, Arterial 7.44 7.35 - 7.45 02/20/2025 5:22 AM EST [facility] pCO2, Arterial 36 36 - 47 mm[Hg] 02/20/2025 5:22 AM EST [facility] pO2, Arterial 73 65 - 95 mm[Hg] 02/20/2025 5:22 AM EST [facility] Bicarbonate (HCO3) 24 20 - 31 mmol/L 02/20/2025 5:22 AM EST [facility] Base Excess 0.6 -3.0 - 3.0 mmol/L 02/20/2025 5:22 AM EST [facility] Oxygen Saturation, Arterial 95.5 93.0 - 97.5 % 02/20/2025 5:22 AM EST [facility] Blood (Blood, Arterial) Catheter/Line / Unknown 02/20/2025 5:03 AM EST 02/20/2025 5:14 AM EST Cali Juarez MD LAB BLOOD BKR ORDERABLES Final Result Performing Organization Address [facility] de Phone Number [address] [address] * (ABNORMAL) Ionized Calcium (02/20/2025 5:03 AM EST) Ionized Calcium 1.12(L) 1.13 - 1.32 mmol/L 02/20/2025 5:22 AM EST [facility] Blood (Blood, Arterial) Catheter/Line / Unknown 02/20/2025 5:03 AM EST 02/20/2025 5:14 AM EST Cali Juarez MD LAB BLOOD BKR ORDERABLES Final Result Performing Organization Address [facility]/ZIP Co de Phone Number [facility] [address] [place] [id number] * (ABNORMAL) Vancomycin Level, Trough (02/20/2025 2:12 AM EST) Vancomycin, Trough 8.2(L) 10.0 - 20.0 ug/mL 02/20/2025 2:54 AM EST [facility] Blood (Blood) Catheter/Line / Unknown 02/20/2025 2:12 AM EST 02/20/2025 2:26 AM EST Lianne Allison PA-C LAB BLOOD BKR ORDERABL ES Final Result Performing Organization Address [facility] de Phone Number [address] [address] * XR Chest Portable (02/19/2025 6:54 PM EST) Anatomical Region Laterality Modality Chest Computed Radiogr aphy 02/19/2025 6:56 PM EST Impressions 02/20/2025 8:00 AM EST Interval insertion of right internal jugular central venous catheter with tip projecting over the lower SVC. No pneumothorax. ATTESTATION: Felipe Carrasquillo, as teaching physician have reviewed the images, if any, for this patient's exam, and if necessary, have edited the report originally created by Sandrita Melton. Narrative 02/20/2025 8:00 AM EST XR CHEST PORTABLE Referring clinician's provided indication for this examination in Epic: Central Line COMPARISON: XR CHEST PORTABLE FINDINGS: Devices/Tubes/Lines: Interval insertion of right internal jugular central venous catheter with tip projecting over the lower SVC. Lungs: Right basilar atelectasis. No focal consolidation or pulmonary edema. Pleura: Elevated right hemidiaphragm. No pleural effusion or pneumothorax. Heart/Mediastinum: Enlarged cardiac silhouette. Bones/Soft Tissues: No significant skeletal abnormality. Procedure Note Felipe Cast MD - 02/20/2025 XR CHEST PORTABLE Referring clinician's provided indication for this examination in [facility]:Central Line COMPARISON: XR CHEST PORTABLE FINDINGS: Devices/Tubes/Lines: Interval insertion of right internal jugular centralvenous catheter with tip projecting over the lower SVC. Lungs: Right basilar atelectasis. No focal consolidation or pulmonaryedema. Pleura: Elevated right hemidiaphragm. No pleural effusion orpneumothorax. Heart/Mediastinum: Enlarged cardiac silhouette. Bones/Soft Tissues: No significant skeletal abnormality. IMPRESSION: Interval insertion of right internal jugular central venous catheter withtip projecting over the lower SVC. No pneumothorax. ATTESTATION: Felipe Carrasquillo, as teaching physician have reviewed theimages, if any, for this patient's exam, and if necessary, have edited thereport originally created by Sandrita Melton. Lianne Allison PA-C IMG XR CHEST Final Result * (1,3) Uivm-Y-Moefsh (Fungitell) (02/19/2025 6:10 PM EST) Fungitell Quantitative Value 31 <60 pg/mL pg/mL 02/22/2025 12:40 AM EST [facility] Fungitell Qualitative Result Negative Negative 02/22/2025 12:40 AM EST [facility] Comment: No (1, 3) Ckqh-X-Dgepju detected. This assay does not detect certain fungi, including Cryptococcus species, which produce very low levels of (1, 3) Nknc-H-Orccfa (BDG) and the Mucorales (e.g., Lichthemia, Mucor and Rhizopus), which are not known to produce BDG. Additionally, the yeast phase of Blastomyces dermatitidis produces little BDG and may not be detected by this assay. ADDITIONAL INFORMATION This assay was performed using the FDA-cleared Fungitell Assay ([facility], [place], [place], [place]), a kinetic ADRIA based on modification of the Limulus Amebocyte Lysate pathway. Blood (Blood) Catheter/Line / Unknown 02/19/2025 6:10 PM EST 02/19/2025 6:36 PM EST [facility] BKR ORDERABL ES Final Result [facility] [address] [phone] * Galactomannan, Blood (02/19/2025 6:10 PM EST) Galactomannan 0.08 0.00 - 0.49 INDEX 02/20/2025 1:22 PM EST [facility] Blood (Blood) Catheter/Line / Unknown 02/19/2025 6:10 PM EST 02/19/2025 6:37 PM EST [facility] PIMENTEL-C LAB BLOOD BKR ORDERABL ES Final Result [facility] [address] [place] [address] * Bedside Ultrasound (02/19/2025 5:13 PM EST) Cali Juarez MD IMG POINT OF CARE EXAMS Final Result * CT ABDOMEN/PELVIS (LIVER) WITH CONTRAST (02/19/2025 1:19 PM EST) MGB IMG A R SPECIALIST COMMENT decreasing gas in the liver. Findings which may represent acute cholangitis.Le ft portal vein branch thrombosis. [facility] Anatomical Region Laterality Modality Abdomen, Pelvis Computed Tomogra phy 02/19/2025 1:36 PM EST Impressions 02/19/2025 5:14 PM EST 1. Decreasing volume of central and peripheral branching gas in the liver, likely representing pneumobilia with possible superimposed but decreased portal vein gas. 2. New left portal vein branch thrombosis, which may represent septic thrombophlebitis. 3. Heterogeneous arterial enhancement in the left hepatic lobe and periductal enhancement, may represent acute cholangitis in light of rising leukocytosis and liver function test and/or a component of perfusional change. 4. Trace bilateral pleural effusions and small perihepatic ascites, increased compared to prior. A clinically significant result was initiated on 02/19/2025 4:34 PM, Message ID [id number]. ATTESTATION: Alberto Carrasquillo, as teaching physician have reviewed the images, if any, for this patient's exam, and if necessary, have edited the report originally created by Doris Sinha. Narrative 02/19/2025 5:[address] ABDOMEN/PELVIS (LIVER) WITH CONTRAST Referring clinician's provided indication for this examination in Epic: * Abdominal pain, acute, nonlocalized; * Nausea/vomiting; s/p whipple in 2020 with complicated postoperative course, including hepatic artery stent placement, now with acute abdominal pain, fever, and portal venous gas on non-con CT at OSH TECHNIQUE: Multidetector-row CT of the abdomen and pelvis was performed after administration of intravenous contrast using tailored dose modulation techniques. Images were reconstructed in the axial, coronal, and sagittal planes. COMPARISON: CT ABDOMEN/PELVIS WITHOUT CONTRAST ; MRI CHOLANGIOPANCREATOGRAPHY (MRCP) WITH AND WITHOUT CONTRAST FINDINGS: Lower Chest: Subsegmental atelectasis and trace bilateral pleural effusions.. No consolidation or pleural effusions. Liver: Linear/branching arterial enhancement along the periductal distribution predominantly in the left lobe (for example 6:20), suggesting hyperemia. Known benign hemangiomas, largest measuring 3.4 x 2.2 cm in segment 5/6 (8:29), better characterized on prior MRI. No new focal lesion. Biliary: Status post cholecystectomy and hepaticojejunostomy. Central and peripheral branching gas, predominantly in the left hepatic lobe, which likely represent pneumobilia and possible with a small component of portal vein gas, decreased compared to CT from one day prior. Arterial enhancement of intrahepatic proper hepatic duct or common bile duct remnant (6:27). Spleen: No splenomegaly. Similar small bandlike intensity hypodensity at the periphery of the spleen (8:18), likely small infarct. Pancreas: Status post Whipple. Remainder of the pancreas without atrophy or ductal dilatation. Adrenal Glands: No nodules. Kidneys/Ureters: No solid masses, stones, or hydronephrosis. Focal cortical scarring in the posterior left kidney. Bowel: Status post gastrojejunostomy. Rumney-colonic anastomosis in the mid transverse colon. Abundant colonic stool. Peritoneum/Retroperitoneum: Trace increased perihepatic ascites. No nodules. Lymph Nodes: Similar appearance of the multiple nonenlarged retroperitoneal lymph nodes. For example, left para-aortic lymph node measures 1.7 x 0.6 cm (6:38), likely reactive. Vessels: New non-opacification of a left portal vein branch (8:22 and 9:214), new since prior MRI of 05/03/2024. Vascular stent is seen in the proper hepatic artery just distal to splenic artery takeoff. The stent and hepatic arteries distal to the stent are patent. Embolization coil in the right upper quadrant. Main portal vein, right portal vein and IVC are patent, without internal gas. Bones/Soft Tissues: Multilevel degenerative changes in the spine. No destructive osseous lesions. Procedure Note Alberto Thomas MD - 02/19/2025 CT ABDOMEN/PELVIS (LIVER) WITH CONTRAST Referring clinician's provided indication for this examination in Epic: *Abdominal pain, acute, nonlocalized; * Nausea/vomiting; s/p whipple [id number] with complicated postoperative course, including hepatic artery stentplacement, now with acute abdominal pain, fever, and portal venous gas onnon-con CT at OSH TECHNIQUE: Multidetector-row CT of the abdomen and pelvis was performedafter administration of intravenous contrast using tailored dosemodulation techniques. Images were reconstructed in the axial, coronal,and sagittal planes. COMPARISON: CT ABDOMEN/PELVIS WITHOUT CONTRAST ; MRICHOLANGIOPANCREATOGRAPHY (MRCP) WITH AND WITHOUT CONTRAST FINDINGS: Lower Chest: Subsegmental atelectasis and trace bilateral pleuraleffusions.. No consolidation or pleural effusions. Liver: Linear/branching arterial enhancement along the periductaldistribution predominantly in the left lobe (for example 6:20), suggestinghyperemia. Known benign hemangiomas, largest measuring 3.4 x 2.2 cm insegment 5/6 (8:29), better characterized on prior MRI. No new focallesion. Biliary: Status post cholecystectomy and hepaticojejunostomy. Central andperipheral branching gas, predominantly in the left hepatic lobe, whichlikely represent pneumobilia and possible with a small component of portalvein gas, decreased compared to CT from one day prior. Arterialenhancement of intrahepatic proper hepatic duct or common bile ductremnant (6:27). Spleen: No splenomegaly. Similar small bandlike intensity hypodensity atthe periphery of the spleen (8:18), likely small infarct. Pancreas: Status post Whipple. Remainder of the pancreas without atrophyor ductal dilatation. Adrenal Glands: No nodules. Kidneys/Ureters: No solid masses, stones, or hydronephrosis. Focalcortical scarring in the posterior left kidney. Bowel: Status post gastrojejunostomy. Rumney-colonic anastomosis in the midtransverse colon. Abundant colonic stool. Peritoneum/Retroperitoneum: Trace increased perihepatic ascites. Nonodules. Lymph Nodes: Similar appearance of the multiple nonenlargedretroperitoneal lymph nodes. For example, left para-aortic lymph nodemeasures 1.7 x 0.6 cm (6:38), likely reactive. Vessels: New non-opacification of a left portal vein branch (8:22 and9:214), new since prior MRI of 05/03/2024. Vascular stent is seen in theproper hepatic artery just distal to splenic artery takeoff. The stent andhepatic arteries distal to the stent are patent. Embolization coil in theright upper quadrant. Main portal vein, right portal vein and IVC arepatent, without internal gas. Bones/Soft Tissues: Multilevel degenerative changes in the spine. Nodestructive osseous lesions. IMPRESSION: 1. Decreasing volume of central and peripheral branching gas in theliver, likely representing pneumobilia with possible superimposed butdecreased portal vein gas. 2. New left portal vein branch thrombosis, which may represent septicthrombophlebitis. 3. Heterogeneous arterial enhancement in the left hepatic lobe andperiductal enhancement, may represent acute cholangitis in light of risingleukocytosis and liver function test and/or a component of perfusionalchange. 4. Trace bilateral pleural effusions and small perihepatic ascites,increased compared to prior. A clinically significant result was initiated on 02/19/2025 4:34 PM,Message ID [id number]. ATTESTATION: Alberto Carrasquillo, as teaching physician have reviewed the images,if any, for this patient's exam, and if necessary, have edited the reportoriginally created by Doris Sinha. Lianne Allison PA-C IMG CT ABD/PELVIS [place] Result * Type and Screen (ABO, Rh, Antibody Screen) (02/19/2025 11:32 AM EST) ABO/Rh A POS 02/19/2025 3:52 PM EST [facility] BLOOD DONOR [place] Antibody Screen NEG 3:52 PM EST [facility] BLOOD DON[facility] [place] Sample Expiration 5 23:59 02/19/2025 3:52 PM EST [facility] BLOOD DON[place] Blood (Blood) Venipuncture / Unknown 02/19/2025 11:32 AM EST 02/19/2025 12:07 PM EST Chu Blank PA-C LAB BLOOD BANK TEST ORD ERABLES Final Result [facility] BLOOD DONOR [address] [address] * (ABNORMAL) DIFFERENTIAL, MANUAL (SYSMEX) (02/19/2025 11:32 AM EST) Neutrophils 93.2 % 02/19/2025 2:36 PM EST [facility] Bands 0.0 % 02/19/2025 2:36 PM EST [facility] Lymphocytes 0.9 % 02/19/2025 2:36 PM EST [facility] Monocytes 2.5 % 02/19/2025 2:36 PM EST [facility] Eosinophils 0.0 % 02/19/2025 2:36 PM EST [facility] Basophils 0.0 % 02/19/2025 2:36 PM EST [facility] Metamyelocytes 3.4 % 02/19/2025 2:36 PM EST [facility] Absolute Neutrophils 19.89(H) 1.92 - 7.60 K/uL 02/19/2025 2:36 PM EST [facility] Absolute Lymphocytes 0.19(L) 0.72 - 4.10 K/uL 02/19/2025 2:36 PM EST [facility] Absolute Monocytes 0.53 0.16 - 1.10 K/uL 02/19/2025 2:36 PM EST [facility] Absolute Eosinophils 0.00 0.00 - 0.50 K/uL 02/19/2025 2:36 PM EST [facility] Absolute Basophils 0.00 0.00 - 0.15 K/uL 02/19/2025 2:36 PM EST [facility] Absolute Metamyelocytes 0.73(H) <=0.00 K/uL 02/19/2025 2:36 PM EST [facility] Diff Type Manual 02/19/2025 2:36 PM EST [facility] Blood (Blood) Venipuncture / Unknown 02/19/2025 11:32 AM EST 02/19/2025 12:46 PM EST us Chu Blank PA-C LAB BLOOD BKR ORDERABLE S Final Result Performing Organization Address City/State/[facility] Co de Phone Number [facility] [address] [place] [id number] * (ABNORMAL) CBC and Differential (02/19/2025 11:32 AM EST) Only the most recent of2 resultswithin the time period is included. WBC 21.34(H) 4.00 - 11.00 K/uL 02/19/2025 2:36 PM EST [facility] RBC 4.04(L) 4.50 - 5.90 M/uL 02/19/2025 2:36 PM EST [facility] Hemoglobin 13.2(L) 13.5 - 17.5 g/dL 02/19/2025 2:36 PM EST [facility] Hematocrit 37.9(L) 41.0 - 53.0 % 02/19/2025 2:36 PM EST [facility] MCV 93.8 80.0 - 100.0 fL 02/19/2025 2:36 PM EST [facility] MCH 32.7(H) 27.0 - 31.0 pg 02/19/2025 2:36 PM EST [facility] MCHC 34.8 32.0 - 36.0 g/dL 02/19/2025 2:36 PM EST [facility] MPV 9.4 8.4 - 12.0 fL 02/19/2025 2:36 PM EST [facility] RDW-CV 12.9 11.5 - 14.5 % 02/19/2025 2:36 PM EST [facility] PLT 153 150 - 450 K/uL 02/19/2025 2:36 PM EST [facility] NRBC 0.0 <=0.0 /100 WBCs 02/19/2025 2:36 PM EST [facility] Absolute NRBC 0.00 <=0.00 K cells/uL 02/19/2025 2:36 PM EST [facility] Absolute Neutrophils 19.39(H) 1.92 - 7.60 K/uL 02/19/2025 2:36 PM EST [facility] Comment:Automated cell count . Manual ANC may differ if performed. Diff Type Manual 02/19/2025 2:36 PM EST [facility] Blood (Blood) Venipuncture / Unknown 02/19/2025 11:32 AM EST 02/19/2025 12:46 PM EST us Chu Blank PA-C LAB BLOOD BKR ORDERABLE S Final Result [facility] [address] [place] [id number] * Red Blood Cell (RBC) Morphology (02/19/2025 11:32 AM EST) RBC Morphology Reviewed 02/19/2025 2:36 PM EST [facility] [place] Cells/Echinocyte s present 02/19/2025 2:36 PM EST [facility] Elliptocytes/Ova locytes present 02/19/2025 2:36 PM EST [facility] Giant/Large Platelets present 02/19/2025 2:36 PM EST [facility] Vacuolated Granulocytes present 02/19/2025 2:36 PM EST [facility] Blood (Blood) Venipuncture / Unknown 02/19/2025 11:32 AM EST 02/19/2025 12:46 PM EST Chu Blank PA-C LAB BLOOD BKR ORDERABLE S Final Result Performing Organization Address City/[facility]/ZIP Co de Phone Number [address] [address] * Point of Care Image Capture (02/19/2025 11:15 AM EST) Cali Juarez MD IMG POINT OF CARE EXAMS Final Result * MRSA Screen, Culture (02/19/2025 10:54 AM EST) Methicillin Resistant Staphylococcus Aureus (MRSA) Screen Culture/Test No MRSA isolated 02/20/2025 12:43 PM EST [facility] Swab (Anterior Nares) Non-Blood Collection / Unknown 02/19/2025 10:54 AM EST 02/19/2025 12:33 PM EST Chu Blank PA-C LAB MICROBIOLOGY CULTUR E ORDERABLES Final Result [address] [address] * Vancomycin Resistant Enterococci (VRE), Rectal Screen (02/19/2025 10:54 AM EST) Vancomycin Resistant Enterococci (Vre) Rectal Screen Culture/Test No VRE isolated 02/20/2025 12:41 PM EST [facility] Swab (Per Rectum) Non-Blood Collection / Unknown 02/19/2025 10:54 AM EST 02/19/2025 12:34 PM EST us Chu Blank PA-C LAB MICROBIOLOGY CULTUR E ORDERABLES Final Result [facility] [address] [place] [id number] * (ABNORMAL) Urinalysis with Reflex to Urine Culture (02/19/2025 2:14 AM EST) Color Yellow Yellow 02/19/2025 2:34 AM EST [facility] Clarity Clear Clear 02/19/2025 2:34 AM [facility] Glucose Negative Negative 02/19/2025 2:34 AM [facility] Bilirubin Urine 2+(A) Negative 2:34 AM [facility] Ketone Urine 2+(A) Negative 02/19/2025 2:34 AM [facility] Specific [place] 1.020 1.001 - 1.035 02/19/2025 2:34 AM [facility] Blood Negative Negative 02/19/2025 2:34 AM [facility] pH 6.0 5.0 - 8.0 02/19/2025 2:34 AM [facility] Protein Trace(A) Negative 02/19/2025 2:34 AM [facility] Nitrites Negative Negative 02/19/2025 2:34 AM [facility] Leukocyte Esterase Negative Negative 02/19/2025 2:34 AM [facility] Urobilinogen 2+(A) Negative 02/19/2025 2:34 AM [facility] Urine (Urine, Voided) Non-Blood Collection / Unknown 02/19/2025 2:14 AM EST 02/19/2025 2:19 AM EST us Chu Arora MD LAB URINE ORDERAB LES Final Result Performing Organization Address City/[facility]/ZIP Co de Phone Number [facility] [address] [place] [address] * SARS-CoV-2, INFLUENZA A/B, PCR (02/19/2025 2:05 AM EST) SARS-CoV-2 RNA PCR Not Detected Not Detected 02/19/2025 2:51 AM EST [facility] Influenza A PCR Not Detected Not Detected 02/19/2025 2:51 AM [facility] Influenza B PCR Not Detected Not Detected 02/19/2025 2:51 AM EST [facility] Swab (Nasopharynx, Bilateral) Non-Blood Collection / Unknown 02/19/2025 2:05 AM EST 02/19/2025 2:20 AM EST Rimma Solomon MD LAB GENERAL ORDERABLES Final Result Performing Organization Address [facility] Co de Phone Number [address] [address] * Symptomatic Respiratory Virus Testing Panel (ED/IP) (02/19/2025 2:05 AM EST) Pathologist [facility] SARS Comment 02/19/2025 2:29 AM EST [facility] Comment:This test automatica lly orders a COVID-19 PCR and may add Flu, RSV, or other viral tests based on patient clinical factors and site protocols. Results will appear below and separately in chart review when available. Swab (Nasopharynx, Bilateral) Non-Blood Collection / Unknown 02/19/2025 2:05 AM EST 02/19/2025 2:20 AM EST Rimma Solomon MD LAB GENERAL ORDERABLES Final Result Performing Organization Address [facility] Co de Phone Number [address] [address] * CT ABDOMEN/PELVIS WITHOUT CONTRAST (02/18/2025 11:34 PM EST) Pathologist [facility] MGB IMG A R SPECIALIST COMMENT Portal venous gas. [facility] Anatomical Region Laterality Modality Abdomen, Pelvis Computed Tomogra phy 02/19/2025 12:5 7 AM EST Impressions 02/19/2025 2:19 AM EST Portal venous gas of unclear etiology. No bowel wall thickening or pneumatosis. A clinically significant result was initiated on 02/19/2025 2:19 AM, Message ID [id number]. ATTESTATION: I, Adrian Murray as teaching physician, have reviewed the images for this case and if necessary edited the report originally created by Graciela Ross. Narrative 02/19/2025 2:[address] ABDOMEN/PELVIS WITHOUT CONTRAST Referring clinician's provided indication for this examination in Epic: * Abdominal abscess/infection suspected TECHNIQUE: Multidetector-row CT of the abdomen and pelvis was performed without administration of intravenous contrast using tailored dose modulation techniques. Images were reconstructed in the axial, coronal, and sagittal planes. COMPARISON: MRI CHOLANGIOPANCREATOGRAPHY (MRCP) WITH AND WITHOUT CONTRAST ; CT ABDOMEN/PELVIS WITH CONTRAST FINDINGS: Lower Chest: Dependent atelectasis. Liver: No focal lesions. Previously described hemangiomas are not well assessed on noncontrast exam. Biliary: Status post cholecystectomy and hepaticojejunostomy. Pneumobilia. Spleen: No splenomegaly. Pancreas: Status post Whipple. No peripancreatic fluid or stranding. Adrenal Glands: No nodule. Kidneys/Ureters: No hydronephrosis. Bowel: Small hiatal hernia. Status post gastrojejunostomy and partial colectomy. No bowel wall thickening or dilatation. No pneumatosis. Peritoneum/Retroperitoneum: No pneumoperitoneum or free fluid. Lymph Nodes: Similar prominent retroperitoneal lymph nodes. Pelvic Organs/Bladder: Prostatomegaly. Vessels: Portal venous gas. Common artery stent. Embolization coils in the right upper quadrant. No abdominal aortic aneurysm. Bones/Soft Tissues: Degenerative changes of the spine. Fat-containing bilateral hernias. Procedure Note Adrian Murray MD - 02/19/2025 CT ABDOMEN/PELVIS WITHOUT CONTRAST Referring clinician's provided indication for this examination in [facility]: *Abdominal abscess/infection suspected TECHNIQUE: Multidetector-row CT of the abdomen and pelvis was performedwithout administration of intravenous contrast using tailored dosemodulation techniques. Images were reconstructed in the axial, coronal,and sagittal planes. COMPARISON: MRI CHOLANGIOPANCREATOGRAPHY (MRCP) WITH AND WITHOUT [id number]; CT ABDOMEN/PELVIS WITH CONTRAST FINDINGS: Lower Chest: Dependent atelectasis. Liver: No focal lesions. Previously described hemangiomas are not wellassessed on noncontrast exam. Biliary: Status post cholecystectomy and hepaticojejunostomy. Pneumobilia. Spleen: No splenomegaly. Pancreas: Status post Whipple. No peripancreatic fluid or stranding. Adrenal Glands: No nodule. Kidneys/Ureters: No hydronephrosis. Bowel: Small hiatal hernia. Status post gastrojejunostomy and partialcolectomy. No bowel wall thickening or dilatation. No pneumatosis. Peritoneum/Retroperitoneum: No pneumoperitoneum or free fluid. Lymph Nodes: Similar prominent retroperitoneal lymph nodes. Pelvic Organs/Bladder: Prostatomegaly. Vessels: Portal venous gas. Common artery stent. Embolization coils in theright upper quadrant. No abdominal aortic aneurysm. Bones/Soft Tissues: Degenerative changes of the spine. Fat-containingbilateral hernias. IMPRESSION: Portal venous gas of unclear etiology. No bowel wall thickening orpneumatosis. A clinically significant result was initiated on 02/19/2025 2:19 AM,Message ID [id number]. ATTESTATION: I, Adrian Murray as teaching physician, have reviewed theimages for this case and if necessary edited the report originally createdby Graciela Ross. us Rimma Solomon MD IMG CT ABD/PELVIS Final Resu lt * Lactate, Whole Blood (02/18/2025 10:18 PM EST) Lactate, Whole Blood 1.9 0.5 - 2.0 mmol/L 02/18/2025 10:38 PM EST [facility] Blood (Blood, Venous) Venipuncture / Unknown 02/18/2025 10:18 PM EST 02/18/2025 10:33 PM EST us Rimma Solomon MD LAB BLOOD BKR ORDERABLES Fin al Result [address] [address] * ECG 12-LEAD (02/18/2025 9:06 PM EST) Pathologist [facility] Ventricular Rate EKG/MIN 90 BPM [facility] Atrial Rate 90 BPM [facility] NH Interval 156 ms [facility] QRS Duration 76 ms [facility] QT Interval 340 ms [facility] QTC Interval 415 ms [facility] P [place] 48 degrees [facility] R Wave [place] 12 degrees [facility] T Wave [place] 29 degrees [facility] 02/18/2025 9:06 PM EST 02/19/2025 2:04 PM EST Narrative [facility] - 02/19/2025 2:04 PM EST Normal sinus rhythm Possible Left atrial enlargement Low voltage QRS Junctional ST depression, probably normal Borderline ECG When compared with ECG of 30-Apr-2021 13:14, No significant change was found Confirmed by Luigi Quinones ([id number]) on 02/19/2025 2:04:42 PM Chu Arora MD ECG ORDERABLES F inal Result [facility] * Outside Lab (Non-MGB) (02/11/2025 1:44 PM EST) Only the most recent of2 resultswithin the time period is included. us Historical Provider LAB BLOOD BKR ORDERABLES Final Result * (ABNORMAL) Lipid panel (06/11/2024 2:20 PM EDT) Pathologist [facility] HDL 58 mg/dL [facility] Comment: Interpretation <40 mg/dL: Low HDL cholesterol (major risk factor for CHD) Greater than or equal to 60 mg/dL: High HDL cholesterol ( negative risk factor for CHD) HDL - cholesterol is affected by a number of factors, e.g. smoking, excerise, hormones, sex and age. CHOLESTEROL 143 0 - 240 mg/dL [facility] TRIGLYCERIDES 134 30 - 160 mg/dL [facility] LDL 58 50 - 129 mg/dL [facility] Comment: LDL levels in terms of risk for coronary heart disease: <100 mg/dL: Optimal 100-129 mg/dL: Near or above optimal 130-159 mg/dL: Borderline high 160-189 mg/dL: High >190 mg/dL: Very High CARDIAC RISK RATIO 2.5(L) 3.4 - 5.0 [facility] Blood 06/11/2024 2:20 PM EDT 06/11/2024 2:23 PM EDT us Yumi Chaudhary MD LAB BLOOD BKR ORDERABLES Final R esult Performing Organization Address [facility] Co de Phone Number [facility] [address] [place] [address] * Hepatitis C genotyping (09/29/2020 2:32 PM EDT) HCV GENOTYPE Undetected Undetected [facility] Comment: (NOTE) Assay failed to detect HCV RNA. This assay is not intended for HCV RNA detection purposes. ADDITIONAL INFORMATION This test was performed using the [employer] RealTime HCV Genotype II assay ([employer] [place], [place]). Blood (Blood) 09/29/2020 2:3 2 PM EDT 09/29/2020 2:40 PM EDT us Cali Juarez MD NON CULTURE MICROBIOLOGY Final Result Performing Organization Address [facility] Co de Phone Number [facility] [address] [place] [address] from Last 3 Months or Most Recently Relevant to Health Maintenance [facility] E[facility] O POS EPO O POS EPO O POS EPO POS EPO POS EPO Advance Directives For more information, please contact: [phone] (9AM - 5PM [facility], Tuesday-Tuesday) Documents on File Type Date Recorded Patient Web Pressman Expl anation Healthcare Proxy 10/07/2021 Healthcare Proxy and Living Will * Full Code (Latest Code Status on File) Date Activated Date Inactivated Comments 02/19/2025 10:40 AM Question Answer Comments Code Status Confirmed With: Patient Code Status Communicated To: Inpatient Attending * Full Code Date Activated Date Inactivated Comments 12/22/2021 2:46 PM 02/19/2025 10:40 AM Question Answer Comments Code Status Confirmed With: Patient * Full Code Date Activated Date Inactivated Comments 11/24/2020 2:21 PM 12/22/2021 2:46 PM Question Answer Comments Code Status Confirmed With: Patient Code Status Communicated To: Other (specify belo w) Code Discussion Comments: 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 * Full Code Date Activated Date Inactivated Comments 08/21/2020 8:18 PM 11/24/2020 2:21 PM Question Answer Comments Code Status Confirmed With: Patient * Full Code (Presumed) Date Activated Date Inactivated Comments 11/09/2018 7:59 AM 11/09/2018 6:40 PM Healthcare Agents on File Name Relationship Healthcare Agent Relationshi p Communication Lorin Peterson Spouse .Primary Health Care Agent (Proxy form on file) [email or web address] Careerist Deneen Griffin Sister Alternate Health care Agent (Proxy form on file) Care Teams Imcu Nurse Relationship Specialty Start Date End Date Yumi Chaudhary MD [address] [place] [address] PCP - General Family Medicine 01/13/22 Gal Hernandez MD [address] [place] [address] 07/23/20 Yumi Chaudhary MD [address] [place] [address] [email or web address] Insurance Assigned Provider 07/09/23 Additional Source Comments The information contained in this document represents components of the legal health record. It is not the complete legal health record.[facility]
--- OUTSIDE RECORDS SUMMARY | 2025-03-05 15:51 | XMS_ITS | Encounter Summary ---
Author Organization [facility] Address [address] [place] [address] [place] [address] Phone Care Team Providers Care Group Dynamics Instructor Name Role Phone Delon Kaur MD Primary Care Provider Gal Hernandez MD Unavailable Yumi Chaudhary MD Primary Care Provider Yumi Chaudhary MD Unavailable Encounter Details Date Type Department Care Team (Late st Contact Info) Description 09/16/2020 Procedure Pass [facility] Periop 75 [place] [address] Social History Tobacco Use Types Packs/Day Years [...] st Contact Info) Description 05/11/2024 Procedure Pass [facility] MR Imaging, Gabriela [address] [place] [address] 03/15/2025 4:30 PM EST Telemedicine [facility] Surgical Oncology [address] [place] [address] Cali Juarez MD [address] [place] [address] [email or web address] 05/17/2025 9:15 AM EST Appointment [facility] MR Lai, Gabriela [address] [place] [address] Cali Juarez MD [address] [place] [address] [email or web address] 05/17/2025 1:00 PM EST Office Visit [facility] Surgical Oncology [address] [place] [address] Cali Juarez MD [address] [place] [address] [email or web address] 05/22/2025 2:40 PM EST Office Visit [facility] Primary Care [address] [place] [address] 201 [place] [address] Yumi Chaudhary MD [address] [place] [address] Nigel [address] [place] [address] [email or web address] 09/18/2025 1:00 PM EDT Office Visit [facility] [address] [facility], 5th Floor, [address] [place] [address] Maynor Rojas MD, MPH [address] [facility] [address] [place] [address] [email or web address] Scheduled Procedures Name Priority Associated Diagnoses Date/Ti [...] documented as of this encounter Care Teams Group Dynamics Instructor Relationship Specialty Start Date End Date Delon Kaur MD [address] [place] [address] PCP - General Family Medicine 05/24/17 01/12/22 Yumi Chaudhary MD [address] [place] [address] [email or web address] PCP - General Family Medicine 01/13/22 Gal Hernandez MD [address] [place] [address] 07/23/20 Yumi Chaudhary MD [address] [place] [address] [email or web address] Insurance Assigned Provider 07/09/23 documented as of this encounter Additional Source Comments The information contained in this document represents components of the legal health record. It is not the complete legal health record.[facility]
--- OUTSIDE RECORDS SUMMARY | 2025-03-05 15:51 | XMS_ITS | Encounter Summary ---
Author Organization [facility] Address [address] [facility] [address] [place] [address] Phone Care Team Providers Care Retail Sales Associate Bilingual Name Role Phone Delon Kaur MD Primary Care Provider Gal Hernandez MD Unavailable Yumi Chaudhary MD Primary Care Provider Yumi Chaudhary MD Unavailable Encounter Details Date Type Department Care Team (Late Contact Info) Description 09/13/2020 Procedure Pass [facility] [address] [place] [address] Social History Tobacco Use Types Packs/Day Years [...] (Late Contact Info) Description 05/11/2024 Procedure Pass [facility] Gabriela Bowman [address] [place] [address] 03/15/2025 4:30 PM EST Telemedicine [facility] Surgical Oncology [address] [place] [address] Cali Juarez MD [address] [place] [address] [email or web address] 05/17/2025 9:15 AM EST Appointment [facility] Gabriela Bowman [address] [place] [address] Cali Juarez MD [address] [place] [address] [email or web address] 05/17/2025 1:00 PM EST Office Visit [facility] Surgical Oncology [address] [place] [address] Cali Juarez MD [address] [place] [address] [email or web address] 05/22/2025 2:40 PM EST Office Visit [facility] Primary Care [address] [place] [address] [address] [place] [address] Yumi Chaudhary MD [address] [place] [address] Nigel [address] [place] [address] [email or web address] 09/18/2025 1:00 PM EDT Office Visit [facility] [address] [facility], 5th Floor, [address] [place] [address] Maynor Rojas MD, MPH [address] [facility] [address] [place] [address] [email or web address] Scheduled Procedures Name Priority Associated Diagnoses [...] documented as of this encounter Care Teams Retail Sales Associate Bilingual Relationship Specialty Start Date End Date Delon Kaur MD [address] [place] [address] PCP - General Family Medicine 05/24/17 01/12/22 Yumi Chaudhary MD [address] [place] [address] [email or web address] PCP - General Family Medicine 01/13/22 Gal Hernandez MD [address] [place] [address] 07/23/20 Yumi Chaudhary MD [address] [place] [address] [email or web address] Insurance Assigned Provider 07/09/23 documented as of this encounter Additional Source Comments The information contained in this document represents components of the legal health record. It is not the complete legal health record.[facility]
--- OUTSIDE RECORDS SUMMARY | 2025-03-05 15:51 | XMS_ITS | Encounter Summary ---
Author Organization [facility] Address [address] [place] [address] [place] [address] Phone Care Team Providers Care Dried Yeast Supervisor Name Role Phone Delon Kaur MD Primary Care Provider Gal Hernandez MD Unavailable Yumi Chaudhary MD Primary Care Provider Yumi Chaudhary MD Unavailable Encounter Details Date Type Department Care Team (Late st Contact Info) Description 09/14/2020 Procedure Pass [facility] Angio Interventional Radiology [address] [place] [address] Social History Tobacco Use Types Packs/Day Years [...] [facility] MR Imaging, Gabriela [address] [place] [address] 03/15/2025 4:30 PM EST Telemedicine [facility] Surgical Oncology [address] [address] Cali Juarez MD [address] [place] [address] [email or web address] 05/17/2025 9:15 AM EST Appointment [facility] MR Lai, Gabriela [address] [place] [address] Cali Juarez MD [address] [place] [address] [email or web address] 05/17/2025 1:00 PM EST Office Visit [facility] Surgical Oncology [address] [place] [address] Cali Juarez MD [address] [place] [address] [email or web address] 05/22/2025 2:40 PM EST Office Visit [facility] Primary Care [address] [place] [address] 201 [place] [address] Yumi Chaudhary MD [address] [place] [address] Nigel [address] [place] [address] [email or web address] 09/18/2025 1:00 PM EDT Office Visit [facility] 32 [facility], 5th Floor, [address] [place] [address] Maynor Rojas MD, MPH 55 [facility] [address] [place] [address] [email or web address] Scheduled Procedures Name Priority Associated [...] documented as of this encounter Care Teams Dried Yeast Supervisor Relationship Specialty Start Date End Date Delon Kaur MD [address] [place] [address] PCP - General Family Medicine 05/24/17 01/12/22 Yumi Chaudhary MD [address] [place] [address] [email or web address] PCP - General Family Medicine 01/13/22 Gal Hernandez MD [address] [place] [address] 07/23/20 Yumi Chaudhary MD [address] [place] [address] [email or web address] Insurance Assigned Provider 07/09/23 documented as of this encounter Additional Source Comments The information contained in this document represents components of the legal health record. It is not the complete legal health record.[facility]
--- OUTSIDE RECORDS SUMMARY | 2025-03-05 15:51 | XMS_ITS | Encounter Summary ---
Author Organization [facility] Address [address] [place] [address] [place] [address] Phone Care Team Providers Care Utilities Equipment Repairer Name Role Phone Delon Kaur MD Primary Care Provider Gal Hernandez MD Unavailable Yumi Chaudhary MD Primary Care Provider Yumi Chaudhary MD Unavailable Encounter Details Date Type Department Care Team (Late st Contact Info) Description 09/25/2020 Procedure Pass [facility] Periop 75 [place] [address] Social History Tobacco Use Types Packs/Day Years [...] st Contact Info) Description 05/11/2024 Procedure Pass [facility] MR Imaging, Gabriela [address] [place] [address] 03/15/2025 4:30 PM EST Telemedicine [facility] Surgical Oncology [address] [place] [address] Cali Juarez MD [address] [place] [address] [email or web address] 05/17/2025 9:15 AM EST Appointment [facility] MR Lai, Gabriela [address] [place] [address] Cali Juarez MD [address] [place] [address] [email or web address] 05/17/2025 1:00 PM EST Office Visit [facility] Surgical Oncology [address] [place] [address] Cali Juarez MD [address] [place] [address] [email or web address] 05/22/2025 2:40 PM EST Office Visit [facility] Primary Care [address] [place] [address] 201 [place] [address] Yumi Chaudhary MD [address] [place] [address] Nigel [address] [place] [address] [email or web address] 09/18/2025 1:00 PM EDT Office [facility] 32 [facility], 5th Floor, [address] [place] [address] Maynor Rojas MD, MPH [address] [facility] [address] [place] [address] [email or web address] Scheduled Procedures Name Priority Associated Diagnoses [...] documented as of this encounter Care Teams Utilities Equipment Repairer Relationship Specialty Start Date End Date Delon Kaur MD [address] [place] [address] PCP - General Family Medicine 05/24/17 01/12/22 Yumi Chaudhary MD [address] [place] [address] [email or web address] PCP - General Family Medicine 01/13/22 Gal Hernandez MD [address] [place] [address] 07/23/20 Yumi Chaudhary MD [address] [place] [address] [email or web address] Insurance Assigned Provider 07/09/23 documented as of this encounter Additional Source Comments The information contained in this document represents components of the legal health record. It is not the complete legal health record.[facility]
--- OUTSIDE RECORDS SUMMARY | 2025-03-05 15:51 | XMS_ITS | Encounter Summary ---
Author Organization [facility] Address [address] [place] [address] [place] [address] Phone Care Team Providers Care Dry Pan Charger Name Role Phone Delon Kaur MD Primary Care Provider Gal Hernandez MD Unavailable Yumi Chaudhary MD Primary Care Provider Yumi Chaudhary MD Unavailable Encounter Details Date Type Department Care Team (Late st Contact Info) Description 09/13/2020 Procedure Pass [facility] Periop 75 [place] [address] Social History Tobacco Use Types Packs/Day Years [...] st Contact Info) Description 05/11/2024 Procedure Pass [facility] MR Imaging, Gabriela 60 [place] [address] 03/15/2025 4:30 PM EST Telemedicine [facility] Surgical Oncology [address] [place] [address] Cali Juarez MD [address] [place] [address] [email or web address] 05/17/2025 9:15 AM EST Appointment [facility] MR Lai, Gabriela [address] [place] [address] Cali Juarez MD [address] [place] [address] [email or web address] 05/17/2025 1:00 PM EST Office Visit [facility] Surgical Oncology [address] [place] [address] Cali Juarez MD [address] [place] [address] [email or web address] 05/22/2025 2:40 PM EST Office Visit [facility] Primary Care [address] [place] [address] 201 [place] [address] Yumi Chaudhary MD [address] [place] [address] Nigel [address] [place] [address] [email or web address] 09/18/2025 1:00 PM EDT Office Visit [facility] [address] [facility], 5th Floor, [address] [place] [address] Maynor Rojas MD, MPH [address] [facility] [address] [place] [address] [email or web address] Scheduled Procedures Name Priority Associated Diagnoses [...] as of this encounter Care Teams Dry Pan Charger Relationship Specialty Start Date End Date Delon Kaur MD [address] [place] [address] PCP - General Family Medicine 05/24/17 01/12/22 Yumi Chaudhary MD [address] [place] [address] [email or web address] PCP - General Family Medicine 01/13/22 Gal Hernandez MD [address] [place] [address] 07/23/20 Yumi Chaudhary MD [address] [place] [address] [email or web address] Insurance Assigned Provider 07/09/23 documented as of this encounter Additional Source Comments The information contained in this document represents components of the legal health record. It is not the complete legal health record.[facility]
--- OUTSIDE RECORDS SUMMARY | 2025-03-05 15:51 | XMS_ITS | Encounter Summary ---
Author Organization [facility] Address [address] [place] [address] [place] [address] Phone Care Team Providers Care Plane Tableman Name Role Phone Delon Kaur MD Primary Care Provider Gal Hernandez MD Unavailable Yumi Chaudhary MD Primary Care Provider [phone] Yumi Chaudhary MD Unavailable Encounter Details Date Type Department Care Team (Late st Contact Info) Description 09/26/2020 Procedure Pass [facility] Periop 75 [place] [address] Social History Tobacco Use Types Packs/Day Years [...] st Contact Info) Description 05/11/2024 Procedure Pass [facility] MR Imaging, Gabriela 60 [place] [address] 03/15/2025 4:30 PM EST Telemedicine [facility] Surgical Oncology [address] [place] [address] Cali Juarez MD [address] [place] [address] [email or web address] 05/17/2025 9:15 AM EST Appointment [facility] MR Lai, Gabriela [address] [place] [address] Cali Juarez MD [address] [place] [address] [email or web address] 05/17/2025 1:00 PM EST Office Visit [facility] Surgical Oncology [address] [place] [address] Cali Juarez MD [address] [place] [address] [email or web address] 05/22/2025 2:40 PM EST Office Visit [facility] Primary Care [address] [place] [address] 201 [place] [address] Yumi Chaudhary MD [address] [place] [address] Nigel [address] [place] [address] [email or web address] 09/18/2025 1:00 PM EDT Office Visit [facility] 32 [facility], 5th Floor, [address] [place] [address] Maynor Rojas MD, MPH 55 [facility] [address] [place] [address] [email or web address] Scheduled Procedures Name Priority Associated Diagnoses [...] documented as of this encounter Care Teams Plane Tableman Relationship Specialty Start Date End Date Delon Kaur MD [address] [place] [address] PCP - General Family Medicine 05/24/17 01/12/22 Yumi Chaudhary MD [address] [place] [address] [email or web address] PCP - General Family Medicine 01/13/22 Gal Hernandez MD [address] [place] [address] 07/23/20 Yumi Chaudhary MD [address] [place] [address] [email or web address] Insurance Assigned Provider 07/09/23 documented as of this encounter Additional Source Comments The information contained in this document represents components of the legal health record. It is not the complete legal health record.[facility]
--- OUTSIDE RECORDS SUMMARY | 2025-03-05 15:51 | XMS_ITS | Encounter Summary ---
Author Organization [facility] Address [address] [facility] [address] [place] [address] Phone Care Team Providers Care Income Tax Return Preparer Name Role Phone Delon Kaur MD Primary Care Provider Gal Hernandez MD Unavailable Yumi Chaudhary MD Primary Care Provider [phone] Yumi Chaudhary MD Unavailable Encounter Details Date Type Department Care Team (Late Contact Info) Description 09/27/2020 Procedure Pass [facility] [address] [place] [address] Social History Tobacco Use Types Packs/Day Years [...] (Late Contact Info) Description 05/11/2024 Procedure Pass [facility] Gabriela Bowman [address] [place] [address] 03/15/2025 4:30 PM EST Telemedicine [facility] Surgical Oncology [address] [place] [address] Cali Juarez MD [address] [place] [address] [email or web address] 05/17/2025 9:15 AM EST Appointment [facility] Gabriela oBwman [address] [place] [address] Cali Juarez MD [address] [place] [address] [email or web address] 05/17/2025 1:00 PM EST Office Visit [facility] Surgical Oncology [address] [place] [address] Cali Juarez MD [address] [place] [address] [email or web address] 05/22/2025 2:40 PM EST Office Visit [facility] [address] [place] [address] [address] [place] [address] Yumi Chaudhary MD [address] [place] [address] [address] [place] [address] [email or web address] 09/18/2025 1:00 PM EDT Office Visit [facility] [address] [facility], 5th Floor, [address] [place] [address] Maynor Rojas MD, MPH [address] [facility] [address] [place] [address] [email or web address] Scheduled Procedures Name Priority Associated Diagnoses [...] documented as of this encounter Care Teams Income Tax Return Preparer Relationship Specialty Start Date End Date Delon Kaur MD [address] [place] [address] PCP - General Family Medicine 05/24/17 01/12/22 Yumi Chaudhary MD [address] [place] [address] [email or web address] PCP - General Family Medicine 01/13/22 Gal Hernandez MD [address] [place] [address] 07/23/20 Yumi Chaudhary MD [address] [place] [address] [email or web address] Insurance Assigned Provider 07/09/23 documented as of this encounter Additional Source Comments The information contained in this document represents components of the legal health record. It is not the complete legal health record.[facility]
--- OUTSIDE RECORDS SUMMARY | 2025-03-05 15:51 | XMS_ITS | Encounter Summary ---
Author Organization [facility] Address [address] [facility] [address] [place] [address] Phone Care Team Providers Care It Help Desk Manager Name Role Phone Delon Kaur MD Primary Care Provider Gal Hernandez MD Unavailable [phone] Yumi Chaudhary MD Primary Care Provider [phone] Yumi Chaudhary MD Unavailable Reason for Referral * Physical Therapy (Routine) - Closed Specialty Diagnoses / Procedures Referred By Teofilo t Referred To Contact Physical Therapy Diagnoses Encounter for rehabilitation System, Provider Not In, PhD [address] [address] L[place]h [place], [place] Phone: tel: [email or web address] Referral ID Status Reason Start Date Expiration Date Visits Re quested Visits Authorized [id number] Closed 08/16/2017 04/03/2018 12 12 Encounter Details Date Type Department Care Team (Latest Contact Info) Description 09/05/2017 Transcribe Orders [facility] [address] [place] [address] Delon Kaur MD [address] [place] [address] Encounter for rehabilitation (Primary Dx) Social History [...] st Contact Info) Description 05/11/2024 Procedure Pass [facility] MR Imaging, [place] [place] [address] 03/15/2025 4:30 PM EST Telemedicine [facility] Surgical Oncology [address] [address] Cali Juarez MD [address] [place] [address] [email or web address] 05/17/2025 9:15 AM EST Appointment [facility] MR Imaging, [place] [place] [address] Cali Juarez MD [address] [place] [address] [email or web address] 05/17/2025 1:00 PM EST Office Visit [facility] Surgical Oncology [address] [place] [address] Cali Juarez MD [address] [place] [address] [email or web address] 05/22/2025 2:40 PM EST Office Visit [facility] Primary Care [address] [facility] [address] [place] [address] Yumi Chaudhary MD [address] [facility] [address] [place] [address] [email or web address] 09/18/2025 1:00 PM EDT Office Visit [facility] 32 [facility], 5th Floor, [address] [place] [address] Maynor Rojas MD, MPH [address] [facility] [address] [place] [address] [email or web address] Scheduled Procedures Name Priority Associated Diagnoses Date/Ti de ENDOSCOPIC RETROGRADE CHOLANGIOPANCREATOGRAPHY Cholangitis Scheduled Referrals Name Type Priority Associated Diagnoses Orde r Schedule Ambulatory referral to [facility] Physical Therapy Outpatient Referral Routine Encounter for [...] documented as of this encounter Care Teams It Help Desk Manager Relationship Specialty Start Date End Date Delon Kaur MD [address] [place] [address] PCP - General Family Medicine 05/24/17 01/12/22 Yumi Chaudhary MD [address] [facility]. [address] [place] [address] [email or web address] PCP - General Family Medicine 01/13/22 Gal Hernandez MD [address] [place] [address] 07/23/20 Yumi Chaudhary MD [address] [place] [address] [email or web address] Insurance Assigned Provider 07/09/23 documented as of this encounter Additional Source Comments The information contained in this document represents components of the legal health record. It is not the complete legal health record.[facility]
--- OUTSIDE RECORDS SUMMARY | 2025-03-05 15:51 | XMS_ITS | Encounter Summary ---
Author Organization [facility] Address [address] [facility] [address] [place] [address] Phone Care Team Providers Care High School Assistant Football Coach Name Role Phone Delon Kaur MD Primary Care Provider Gal Hernandez MD Unavailable Yumi Chaudhary MD Primary Care Provider [phone] Yumi Chaudhary MD Unavailable Encounter Details Date Type Department Care Team (Late Contact Info) Description 09/27/2020 Procedure Pass [facility] Radiology [address] [place] [address] Social History Tobacco Use Types Packs/Day Years [...] (Late Contact Info) Description 05/11/2024 Procedure Pass [facility] Gabriela Bowman [address] [place] [address] 03/15/2025 4:30 PM EST Telemedicine [facility] Surgical Oncology [address] [place] [address] Cali Juarez MD [address] [place] [address] [email or web address] 05/17/2025 9:15 AM EST Appointment [facility] Gabriela Bowman [address] [place] [address] Cali Juarez MD [address] [place] [address] [email or web address], [facility] 05/17/2025 1:00 PM EST Office Visit [facility] Surgical Oncology [address] [place] [address] Cali Juarez MD [address] [place] [address] [email or web address] 05/22/2025 2:40 PM EST Office Visit [facility] [address] [place] [address] [address] [place] [address] Yumi Chaudhary MD [address] [place] [address] [address] [place] [address] [email or web address] 09/18/2025 1:00 PM EDT Office Visit [facility] 32 [facility], 5th Floor, [address] [place] [address] Maynor Rojas MD, MPH 55 [facility] [address] [place] [address] [email or web address] Scheduled Procedures Name Priority Associated Diagnoses [...] documented as of this encounter Care Teams High School Assistant Football Coach Relationship Specialty Start Date End Date Delon Kaur MD [address] [place] [address] PCP - General Family Medicine 05/24/17 01/12/22 Yumi Chaudhary MD [address] [place] [address] [email or web address] PCP - General Family Medicine 01/13/22 Gal Hernandez MD [address] [place] [address] 07/23/20 Yumi Chaudhary MD [address] [place] [address] [email or web address] Insurance Assigned Provider 07/09/23 documented as of this encounter Additional Source Comments The information contained in this document represents components of the legal health record. It is not the complete legal health record.[facility]
--- OUTSIDE RECORDS SUMMARY | 2025-03-05 15:51 | XMS_ITS | Encounter Summary ---
Author Organization [facility] Address [address] [facility] [address] [place] [address] Phone Care Team Providers Care Substance Abuse Prevention Coordinator Name Role Phone Delon Kaur MD Primary Care Provider Gal Hernandez MD Unavailable [phone] Yumi Chaudhary MD Primary Care Provider Yumi Chaudhary MD Unavailable Encounter Details Date Type Department Care Team (Late Contact Info) Description 09/21/2020 Procedure Pass [facility]iology [address] [place] [address] Social History Tobacco Use Types Packs/Day Years [...] (Late Contact Info) Description 05/11/2024 Procedure Pass [facility] Gabriela Bowman [address] [place] [address] 03/15/2025 4:30 PM EST Telemedicine [facility] Surgical Oncology [address] [place] [address] Cali Juarez MD [address] [place] [address] [email or web address] 05/17/2025 9:15 AM EST Appointment [facility] Gabriela Bowman [address] [place] [address] Cali Juarez MD [address] [place] [address] [email or web address] 05/17/2025 1:00 PM EST Office Visit [facility] Surgical Oncology [address] [place] [address] Cali Juarez MD [address] [place] [address] [email or web address] 05/22/2025 2:40 PM EST Office Visit [facility] [address] [place] [address] [address] [place] [address] Yumi Chaudhary MD [address] [place] [address] [address] [place] [address] [email or web address] 09/18/2025 1:00 PM EDT Office Visit [facility] [address] [facility], 5th Floor, [address] [place] [address] Maynor Rojas MD, MPH 55 [facility] [address] [place] [address] [email or web address] Scheduled Procedures Name Priority [...] documented as of this encounter Care Teams Substance Abuse Prevention Coordinator Relationship Specialty Start Date End Date Delon Kaur MD [address] [place] [address] PCP - General Family Medicine 05/24/17 01/12/22 Yumi Chaudhary MD [address] [place] [address] [email or web address] PCP - General Family Medicine 01/13/22 Gal Hernandez MD [address] [place] [address] 07/23/20 Yumi Chaudhary MD [address] [place] [address] [email or web address] Insurance Assigned Provider 07/09/23 documented as of this encounter Additional Source Comments The information contained in this document represents components of the legal health record. It is not the complete legal health record.[facility]
--- OUTSIDE RECORDS SUMMARY | 2025-03-05 15:51 | XMS_ITS | Encounter Summary ---
Author Organization [facility] Address [address] [facility] [address] [place] [address] Phone Care Team Providers Care Tobacco Scrap Sifter Name Role Phone Gal Hernandez MD Unavailable Yumi Chaudhary MD Primary Care Provider [phone] Yumi Chaudhary MD Unavailable Encounter Details Date Type Department Care Team (Late st Contact Info) Description 05/14/2022 Procedure Pass [facility] MR Imaging, [place] [address] [place] [address] Social History Tobacco Use Types Packs/Day Years [...] high school, GED, job training, learning the Japanese language, technical skills, or developing parenting skills)? [...] 05/11/2024 Procedure Pass [facility] MR Imaging, Gabriela [address] [place] [address] 03/15/2025 4:30 PM EST Telemedicine [facility] Surgical Oncology 45 [facility] ASB2-3 [place] [address] Cali Juarez MD [address] [place] [address] [email or web address] 05/17/2025 9:15 AM EST Appointment [facility] MR Imaging, Gabriela [address] [place] [address] Cali Juarez MD [address] [place] [address] [email or web address] 05/17/2025 1:00 PM EST Office Visit [facility] Surgical Oncology 45 [facility] ASB2-3 [place] [address] Cali Juarez MD [address] [place] [address] [email or web address] 05/22/2025 2:40 PM EST Office Visit [facility] [place] [facility] [address] [facility] [address] [place] [address] Yumi Chaudhary MD [address] [place] [address] [address] [place] [address] [email or web address] 09/18/2025 1:00 PM EDT Office Visit [facility] 32 [facility], 5th Floor, [address] [place] [address] Maynor Rojas MD, MPH 55 [facility] [address] [place] [address] [email or web address] Scheduled Procedures Name Priority Associated [...] documented as of this encounter Care Teams Tobacco Scrap Sifter Relationship Specialty Start Date End Date Yumi Chaudhary MD 15 [facility] [address] [place] [address] [email or web address] PCP - General Family Medicine 01/13/22 Gal Hernandez MD [address] [place] [address] 07/23/20 Yumi Chaudhary MD [address] [place] [address] [email or web address] Insurance Assigned Provider 07/09/23 documented as of this encounter Additional Source Comments The information contained in this document represents components of the legal health record. It is not the complete legal health record.[facility]
--- OUTSIDE RECORDS SUMMARY | 2025-03-05 15:51 | XMS_ITS | Encounter Summary ---
Author Organization [facility] Address [address] [facility] [address] [address] [place] [address] Phone Care Team Providers Care Bias Cutter Helper Name Role Phone Gal Hernandez MD Unavailable Yumi Chaudhary MD Primary Care Provider [phone] Yumi Chaudhary MD Unavailable Encounter Details Date Type Department Care Team (Late st Contact Info) Description 11/05/2022 Procedure Pass [facility] CT Imaging, [place] [address] [place] [address] Social History Tobacco Use Types Packs/Day Years [...] high school, GED, job training, learning the [place] Island[place] language, technical skills, or developing parenting skills)? [...] st Contact Info) Description 05/11/2024 Procedure Pass [facility] MR Imaging, [place] [address] [place] [address] 03/15/2025 4:30 PM EST Telemedicine [facility] Surgical Oncology 45 [facility] ASB2-3 [place] [address] Cali Juarez MD [address] [place] [address] [email or web address] 05/17/2025 9:15 AM EST Appointment [facility] MR Imaging, [place] [address] [place] [address] Cali Juarez MD [address] [place] [address] [email or web address] 05/17/2025 1:00 PM EST Office Visit [facility] Surgical Oncology 45 [facility] ASB2-3 [place] [address] Cali Juarez MD [address] [place] [address] [email or web address] 05/22/2025 2:40 PM EST Office Visit [facility] Care 15 [facility] [address] [place] [address] Yumi Chaudhary MD 15 [facility] [address] [place] [address] [email or web address] 09/18/2025 1:00 PM EDT Office [facility] 32 [facility], 5th Floor, [address] [place] [address] Maynor Rojas MD, MPH 55 [facility] [address] [place] [address] [email or web address] Scheduled Procedures Name Priority Associated Diagnoses [...] documented as of this encounter Care Teams Bias Cutter Helper Relationship Specialty Start Date End Date Yumi Chaudhary MD [address] [address] [email or web address] PCP - General Family Medicine 01/13/22 Gal Hernandez MD 759 [place] [address] 07/23/20 Yumi Chaudhary MD [address] [address] [email or web address] Insurance Assigned Provider 07/09/23 documented as of this encounter Additional Source Comments The information contained in this document represents components of the legal health record. It is not the complete legal health record.[facility]
--- OUTSIDE RECORDS SUMMARY | 2025-03-05 15:51 | XMS_ITS | Encounter Summary ---
Author Organization [facility] Address [address] [facility] [address] [place] [address] Phone Care Team Providers Care Senior Datastage Developer Name Role Phone Delon Kaur MD Primary Care Provider Gal Hernandez MD Unavailable Yumi Chaudhary MD Primary Care Provider Yumi Chaudhary MD Unavailable Encounter Details Date Type Department Care Team (Late Contact Info) Description 09/13/2020 Procedure Pass [facility] [address] [place] [address] Social History Tobacco Use Types Packs/Day Years [...] (Late Contact Info) Description 05/11/2024 Procedure Pass [facility] Gabriela Bowman [address] [place] [address] 03/15/2025 4:30 PM EST Telemedicine [facility] Surgical Oncology [address] [place] [address] Cali Juarez MD [address] [place] [address] [email or web address] 05/17/2025 9:15 AM EST Appointment [facility] Gabriela Bowman [address] [place] [address] Cali Juarez MD [address] [place] [address] [email or web address] 05/17/2025 1:00 PM EST Office Visit [facility] Surgical Oncology [address] [place] [address] Cali Juarez MD [address] [place] [address] [email or web address] 05/22/2025 2:40 PM EST Office Visit [facility] Primary Care [address] [place] [address] [address] [place] [address] Yumi Chaudhary MD [address] [place] [address] [address] [place] [address] [email or web address] 09/18/2025 1:00 PM EDT Office Visit [facility] 32 [facility], 5th Floor, [address] [place] [address] Maynor Rojas MD, MPH 55 [facility] [address] [place] [address] [email or web address] Scheduled Procedures Name Priority Associated [...] as of this encounter Care Teams Senior Datastage Developer Relationship Specialty Start Date End Date Delon Kaur MD [address] [place] [address] PCP - General Family Medicine 05/24/17 01/12/22 Yumi Chaudhary MD [address] [place] [address] [email or web address] PCP - General Family Medicine 01/13/22 Gal Hernandez MD [address] [place] [address] 07/23/20 Yumi Chaudhary MD [address] [place] [address] [email or web address] Insurance Assigned Provider 07/09/23 documented as of this encounter Additional Source Comments The information contained in this document represents components of the legal health record. It is not the complete legal health record.[facility]
--- OUTSIDE RECORDS SUMMARY | 2025-03-05 15:51 | XMS_ITS | Encounter Summary ---
Author Organization [facility] Address [address] [facility] [address] [place] [address] Phone Care Team Providers Care Javascript Software Engineer Name Role Phone Gal Hernandez MD Unavailable Yumi Chaudhary MD Primary Care Provider [phone] Yumi Chaudhary MD Unavailable Encounter Details Date Type Department Care Team (Late st Contact Info) Description 11/05/2022 Procedure Pass [facility] MR Imaging, [place] [address] [place] [address] Social History Tobacco Use Types Packs/Day Years [...] high school, GED, job training, learning the St [place]ian language, technical skills, or developing parenting skills)? [...] st Contact Info) Description 05/11/2024 Procedure Pass [facility] MR Imaging, [place] [address] [place] [address] 03/15/2025 4:30 PM EST Telemedicine [facility] Surgical Oncology 45 [facility] ASB2-3 [place] [address] Cali Juarez MD 75 [place] [address] [email or web address] 05/17/2025 9:15 AM EST Appointment [facility] MR Imaging, [place] [address] [place] [address] Cali Juarez MD 75 [place] [address] [email or web address] 05/17/2025 1:00 PM EST Office Visit [facility] Surgical Oncology 45 [facility] ASB2-3 [place] [address] Cali Juarez MD 75 [place] [address] [email or web address] 05/22/2025 2:40 PM EST Office Visit [facility] Primary Care [address] [facility] [address] [place] [address] Yumi Chaudhary MD 15 [facility] [address] [place] [address] [email or web address] 09/18/2025 1:00 PM EDT Office Visit [facility] 32 [facility], 5th Floor, [address] [place] [address] Mayonr Rojas MD, MPH 55 [facility] [address] [place] [address] [email or web address] Scheduled Procedures Name Priority Associated Diagnoses Date/Ti [...] documented as of this encounter Care Teams Javascript Software Engineer Relationship Specialty Start Date End Date Yumi Chaudhary MD [address] [address] [email or web address] PCP - General Family Medicine 01/13/22 Gal Hernandez MD 7[address] [place] [address] 07/23/20 Yumi Chaudhary MD [address] [address] [email or web address] Insurance Assigned Provider 07/09/23 documented as of this encounter Additional Source Comments The information contained in this document represents components of the legal health record. It is not the complete legal health record.[facility]
--- OUTSIDE RECORDS SUMMARY | 2025-03-05 15:51 | XMS_ITS | Encounter Summary ---
Author Organization [facility] Address [address] [facility] [address] [place] [address] Phone Care Team Providers Care Company Laborer Name Role Phone Delon Kaur MD Primary Care Provider Gal Hernandez MD Unavailable [phone] Yumi Chaudhary MD Primary Care Provider [phone] Yumi Chaudhary MD Unavailable Encounter Details Date Type Department Care Team (Late st Contact Info) Description 02/20/2021 Procedure Pass [facility] CT Imaging, [place] [address] [place] [address] Social History Tobacco Use Types Packs/Day Years [...] [facility] MR Imaging, [place] [address] [place] [address] 03/15/2025 4:30 PM EST Telemedicine [facility] Surgical Oncology [address] [address] Cali Juarez MD [address] [place] [address] [email or web address] 05/17/2025 9:15 AM EST Appointment [facility] MR Lai, Gabriela [address] [place] [address] Cali Juarez MD [address] [place] [address] [email or web address] 05/17/2025 1:00 PM EST Office Visit [facility] Surgical Oncology [address] [place] [address] Cali Juarez MD [address] [place] [address] [email or web address] 05/22/2025 2:40 PM EST Office Visit [facility] Primary Care [address] [place] [address] 201 [place] [address] Yumi Chaudhary MD [address] [place] [address] [address] [place] [address] [email or web address] 09/18/2025 1:00 PM EDT Office Visit [facility] 32 [facility], 5th Floor, [address] [place] [address] Maynor Rojas MD, MPH 55 [facility] [address] [place] [address] [email or web address] Scheduled Procedures Name Priority Associated Diagnoses Date/Ti me ENDOSCOPIC RETROGRADE CHOLANGIOPANCREATOGRAPHY Cholangitis documented as of this encounter Visit Diagnoses Not on filedocumented in this encounter Additional Health Concerns Infection Onset Date Last Indicated Resolved Time 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 09/25/2020 01/06/2023 1:21 AM EDT Resp-Risk Comment:Per note documentation 02/18/2025 02/19/2025 10:40 AM EST documented as of this encounter Care Teams Company Laborer Relationship Specialty Start Date End Date Delon Kaur MD [address] [place] [address] PCP - General Family Medicine 05/24/17 01/12/22 Yumi Chaudhary MD [address] [place] [address] [email or web address] PCP - General Family Medicine 01/13/22 Gal Hernandez MD [address] [place] [address] 07/23/20 Yumi Chaudhary MD [address] [place] [address] [email or web address] Insurance Assigned Provider 07/09/23 documented as of this encounter Additional Source Comments The information contained in this document represents components of the legal health record. It is not the complete legal health record.[facility]
--- OUTSIDE RECORDS SUMMARY | 2025-03-05 15:51 | XMS_ITS | Encounter Summary ---
Author Organization [facility] Address [address] [facility] [address] [place] [address] Phone Care Team Providers Care Mixing And Molding Machine Operator Name Role Phone Delon Kaur MD Primary Care Provider Gal Hernandez MD Unavailable Yumi Chaudhary MD Primary Care Provider Yumi Chaudhary MD Unavailable Encounter Details Date Type Department Care Team (Late st Contact Info) Description 05/15/2021 Procedure Pass [facility] [address] Social History Tobacco Use Types Packs/Day Years [...] Procedure Pass [facility] MR Imaging, Gabriela 60 [place] [address] 03/15/2025 4:30 PM EST Telemedicine [facility] Surgical Oncology [address] [place] [address] Cali Juarez MD [address] [place] [address] [email or web address] 05/17/2025 9:15 AM EST Appointment [facility] MR Lai, Gabriela [address] [place] [address] Cali Juarez MD [address] [place] [address] [email or web address] 05/17/2025 1:00 PM EST Office Visit [facility] Surgical Oncology [address] [place] [address] Cali Juarez MD [address] [place] [address] [email or web address] 05/22/2025 2:40 PM EST Office Visit [facility] Primary Care [address] [place] [address] 201 [place] [address] Yumi Chaudhary MD [address] [place] [address] Nigel [address] [place] [address] [email or web address] 09/18/2025 1:00 PM EDT Office Visit [facility] 32 [facility], 5th Floor, [address] [place] [address] Maynor Rojas MD, MPH 55 [facility] [address] [place] [address] [email or web address] Scheduled Procedures Name Priority Associated Diagnoses Date/Ti me ENDOSCOPIC RETROGRADE CHOLANGIOPANCREATOGRAPHY Cholangitis documented as of this encounter Visit Diagnoses Not on filedocumented in this encounter Additional Health Concerns Infection Onset Date Last Indicated Resolved Time 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 09/25/2020 01/06/2023 1:21 AM EDT Resp-Risk Comment:Per note documentation 02/18/2025 02/19/2025 10:40 AM EST documented as of this encounter Care Teams Mixing And Molding Machine Operator Relationship Specialty Start Date End Date Delon Kaur MD [address] [place] [address] PCP - General Family Medicine 05/24/17 01/12/22 Yumi Chaudhary MD [address] [place] [address] [email or web address] PCP - General Family Medicine 01/13/22 Gal Hernandez MD [address] [place] [address] 07/23/20 Yumi Chaudhary MD [address] [place] [address] [email or web address] Insurance Assigned Provider 07/09/23 documented as of this encounter Additional Source Comments The information contained in this document represents components of the legal health record. It is not the complete legal health record.[facility]
--- OUTSIDE RECORDS SUMMARY | 2025-03-05 15:51 | XMS_ITS | Encounter Summary ---
Author Organization [facility] Address [address] [facility] [address] [place] [address] Phone Care Team Providers Care Car Dumper Operator Name Role Phone Delon Kaur MD Primary Care Provider Gal Hernandez MD Unavailable Yumi Chaudhary MD Primary Care Provider Yumi Chaudhary MD Unavailable Encounter Details Date Type Department Care Team (Late Contact Info) Description 09/27/2020 Procedure Pass [facility] [address] [place] [address] Social History Tobacco Use Types Packs/Day Years [...] (Late Contact Info) Description 05/11/2024 Procedure Pass [facility] Gabriela Bowman [address] [place] [address] 03/15/2025 4:30 PM EST Telemedicine [facility] Surgical Oncology [address] [place] [address] Cali Juarez MD [address] [place] [address] [email or web address] 05/17/2025 9:15 AM EST Appointment [facility] Gabriela Bowman [address] [place] [address] Cali Juarez MD [address] [place] [address] [email or web address] 05/17/2025 1:00 PM EST Office Visit [facility] Surgical Oncology [address] [place] [address] Cali Juarez MD [address] [place] [address] [email or web address] 05/22/2025 2:40 PM EST Office Visit [facility] Primary Care [address] [place] [address] [address] [place] [address] Yumi Chaudhary MD [address] [place] [address] [address] [place] [address] [email or web address] 09/18/2025 1:00 PM EDT Office Visit [facility] 32 [facility], 5th Floor, [address] [place] [address] Maynor Rojas MD, MPH 55 [employer] [address] [place] [address] [email or web address] Scheduled Procedures Name Priority Associated [...] documented as of this encounter Care Teams Car Dumper Operator Relationship Specialty Start Date End Date Delon Kaur MD [address] [place] [address] PCP - General Family Medicine 05/24/17 01/12/22 Yumi Chaudhary MD [address] [place] [address] [email or web address] PCP - General Family Medicine 01/13/22 Gal Hernandez MD [address] [place] [address] 07/23/20 Yumi Chaudhary MD [address] [place] [address] [email or web address] Insurance Assigned Provider 07/09/23 documented as of this encounter Additional Source Comments The information contained in this document represents components of the legal health record. It is not the complete legal health record.[facility]
--- OUTSIDE RECORDS SUMMARY | 2025-03-05 15:51 | XMS_ITS | Encounter Summary ---
Author Organization [facility] Address [address] [place] [address] [place] [address] Phone Care Team Providers Care Scrap Preparation Supervisor Name Role Phone Delon Kaur MD Primary Care Provider Gal Hernandez MD Unavailable Yumi Chaudhary MD Primary Care Provider Yumi Chaudhary MD Unavailable Encounter Details Date Type Department Care Team (Late st Contact Info) Description 08/22/2018 Procedure Pass [address] [place] [address] Social History Tobacco Use Types Packs/Day Years [...] Contact Info) Description 05/11/2024 Procedure Pass [facility] MR Imaging, Gabriela [address] [place] [address] 03/15/2025 4:30 PM EST Telemedicine [facility] Surgical Oncology [address] [address] Cali Juarez MD [address] [place] [address] [email or web address] 05/17/2025 9:15 AM EST Appointment [facility] Imaging, Gabriela [address] [place] [address] Cali Juarez MD [address] [place] [address] [email or web address] 05/17/2025 1:00 PM EST Office Visit [facility] Surgical Oncology [address] [place] [address] Cali Juarez MD [address] [place] [address] [email or web address] 05/22/2025 2:40 PM EST Office Visit [facility] Primary Care [address] [place] [address] [address] [place] [address] Yumi Chaudhary MD [address] [place] [address] [address] [place] [address] [email or web address] 09/18/2025 1:00 PM EDT Office Visit [facility] 32 [facility], 5th Floor, [address] [place] [address] Maynor Rojas MD, MPH 55 [facility] [address] [place] [address] [email or web address] Scheduled Procedures Name Priority Associated Diagnoses Date/Ti [...] documented as of this encounter Care Teams Scrap Preparation Supervisor Relationship Specialty Start Date End Date Delon Kaur MD [address] [place] [address] PCP - General Family Medicine 05/24/17 01/12/22 Yumi Chaudhary MD [address] [place] [address] [email or web address] PCP - General Family Medicine 01/13/22 Gal Hernandez MD [address] [place] [address] 07/23/20 Yumi Chaudhary MD [address] [place] [address] [email or web address] Insurance Assigned Provider 07/09/23 documented as of this encounter Additional Source Comments The information contained in this document represents components of the legal health record. It is not the complete legal health record.[facility]
--- OUTSIDE RECORDS SUMMARY | 2025-03-05 15:51 | XMS_ITS | Encounter Summary ---
Author Organization [facility] Address [address] [place] [address] [place] [address] Phone Care Team Providers Care Mental Health Aide Name Role Phone Delon Kaur MD Primary Care Provider Gal Hernandez MD Unavailable [phone] Yumi Chaudhary MD Primary Care Provider Yumi Chaudhary MD Unavailable Encounter Details Date Type Department Care Team (Late st Contact Info) Description 09/05/2020 Procedure Pass [facility] Endoscopy Department [address] [place] [address] Social History Tobacco Use Types Packs/Day Years [...] Info) Description 05/11/2024 Procedure Pass [facility] MR Imaging, Gabriela 60 [place] [address] 03/15/2025 4:30 PM EST Telemedicine [facility] Surgical Oncology [address] [place] [address] Cali Juarez MD [address] [place] [address] [email or web address] 05/17/2025 9:15 AM EST Appointment [facility] MR Lai, Gabriela [address] [place] [address] Cali Juarez MD [address] [place] [address] [email or web address] 05/17/2025 1:00 PM EST Office Visit [facility] Surgical Oncology [address] [place] [address] Cali Juarez MD [address] [place] [address] [email or web address] 05/22/2025 2:40 PM EST Office Visit [facility] Primary Care [address] [place] [address] 201 [place] [address] Yumi Chaudhary MD [address] [place] [address] [address] [place] [address] [email or web address] 09/18/2025 1:00 PM EDT Office Visit [facility] 32 [facility], 5th Floor, [address] [place] [address] Maynor Rojas MD, MPH 55 [facility] [address] [place] [address] [email or web address] Scheduled Procedures Name Priority Associated Diagnoses [...] documented as of this encounter Care Teams Mental Health Aide Relationship Specialty Start Date End Date Delon Kaur MD [address] [place] [address] PCP - General Family Medicine 05/24/17 01/12/22 Yumi Chaudhary MD [address] [place] [address] [email or web address] PCP - General Family Medicine 01/13/22 Gal Hernandez MD [address] [place] [address] 07/23/20 Yumi Chaudhary MD [address] [place] [address] [email or web address] Insurance Assigned Provider 07/09/23 documented as of this encounter Additional Source Comments The information contained in this document represents components of the legal health record. It is not the complete legal health record.[facility]
--- OUTSIDE RECORDS SUMMARY | 2025-03-05 15:51 | XMS_ITS | Encounter Summary ---
Author Organization [facility] Address [address] [place] [address] [place] [address] Phone Care Team Providers Care Machinist Supervisor Outside Name Role Phone Delon Kaur MD Primary Care Provider Gal Hernandez MD Unavailable Yumi Chaudhary MD Primary Care Provider Yumi Chaudhary MD Unavailable Encounter Details Date Type Department Care Team (Late st Contact Info) Description 09/09/2020 Procedure Pass [facility] Angio Interventional Radiology [address] [place] [address] Social History Tobacco Use Types Packs/Day Years [...] Contact Info) Description 05/11/2024 Procedure Pass [facility] MR Imaging, Gabriela [address] [place] [address] 03/15/2025 4:30 PM EST Telemedicine [facility] Surgical Oncology [address] [address] Cali Juarez MD [address] [place] [address] [email or web address] 05/17/2025 9:15 AM EST Appointment [facility] MR Lai, Gabriela [address] [place] [address] Cali Juarez MD [address] [place] [address] [email or web address] 05/17/2025 1:00 PM EST Office Visit [facility] Surgical Oncology [address] [place] [address] Cali Juarez MD [address] [place] [address] [email or web address] 05/22/2025 2:40 PM EST Office Visit [facility] Primary Care [address] [place] [address] 201 [place] [address] Yumi Chaudhary MD [address] [place] [address] [address] [place] [address] [email or web address] 09/18/2025 1:00 PM EDT Office Visit [facility] 32 [facility], 5th Floor, [address] [place] [address] Maynor Rojas MD, MPH 55 [facility] [address] [place] [address] [email or web address] Scheduled Procedures Name Priority Associated [...] documented as of this encounter Care Teams Machinist Supervisor Outside Relationship Specialty Start Date End Date Delon Kaur MD [address] [place] [address] PCP - General Family Medicine 05/24/17 01/12/22 Yumi Chaudhary MD [address] [place] [address] [email or web address] PCP - General Family Medicine 01/13/22 Gal Hernandez MD [address] [place] [address] 07/23/20 Yumi Chaudhary MD [address] [place] [address] [email or web address] Insurance Assigned Provider 07/09/23 documented as of this encounter Additional Source Comments The information contained in this document represents components of the legal health record. It is not the complete legal health record.[facility]
--- OUTSIDE RECORDS SUMMARY | 2025-03-05 15:52 | XMS_ITS | Encounter Summary ---
Author Organization [facility] Address [address] [facility] [address] [place] [address] Phone Care Team Providers Care Head Esthetician Name Role Phone Gal Hernandez MD Unavailable Yumi Chaudhary MD Primary Care Provider [phone] Yumi Chaudhary MD Unavailable Encounter Details Date Type Department Care Team (Late st Contact Info) Description 01/15/2022 Procedure Pass [facility] Radiology [address] [place] [address] Social History Tobacco Use Types Packs/Day Years [...] high school, GED, job training, learning the Far[place] language, technical skills, or developing parenting skills)? [...] Procedure Pass [facility] MR Imaging, Gabriela [address] [place] [address] 03/15/2025 4:30 PM EST Telemedicine [facility] Surgical Oncology 45 [facility] ASB2-3 [place] [address] Cali Juarez MD [address] [place] [address] [email or web address] 05/17/2025 9:15 AM EST Appointment [facility] MR Imaging, Gabriela [address] [place] [address] Cali Juarez MD [address] [place] [address] [email or web address] 05/17/2025 1:00 PM EST Office Visit [facility] Surgical Oncology 45 [facility] ASB2-3 [place] [address] Cali Juarez MD 75 [place] [address] [email or web address] 05/22/2025 2:40 PM EST Office Visit [facility] Primary Care [address] [facility] [address] [place] [address] Yumi Chaudhary MD [address] [place] [address] [address] [place] [address] [email or web address] 09/18/2025 1:00 PM EDT Office Visit [facility] 32 [facility], 5th Floor, [address] [place] [address] Maynor Rojas MD, MPH 55 [facility] [address] [place] [address] [email or web address] Scheduled Procedures Name Priority Associated Diagnoses [...] documented as of this encounter Care Teams Head Esthetician Relationship Specialty Start Date End Date Yumi Chaudhary MD 15 [facility] [address] [place] [address] [email or web address] PCP - General Family Medicine 01/13/22 Gal Hernandez MD [address] [place] [address] 07/23/20 Yumi Chaudhary MD [address] [place] [address] [email or web address] Insurance Assigned Provider 07/09/23 documented as of this encounter Additional Source Comments The information contained in this document represents components of the legal health record. It is not the complete legal health record.[facility]
--- OUTSIDE RECORDS SUMMARY | 2025-03-05 15:52 | XMS_ITS | Encounter Summary ---
Author Organization [facility] Address [address] [place] [address] [place] [address] Phone Care Team Providers Care Manager Program Name Role Phone Delon Kaur MD Primary Care Provider Gal Hernandez MD Unavailable Yumi Chaudhary MD Primary Care Provider Yumi Chaudhary MD Unavailable Encounter Details Date Type Department Care Team (Late st Contact Info) Description 09/30/2020 Procedure Pass [facility] Angio Interventional Radiology [address] [place] [address] Social History Tobacco Use Types Packs/Day Years [...] Procedure Pass [facility] MR Imaging, Gabriela [address] [place] [address] 03/15/2025 4:30 PM EST Telemedicine [facility] Surgical Oncology [address] [address] Cali Juarez MD [address] [place] [address] [email or web address] 05/17/2025 9:15 AM EST Appointment [facility] MR Lai, Gabriela [address] [place] [address] Cali Juarez MD [address] [place] [address] [email or web address] 05/17/2025 1:00 PM EST Office Visit [facility] Surgical Oncology [address] [place] [address] Cali Juarez MD [address] [place] [address] [email or web address] 05/22/2025 2:40 PM EST Office Visit [facility] Primary Care [address] [place] [address] 201 [place] [address] Yumi Chaudhary MD [address] [place] [address] Nigel [address] [place] [address] [email or web address] 09/18/2025 1:00 PM EDT Office Visit [facility] [address] [facility], 5th Floor, [address] [place] [address] Maynor Rojas MD, MPH 55 [facility] WAL [address] [place] [address] [email or web address] Scheduled Procedures Name Priority Associated Diagnoses [...] documented as of this encounter Care Teams Manager Program Relationship Specialty Start Date End Date Delon Kaur MD [address] [place] [address] PCP - General Family Medicine 05/24/17 01/12/22 Yumi Chaudhary MD [address] [place] [address] [email or web address] PCP - General Family Medicine 01/13/22 Gal Hernandez MD [address] [place] [address] 07/23/20 Yumi Chaduhary MD [address] [place] [address] [email or web address] Insurance Assigned Provider 07/09/23 documented as of this encounter Additional Source Comments The information contained in this document represents components of the legal health record. It is not the complete legal health record.[facility]
--- OUTSIDE RECORDS SUMMARY | 2025-03-05 15:52 | XMS_ITS | Encounter Summary ---
Author Organization [facility] Address [address] [place] [address] [place] [address] Phone Care Team Providers Care Juice Mixer Name Role Phone Delon Kaur MD Primary Care Provider Gal Hernandez MD Unavailable Yumi Chaudhary MD Primary Care Provider Yumi Chaudhary MD Unavailable Encounter Details Date Type Department Care Team (Late st Contact Info) Description 11/13/2020 Procedure Pass [facility] Periop 75 [place] [address] Social History Tobacco Use Types Packs/Day Years [...] Procedure Pass [facility] MR Imaging, Gabriela 60 [place] [address] 03/15/2025 4:30 PM EST Telemedicine [facility] Surgical Oncology [address] [place] [address] Cali Juarez MD [address] [place] [address] [email or web address] 05/17/2025 9:15 AM EST Appointment [facility] MR Lai, Gabriela [address] [place] [address] Cali Juarez MD [address] [place] [address] [email or web address] 05/17/2025 1:00 PM EST Office Visit [facility] Surgical Oncology [address] [place] [address] Cali Juarez MD [address] [place] [address] [email or web address] 05/22/2025 2:40 PM EST Office Visit [facility] Primary Care [address] [place] [address] 201 [place] [address] Yumi Chaudhary MD [address] [place] [address] Nigel 201 [place] [address] [email or web address] 09/18/2025 1:00 PM EDT Office Visit [facility] 32 [facility], 5th Floor, [address] [place] [address] Maynor Rojas MD, MPH 55 [facility] WAL [address] [place] [address] [email or web address] Scheduled Procedures Name Priority Associated Diagnoses [...] documented as of this encounter Care Teams Juice Mixer Relationship Specialty Start Date End Date Delon Kaur MD [address] [place] [address] PCP - General Family Medicine 05/24/17 01/12/22 Yumi Chaudhary MD [address] [place] [address] [email or web address] PCP - General Family Medicine 01/13/22 Gal Hernandez MD [address] [place] [address] 07/23/20 Yumi Chaudhary MD [address] [place] [address] [email or web address] Insurance Assigned Provider 07/09/23 documented as of this encounter Additional Source Comments The information contained in this document represents components of the legal health record. It is not the complete legal health record.[facility]
--- OUTSIDE RECORDS SUMMARY | 2025-03-05 15:52 | XMS_ITS | Encounter Summary ---
Author Organization [facility] Address [address] [facility] [address] [place] [address] Phone Care Team Providers Care Solar Installer Pv Name Role Phone Gal Hernandez MD Unavailable [phone] Yumi Chaudhary MD Primary Care Provider [phone] Yumi Chaudhary MD Unavailable Encounter Details Date Type Department Care Team (Late st Contact Info) Description 10/11/2023 Procedure Pass [facility], Ct Scan - [address] [address] Social History Tobacco Use Types Packs/Day Years [...] high school, GED, job training, learning the Chadian language, technical skills, or developing parenting skills)? [facility], [place]choa [address] [place] [address] 03/15/2025 4:30 PM EST Telemedicine [facility] Surgical Oncology 45 [facility] ASB[address] [place] [address] Cali Juarez MD 75 [place] [address] [email or web address] 05/17/2025 9:15 AM EST Appointment [facility] MR Imaging, Ochoa [address] [place] [address] Cali Juarez MD 75 [place] [address] [email or web address] 05/17/2025 1:00 PM EST Office Visit [facility] Surgical Oncology 45 [facility] ASB[facility]3 [place] [address] Cali Juarez MD 75 [place] [address] [email or web address] 05/22/2025 2:40 PM EST Office Visit [facility] Care 15 [facility] [address] [place] [address] Yumi Chaudhary MD [address] [place] [address] Nigel. 201 [place] [address] [email or web address] 09/18/2025 1:00 PM EDT Office Visit [facility] 32 [facility], 5th Floor, [address] [place] [address] Maynor Rojas MD, MPH 55 [facility] WAL [address] [place] [address] [email or web address] Scheduled Procedures Name Priority Associated Diagnoses [...] documented as of this encounter Care Teams Solar Installer Pv Relationship Specialty Start Date End Date Yumi Chauhdary MD [address] [address] [email or web address] PCP - General Family Medicine 01/13/22 Gal Hernandez MD 7[address] [place] [address] 07/23/20 Yumi Chaudhary MD [address] [address] [email or web address] Insurance Assigned Provider 07/09/23 documented as of this encounter Additional Source Comments The information contained in this document represents components of the legal health record. It is not the complete legal health record.[facility]
--- OUTSIDE RECORDS SUMMARY | 2025-03-05 15:52 | XMS_ITS | Encounter Summary ---
Author Organization [facility] Address [address] [place] [address] [place] [address] Phone Care Team Providers Care High School Computer Science Teacher Name Role Phone Delon Kaur MD Primary Care Provider [phone] Gal Hernandez MD Unavailable Yumi Chaudhary MD Primary Care Provider Yumi Chaudhary MD Unavailable Encounter Details Date Type Department Care Team (Late st Contact Info) Description 09/04/2020 Procedure Pass [facility] Angio Interventional Radiology [address] [place] [address] Social History Tobacco Use Types Packs/Day Years [...] Procedure Pass [facility] MR Imaging, Gabriela [address] [place] [address] 03/15/2025 4:30 PM EST Telemedicine [facility] Surgical Oncology [address] [address] Cali Juarez MD [address] [place] [address] [email or web address] 05/17/2025 9:15 AM EST Appointment [facility] MR Lai, Gabriela [address] [place] [address] Cali Juarez MD [address] [place] [address] [email or web address] 05/17/2025 1:00 PM EST Office Visit [facility] Surgical Oncology [address] [place] [address] Cali Juarez MD [address] [place] [address] [email or web address] 05/22/2025 2:40 PM EST Office Visit [facility] Primary Care [address] [place] [address] 201 [place] [address] Yumi Chaudhary MD [address] [place] [address] Nigel 201 [place] [address] [email or web address] 09/18/2025 1:00 PM EDT Office [place] [facility] 32 [facility], 5th Floor, [address] [place] [address] Maynor Rojas MD, MPH 55 [facility] WAL [address] [place] [address] [email or web address] Scheduled Procedures Name Priority Associated Diagnoses [...] of this encounter Care Teams High [employer] Computer Science Teacher Relationship Specialty Start Date End Date Delon Kaur MD [address] [place] [address] PCP - General Family Medicine 05/24/17 01/12/22 Yumi Chaudhary MD [address] [place] [address] [email or web address] PCP - General Family Medicine 01/13/22 Gal Hernandez MD [address] [place] [address] 07/23/20 Yumi Chaudhary MD [address] [place] [address] [email or web address] Insurance Assigned Provider 07/09/23 documented as of this encounter Additional Source Comments The information contained in this document represents components of the legal health record. It is not the complete legal health record.[facility]
--- OUTSIDE RECORDS SUMMARY | 2025-03-05 15:52 | XMS_ITS | Encounter Summary ---
Author Organization [facility] Address [address] [facility] [address] [place] [address] Phone Care Team Providers Care Bleach Maker Name Role Phone Delon Kaur MD Primary Care Provider Gal Hernandez MD Unavailable [phone] Yumi Chaudhary MD Primary Care Provider Yumi Chaudhary MD Unavailable Encounter Details Date Type Department Care Team (Late st Contact Info) Description 04/30/2021 Procedure Pass [facility], Ct Scan - [address] [address] Social History Tobacco Use Types Packs/Day Years [...] 04/30/2021 1:22 PM Halley Green RN * [place] Suicide Severity Rating Scale (Screener/Recent Self-Report) Question Answer Date of Assessment Author 1. Wish to be (Past 1 Month) No 022 1:22 PM Halley Martinez RN 2. Non-Specific Active Suici niraj Thoughts (Past 1 Month) No 04/30/2021 1:22 PM Aung Martinez RN 6. Suicidal Behavior (Lifetime) No 1:22 PM Halley Martinez RN documented as of this encounter Plan of Treatment Upcoming Encounters Date Type Department Care Team (Late st Contact Info) Description 05/11/2024 Procedure Pass [facility] MR Imaging, Ochoa 60 [place] [address] 03/15/2025 4:30 PM EST Telemedicine [facility] Surgical Oncology [address] [address] Cali Juarez MD [address] [place] [address] [email or web address] 05/17/2025 9:15 AM EST Appointment [facility] MR Imaging, Ochoa 60 [place] [address] Cali Juarez MD [address] [place] [address] [email or web address] 05/17/2025 1:00 PM EST Office Visit [facility] Surgical Oncology [address] [place] [address] Cali Juarez MD [address] [place] [address] [email or web address] 05/22/2025 2:40 PM EST Office Visit [facility] Primary Care 15 [facility] [address] [place] [address] Yumi Chaudhary MD [address] [address] [email or web address] 09/18/2025 1:00 PM EDT Office Visit [facility] 32 [facility], 5th Floor, [address] [place] [address] Maynor Rojas MD, MPH 55 [facility] 2100 [place] [address] [email or web address] Scheduled Procedures Name Priority Associated Diagnoses Date/Ti me ENDOSCOPIC RETROGRADE CHOLANGIOPANCREATOGRAPHY Cholangitis documented as of this encounter Visit Diagnoses Not on filedocumented in this encounter Additional Health Concerns Infection Onset Date Last Indicated Resolved Time 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 09/25/2020 01/06/2023 1:21 AM EDT Resp-Risk Comment:Per note documentation 02/18/2025 02/19/2025 10:40 AM EST documented as of this encounter Care Teams Bleach Maker Relationship Specialty Start Date End Date Delon Kaur MD [address] [place] [address] PCP - General Family Medicine 05/24/17 01/12/22 Yumi Chaudhary MD [address] [address] PCP - General Family Medicine 01/13/22 Gal Hernandez MD [address] [place] [address] 07/23/20 Yumi Chaudhary MD [address] [address] Insurance Assigned Provider 07/09/23 documented as of this encounter Additional Source Comments The information contained in this document represents components of the legal health record. It is not the complete legal health record.[facility]
--- OUTSIDE RECORDS SUMMARY | 2025-03-05 15:52 | XMS_ITS | Encounter Summary ---
Author Organization [facility] Address [address] [place] [address] [place] [address] Phone Care Team Providers Care Contract Associate Name Role Phone Delon Kaur MD Primary Care Provider [phone] Gal Hernandez MD Unavailable [phone] Yumi Chaudhary MD Primary Care Provider Yumi Chaudhary MD Unavailable Encounter Details Date Type Department Care Team (Late st Contact Info) Description 09/29/2020 Procedure Pass [facility] Periop 75 [place] [address] Social History Tobacco Use Types Packs/Day Years [...] Procedure Pass [facility] MR Imaging, Gabriela 60 [place] [address] 03/15/2025 4:30 PM EST Telemedicine [facility] Surgical Oncology [address] [place] [address] Cali Juarez MD [address] [place] [address] [email or web address] 05/17/2025 9:15 AM EST Appointment [facility] MR Lai, Gabriela [address] [place] [address] Cali Juarez MD [address] [place] [address] [email or web address] 05/17/2025 1:00 PM EST Office Visit [facility] Surgical Oncology [address] [place] [address] Cali Juarez MD [address] [place] [address] [email or web address] 05/22/2025 2:40 PM EST Office Visit [facility] Primary Care [address] [place] [address] 201 [place] [address] Yumi Chaudhary MD [address] [place] [address] Nigel 201 [place] [address] [email or web address] 09/18/2025 1:00 PM EDT Office Visit [facility] 32 [facility], 5th Floor, [address] [place] [address] Maynor Rojas MD, MPH 55 [facility] [address] [place] [address] [email or web address] Scheduled Procedures Name Priority Associated [...] documented as of this encounter Care Teams Contract Associate Relationship Specialty Start Date End Date Delon Kaur MD [address] [place] [address] PCP - General Family Medicine 05/24/17 01/12/22 Yumi Chaudhary MD [address] [place] [address] [email or web address] PCP - General Family Medicine 01/13/22 Gal Hernandez MD [address] [place] [address] 07/23/20 Yumi Chaudhary MD [address] [place] [address] [email or web address] Insurance Assigned Provider 07/09/23 documented as of this encounter Additional Source Comments The information contained in this document represents components of the legal health record. It is not the complete legal health record.[facility]
--- OUTSIDE RECORDS SUMMARY | 2025-03-05 15:52 | XMS_ITS | Encounter Summary ---
Author Organization [facility] Address [address] [facility] [address] [place] [address] Phone Care Team Providers Care Video Presentation Operator Name Role Phone Delon Kaur MD Primary Care Provider Gal Hernandez MD Unavailable [phone] Yumi Chaudhary MD Primary Care Provider [phone] Yumi Chaudhary MD Unavailable Encounter Details Date Type Department Care Team (Late Contact Info) Description 09/29/2020 Procedure Pass [facility] [address] [place] [address] Social History Tobacco Use Types Packs/Day Years [...] (Late Contact Info) Description 05/11/2024 Procedure Pass [facility] Gabriela Bowman [address] [place] [address] 03/15/2025 4:30 PM EST Telemedicine [facility] Surgical Oncology [address] [place] [address] Cali Juarez MD [address] [place] [address] [email or web address] 05/17/2025 9:15 AM EST Appointment [facility] Gabriela Bowman [address] [place] [address] Cali Juarez MD [address] [place] [address] [email or web address] 05/17/2025 1:00 PM EST Office Visit [facility] Surgical Oncology [address] [place] [address] Cali Juarez MD [address] [place] [address] [email or web address] 05/22/2025 2:40 PM EST Office Visit [facility] Primary Care [address] [place] [address] [address] [place] [address] Yumi Chaudhary MD [address] [place] [address] Nigel [address] [place] [address] [email or web address] 09/18/2025 1:00 PM EDT Office Visit [facility] 32 [facility], 5th Floor, [address] [place] [address] Maynor Rojas MD, MPH 55 [facility] WAL [address] [place] [address] [email or web address] Scheduled Procedures Name Priority Associated Diagnoses [...] documented as of this encounter Care Teams Video Presentation Operator Relationship Specialty Start Date End Date Delon Kaur MD [address] [place] [address] PCP - General Family Medicine 05/24/17 01/12/22 Yumi Chaudhary MD [address] [place] [address] [email or web address] PCP - General Family Medicine 01/13/22 Gal Hernandez MD [address] [place] [address] 07/23/20 Yumi Chaudhary MD [address] [place] [address] [email or web address] Insurance Assigned Provider 07/09/23 documented as of this encounter Additional Source Comments The information contained in this document represents components of the legal health record. It is not the complete legal health record.[facility]
--- OUTSIDE RECORDS SUMMARY | 2025-03-05 15:52 | XMS_ITS | Encounter Summary ---
Author Organization [facility] Address [address] [place] [address] [place] [address] Phone Care Team Providers Care Search Manager Name Role Phone Delon Kaur MD Primary Care Provider Gal Hernandez MD Unavailable Yumi Chaudhary MD Primary Care Provider [phone] Yumi Chaudhary MD Unavailable Encounter Details Date Type Department Care Team (Late st Contact Info) Description 09/29/2020 Procedure Pass [facility] Angio Interventional Radiology [address] [place] [address] Social History Tobacco Use Types Packs/Day Years [...] Procedure Pass [facility] MR Imaging, Gabriela [address] [place] [address] 03/15/2025 4:30 PM EST Telemedicine [facility] Surgical Oncology [address] [address] Cali Juarez MD [address] [place] [address] [email or web address] 05/17/2025 9:15 AM EST Appointment [facility] MR Lai, Gabriela [address] [place] [address] Cali Juarez MD [address] [place] [address] [email or web address] 05/17/2025 1:00 PM EST Office Visit [facility] Surgical Oncology [address] [place] [address] Cali Juarez MD [address] [place] [address] [email or web address] 05/22/2025 2:40 PM EST Office Visit [facility] Primary Care [address] [place] [address] 201 [place] [address] Yumi Chaudhary MD [address] [place] [address] Nigel [address] [place] [address] [email or web address] 09/18/2025 1:00 PM EDT Office Visit [facility] [place] [place] [facility] 32 [facility], 5th Floor, [address] [place] [address] Maynor Rojas MD, MPH 55 [facility] W[address] [place] [address] [email or web address] Scheduled Procedures Name Priority Associated Diagnoses [...] documented as of this encounter Care Teams Search Manager Relationship Specialty Start Date End Date Delon Kaur MD [address] [place] [address] PCP - General Family Medicine 05/24/17 01/12/22 Yumi Chaudhary MD [address] [place] [address] [email or web address] PCP - General Family Medicine 01/13/22 Gal Hernandez MD [address] [place] [address] 07/23/20 Yumi Chaudhary MD [address] [place] [address] [email or web address] Insurance Assigned Provider 07/09/23 documented as of this encounter Additional Source Comments The information contained in this document represents components of the legal health record. It is not the complete legal health record.[facility]
--- OUTSIDE RECORDS SUMMARY | 2025-03-05 15:52 | XMS_ITS | Encounter Summary ---
Author Organization [facility] Address [address] [facility] [address] [place] [address] Phone Care Team Providers Care Rn Transitional Care Name Role Phone Delon Kaur MD Primary Care Provider Gal Hernandez MD Unavailable Yumi Chaudhary MD Primary Care Provider Yumi Chaudhary MD Unavailable Encounter Details Date Type Department Care Team (Late Contact Info) Description 10/11/2020 Procedure Pass [facility] [address] [place] [address] Social History Tobacco Use Types Packs/Day Years [...] (Late Contact Info) Description 05/11/2024 Procedure Pass [facility] Gabriela Bowman [address] [place] [address] 03/15/2025 4:30 PM EST Telemedicine [facility] Surgical Oncology [address] [place] [address] Cali Juarez MD [address] [place] [address] [email or web address] 05/17/2025 9:15 AM EST Appointment [facility] Gabriela Bowman [address] [place] [address] Cali Juarez MD [address] [place] [address] [email or web address] 05/17/2025 1:00 PM EST Office Visit [facility] Surgical Oncology [address] [place] [address] Cali Juarez MD [address] [place] [address] [email or web address] 05/22/2025 2:40 PM EST Office Visit [facility] [place] [facility] [address] [place] [address] [address] [place] [address] Yumi Chaudhary MD [address] [place] [address] [address] [place] [address] [email or web address] 09/18/2025 1:00 PM EDT Office Visit [facility] [address] [facility], 5th Floor, [address] [place] [address] Maynor Rojas MD, MPH 55 [facility] [address] [place] [address] [email or web address] Scheduled Procedures [...] as of this encounter Care Teams Rn Transitional Care Relationship Specialty Start Date End Date Delon Kaur MD [address] [place] [address] PCP - General Family Medicine 05/24/17 01/12/22 Yumi Chaudhary MD [address] [place] [address] [email or web address] PCP - General Family Medicine 01/13/22 Gal Hernandez MD [address] [place] [address] 07/23/20 Yumi Chaudhary MD [address] [place] [address] [email or web address] Insurance Assigned Provider 07/09/23 documented as of this encounter Additional Source Comments The information contained in this document represents components of the legal health record. It is not the complete legal health record.[facility]
--- OUTSIDE RECORDS SUMMARY | 2025-03-05 15:52 | XMS_ITS | Encounter Summary ---
Author Organization [facility] Address 399 [facility] [address] [place] [address] Phone Care Team Providers Care Stationary Plant Operators Name Role Phone Delon Kaur MD Primary Care Provider Gal Hernandez MD Unavailable Yumi Chaudhary MD Primary Care Provider [phone] Yumi Chaudhary MD Unavailable Encounter Details Date Type Department Care Team (Late Contact Info) Description 10/16/2020 Procedure Pass [facility] [address] [place] [address] Social History Tobacco Use Types Packs/Day Years [...] (Late Contact Info) Description 05/11/2024 Procedure Pass [facility] Gabriela Bowman [address] [place] [address] 03/15/2025 4:30 PM EST Telemedicine [facility] Surgical Oncology [address] [place] [address] Cali Juarez MD [address] [place] [address] [email or web address] 05/17/2025 9:15 AM EST Appointment [facility] Gabriela Bowman [address] [place] [address] Cali Juarez MD [address] [place] [address] [email or web address] 05/17/2025 1:00 PM EST Office Visit [facility] Surgical Oncology [address] [place] [address] Cali Juarez MD [address] [place] [address] [email or web address] 05/22/2025 2:40 PM EST Office Visit [facility] [place] Primary [facility] [address] [place] [address] [address] [place] [address] Ymui Chaudhary MD [address] [place] [address] [address] [place] [address] [email or web address] 09/18/2025 1:00 PM EDT Office [place] [facility] 32 [facility], 5th Floor, [address] [place] [address] Maynor Rojas MD, MPH 55 [facility] [address] [place] [address] [email or web address] Scheduled Procedures Name Priority Associated [...] documented as of this encounter Care Teams Stationary Plant Operators Relationship Specialty Start Date End Date Delon Kaur MD [address] [place] [address] PCP - General Family Medicine 05/24/17 01/12/22 Yumi Chaudhary MD [address] [place] [address] [email or web address] PCP - General Family Medicine 01/13/22 Gal Hernandez MD [address] [place] [address] 07/23/20 Yumi Chaudhary MD [address] [place] [address] [email or web address] Insurance Assigned Provider 07/09/23 documented as of this encounter Additional Source Comments The information contained in this document represents components of the legal health record. It is not the complete legal health record.[facility]
--- OUTSIDE RECORDS SUMMARY | 2025-03-05 15:52 | XMS_ITS | Encounter Summary ---
Author Organization [facility] Address [address] [facility] [address] [place] [address] Phone Care Team Providers Care Crown Attacher Name Role Phone Delon Kaur MD Primary Care Provider Gal Hernandez MD Unavailable Yumi Chaudhary MD Primary Care Provider [phone] Yumi Chaudhary MD Unavailable Encounter Details Date Type Department Care Team (Late Contact Info) Description 10/11/2020 Procedure Pass [facility] [address] [place] [address] Social History Tobacco Use Types Packs/Day Years [...] (Late Contact Info) Description 05/11/2024 Procedure Pass [facility] Gabriela Bowman [address] [place] [address] 03/15/2025 4:30 PM EST Telemedicine [facility] Surgical Oncology [address] [place] [address] Cali Juarez MD [address] [place] [address] [email or web address] 05/17/2025 9:15 AM EST Appointment [facility] Gabriela Bowman [address] [place] [address] Cali Juarez MD [address] [place] [address] [email or web address] 05/17/2025 1:00 PM EST Office Visit [facility] Surgical Oncology [address] [place] [address] Cali Juarez MD [address] [place] [address] [email or web address] 05/22/2025 2:40 PM EST Office Visit [facility] [place] [facility] [address] [place] [address] [address] [place] [address] Yumi Chaudhary MD [address] [place] [address] [address] [place] [address] [email or web address] 09/18/2025 1:00 PM EDT Office Visit [facility] 32 [facility], 5th Floor, [address] [place] [address] Maynor Rojas MD, MPH 55 [facility] [address] [place] [address] [email or web address] Scheduled Procedures [...] documented as of this encounter Care Teams Crown Attacher Relationship Specialty Start Date End Date Delon Kaur MD [address] [place] [address] PCP - General Family Medicine 05/24/17 01/12/22 Yumi Chaudhary MD [address] [place] [address] [email or web address] PCP - General Family Medicine 01/13/22 Gal Hernandez MD [address] [place] [address] 07/23/20 Yumi Chaudhary MD [address] [place] [address] [email or web address] Insurance Assigned Provider 07/09/23 documented as of this encounter Additional Source Comments The information contained in this document represents components of the legal health record. It is not the complete legal health record.[facility]
--- OUTSIDE RECORDS SUMMARY | 2025-03-05 15:52 | XMS_ITS | Encounter Summary ---
Author Organization [facility] Address [address] [facility] [address] [place] [address] Phone Care Team Providers Care Centura Technical Lead Senior Developer Name Role Phone Delon Kaur MD Primary Care Provider Gal Hernandez MD Unavailable Yumi Chaudhary MD Primary Care Provider Yumi Chaudhary MD Unavailable Encounter Details Date Type Department Care Team (Late Contact Info) Description 09/04/2020 Procedure Pass [facility] [address] [place] [address] Social History Tobacco Use Types Packs/Day Years [...] Contact Info) Description 05/11/[address] [facility] Gabriela Bowman [address] [place] [address] 03/15/2025 4:[address] [facility] Surgical Oncology [address] [place] [address] Cali Juarez MD [address] [place] [address] [email or web address] 05/17/2025 9:[address] [facility] Gabriela Bowman [address] [place] [address] Cali Juarez MD [address] [place] [address] [email or web address] 05/17/2025 1:00 PM EST Office Visit [facility] Surgical Oncology [address] [place] [address] Cali Juarez MD [address] [place] [address] [email or web address] 05/22/2025 2:40 PM EST Office Visit [facility] [place] [facility] [address] [place] [address] [address] [place] [address] Yumi Chaudhary MD [address] [place] [address] [address] [place] [address] [email or web address] 09/18/2025 1:00 PM EDT Office [place] [facility] 32 [facility], 5th Floor, [address] [place] [address] Maynor Rojas MD, MPH 55 [facility] [address] [place] [address] [email or web address] Scheduled Procedures Name Priority Associated Diagnoses [...] documented as of this encounter Care Teams Centura Technical Lead Senior Developer Relationship Specialty Start Date End Date Delon Kaur MD [address] [place] [address] PCP - General Family Medicine 05/24/17 01/12/22 Yumi Chaudhary MD [address] [place] [address] [email or web address] PCP - General Family Medicine 01/13/22 Gal Hernandez MD [address] [place] [address] 07/23/20 Yumi Chaudhary MD [address] [place] [address] [email or web address] Insurance Assigned Provider 07/09/23 documented as of this encounter Additional Source Comments The information contained in this document represents components of the legal health record. It is not the complete legal health record.[facility]
--- OUTSIDE RECORDS SUMMARY | 2025-03-05 15:52 | XMS_ITS | Encounter Summary ---
Author Organization [facility] Address [address] [facility] [address] [place] [address] Phone Care Team Providers Care High School Mathematics Teacher Name Role Phone Delon Kaur MD Primary Care Provider Gal Hernandez MD Unavailable [phone] Yumi Chaudhary MD Primary Care Provider Yumi Chaudhary MD Unavailable Encounter Details Date Type Department Care Team (Late Contact Info) Description 09/04/2020 Procedure Pass [facility] [address] [place] [address] Social History Tobacco Use Types Packs/Day Years [...] (Late Contact Info) Description 05/11/2024 Procedure Pass [facility] Gabriela Bowman [address] [place] [address] 03/15/2025 4:30 PM EST Telemedicine [facility] Surgical Oncology [address] [place] [address] Cali Juarez MD [address] [place] [address] [email or web address] 05/17/2025 9:15 AM EST Appointment [facility] Gabriela Bowman [address] [place] [address] Cali Juarez MD [address] [place] [address] [email or web address] 05/17/2025 1:00 PM EST Office Visit [facility] Surgical Oncology [address] [place] [address] Cali Juarez MD [address] [place] [address] [email or web address] 05/22/2025 2:40 PM EST Office Visit [facility] Primary [facility] [address] [place] [address] [address] [place] [address] Yumi Chaudhary MD [address] [place] [address] [address] [place] [address] [email or web address] 09/18/2025 1:00 PM EDT Office Visit [facility] 32 [facility], 5th Floor, [address] [place] [address] Maynor Rojas MD, MPH 55 [facility] [address] [place] [address] [email or web address] Scheduled Procedures Name Priority Associated Diagnoses Date/Ti [...] of this encounter Care Teams High School Mathematics Teacher Relationship Specialty Start Date End Date Delon Kaur MD [address] [place] [address] PCP - General Family Medicine 05/24/17 01/12/22 Yumi Chaudhary MD [address] [place] [address] [email or web address] PCP - General Family Medicine 01/13/22 Gal Hernandez MD [address] [place] [address] 07/23/20 Yumi Chaudhary MD [address] [place] [address] [email or web address] Insurance Assigned Provider 07/09/23 documented as of this encounter Additional Source Comments The information contained in this document represents components of the legal health record. It is not the complete legal health record.[facility]
--- OUTSIDE RECORDS SUMMARY | 2025-03-05 15:52 | XMS_ITS | Encounter Summary ---
Author Organization [facility] Address [address] [facility] [address] [place] [address] Phone Care Team Providers Care Yacht Hand Name Role Phone Gal Hernandez MD Unavailable Yumi Chaudhary MD Primary Care Provider [phone] Yumi Chaudhary MD Unavailable Encounter Details Date Type Department Care Team (Late st Contact Info) Description 03/15/2024 Procedure Pass [facility], [address] [place] [address] Social History Tobacco Use Types Packs/Day Years [...] [facility], Gabriela [address] [place] [address] 03/15/2025 4:30 PM EST Telemedicine [facility] Surgical Oncology 45 [facility] [place] [address] Cali Juarez MD 75 [place] [address] [email or web address] 05/17/2025 9:15 AM EST Appointment [facility] MR Imaging, [address] [place] [address] Cali Juarez MD 75 [place] [address] [email or web address] 05/17/2025 1:00 PM EST Office Visit [facility] Surgical Oncology 45 [facility] ASB2-3 [place] [address] Cali Juarez MD 75 [place] [address] [email or web address] 05/22/2025 2:40 PM EST Office Visit [facility] 15 [facility] [address] [place] [address] Yumi Chaudhary MD 15 [facility] 201 [place] [address] [email or web address] 09/18/2025 1:00 PM EDT Office [place] [facility] 32 [facility], 5th Floor, [address] [place] [address] Maynor Rojas MD, MPH 55 [facility] [address]100 [place] [address] [email or web address] Scheduled Procedures Name Priority Associated Diagnoses Date/Ti la ENDOSCOPIC RETROGRADE CHOLANGIOPANCREATOGRAPHY Cholangitis documented as of this encounter Visit Diagnoses Not on filedocumented in this encounter Additional Health Concerns Infection Onset Date Last Indicated Resolved Time Resp-Risk Comment:Per note documentation 02/18/2025 02/19/2025 10:40 AM EST Assessment Noted Time PHQ-2 Depression Total Score: 0 12/17/19 22 7:47 AM EDT documented as of this encounter Care Teams Yacht Hand Relationship Specialty Start Date End Date Yumi Chaudhary MD 15 [facility] [address] [place] [address] [email or web address] PCP - General Family Medicine 01/13/22 Gal Hernandez MD [address] [place] [address] 07/23/20 Yumi Chaudhary MD [address] [place] [address] [email or web address] Insurance Assigned Provider 07/09/23 documented as of this encounter Additional Source Comments The information contained in this document represents components of the legal health record. It is not the complete legal health record.[facility]
--- OUTSIDE RECORDS SUMMARY | 2025-03-05 15:52 | XMS_ITS | Encounter Summary ---
Author Organization [facility] Address 399 [facility] [address] [place] [address] Phone Care Team Providers Care Fitness Leader Name Role Phone Gal Hernandez MD Unavailable Yumi Chaudhary MD Primary Care Provider [phone] Yumi Chaudhary MD Unavailable Encounter Details Date Type Department Care Team (Late st Contact Info) Description 05/13/2023 Procedure Pass [facility], [address] [place] [address] Social History Tobacco Use Types Packs/Day Years [...] high school, GED, job training, learning the Nigerien language, technical skills, or developing parenting skills)? [...] st Contact Info) Description 05/11/2024 Procedure Pass [facility] MR Imaging, [place] [address] [place] [address] 03/15/2025 4:30 PM EST Telemedicine [facility] Surgical Oncology 45 [facility] ASB2-3 [place] [address] Cali Juarez MD 75 [place] [address] [email or web address] 05/17/2025 9:15 AM EST Appointment [facility] MR Imaging, [place] [address] [place] [address] Cali Juarez MD 75 [place] [address] [email or web address] 05/17/2025 1:00 PM EST Office Visit [facility] Surgical Oncology 45 [facility] ASB2-3 [place] [address] Cali Juarez MD 75 [place] [address] [email or web address] 05/22/2025 2:40 PM EST Office Visit [facility] [place] [facility] 15 [facility] [address] [place] [address] Yumi Chaudhary MD [address] [place] [address] 201 [place] [address] [email or web address] 09/18/2025 1:00 PM EDT Office Visit [facility] 32 [facility], 5th Floor, [address] [place] [address] Maynor Rojas MD, MPH 55 [facility] W[address] [place] [address] [email or web address] Scheduled Procedures Name Priority Associated Diagnoses [...] documented as of this encounter Care Teams Fitness Leader Relationship Specialty Start Date End Date Yumi Chaudhary MD [address] [address] [email or web address] PCP - General Family Medicine 01/13/22 Gal Hernandez MD [address] [place] [address] 07/23/20 Yumi Chaudhary MD [address] [address] [email or web address] Insurance Assigned Provider 07/09/23 documented as of this encounter Additional Source Comments The information contained in this document represents components of the legal health record. It is not the complete legal health record.[facility]
--- OUTSIDE RECORDS SUMMARY | 2025-03-05 15:52 | XMS_ITS | Encounter Summary ---
Author Organization [facility] Address [address] [facility] [address] [place] [address] Phone Care Team Providers Care Air Cargo Ground Crew Supervisor Name Role Phone Delon Kaur MD Primary Care Provider Gal Hernandez MD Unavailable Yumi Chaudhary MD Primary Care Provider [phone] Yumi Chaudhary MD Unavailable Encounter Details Date Type Department Care Team (Late st Contact Info) Description 04/30/2021 Procedure Pass [facility], Ct Scan - [address] [address] Social History Tobacco Use Types Packs/Day Years [...] 04/30/2021 1:22 PM Halley Green RN * [place] Suicide Severity Rating Scale (Screener/Recent Self-Report) Question [...] Pass [facility] MR Imaging, [address] [place] [address] 03/15/2025 4:30 PM EST Telemedicine [facility] Surgical Oncology [address] [address] Cali Juarez MD [address] [place] [address] [email or web address] 05/17/2025 9:15 AM EST Appointment [facility] MR Imaging, [address] [place] [address] Cali Juarez MD [address] [place] [address] [email or web address] 05/17/2025 1:00 PM EST Office Visit [facility] Surgical Oncology [address] [place] [address] Cali Juarez MD [address] [place] [address] [email or web address] 05/22/2025 2:40 PM EST Office Visit [facility] Primary Care 15 [facility] [address] [place] [address] Yumi Chaudhary MD [address] [address] [email or web address] 09/18/2025 1:00 PM EDT Office [place] [facility] 32 [facility], 5th Floor, [address] [place] [address] Maynor Rojas MD, MPH 55 [facility] [address] [place] [address] [email or web address] Scheduled Procedures Name Priority Associated Diagnoses Date/Ti me ENDOSCOPIC RETROGRADE CHOLANGIOPANCREATOGRAPHY Cholangitis documented as of this encounter Visit Diagnoses Not on filedocumented in this encounter Additional Health Concerns Infection Onset Date Last Indicated Resolved Time 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 09/25/2020 01/06/2023 1:21 AM EDT Resp-Risk Comment:Per note documentation 02/18/2025 02/19/2025 10:40 AM EST documented as of this encounter Care Teams Air Cargo Ground Crew Supervisor Relationship Specialty Start Date End Date Delon Kaur MD [address] [place] [address] PCP - General Family Medicine 05/24/17 01/12/22 Yumi Chaudhary MD [address] [address] [email or web address] PCP - General Family Medicine 01/13/22 Gal Hernandez MD [address] [place] [address] 07/23/20 Yumi Chaudhary MD [address] [address] [email or web address] Insurance Assigned Provider 07/09/23 documented as of this encounter Additional Source Comments The information contained in this document represents components of the legal health record. It is not the complete legal health record.[facility]
--- OUTSIDE RECORDS SUMMARY | 2025-03-05 15:52 | XMS_ITS | Encounter Summary ---
Author Organization Formerly [facility] Address [address] [facility] [address] [place] [address] Phone Care Team Providers Care Senior Communications Specialist Name Role Phone Delon Kaur MD Primary Care Provider Gal Hernandez MD Unavailable Yumi Chaudhary MD Primary Care Provider Yumi Chaudhary MD Unavailable Encounter Details Date Type Department Care Team (Late Contact Info) Description 09/29/2020 Procedure Pass [facility] [address] [place] [address] Social History Tobacco Use Types Packs/Day Years [...] (Late Contact Info) Description 05/11/2024 Procedure Pass [facility] Gabriela Bowman [address] [place] [address] 03/15/2025 4:30 PM EST Telemedicine [facility] Surgical Oncology [address] [place] [address] Cali Juarez MD [address] [place] [address] [email or web address] 05/17/2025 9:15 AM EST Appointment [facility] Gabriela Bowman [address] [place] [address] Cali Juarez MD [address] [place] [address] [email or web address] 05/17/2025 1:00 PM EST Office Visit [facility] Surgical Oncology [address] [place] [address] Cali Juarez MD [address] [place] [address] [email or web address] 05/22/2025 2:40 PM EST Office Visit [facility] [place] Primary Care [address] [place] [address] [address] [place] [address] Yumi Chaudhary MD [address] [place] [address] [address] [place] [address] [email or web address] 09/18/2025 1:00 PM EDT Office Visit [facility] 32 [facility], 5th Floor, [address] [place] [address] Maynor Rojas MD, MPH [address] [facility] [address] [place] [address] [email or web address] Scheduled Procedures Name Priority Associated Diagnoses Date/Ti [...] as of this encounter Care Teams Senior Communications Specialist Relationship Specialty Start Date End Date Delon Kaur MD [address] [place] [address] PCP - General Family Medicine 05/24/17 01/12/22 Yumi Chaudhary MD [address] [place] [address] [email or web address] PCP - General Family Medicine 01/13/22 Gal Hernandez MD [address] [place] [address] 07/23/20 Yumi Chaudhary MD [address] [place] [address] [email or web address] Insurance Assigned Provider 07/09/23 documented as of this encounter Additional Source Comments The information contained in this document represents components of the legal health record. It is not the complete legal health record.[facility]
--- OUTSIDE RECORDS SUMMARY | 2025-03-05 15:52 | XMS_ITS | Encounter Summary ---
Author Organization [facility] Address [address] [facility] [address] [place] [address] Phone Care Team Providers Care Nuclear Plant Equipment Operator Name Role Phone Delon Kaur MD Primary Care Provider Gal Hernandez MD Unavailable Yumi Chaudhary MD Primary Care Provider Yumi Chaudhary MD Unavailable Encounter Details Date Type Department Care Team (Late st Contact Info) Description 10/21/2020 Ophth Exam [facility] [address] Cheyenne Sabillon MD [email or web address] Social History Tobacco Use Types Packs/Day [...] Description 05/11/2024 Procedure Pass [facility] Gabriela Bowman [address] [place] [address] 03/15/2025 4:30 PM EST Telemedicine [facility] Surgical Oncology [address] [address] Cali Juarez MD [address] [place] [address] [email or web address] 05/17/2025 9:15 AM EST Appointment [facility] Gabriela Bowman [address] [place] [address] Cali Juarez MD [address] [place] [address] [email or web address] 05/17/2025 1:00 PM EST Office Visit [facility] Surgical Oncology [address] [address] Cali Juarez MD [address] [place] [address] [email or web address] 05/22/2025 2:40 PM EST Office Visit [facility] [place] Primary [facility] [address] [facility] [address] [place] [address] Yumi Chaudhary MD 15 [facility] [address] [place] [address] 09/18/2025 1:00 PM EDT Office Visit [facility] 32 [facility], 5th Floor, [address] [place] [address] Maynor Rojas MD, MPH 55 [facility] [address] [place] [address] [email or web address] Scheduled Procedures Name Priority Associated Diagnoses Date/Ti ut ENDOSCOPIC RETROGRADE CHOLANGIOPANCREATOGRAPHY Cholangitis documented as of [...] documented as of this encounter Care Teams Nuclear Plant Equipment Operator Relationship Specialty Start Date End Date Delon Kaur MD [address] [place] [address] PCP - General Family Medicine 05/24/17 01/12/22 Yumi Chaudhary MD [address] [place] [address] [email or web address] PCP - General Family Medicine 01/13/22 Gal Hernandez MD [address] [place] [address] 07/23/20 Yumi Chaudhary MD [address] [place] [address] [email or web address] Insurance Assigned Provider 07/09/23 documented as of this encounter Additional Source Comments The information contained in this document represents components of the legal health record. It is not the complete legal health record.[facility]
--- OUTSIDE RECORDS SUMMARY | 2025-03-05 15:52 | XMS_ITS | Encounter Summary ---
Author Organization [facility] Address [address] [place] [address] [place] [address] Phone Care Team Providers Care Manager Employment Name Role Phone Delon Kaur MD Primary Care Provider Gal Hernandez MD Unavailable Yumi Chaudhary MD Primary Care Provider Yumi Chaudhary MD Unavailable Encounter Details Date Type Department Care Team (Late st Contact Info) Description 10/03/2020 Procedure Pass [facility] Angio Interventional Radiology [address] [place] [address] Social History Tobacco Use Types Packs/Day Years [...] [facility]IC CENTER MR Imaging, Gabriela [address] [place] [address] 03/15/2025 4:30 PM EST Telemedicine [facility] Surgical Oncology [address] [address] Cali Juarez MD [address] [place] [address] [email or web address] 05/17/2025 9:15 AM EST Appointment [facility] MR Lai, Gabriela [address] [place] [address] Cali Juarez MD [address] [place] [address] [email or web address] 05/17/2025 1:00 PM EST Office Visit [facility] Surgical Oncology [address] [place] [address] Cali Juarez MD [address] [place] [address] [email or web address] 05/22/2025 2:40 PM EST Office Visit [facility] Primary Care [address] [place] [address] 201 [place] [address] Yumi Chaudhary MD [address] [place] [address] [address] [place] [address] [email or web address] 09/18/2025 1:00 PM EDT Office Visit [facility] 32 [facility], 5th Floor, [address] [place] [address] Maynor Rojas MD, MPH 55 [facility] [address] [place] [address] [email or web address] Scheduled Procedures Name Priority Associated Diagnoses [...] as of this encounter Care Teams Manager Employment Relationship Specialty Start Date End Date Delon Kaur MD [address] [place] [address] PCP - General Family Medicine 05/24/17 01/12/22 Yumi Chaudhary MD [address] [place] [address] [email or web address] PCP - General Family Medicine 01/13/22 Gal Hernandez MD [address] [place] [address] 07/23/20 Yumi Chaudhary MD [address] [place] [address] [email or web address] Insurance Assigned Provider 07/09/23 documented as of this encounter Additional Source Comments The information contained in this document represents components of the legal health record. It is not the complete legal health record.[facility]
--- OUTSIDE RECORDS SUMMARY | 2025-03-05 15:52 | XMS_ITS | Encounter Summary ---
Author Organization [facility] Address [address] [place] [address] [place] [address] Phone Care Team Providers Care Granite Chip Terrazzo Finisher Name Role Phone Delon Kaur MD Primary Care Provider Gal Hernandez MD Unavailable Yumi Chaudhary MD Primary Care Provider Yumi Chaudhary MD Unavailable Encounter Details Date Type Department Care Team (Late st Contact Info) Description 10/15/2020 Procedure Pass [facility] Angio Interventional Radiology [address] [place] [address] Social History Tobacco Use Types Packs/Day Years [...] st Contact Info) Description 05/11/2024 Procedure Pass [facility] MR Imaging, Gabriela [address] [place] [address] 03/15/2025 4:30 PM EST Telemedicine [facility] Surgical Oncology [address] [address] Cali Juarez MD [address] [place] [address] [email or web address] 05/17/2025 9:15 AM EST Appointment [facility] MR Lai, Gabriela [address] [place] [address] Cali Juarez MD [address] [place] [address] [email or web address] 05/17/2025 1:00 PM EST Office Visit [facility] Surgical Oncology [address] [place] [address] Cali Juarez MD [address] [place] [address] [email or web address] 05/22/2025 2:40 PM EST Office Visit [facility] Primary Care [address] [place] [address] 201 [place] [address] Yumi Chaudhary MD [address] [place] [address] [address] [place] [address] [email or web address] 09/18/2025 1:00 PM EDT Office Visit [facility] 32 [facility], 5th Floor, [address] [place] [address] Maynor Rojas MD, MPH 55 [facility] [address] [place] [address] [email or web address] Scheduled Procedures Name Priority Associated Diagnoses [...] documented as of this encounter Care Teams Granite Chip Terrazzo Finisher Relationship Specialty Start Date End Date Delon Kaur MD [address] [place] [address] PCP - General Family Medicine 05/24/17 01/12/22 Yumi Chaudhary MD [address] [place] [address] [email or web address] PCP - General Family Medicine 01/13/22 Gal Hernandez MD [address] [place] [address] 07/23/20 Yumi Chaudhary MD [address] [place] [address] [email or web address] Insurance Assigned Provider 07/09/23 documented as of this encounter Additional Source Comments The information contained in this document represents components of the legal health record. It is not the complete legal health record.[facility]
--- OUTSIDE RECORDS SUMMARY | 2025-03-05 15:52 | XMS_ITS | Encounter Summary ---
Author Organization [facility] Address [address] [facility] [address] [place] [address] Phone Care Team Providers Care Featherer Name Role Phone Delon Kaur MD Primary Care Provider Gal Hernandez MD Unavailable Yumi Chaudhary MD Primary Care Provider [phone] Yumi Chaudhary MD Unavailable Encounter Details Date Type Department Care Team (Late Contact Info) Description 10/15/2020 Procedure Pass [facility] [address] [place] [address] Social History Tobacco Use Types Packs/Day Years [...] (Late Contact Info) Description 05/11/2024 Procedure Pass [facility] Gabriela Bowman [address] [place] [address] 03/15/2025 4:30 PM EST Telemedicine [facility] Surgical Oncology [address] [place] [address] Cali Juarez MD [address] [place] [address] [email or web address] 05/17/2025 9:15 AM EST Appointment [facility] Gabriela Bowman [address] [place] [address] Cali Juarez MD [address] [place] [address] [email or web address] 05/17/2025 1:00 PM EST Office Visit [facility] Surgical Oncology [address] [place] [address] Cali Juarez MD [address] [place] [address] [email or web address] 05/22/2025 2:40 PM EST Office Visit [facility] Primary Care [address] [place] [address] [address] [place] [address] Yumi Chaudhary MD [address] [place] [address] [address] [place] [address] [email or web address] 09/18/2025 1:00 PM EDT Office Visit [facility] [address] [facility], 5th Floor, [address] [place] [address] Maynor Rojas MD, MPH 55 [facility] [address] [place] [address] [email or web address] Scheduled Procedures Name Priority Associated [...] documented as of this encounter Care Teams Featherer Relationship Specialty Start Date End Date Delon Kaur MD [address] [place] [address] PCP - General Family Medicine 05/24/17 01/12/22 Yumi Chaudhary MD [address] [place] [address] [email or web address] PCP - General Family Medicine 01/13/22 Gal Hernandez MD [address] [place] [address] 07/23/20 Yumi Chaudhary MD [address] [place] [address] [email or web address] Insurance Assigned Provider 07/09/23 documented as of this encounter Additional Source Comments The information contained in this document represents components of the legal health record. It is not the complete legal health record.[facility]
--- OUTSIDE RECORDS SUMMARY | 2025-03-05 15:52 | XMS_ITS | Encounter Summary ---
Author Organization [facility] Address [address] [place] [address] Phone Care Team Providers Care Blow Mold Machine Operator Name Role Phone Gal Hernandez MD Unavailable [phone] Yumi Chaudhary MD Primary Care Provider [phone] Yumi Chaudhary MD Unavailable Encounter Details Date Type Department Care Team (Late st Contact Info) Description 01/15/[address] [facility] Radiology [address] [place] [address] Social History Tobacco Use Types Packs/Day Years [...] high school, GED, job training, learning the [place] language, technical skills, or developing parenting skills)? [...] Info) Description 05/11/2024 Procedure Pass [facility] MR Imaging, Gabriela [address] [place] [address] 03/15/2025 4:30 PM EST Telemedicine [facility] Surgical Oncology 45 [facility] ASB2-3 [place] [address] Cali Juarez MD [address] [place] [address] [email or web address] 05/17/2025 9:15 AM EST Appointment [facility] MR Imaging, Gabriela [address] [place] [address] Cali Juarez MD [address] [place] [address] [email or web address] 05/17/2025 1:00 PM EST Office Visit [facility] Surgical Oncology 45 [facility] ASB2-3 [place] [address] Cali Juarez MD 75 [place] [address] [email or web address] 05/22/2025 2:40 PM EST Office Visit [facility] [place] Primary Care [address] [facility] [address] [place] [address] Yumi Chaudhary MD [address] [place] [address] [address] [place] [address] [email or web address] 09/18/2025 1:00 PM EDT Office Visit [facility] 32 [facility], 5th Floor, [address] [place] [address] Maynor Rojas MD, MPH 55 [facility] [address] [place] [address] [email or web address] Scheduled Procedures Name Priority Associated Diagnoses Date/Ti [...] documented as of this encounter Care Teams Blow Mold Machine Operator Relationship Specialty Start Date End Date Yumi Chaudhary MD 15 [facility] [address] [place] [address] [email or web address] PCP - General Family Medicine 01/13/22 Gal Hernandez MD [address] [place] [address] 07/23/20 Yumi Chaudhary MD [address] [place] [address] [email or web address] Insurance Assigned Provider 07/09/23 documented as of this encounter Additional Source Comments The information contained in this document represents components of the legal health record. It is not the complete legal health record.[facility]
--- OUTSIDE RECORDS SUMMARY | 2025-03-05 15:52 | XMS_ITS | Encounter Summary ---
Author Organization [facility] Address [address] [place] [address] [place] [address] Phone Care Team Providers Care Gripper Installer Name Role Phone Delon Kaur MD Primary Care Provider Gal Hernandez MD Unavailable Yumi Chaudhary MD Primary Care Provider [phone] Yumi Chaudhary MD Unavailable Encounter Details Date Type Department Care Team (Late Contact Info) Description 11/09/2018 Procedure Pass [facility] Admitting Dept - [facility] [address] [place] [address] Social History Tobacco Use Types Packs/Day Years [...] (Late Contact Info) Description 05/11/2024 Procedure Pass [facility] MR Imaging, Gabriela [address] [place] [address] 03/15/2025 4:30 PM EST Telemedicine [facility] Surgical Oncology [address] [place] [address] Cali Juarez MD [address] [place] [address] [email or web address] 05/17/2025 9:15 AM EST Appointment [facility] Imaging, Gabriela [address] [place] [address] Cali Juarez MD [address] [place] [address] [email or web address] 05/17/2025 1:00 PM EST Office Visit [facility] Surgical Oncology [address] [place] [address] Cali Juarez MD [address] [place] [address] [email or web address] 05/22/2025 2:40 PM EST Office Visit [facility] Primary Care [address] [place] [address] [address] [place] [address] Yumi Chaudhary MD [address] [place] [address] [address] [place] [address] [email or web address] 09/18/2025 1:00 PM EDT Office Visit [facility] 32 [facility], 5th Floor, [address] [place] [address] Maynor Rojas MD, MPH 55 [facility] [address] [place] [address] [email or web address] Scheduled Procedures Name Priority [...] documented as of this encounter Care Teams Gripper Installer Relationship Specialty Start Date End Date Delon Kaur MD [address] [place] [address] PCP - General Family Medicine 05/24/17 01/12/22 Yumi Chaudhary MD [address] [place] [address] [email or web address] PCP - General Family Medicine 01/13/22 Gal Hernandez MD [address] [place] [address] 07/23/20 Yumi Chaudhary MD [address] [place] [address] [email or web address] Insurance Assigned Provider 07/09/23 documented as of this encounter Additional Source Comments The information contained in this document represents components of the legal health record. It is not the complete legal health record.[facility]
--- OUTSIDE RECORDS SUMMARY | 2025-03-05 15:52 | XMS_ITS | Encounter Summary ---
Author Organization [facility] Address [address] [facility] [address] [place] [address] Phone Care Team Providers Care Supervisor Cutting And Sewing Room Name Role Phone Delon Kaur MD Primary Care Provider Gal Hernandez MD Unavailable Yumi Chaudhary MD Primary Care Provider [phone] Yumi Chaudhary MD Unavailable Encounter Details Date Type Department Care Team (Late Contact Info) Description 10/16/2020 Procedure Pass [facility] [address] [place] [address] Social History Tobacco Use Types Packs/Day Years [...] (Late Contact Info) Description 05/11/2024 Procedure Pass [facility] Gabriela Bowman [address] [place] [address] 03/15/2025 4:30 PM EST Telemedicine [facility] Surgical Oncology [address] [place] [address] Cali Juarez MD [address] [place] [address] [email or web address] 05/17/2025 9:15 AM EST Appointment [facility] Gabriela Bowman [address] [place] [address] Cali Juarez MD [address] [place] [address] [email or web address] 05/17/2025 1:00 PM EST Office Visit [facility] Surgical Oncology [address] [place] [address] Cali Juarez MD [address] [place] [address] [email or web address] 05/22/2025 2:40 PM EST Office Visit [facility] Primary Care [address] [place] [address] [address] [place] [address] Yumi Chaudhary MD [address] [place] [address] [address] [place] [address] [email or web address] 09/18/2025 1:00 PM EDT Office Visit [facility] [address], 5th Floor, [address] [place] [address] Maynor Rojas MD, MPH 55 [facility] [address] [place] [address] [email or web address] Scheduled Procedures Name Priority Associated [...] documented as of this encounter Care Teams Supervisor Cutting And Sewing Room Relationship Specialty Start Date End Date Delon Kaur MD [address] [place] [address] PCP - General Family Medicine 05/24/17 01/12/22 Yumi Chaudhary MD [address] [place] [address] [email or web address] PCP - General Family Medicine 01/13/22 Gal Hernandez MD [address] [place] [address] 07/23/20 Yumi Chaudhary MD [address] [place] [address] [email or web address] Insurance Assigned Provider 07/09/23 documented as of this encounter Additional Source Comments The information contained in this document represents components of the legal health record. It is not the complete legal health record.[facility]
--- OUTSIDE RECORDS SUMMARY | 2025-03-05 15:52 | XMS_ITS | Encounter Summary ---
Author Organization [facility] Address [address] [place] [address] [place] [phone] Phone Care Team Providers Care Training Systems Officer Name Role Phone Delon Kaur MD Primary Care Provider Gal Hernandez MD Unavailable Yumi Chaudhary MD Primary Care Provider Yumi Chaudhary MD Unavailable Encounter Details Date Type Department Care Team (Late st Contact Info) Description 10/03/2020 Procedure Pass [facility] Endoscopy Department [address] [place] [phone] Social History Tobacco Use Types Packs/Day Years [...] st Contact Info) Description 05/11/2024 Procedure Pass [facility] MR Imaging, [address] [place] [address] 03/15/2025 4:30 PM EST Telemedicine [facility] Surgical Oncology [address] [place] [phone] Cali Juarez MD [address] [place] [phone] [email or web address] 05/17/2025 9:15 AM EST Appointment [facility] MR Lai, Gabriela [address] [place] [address] Cali Juarez MD [address] [place] [phone] [email or web address] 05/17/2025 1:00 PM EST Office Visit [facility] Surgical Oncology [address] [place] [phone] Cali Juarez MD [address] [place] [phone] [email or web address] 05/22/2025 2:40 PM EST Office Visit [facility] Primary Care [address] [place] [address] [address] [place] [address] Yumi Chaudhary MD [address] [place] [address] [address]el [address] [place] [address] [email or web address] 09/18/2025 1:00 PM EDT Office Visit [facility] [address] [facility], 5th Floor, [address] [place] [address] Maynor Rojas MD, MPH [address] [facility] [address] [place] [address] [email or web address] Scheduled Procedures Name Priority Associated [...] documented as of this encounter Care Teams Training Systems Officer Relationship Specialty Start Date End Date Delon Kaur MD [address] [place] [phone] PCP - General Family Medicine 05/24/17 01/12/22 Yumi Chaudhary MD [address] [place] [phone] [email or web address] PCP - General Family Medicine 01/13/22 Gal Hernandez MD [address] [place] [phone] 07/23/20 Yumi Chaudhary MD [address] [place] [phone] [email or web address] Insurance Assigned Provider 07/09/23 documented as of this encounter Additional Source Comments The information contained in this document represents components of the legal health record. It is not the complete legal health record.[facility]
== END 2025-03-05 14:43 | disposition home or self-care (01) ==
LOC: HO.HUSH 13:49
PROVIDERS: PCP Family Medicine; Visit Provider Urology
DX: R97.20 Elevated prostate specific antigen [PSA] (principal); N40.1 Benign prostatic hyperplasia with lower urinary tract symptoms
CPT/HCPCS: 52000; 99214

== ENCOUNTER → 2025-03-05 13:48 | Outpatient (BNVA) | payer OTHER, SELFPAY | PROVIDERS: PCP Family Medicine; Visit Provider Urology | DX: N40.0 Benign prostatic hyperplasia without lower urinary tract symptoms (principal); R97.20 Elevated prostate specific antigen [PSA] | CPT/HCPCS: 52000; 81003 ==